=== PATIENT | female | born 1935 | race Caucasian/White ===

== ENCOUNTER → 2016-10-08 | Outpatient (CLI) | payer MEDICARE, MEDICAID ==
[2016-10-08] VITALS (8 sets, daily range): BP systolic 132–156; BP diastolic 53–77
[~2016-10-08] MED LIST: ALL100T PO; ASPI-231; BUME2TAB3 PO; CHOLESTYRAMINE 4 GM POWDER GT ONE; CHOLESTYRAMINE 4 GM POWDER ONE; CYANOCOBALAMIN (B-12) 1000 MCG/1 ML VIAL IM ONE; CYANOCOBALAMIN (B-12) 1000 MCG/1 ML VIAL ONE; FER325T PO; FUROSEMIDE 100 MG/10ML VIAL IV ONE; FUROSEMIDE INJECTION 10 ML ONE; INSLANTI; INSUINJ47 SC; LOS50T PO; MEC25T PO; PAR20T PO; POTA8TAB2; SIMV-13 PO; SODIUM CHLORIDE 0.9% 100 ML IV ONE; SULF500T8 PO; TADA20TA33 PO; TRAM50TA2 PO
[2016-10-08 16:35] LABS: Hematocrit 36.6 % (36.0-46.0); Hemoglobin 11.6 g/dL (12.2-16.2); Mean Corpuscular Hemoglobin 28.2 pg (28.0-32.0); Mean Corpuscular Hgb Conc. 31.9 g/dL (32.0-36.0); Mean Corpuscular Volume 88.7 fL (80.0-100.0); Mean Platelet Volume 10.2 fL (7.4-10.4); Platelet Count (auto) 215 10^3/uL (140-450); Red Cell Distribution Width 16.4 % (11.6-16.0); SUSPECT VIEW TRANSMISSION; White Blood Cell 5.3 10^3/uL (4.4-10.8)
[2016-10-08 16:51] LABS: BUN/Creatinine Ratio 21.3; Calcium 8.9 mg/dL (8.5-10.1); Potassium 4.3 mmol/L (3.5-5.1)
[2016-10-08 16:54] LABS: Metamyelocytes % 0; Myelocytes % 0; Promyelocytes % 0; Reactive Lymphocytes 0
[2016-10-08 17:11] LABS: Large Platelets FEW; Platelet Estimate Adequa
== END | disposition home or self-care (01) ==
LOC: CHF HDHVI 12:31
PROVIDERS: ATTEND Internal Medicine Cardiovascular Disease
DX: I10 Essential (primary) hypertension (principal); D64.9 Anemia, unspecified; E83.40 Disorders of magnesium metabolism, unspecified
CPT/HCPCS: 36415; 80048; 83735; 85007; 85027; 96365; 96366; 96372; G0463; J1642

== ENCOUNTER → 2016-10-10 | Outpatient (CLI) | payer MEDICARE, MEDICAID ==
[2016-10-10] VITALS (7 sets, daily range): BP systolic 111–146; BP diastolic 56–75
[~2016-10-10] VITALS: Ht 30.5 cm; Wt 130.6 kg
[~2016-10-10] MED LIST changes: -CHOLESTYRAMINE 4 GM POWDER GT ONE; -CHOLESTYRAMINE 4 GM POWDER ONE; -CYANOCOBALAMIN (B-12) 1000 MCG/1 ML VIAL IM ONE; -CYANOCOBALAMIN (B-12) 1000 MCG/1 ML VIAL ONE; -FUROSEMIDE 100 MG/10ML VIAL IV ONE; +FUROSEMIDE INJECTION 100 MG in SODIUM CHL 0.9% 100 ML IV SCH; -SODIUM CHLORIDE 0.9% 100 ML IV ONE
== END ==
LOC: CHF HDHVI 10:43
PROVIDERS: ATTEND Internal Medicine Cardiovascular Disease
DX: I10 Essential (primary) hypertension (principal); I73.9 Peripheral vascular disease, unspecified; E78.00 Pure hypercholesterolemia, unspecified; I50.9 Heart failure, unspecified; D64.9 Anemia, unspecified
CPT/HCPCS: 96365; 96366; G0463; J1642; J1940

== ENCOUNTER → 2016-10-15 | Outpatient (CLI) | payer MEDICARE, MEDICAID ==
[~2016-10-15] MED LIST changes: +CHOLESTYRAMINE 4 GM POWDER GT ONE; +CHOLESTYRAMINE 4 GM POWDER ONE; +FUROSEMIDE 100 MG/10ML VIAL IV ONE; -FUROSEMIDE INJECTION 100 MG in SODIUM CHL 0.9% 100 ML IV SCH; +SODIUM CHLORIDE 0.9% 1,000 ML IV SCH
[2016-10-15 13:30] VITALS: BP 142/58
[2016-10-15 14:00] VITALS: BP 121/61
[2016-10-15 14:30] VITALS: BP 114/70
[2016-10-15 15:00] VITALS: BP 143/70
[2016-10-15 15:30] VITALS: BP 145/59
[2016-10-15 16:40] VITALS: BP 140/60
[2016-10-15 16:50] LABS: Basophils # (auto) 0 uL; Basophils % (auto) 0.7 % (0.0-2.0); Eosinophils # (auto) 0.2 uL; Eosinophils % (auto) 3.8 % (0.0-7.0); Hematocrit 37.1 % (36.0-46.0); Hemoglobin 11.6 g/dL (12.2-16.2); Lymphocytes # (auto) 2.1 uL; Mean Corpuscular Hemoglobin 27.7 pg (28.0-32.0); Mean Corpuscular Hgb Conc. 31.3 g/dL (32.0-36.0); Mean Corpuscular Volume 88.4 fL (80.0-100.0); Mean Platelet Volume 10.8 fL (7.4-10.4); Monocytes # (auto) 0.5 uL; Monocytes % (auto) 8.7 % (0.0-12.0); Neutrophils # (auto) 2.4 uL; Neutrophils % (auto) 45.8 % (37.0-80.0); Platelet Count (auto) 233 10^3/uL (140-450); Red Cell Distribution Width 16.7 % (11.6-16.0); SUSPECT VIEW TRANSMISSION; White Blood Cell 5.2 10^3/uL (4.4-10.8)
[2016-10-15 16:56] LABS: BUN/Creatinine Ratio 25.7; Calcium 9.6 mg/dL (8.5-10.1); Magnesium 2.2 mg/dL (1.6-2.6); Potassium 4.3 mmol/L (3.5-5.1)
[2016-10-15 18:21] LABS: Anisocytosis Slight; Platelet Estimate Adequate
== END | disposition home or self-care (01) ==
LOC: CHF HDHVI 12:23
PROVIDERS: ATTEND Internal Medicine Cardiovascular Disease
DX: I10 Essential (primary) hypertension (principal); E83.40 Disorders of magnesium metabolism, unspecified; D64.9 Anemia, unspecified
CPT/HCPCS: 36415; 80048; 83735; 85025; 96365; 96366; 96372; G0463; J1642

== ENCOUNTER → 2016-10-21 | Outpatient (CLI) | payer MEDICARE, MEDICAID ==
[2016-10-21] VITALS (9 sets, daily range): BP systolic 120–163; BP diastolic 52–73
[~2016-10-21] MED LIST changes: +CYANOCOBALAMIN (B-12) 1000 MCG/1 ML VIAL IM ONE; +CYANOCOBALAMIN (B-12) 1000 MCG/1 ML VIAL ONE; -FUROSEMIDE 100 MG/10ML VIAL IV ONE; +FUROSEMIDE INJECTION 100 MG in SODIUM CHL 0.9% 100 ML IV SCH; -SODIUM CHLORIDE 0.9% 1,000 ML IV SCH
[2016-10-21 16:47] LABS: Basophils # (auto) 0 uL; Basophils % (auto) 0.5 % (0.0-2.0); Eosinophils # (auto) 0.2 uL; Eosinophils % (auto) 3.3 % (0.0-7.0); Hematocrit 39.6 % (36.0-46.0); Hemoglobin 12.4 g/dL (12.2-16.2); Lymphocytes # (auto) 3.1 uL; Lymphocytes % (auto) 43.1 % (10.0-50.0); Mean Corpuscular Hgb Conc. 31.4 g/dL (32.0-36.0); Mean Corpuscular Volume 89.1 fL (80.0-100.0); Mean Platelet Volume 10.4 fL (7.4-10.4); Monocytes # (auto) 0.7 uL; Monocytes % (auto) 9.3 % (0.0-12.0); Neutrophils # (auto) 3.1 uL; Neutrophils % (auto) 43.8 % (37.0-80.0); Platelet Count (auto) 254 10^3/uL (140-450); Red Cell Distribution Width 15.9 % (11.6-16.0); White Blood Cell 7.1 10^3/uL (4.4-10.8)
[2016-10-21 17:10] LABS: BUN/Creatinine Ratio 22.1; Calcium 9.1 mg/dL (8.5-10.1); Magnesium 2.3 mg/dL (1.6-2.6); Potassium 4.4 mmol/L (3.5-5.1)
== END | disposition home or self-care (01) ==
LOC: CHF HDHVI 12:12
PROVIDERS: ATTEND Internal Medicine Cardiovascular Disease
DX: I10 Essential (primary) hypertension (principal); D64.9 Anemia, unspecified; E83.40 Disorders of magnesium metabolism, unspecified
CPT/HCPCS: 36415; 80048; 83735; 85025; 85049; 96365; 96366; 96372; G0463; J1642

== ENCOUNTER → 2016-10-24 | Outpatient (CLI) | payer MEDICARE, MEDICAID ==
[2016-10-24] VITALS (8 sets, daily range): BP systolic 126–166; BP diastolic 61–78
[~2016-10-24] MED LIST changes: -CYANOCOBALAMIN (B-12) 1000 MCG/1 ML VIAL IM ONE; -CYANOCOBALAMIN (B-12) 1000 MCG/1 ML VIAL ONE; +FUROSEMIDE 100 MG/10ML VIAL IV ONE; -FUROSEMIDE INJECTION 100 MG in SODIUM CHL 0.9% 100 ML IV SCH; +SODIUM CHLORIDE 0.9% 100 ML IV SCH
== END | disposition home or self-care (01) ==
LOC: CHF HDHVI 10:29
PROVIDERS: ATTEND Internal Medicine Cardiovascular Disease
DX: I10 Essential (primary) hypertension (principal); I73.9 Peripheral vascular disease, unspecified; I50.9 Heart failure, unspecified
CPT/HCPCS: 96365; 96366; G0463; J1642; J1940

== ENCOUNTER → 2016-10-28 | Outpatient (CLI) | payer MEDICARE, MEDICAID ==
[2016-10-28] VITALS (7 sets, daily range): BP systolic 112–142; BP diastolic 52–60
[~2016-10-28] MED LIST changes: -CHOLESTYRAMINE 4 GM POWDER GT ONE; -CHOLESTYRAMINE 4 GM POWDER ONE; +CYANOCOBALAMIN (B-12) 1000 MCG/1 ML VIAL IM ONE; +CYANOCOBALAMIN (B-12) 1000 MCG/1 ML VIAL ONE; +SODIUM CHLORIDE 0.9% 1,000 ML IV SCH; -SODIUM CHLORIDE 0.9% 100 ML IV SCH
[2016-10-28 17:14] LABS: Basophils # (auto) 0 uL; Basophils % (auto) 0.5 % (0.0-2.0); Eosinophils # (auto) 0.3 uL; Eosinophils % (auto) 4.1 % (0.0-7.0); Hematocrit 36.1 % (36.0-46.0); Hemoglobin 11.4 g/dL (12.2-16.2); Lymphocytes # (auto) 2.1 uL; Mean Corpuscular Hemoglobin 28.2 pg (28.0-32.0); Mean Corpuscular Hgb Conc. 31.6 g/dL (32.0-36.0); Mean Corpuscular Volume 89.2 fL (80.0-100.0); Monocytes # (auto) 0.6 uL; Monocytes % (auto) 9.1 % (0.0-12.0); Neutrophils # (auto) 3.3 uL; Neutrophils % (auto) 52.3 % (37.0-80.0); Platelet Count (auto) 215 10^3/uL (140-450); White Blood Cell 6.2 10^3/uL (4.4-10.8)
[2016-10-28 17:23] LABS: BUN/Creatinine Ratio 17.5; Calcium 8.1 mg/dL (8.5-10.1); Magnesium 2.1 mg/dL (1.6-2.6); Potassium 4.2 mmol/L (3.5-5.1)
== END | disposition home or self-care (01) ==
LOC: CHF HDHVI 12:40
PROVIDERS: ATTEND Internal Medicine Cardiovascular Disease
DX: I10 Essential (primary) hypertension (principal); E83.40 Disorders of magnesium metabolism, unspecified; D64.9 Anemia, unspecified
CPT/HCPCS: 36415; 80048; 83735; 85025; 85049; 96365; 96366; 96372; G0463; J1642

== ENCOUNTER → 2016-10-31 | Outpatient (CLI) | payer MEDICARE, MEDICAID ==
[~2016-10-31] VITALS: Ht 30.5 cm; Wt 0.5 kg
[~2016-10-31] MED LIST changes: -CYANOCOBALAMIN (B-12) 1000 MCG/1 ML VIAL IM ONE; -CYANOCOBALAMIN (B-12) 1000 MCG/1 ML VIAL ONE; -FUROSEMIDE 100 MG/10ML VIAL IV ONE; +FUROSEMIDE INJECTION 100 MG in SODIUM CHL 0.9% 100 ML IV SCH; -SODIUM CHLORIDE 0.9% 1,000 ML IV SCH
[2016-10-31 11:00] VITALS: BP 121/61
[2016-10-31 11:30] VITALS: BP 124/55
[2016-10-31 12:00] VITALS: BP 121/50
[2016-10-31 12:30] VITALS: BP 131/62
[2016-10-31 12:59] LABS: Potassium 4.2 mmol/L (3.5-5.1)
[2016-10-31 13:00] VITALS: BP 118/51
== END | disposition home or self-care (01) ==
LOC: CHF HDHVI 10:15
PROVIDERS: ATTEND Internal Medicine Cardiovascular Disease
DX: I50.9 Heart failure, unspecified (principal); Z79.899 Other long term (current) drug therapy
CPT/HCPCS: 36415; 82565; 84132; 84520; 96365; 96366; 96367; G0463; J1642

== ENCOUNTER → 2016-11-05 | Outpatient (CLI) | payer MEDICARE, MEDICAID ==
[~2016-11-05] MED LIST changes: +FUROSEMIDE 100 MG/10ML VIAL IV ONE; -FUROSEMIDE INJECTION 10 ML ONE; -FUROSEMIDE INJECTION 100 MG in SODIUM CHL 0.9% 100 ML IV SCH; +POTASSIUM CHL 20 Meq TABLET PO ONE
[2016-11-05 13:00] VITALS: BP 152/66
[2016-11-05 13:30] VITALS: BP 138/72
[2016-11-05 14:00] VITALS: BP 128/61
[2016-11-05 14:30] VITALS: BP 129/55
[2016-11-05 15:00] VITALS: BP 134/54
[2016-11-05 15:30] VITALS: BP 101/60
[2016-11-05 16:47] LABS: BUN/Creatinine Ratio 14.2; Magnesium 2.2 mg/dL (1.6-2.6); Potassium 4.4 mmol/L (3.5-5.1)
[2016-11-05 17:14] LABS: Basophils # (auto) 0 uL; Basophils % (auto) 0.8 % (0.0-2.0); Eosinophils # (auto) 0.2 uL; Hematocrit 38.3 % (36.0-46.0); Hemoglobin 11.9 g/dL (12.2-16.2); Lymphocytes # (auto) 2.5 uL; Lymphocytes % (auto) 45.6 % (10.0-50.0); Mean Corpuscular Hemoglobin 27.6 pg (28.0-32.0); Mean Platelet Volume 10.6 fL (7.4-10.4); Monocytes # (auto) 0.5 uL; Monocytes % (auto) 8.6 % (0.0-12.0); Neutrophils # (auto) 2.3 uL; Platelet Count (auto) 281 10^3/uL (140-450); White Blood Cell 5.6 10^3/uL (4.4-10.8)
== END | disposition home or self-care (01) ==
LOC: CHF HDHVI 12:31
PROVIDERS: ATTEND Internal Medicine Cardiovascular Disease
DX: I10 Essential (primary) hypertension (principal); D64.9 Anemia, unspecified; E83.40 Disorders of magnesium metabolism, unspecified
CPT/HCPCS: 36415; 80048; 83735; 85025; 96365; 96366; 96372; G0463

== ENCOUNTER → 2016-11-07 | Outpatient (CLI) | payer MEDICARE, MEDICAID ==
[2016-11-07] VITALS (8 sets, daily range): BP systolic 111–132; BP diastolic 55–87
[~2016-11-07] MED LIST changes: +CHOLESTYRAMINE 4 GM POWDER GT ONE; +CHOLESTYRAMINE 4 GM POWDER ONE; -FUROSEMIDE 100 MG/10ML VIAL IV ONE; +FUROSEMIDE INJECTION 10 ML ONE; +FUROSEMIDE INJECTION 100 MG in SODIUM CHL 0.9% 100 ML IV SCH; -POTASSIUM CHL 20 Meq TABLET PO ONE
== END | disposition home or self-care (01) ==
LOC: CHF HDHVI 10:12
PROVIDERS: ATTEND Internal Medicine Cardiovascular Disease
DX: I11.0 Hypertensive heart disease with heart failure (principal); I50.9 Heart failure, unspecified; I73.9 Peripheral vascular disease, unspecified; D64.9 Anemia, unspecified; E78.00 Pure hypercholesterolemia, unspecified
CPT/HCPCS: 96365; 96366; G0463; J1642; J1940

== ENCOUNTER → 2016-11-11 | Outpatient (CLI) | payer MEDICARE, MEDICAID ==
[2016-11-11] VITALS (9 sets, daily range): BP systolic 106–149; BP diastolic 56–71
[~2016-11-11] MED LIST changes: -CHOLESTYRAMINE 4 GM POWDER GT ONE; +CYANOCOBALAMIN (B-12) 1000 MCG/1 ML VIAL IM ONE; +CYANOCOBALAMIN (B-12) 1000 MCG/1 ML VIAL ONE; -FUROSEMIDE INJECTION 100 MG in SODIUM CHL 0.9% 100 ML IV SCH
[2016-11-11 17:07] LABS: Hematocrit 35.3 % (36.0-46.0); Mean Corpuscular Hemoglobin 27.9 pg (28.0-32.0); Mean Corpuscular Hgb Conc. 31.3 g/dL (32.0-36.0); Mean Corpuscular Volume 89.1 fL (80.0-100.0); Mean Platelet Volume 10.4 fL (7.4-10.4); Platelet Count (auto) 236 10^3/uL (140-450); Red Cell Distribution Width 16.2 % (11.6-16.0); SUSPECT VIEW TRANSMISSION; White Blood Cell 5.4 10^3/uL (4.4-10.8)
[2016-11-11 17:31] LABS: BUN/Creatinine Ratio 20.9; Calcium 8.4 mg/dL (8.5-10.1); Magnesium 2.2 mg/dL (1.6-2.6); Potassium 4.2 mmol/L (3.5-5.1)
[2016-11-11 17:39] LABS: Metamyelocytes % 0; Myelocytes % 0; Promyelocytes % 0; Reactive Lymphocytes 0
[2016-11-11 18:18] LABS: Giant Platelets Few; Platelet Clumps FEW; Platelet Estimate Adequa
== END | disposition home or self-care (01) ==
LOC: CHF HDHVI 12:21
PROVIDERS: ATTEND Internal Medicine Cardiovascular Disease
DX: I10 Essential (primary) hypertension (principal); E11.9 Type 2 diabetes mellitus without complications; E83.40 Disorders of magnesium metabolism, unspecified; D64.9 Anemia, unspecified
CPT/HCPCS: 36415; 80048; 83036; 83735; 85007; 85027; 93701; 96365; 96366; 96372; G0463; J1642

== ENCOUNTER → 2016-11-18 | Outpatient (CLI) | payer MEDICARE, MEDICAID ==
[2016-11-18] VITALS (9 sets, daily range): BP systolic 117–147; BP diastolic 59–77
[~2016-11-18] VITALS: Ht 165.1 cm; Wt 129.4 kg
[~2016-11-18] MED LIST changes: -CHOLESTYRAMINE 4 GM POWDER ONE; +FUROSEMIDE 100 MG/10ML VIAL IV ONE; +SODIUM CHLORIDE 0.9% 1,000 ML IV SCH
[2016-11-18 17:41] LABS: Basophils # (auto) 0 uL; Eosinophils # (auto) 0.2 uL; Mean Corpuscular Hemoglobin 27.5 pg (28.0-32.0); Monocytes # (auto) 0.5 uL; Neutrophils # (auto) 3.2 uL; Red Cell Distribution Width 15.8 % (11.6-16.0); SUSPECT VIEW TRANSMISSION
[2016-11-18 17:49] LABS: Basophils % (auto) 0.6 % (0.0-2.0); Eosinophils % (auto) 2.9 % (0.0-7.0); Hematocrit 36.6 % (36.0-46.0); Hemoglobin 11.3 g/dL (12.2-16.2); Lymphocytes # (auto) 2.1 uL; Lymphocytes % (auto) 34.5 % (10.0-50.0); Mean Corpuscular Hgb Conc. 30.9 g/dL (32.0-36.0); Mean Corpuscular Volume 89.1 fL (80.0-100.0); Mean Platelet Volume 10.7 fL (7.4-10.4); Monocytes % (auto) 8.6 % (0.0-12.0); Neutrophils % (auto) 53.4 % (37.0-80.0); Platelet Count (auto) 219 10^3/uL (140-450); White Blood Cell 5.9 10^3/uL (4.4-10.8)
[2016-11-18 18:58] LABS: BUN/Creatinine Ratio 20.3; Calcium 8.6 mg/dL (8.5-10.1); Magnesium 2.1 mg/dL (1.6-2.6); Potassium 4.1 mmol/L (3.5-5.1)
== END | disposition home or self-care (01) ==
LOC: CHF HDHVI 12:32
PROVIDERS: ATTEND Internal Medicine Cardiovascular Disease
DX: I50.9 Heart failure, unspecified (principal); I25.10 Atherosclerotic heart disease of native coronary artery without angina pectoris; I73.9 Peripheral vascular disease, unspecified; I27.2 Other secondary pulmonary hypertension; D64.9 Anemia, unspecified
CPT/HCPCS: 36415; 80048; 83036; 83735; 85025; 96365; 96366; 96372; G0463; J1642; J1940; J3420

== ENCOUNTER → 2016-11-21 | Outpatient (CLI) | payer MEDICARE, MEDICAID ==
[2016-11-21] VITALS (9 sets, daily range): BP systolic 112–148; BP diastolic 58–67
[~2016-11-21] MED LIST changes: -CYANOCOBALAMIN (B-12) 1000 MCG/1 ML VIAL IM ONE; -FUROSEMIDE 100 MG/10ML VIAL IV ONE; +FUROSEMIDE INJECTION 100 MG in SODIUM CHL 0.9% 100 ML IV SCH; -SODIUM CHLORIDE 0.9% 1,000 ML IV SCH
== END | disposition home or self-care (01) ==
LOC: CHF HDHVI 10:12
PROVIDERS: ATTEND Internal Medicine Cardiovascular Disease
DX: I11.0 Hypertensive heart disease with heart failure (principal); I50.9 Heart failure, unspecified; I27.0 Primary pulmonary hypertension; E78.00 Pure hypercholesterolemia, unspecified; I73.9 Peripheral vascular disease, unspecified
CPT/HCPCS: 96365; 96366; G0463; J1642; J1940

== ENCOUNTER → 2016-11-28 | Outpatient (CLI) | payer MEDICARE, MEDICAID ==
[2016-11-28] VITALS (9 sets, daily range): BP systolic 112–142; BP diastolic 50–83
[~2016-11-28] MED LIST changes: +CHOLESTYRAMINE 4 GM POWDER ONE; +CHOLESTYRAMINE 4 GM POWDER PO ONE; +CYANOCOBALAMIN (B-12) 1000 MCG/1 ML VIAL IM ONE; +FUROSEMIDE INJECTION 100 MG in SODIUM CHL 0.9% 100 ML IV ONE; -FUROSEMIDE INJECTION 100 MG in SODIUM CHL 0.9% 100 ML IV SCH
[2016-11-28 16:21] LABS: Basophils # (auto) 0 uL; Basophils % (auto) 0.8 % (0.0-2.0); Eosinophils # (auto) 0.2 uL; Hematocrit 36.7 % (36.0-46.0); Hemoglobin 11.8 g/dL (12.2-16.2); Lymphocytes # (auto) 1.8 uL; Lymphocytes % (auto) 38.1 % (10.0-50.0); Mean Corpuscular Hemoglobin 28.5 pg (28.0-32.0); Mean Corpuscular Hgb Conc. 32.3 g/dL (32.0-36.0); Mean Corpuscular Volume 88.2 fL (80.0-100.0); Mean Platelet Volume 10.7 fL (7.4-10.4); Monocytes # (auto) 0.4 uL; Monocytes % (auto) 8.7 % (0.0-12.0); Neutrophils # (auto) 2.3 uL; Neutrophils % (auto) 48.4 % (37.0-80.0); Platelet Count (auto) 236 10^3/uL (140-450); Red Cell Distribution Width 15.8 % (11.6-16.0); SUSPECT VIEW TRANSMISSION; White Blood Cell 4.9 10^3/uL (4.4-10.8)
[2016-11-28 16:34] LABS: Calcium 8.5 mg/dL (8.5-10.1); Magnesium 2.1 mg/dL (1.6-2.6); Potassium 4.2 mmol/L (3.5-5.1)
[2016-11-28 16:36] LABS: BUN/Creatinine Ratio 18.3
== END | disposition home or self-care (01) ==
LOC: CHF HDHVI 10:40
PROVIDERS: ATTEND Internal Medicine Cardiovascular Disease
DX: I10 Essential (primary) hypertension (principal); E83.40 Disorders of magnesium metabolism, unspecified; D64.9 Anemia, unspecified
CPT/HCPCS: 36415; 80048; 83735; 85025; 96365; 96366; 96372; G0463; J1642

== ENCOUNTER → 2016-12-02 | Outpatient (CLI) | payer MEDICARE, MEDICAID ==
[~2016-12-02] VITALS: Ht 33 cm; Wt 130.4 kg
[2016-12-02] VITALS (9 sets, daily range): BP systolic 100–125; BP diastolic 59–85
[~2016-12-02] MED LIST changes: +CHOLESTYRAMINE 4 GM POWDER GT ONE; -CHOLESTYRAMINE 4 GM POWDER PO ONE; +FUROSEMIDE 100 MG/10ML VIAL IV ONE; -FUROSEMIDE INJECTION 100 MG in SODIUM CHL 0.9% 100 ML IV ONE; +KETOROLAC TROMETH 60MG/2ML VIAL IM ONE
[2016-12-02] MEDS: SODIUM CHLORIDE 0.9% 100 ML IV SCH ×2 (12:55→14:14)
[2016-12-02 16:24] LABS: Basophils # (auto) 0 uL; Basophils % (auto) 0.7 % (0.0-2.0); Eosinophils # (auto) 0.2 uL; Hematocrit 36.5 % (36.0-46.0); Lymphocytes # (auto) 2.6 uL; Lymphocytes % (auto) 41.5 % (10.0-50.0); Mean Corpuscular Hemoglobin 28.6 pg (28.0-32.0); Mean Corpuscular Hgb Conc. 32.9 g/dL (32.0-36.0); Mean Corpuscular Volume 86.8 fL (80.0-100.0); Mean Platelet Volume 10.6 fL (7.4-10.4); Monocytes # (auto) 0.4 uL; Monocytes % (auto) 7.2 % (0.0-12.0); Neutrophils # (auto) 2.9 uL; Neutrophils % (auto) 47.6 % (37.0-80.0); Platelet Count (auto) 256 10^3/uL (140-450); Red Cell Distribution Width 15.7 % (11.6-16.0); White Blood Cell 6.1 10^3/uL (4.4-10.8)
[2016-12-02 16:48] LABS: Potassium 4.5 mmol/L (3.5-5.1)
== END | disposition home or self-care (01) ==
LOC: CHF HDHVI 12:33
PROVIDERS: ATTEND Internal Medicine Cardiovascular Disease
DX: I50.9 Heart failure, unspecified (principal); Z79.899 Other long term (current) drug therapy; D64.9 Anemia, unspecified
CPT/HCPCS: 36415; 82565; 84132; 84520; 85025; 96365; 96366; 96372; G0463; J1642; J1885

== ENCOUNTER → 2016-12-05 | Outpatient (CLI) | payer MEDICARE, MEDICAID ==
[~2016-12-05] VITALS: Ht 165.1 cm; Wt 131.1 kg
[2016-12-05] VITALS (7 sets, daily range): BP systolic 127–149; BP diastolic 55–75
[~2016-12-05] MED LIST changes: -CHOLESTYRAMINE 4 GM POWDER GT ONE; +CHOLESTYRAMINE 4 GM POWDER PO ONE; -CYANOCOBALAMIN (B-12) 1000 MCG/1 ML VIAL IM ONE; -CYANOCOBALAMIN (B-12) 1000 MCG/1 ML VIAL ONE; -FUROSEMIDE 100 MG/10ML VIAL IV ONE; +FUROSEMIDE INJECTION 100 MG in SODIUM CHL 0.9% 100 ML IV SCH; -KETOROLAC TROMETH 60MG/2ML VIAL IM ONE
== END | disposition home or self-care (01) ==
LOC: CHF HDHVI 09:57
PROVIDERS: ATTEND Internal Medicine Cardiovascular Disease
DX: I11.0 Hypertensive heart disease with heart failure (principal); I50.9 Heart failure, unspecified; I25.10 Atherosclerotic heart disease of native coronary artery without angina pectoris; E78.00 Pure hypercholesterolemia, unspecified
CPT/HCPCS: 96365; 96366; G0463; J1642; J1940

== ENCOUNTER → 2016-12-09 | Outpatient (CLI) | payer MEDICARE, MEDICAID ==
[~2016-12-09] MED LIST changes: +CHOLESTYRAMINE 4 GM POWDER GT ONE; -CHOLESTYRAMINE 4 GM POWDER PO ONE; +CYANOCOBALAMIN (B-12) 1000 MCG/1 ML VIAL IM ONE; +CYANOCOBALAMIN (B-12) 1000 MCG/1 ML VIAL ONE; +FUROSEMIDE 100 MG/10ML VIAL IV ONE; -FUROSEMIDE INJECTION 100 MG in SODIUM CHL 0.9% 100 ML IV SCH; +KETOROLAC TROMETH 60MG/2ML VIAL IM ONE
[2016-12-09 13:30] VITALS: BP 118/80
[2016-12-09 14:00] VITALS: BP 120/56
[2016-12-09 14:30] VITALS: BP 122/71
[2016-12-09 15:00] VITALS: BP 126/63
[2016-12-09 15:30] VITALS: BP 129/71
[2016-12-09 16:00] VITALS: BP 119/62
[2016-12-09 16:17] LABS: Basophils # (auto) 0 uL; Basophils % (auto) 0.7 % (0.0-2.0); Eosinophils # (auto) 0.2 uL; Hematocrit 34.8 % (36.0-46.0); Hemoglobin 11.6 g/dL (12.2-16.2); Lymphocytes # (auto) 2.1 uL; Lymphocytes % (auto) 41.5 % (10.0-50.0); Mean Corpuscular Hemoglobin 29.2 pg (28.0-32.0); Mean Corpuscular Hgb Conc. 33.3 g/dL (32.0-36.0); Mean Corpuscular Volume 87.7 fL (80.0-100.0); Mean Platelet Volume 9.8 fL (7.4-10.4); Monocytes # (auto) 0.5 uL; Monocytes % (auto) 9.3 % (0.0-12.0); Neutrophils # (auto) 2.3 uL; Neutrophils % (auto) 45.5 % (37.0-80.0); Platelet Count (auto) 223 10^3/uL (140-450); Red Cell Distribution Width 15.6 % (11.6-16.0); SUSPECT VIEW TRANSMISSION
[2016-12-09 16:30] LABS: BUN/Creatinine Ratio 24.3; Calcium 8.8 mg/dL (8.5-10.1); Magnesium 2.1 mg/dL (1.6-2.6); Potassium 3.9 mmol/L (3.5-5.1)
== END | disposition home or self-care (01) ==
LOC: CHF HDHVI 12:32
PROVIDERS: ATTEND Internal Medicine Cardiovascular Disease
DX: I10 Essential (primary) hypertension (principal); E83.40 Disorders of magnesium metabolism, unspecified; D64.9 Anemia, unspecified; E55.9 Vitamin D deficiency, unspecified
CPT/HCPCS: 36415; 80048; 82306; 83735; 85025; 96365; 96366; 96372; G0463; J1642; J1885

== ENCOUNTER → 2016-12-12 | Outpatient (CLI) | payer MEDICARE, MEDICAID ==
[~2016-12-12] MED LIST changes: -CHOLESTYRAMINE 4 GM POWDER GT ONE; +CHOLESTYRAMINE 4 GM POWDER PO ONE; -CYANOCOBALAMIN (B-12) 1000 MCG/1 ML VIAL IM ONE; -CYANOCOBALAMIN (B-12) 1000 MCG/1 ML VIAL ONE; -KETOROLAC TROMETH 60MG/2ML VIAL IM ONE
[2016-12-12 11:30] VITALS: BP 111/70
[2016-12-12 12:00] VITALS: BP 103/58
[2016-12-12 12:30] VITALS: BP 95/54
[2016-12-12 13:00] VITALS: BP 111/65
[2016-12-12 13:59] VITALS: BP 109/62
== END | disposition home or self-care (01) ==
LOC: CHF HDHVI 10:39
PROVIDERS: ATTEND Internal Medicine Cardiovascular Disease
DX: I11.0 Hypertensive heart disease with heart failure (principal); I50.9 Heart failure, unspecified; I25.10 Atherosclerotic heart disease of native coronary artery without angina pectoris; D64.9 Anemia, unspecified; E78.00 Pure hypercholesterolemia, unspecified
CPT/HCPCS: 82962; 96365; 96366; G0463; J1642; J1940

== ENCOUNTER → 2016-12-16 | Outpatient (CLI) | payer MEDICARE, MEDICAID ==
[~2016-12-16] VITALS: Ht 1 cm; Wt 0.8 kg
[~2016-12-16] MED LIST changes: +CHOLESTYRAMINE 4 GM POWDER GT ONE; -CHOLESTYRAMINE 4 GM POWDER PO ONE; +CYANOCOBALAMIN (B-12) 1000 MCG/1 ML VIAL IM ONE; +CYANOCOBALAMIN (B-12) 1000 MCG/1 ML VIAL ONE; +DOBUTamine 1000MCG/ML 0 ML IV ONE; +SODIUM CHLORIDE 0.9% 100 ML IV SCH
[2016-12-16 13:30] VITALS: BP 113/64
[2016-12-16 14:00] VITALS: BP 115/70
[2016-12-16 15:00] VITALS: BP 101/55
[2016-12-16 15:30] VITALS: BP 120/63
[2016-12-16 16:53] LABS: Hemoglobin 11.2 g/dL (12.2-16.2); Mean Corpuscular Hemoglobin 28.1 pg (28.0-32.0); Mean Corpuscular Hgb Conc. 32.1 g/dL (32.0-36.0); Mean Corpuscular Volume 87.4 fL (80.0-100.0); Mean Platelet Volume 10.6 fL (7.4-10.4); Platelet Count (auto) 228 10^3/uL (140-450); Red Cell Distribution Width 16.1 % (11.6-16.0); SUSPECT VIEW TRANSMISSION; White Blood Cell 5.5 10^3/uL (4.4-10.8)
[2016-12-16 17:04] LABS: BUN/Creatinine Ratio 25.6; Calcium 8.5 mg/dL (8.5-10.1); Potassium 4.3 mmol/L (3.5-5.1)
[2016-12-16 17:20] LABS: Metamyelocytes % 0; Myelocytes % 0; Promyelocytes % 0; Reactive Lymphocytes 0
[2016-12-16 19:19] LABS: Platelet Estimate Adequate
== END | disposition home or self-care (01) ==
LOC: CHF HDHVI 12:30
PROVIDERS: ATTEND Internal Medicine Cardiovascular Disease
DX: I10 Essential (primary) hypertension (principal); D64.9 Anemia, unspecified
CPT/HCPCS: 36415; 80048; 85007; 85027; 96365; 96366; 96372; G0463; J1642

== ENCOUNTER → 2016-12-19 | Outpatient (CLI) | payer MEDICARE, MEDICAID ==
[2016-12-19] VITALS (7 sets, daily range): BP systolic 109–134; BP diastolic 62–77
[~2016-12-19] MED LIST changes: -CHOLESTYRAMINE 4 GM POWDER GT ONE; +CHOLESTYRAMINE 4 GM POWDER PO ONE; -CYANOCOBALAMIN (B-12) 1000 MCG/1 ML VIAL IM ONE; -CYANOCOBALAMIN (B-12) 1000 MCG/1 ML VIAL ONE; -DOBUTamine 1000MCG/ML 0 ML IV ONE; -FUROSEMIDE 100 MG/10ML VIAL IV ONE; +FUROSEMIDE INJECTION 100 MG in SODIUM CHL 0.9% 100 ML IV SCH; -SODIUM CHLORIDE 0.9% 100 ML IV SCH
== END | disposition home or self-care (01) ==
LOC: CHF HDHVI 10:08
PROVIDERS: ATTEND Internal Medicine Cardiovascular Disease
DX: I50.9 Heart failure, unspecified (principal); I11.0 Hypertensive heart disease with heart failure; D64.9 Anemia, unspecified; E78.00 Pure hypercholesterolemia, unspecified
CPT/HCPCS: 82962; 96365; 96366; G0463; J1642; J1940

== ENCOUNTER → 2016-12-26 | Outpatient (CLI) | payer MEDICARE, MEDICAID ==
[2016-12-26] VITALS (9 sets, daily range): BP systolic 100–135; BP diastolic 53–74
[~2016-12-26] MED LIST changes: +CYANOCOBALAMIN (B-12) 1000 MCG/1 ML VIAL IM ONE; +CYANOCOBALAMIN (B-12) 1000 MCG/1 ML VIAL ONE
[2016-12-26 12:25] LABS: Basophils # (auto) 0 uL; Basophils % (auto) 0.6 % (0.0-2.0); Eosinophils # (auto) 0.2 uL; Eosinophils % (auto) 3.6 % (0.0-7.0); Hematocrit 36.6 % (36.0-46.0); Hemoglobin 11.8 g/dL (12.2-16.2); Lymphocytes # (auto) 2.2 uL; Lymphocytes % (auto) 39.8 % (10.0-50.0); Mean Corpuscular Hemoglobin 28.3 pg (28.0-32.0); Mean Corpuscular Hgb Conc. 32.3 g/dL (32.0-36.0); Mean Corpuscular Volume 87.6 fL (80.0-100.0); Mean Platelet Volume 10.2 fL (7.4-10.4); Monocytes # (auto) 0.5 uL; Monocytes % (auto) 8.6 % (0.0-12.0); Neutrophils # (auto) 2.7 uL; Neutrophils % (auto) 47.4 % (37.0-80.0); Platelet Count (auto) 245 10^3/uL (140-450); Red Cell Distribution Width 15.7 % (11.6-16.0); White Blood Cell 5.6 10^3/uL (4.4-10.8)
[2016-12-26 12:38] LABS: BUN/Creatinine Ratio 22.2; Calcium 8.8 mg/dL (8.5-10.1); Magnesium 2.3 mg/dL (1.6-2.6); Potassium 4.4 mmol/L (3.5-5.1)
== END | disposition home or self-care (01) ==
LOC: CHF HDHVI 10:36
PROVIDERS: ATTEND Internal Medicine Cardiovascular Disease
DX: I11.0 Hypertensive heart disease with heart failure (principal); I50.9 Heart failure, unspecified; I25.10 Atherosclerotic heart disease of native coronary artery without angina pectoris; D64.9 Anemia, unspecified; E55.9 Vitamin D deficiency, unspecified; E78.00 Pure hypercholesterolemia, unspecified
CPT/HCPCS: 36415; 80048; 83735; 85025; 96365; 96366; 96372; G0463; J1642; J1940; J3420

== ENCOUNTER → 2017-01-02 | Outpatient (CLI) | payer MEDICARE, MEDICAID ==
[2017-01-02] VITALS (8 sets, daily range): BP systolic 107–136; BP diastolic 59–76
[~2017-01-02] VITALS: Ht 30.5 cm; Wt 0.0 kg
[~2017-01-02] MED LIST changes: +POTASSIUM CHL 10 Meq TABLET PO ONE
[2017-01-02 12:12] LABS: Basophils # (auto) 0 uL; Basophils % (auto) 0.5 % (0.0-2.0); Eosinophils # (auto) 0.2 uL; Eosinophils % (auto) 3.9 % (0.0-7.0); Hematocrit 36.3 % (36.0-46.0); Hemoglobin 11.7 g/dL (12.2-16.2); Lymphocytes # (auto) 2.3 uL; Lymphocytes % (auto) 38.2 % (10.0-50.0); Mean Corpuscular Hemoglobin 28.1 pg (28.0-32.0); Mean Corpuscular Hgb Conc. 32.2 g/dL (32.0-36.0); Mean Corpuscular Volume 87.1 fL (80.0-100.0); Mean Platelet Volume 10.2 fL (7.4-10.4); Monocytes # (auto) 0.5 uL; Monocytes % (auto) 9.1 % (0.0-12.0); Neutrophils # (auto) 2.9 uL; Neutrophils % (auto) 48.3 % (37.0-80.0); Platelet Count (auto) 240 10^3/uL (140-450); Red Cell Distribution Width 15.8 % (11.6-16.0); SUSPECT VIEW TRANSMISSION
== END | disposition home or self-care (01) ==
LOC: CHF HDHVI 10:15
PROVIDERS: ATTEND Internal Medicine Cardiovascular Disease
DX: I10 Essential (primary) hypertension (principal); R94.4 Abnormal results of kidney function studies; D64.9 Anemia, unspecified; E55.9 Vitamin D deficiency, unspecified
CPT/HCPCS: 36415; 82306; 82565; 84132; 84520; 85025; 96365; 96366; 96372; G0463; J1642

== ENCOUNTER → 2017-01-06 | Outpatient (CLI) | payer MEDICARE, MEDICAID ==
[~2017-01-06] MED LIST changes: +CHOLESTYRAMINE 4 GM POWDER GT ONE; -CHOLESTYRAMINE 4 GM POWDER PO ONE; +FUROSEMIDE 100 MG/10ML VIAL IV ONE; -FUROSEMIDE INJECTION 100 MG in SODIUM CHL 0.9% 100 ML IV SCH; -POTASSIUM CHL 10 Meq TABLET PO ONE; +POTASSIUM CHL 20 Meq TABLET PO ONE; +SODIUM CHLORIDE 0.9% 1,000 ML IV ONE
[2017-01-06 13:00] VITALS: BP 106/61
[2017-01-06 13:30] VITALS: BP 119/72
[2017-01-06 14:00] VITALS: BP 146/69
[2017-01-06 14:30] VITALS: BP 121/56
[2017-01-06 15:00] VITALS: BP 147/69
[2017-01-06 16:00] VITALS: BP 122/68
[2017-01-06 16:35] LABS: Basophils # (auto) 0 uL; Basophils % (auto) 0.5 % (0.0-2.0); Eosinophils # (auto) 0.2 uL; Eosinophils % (auto) 2.9 % (0.0-7.0); Hematocrit 36.9 % (36.0-46.0); Hemoglobin 11.9 g/dL (12.2-16.2); Mean Corpuscular Hemoglobin 28.2 pg (28.0-32.0); Mean Corpuscular Hgb Conc. 32.3 g/dL (32.0-36.0); Mean Corpuscular Volume 87.3 fL (80.0-100.0); Mean Platelet Volume 10.7 fL (7.4-10.4); Monocytes # (auto) 0.5 uL; Monocytes % (auto) 8.7 % (0.0-12.0); Neutrophils # (auto) 3.5 uL; Neutrophils % (auto) 55.9 % (37.0-80.0); Platelet Count (auto) 239 10^3/uL (140-450); Red Cell Distribution Width 15.7 % (11.6-16.0); SUSPECT VIEW TRANSMISSION; White Blood Cell 6.3 10^3/uL (4.4-10.8)
[2017-01-06 16:53] LABS: BUN/Creatinine Ratio 14.4; Calcium 8.6 mg/dL (8.5-10.1); Magnesium 2.2 mg/dL (1.6-2.6); Potassium 4.2 mmol/L (3.5-5.1)
== END | disposition home or self-care (01) ==
LOC: CHF HDHVI 12:23
PROVIDERS: ATTEND Internal Medicine Cardiovascular Disease
DX: I10 Essential (primary) hypertension (principal); E83.42 Hypomagnesemia; D64.9 Anemia, unspecified
CPT/HCPCS: 36415; 80048; 83735; 85025; 96365; 96366; 96372; G0463; J1642

== ENCOUNTER → 2017-01-09 | Outpatient (CLI) | payer MEDICARE, MEDICAID ==
[~2017-01-09] MED LIST changes: -CHOLESTYRAMINE 4 GM POWDER GT ONE; -CYANOCOBALAMIN (B-12) 1000 MCG/1 ML VIAL IM ONE; -CYANOCOBALAMIN (B-12) 1000 MCG/1 ML VIAL ONE; -FUROSEMIDE 100 MG/10ML VIAL IV ONE; +FUROSEMIDE INJECTION 100 MG in SODIUM CHL 0.9% 100 ML IV SCH; +KETOROLAC TROMETH 60MG/2ML VIAL IM ONE; -POTASSIUM CHL 20 Meq TABLET PO ONE; -SODIUM CHLORIDE 0.9% 1,000 ML IV ONE
[2017-01-09 14:10] VITALS: BP 97/52
== END ==
LOC: CHF HDHVI 10:02
PROVIDERS: ATTEND Internal Medicine Cardiovascular Disease
DX: I11.0 Hypertensive heart disease with heart failure (principal); I50.9 Heart failure, unspecified; I25.10 Atherosclerotic heart disease of native coronary artery without angina pectoris; D64.9 Anemia, unspecified; E78.00 Pure hypercholesterolemia, unspecified
CPT/HCPCS: 96365; 96366; 96372; G0463; J1642; J1885; J1940

== ENCOUNTER → 2017-01-13 | Outpatient (CLI) | payer MEDICARE, MEDICAID ==
[2017-01-13] VITALS (7 sets, daily range): BP systolic 104–152; BP diastolic 58–81
[~2017-01-13] MED LIST changes: -CHOLESTYRAMINE 4 GM POWDER ONE; +CYANOCOBALAMIN (B-12) 1000 MCG/1 ML VIAL IM ONE; +CYANOCOBALAMIN (B-12) 1000 MCG/1 ML VIAL ONE; -KETOROLAC TROMETH 60MG/2ML VIAL IM ONE; +POTASSIUM CHL 20 Meq TABLET PO ONE
[2017-01-13 16:35] LABS: Basophils # (auto) 0 uL; Basophils % (auto) 0.6 % (0.0-2.0); Eosinophils # (auto) 0.3 uL; Eosinophils % (auto) 4.3 % (0.0-7.0); Hematocrit 36.9 % (36.0-46.0); Hemoglobin 11.8 g/dL (12.2-16.2); Lymphocytes # (auto) 2.5 uL; Mean Corpuscular Hemoglobin 27.7 pg (28.0-32.0); Mean Corpuscular Volume 86.7 fL (80.0-100.0); Mean Platelet Volume 10.8 fL (7.4-10.4); Monocytes # (auto) 0.6 uL; Neutrophils # (auto) 2.8 uL; Neutrophils % (auto) 45.1 % (37.0-80.0); Platelet Count (auto) 279 10^3/uL (140-450); Red Cell Distribution Width 15.9 % (11.6-16.0); White Blood Cell 6.2 10^3/uL (4.4-10.8)
[2017-01-13 16:43] LABS: Potassium 4.4 mmol/L (3.5-5.1)
== END | disposition home or self-care (01) ==
LOC: CHF HDHVI 12:56
PROVIDERS: ATTEND Internal Medicine Cardiovascular Disease
DX: I10 Essential (primary) hypertension (principal); D64.9 Anemia, unspecified; R94.4 Abnormal results of kidney function studies
CPT/HCPCS: 36415; 82565; 84132; 84520; 85025; J1642

== ENCOUNTER → 2017-01-20 | Outpatient (CLI) | payer MEDICARE, MEDICAID ==
[~2017-01-20] VITALS: Ht 1 cm; Wt 0.5 kg
[~2017-01-20] MED LIST changes: +FUROSEMIDE 100 MG/10ML VIAL IV ONE; -FUROSEMIDE INJECTION 100 MG in SODIUM CHL 0.9% 100 ML IV SCH; +KETOROLAC TROMETH 60MG/2ML VIAL IM ONE; -POTASSIUM CHL 20 Meq TABLET PO ONE; +SODIUM CHLORIDE 0.9% 100 ML IV SCH
[2017-01-20 13:15] VITALS: BP 102/60
[2017-01-20 13:30] VITALS: BP 104/54
[2017-01-20 13:45] VITALS: BP 102/57
[2017-01-20 14:00] VITALS: BP 114/59
[2017-01-20 14:30] VITALS: BP 111/61
[2017-01-20 16:52] LABS: Basophils # (auto) 0.1 uL; Basophils % (auto) 0.8 % (0.0-2.0); Eosinophils # (auto) 0.2 uL; Eosinophils % (auto) 3.5 % (0.0-7.0); Hematocrit 35.8 % (36.0-46.0); Hemoglobin 11.6 g/dL (12.2-16.2); Lymphocytes # (auto) 2.6 uL; Lymphocytes % (auto) 39.1 % (10.0-50.0); Mean Corpuscular Hemoglobin 27.8 pg (28.0-32.0); Mean Corpuscular Hgb Conc. 32.3 g/dL (32.0-36.0); Mean Platelet Volume 10.2 fL (7.4-10.4); Monocytes # (auto) 0.5 uL; Monocytes % (auto) 7.7 % (0.0-12.0); Neutrophils # (auto) 3.3 uL; Neutrophils % (auto) 48.9 % (37.0-80.0); Platelet Count (auto) 279 10^3/uL (140-450); Red Cell Distribution Width 15.8 % (11.6-16.0); White Blood Cell 6.7 10^3/uL (4.4-10.8)
[2017-01-20 17:18] LABS: Albumin 3.5 g/dL (3.4-5.0); BUN/Creatinine Ratio 18.8; Calcium 8.6 mg/dL (8.5-10.1); Magnesium 2.4 mg/dL (1.6-2.6); Potassium 4.5 mmol/L (3.5-5.1); Uric Acid 8.9 mg/dL (2.6-6.0)
== END | disposition home or self-care (01) ==
LOC: CHF HDHVI 12:37
PROVIDERS: ATTEND Internal Medicine Cardiovascular Disease
DX: N18.3 Chronic kidney disease, stage 3 (moderate) (principal); E55.9 Vitamin D deficiency, unspecified; R80.9 Proteinuria, unspecified; M10.9 Gout, unspecified
CPT/HCPCS: 36415; 80048; 80069; 82306; 82570; 83735; 83970; 84156; 84166; 84550; 85025; 96365; 96366; 96372; G0463; J1642; J1885

== ENCOUNTER → 2017-01-27 | Outpatient (CLI) | payer MEDICARE, MEDICAID ==
[~2017-01-27] MED LIST changes: -KETOROLAC TROMETH 60MG/2ML VIAL IM ONE; +POTASSIUM CHL 20 Meq TABLET PO ONE; +SODIUM CHLORIDE 0.9% 1,000 ML IV SCH; -SODIUM CHLORIDE 0.9% 100 ML IV SCH
[2017-01-27 16:06] LABS: Basophils # (auto) 0 uL; Basophils % (auto) 0.5 % (0.0-2.0); Eosinophils # (auto) 0.2 uL; Eosinophils % (auto) 3.5 % (0.0-7.0); Hematocrit 35.8 % (36.0-46.0); Hemoglobin 11.8 g/dL (12.2-16.2); Lymphocytes # (auto) 2.2 uL; Lymphocytes % (auto) 36.9 % (10.0-50.0); Mean Corpuscular Hemoglobin 28.3 pg (28.0-32.0); Mean Corpuscular Hgb Conc. 32.9 g/dL (32.0-36.0); Mean Corpuscular Volume 86.1 fL (80.0-100.0); Mean Platelet Volume 10.1 fL (7.4-10.4); Monocytes # (auto) 0.5 uL; Monocytes % (auto) 8.6 % (0.0-12.0); Neutrophils % (auto) 50.5 % (37.0-80.0); Platelet Count (auto) 234 10^3/uL (140-450); Red Cell Distribution Width 16.5 % (11.6-16.0); White Blood Cell 5.9 10^3/uL (4.4-10.8)
[2017-01-27 16:55] VITALS: BP 121/72
== END | disposition home or self-care (01) ==
LOC: CHF HDHVI 13:13
PROVIDERS: ATTEND Internal Medicine Cardiovascular Disease
DX: I10 Essential (primary) hypertension (principal); R94.4 Abnormal results of kidney function studies; D64.9 Anemia, unspecified
CPT/HCPCS: 36415; 82565; 84132; 84520; 85025; 96365; 96366; 96372; G0463; J1642

== ENCOUNTER → 2017-01-30 | Outpatient (CLI) | payer MEDICARE, MEDICAID ==
[2017-01-30] VITALS (8 sets, daily range): BP systolic 125–141; BP diastolic 53–73
[~2017-01-30] MED LIST changes: -CYANOCOBALAMIN (B-12) 1000 MCG/1 ML VIAL IM ONE; -CYANOCOBALAMIN (B-12) 1000 MCG/1 ML VIAL ONE; -FUROSEMIDE 100 MG/10ML VIAL IV ONE; +FUROSEMIDE INJECTION 100 MG in SODIUM CHL 0.9% 100 ML IV SCH; -SODIUM CHLORIDE 0.9% 1,000 ML IV SCH
== END | disposition home or self-care (01) ==
LOC: CHF HDHVI 10:02
PROVIDERS: ATTEND Internal Medicine Cardiovascular Disease
DX: I11.0 Hypertensive heart disease with heart failure (principal); I50.9 Heart failure, unspecified; I25.10 Atherosclerotic heart disease of native coronary artery without angina pectoris; R80.9 Proteinuria, unspecified; D64.9 Anemia, unspecified; E78.00 Pure hypercholesterolemia, unspecified
CPT/HCPCS: 96365; 96366; G0463; J1642; J1940

== ENCOUNTER → 2017-02-03 | Outpatient (CLI) | payer MEDICARE, MEDICAID ==
[2017-02-03] VITALS (7 sets, daily range): BP systolic 106–133; BP diastolic 53–68
[~2017-02-03] MED LIST changes: +CYANOCOBALAMIN (B-12) 1000 MCG/1 ML VIAL IM ONE; +CYANOCOBALAMIN (B-12) 1000 MCG/1 ML VIAL ONE; +POTASSIUM CHL 10 Meq TABLET PO ONE
[2017-02-03 16:09] LABS: Basophils # (auto) 0 uL; Basophils % (auto) 0.6 % (0.0-2.0); Eosinophils # (auto) 0.2 uL; Eosinophils % (auto) 3.9 % (0.0-7.0); Hematocrit 34.6 % (36.0-46.0); Hemoglobin 11.4 g/dL (12.2-16.2); Lymphocytes # (auto) 2.6 uL; Lymphocytes % (auto) 42.5 % (10.0-50.0); Mean Corpuscular Hemoglobin 27.9 pg (28.0-32.0); Mean Corpuscular Volume 84.5 fL (80.0-100.0); Mean Platelet Volume 10.8 fL (7.4-10.4); Monocytes # (auto) 0.6 uL; Monocytes % (auto) 10.3 % (0.0-12.0); Neutrophils # (auto) 2.7 uL; Neutrophils % (auto) 42.7 % (37.0-80.0); Platelet Count (auto) 256 10^3/uL (140-450); Red Cell Distribution Width 17.4 % (11.6-16.0); SUSPECT VIEW TRANSMISSION; White Blood Cell 6.2 10^3/uL (4.4-10.8)
[2017-02-03 16:35] LABS: BUN/Creatinine Ratio 21.2; Calcium 8.6 mg/dL (8.5-10.1); Magnesium 2.1 mg/dL (1.6-2.6); Potassium 4.1 mmol/L (3.5-5.1)
== END | disposition home or self-care (01) ==
LOC: CHF HDHVI 12:33
PROVIDERS: ATTEND Internal Medicine Cardiovascular Disease
DX: E83.40 Disorders of magnesium metabolism, unspecified (principal); D64.9 Anemia, unspecified; I10 Essential (primary) hypertension
CPT/HCPCS: 36415; 80048; 83735; 85025; 96365; 96366; 96372; G0463; J1642

== ENCOUNTER 2017-02-08 16:34 | Emergency (ER) | payer MEDICARE, MEDICAID ==
[~2017-02-08] VITALS: Ht 162.6 cm; Wt 129.3 kg
[~2017-02-08 16:34] MED LIST changes: -CYANOCOBALAMIN (B-12) 1000 MCG/1 ML VIAL IM ONE; -CYANOCOBALAMIN (B-12) 1000 MCG/1 ML VIAL ONE; -FUROSEMIDE INJECTION 10 ML ONE; -FUROSEMIDE INJECTION 100 MG in SODIUM CHL 0.9% 100 ML IV SCH; -POTASSIUM CHL 10 Meq TABLET PO ONE; -POTASSIUM CHL 20 Meq TABLET PO ONE
[2017-02-08 16:56] VITALS: BP 161/62
[2017-02-08 17:32] LABS: Basophils # (auto) 0 uL; Basophils % (auto) 0.7 % (0.0-2.0); Eosinophils # (auto) 0.2 uL; Eosinophils % (auto) 4.7 % (0.0-7.0); Hematocrit 36.9 % (36.0-46.0); Hemoglobin 11.9 g/dL (12.2-16.2); Lymphocytes # (auto) 1.7 uL; Lymphocytes % (auto) 32.8 % (10.0-50.0); Mean Corpuscular Hemoglobin 27.9 pg (28.0-32.0); Mean Corpuscular Hgb Conc. 32.4 g/dL (32.0-36.0); Mean Corpuscular Volume 86.3 fL (80.0-100.0); Mean Platelet Volume 9.8 fL (7.4-10.4); Monocytes # (auto) 0.5 uL; Neutrophils # (auto) 2.7 uL; Neutrophils % (auto) 51.8 % (37.0-80.0); Platelet Count (auto) 252 10^3/uL (140-450); Red Cell Distribution Width 16.7 % (11.6-16.0); White Blood Cell 5.2 10^3/uL (4.4-10.8)
[2017-02-08 17:52] LABS: Albumin 3.5 g/dL (3.4-5.0); Anion Gap 8 (5-15); Aspartate Aminotransferase 16 U/L (15-37); BUN/Creatinine Ratio 21.3; Blood Urea Nitrogen 32 mg/dL (7-18); Calcium 8.6 mg/dL (8.5-10.1); Carbon Dioxide 26 mmol/L (21-32); Chloride 109 mmol/L (98-107); GFR African American 43 mL/min; GFR Non-African American 36 mL/min; Glucose 213 mg/dL (74-106); Magnesium 2.2 mg/dL (1.6-2.6); Potassium 4.2 mmol/L (3.5-5.1); Sodium 143 mmol/L (136-145)
[2017-02-08 17:57] LABS: Alkaline Phosphatase 66 U/L (45-117); Bilirubin, Total 0.4 mg/dL (0.2-1.0); Total Protein 6.8 g/dL (6.4-8.2)
== END 2017-02-09 05:23 | disposition left against medical advice (07) ==
LOC: ER 16:49
DX: K59.00 Constipation, unspecified (principal); Z53.21 Procedure and treatment not carried out due to patient leaving prior to being seen by health care provider
CPT/HCPCS: 36415; 80053; 83735; 84484; 85025

== ENCOUNTER → 2017-02-13 | Outpatient (CLI) | payer MEDICARE, MEDICAID ==
[~2017-02-13] VITALS: Ht 30.5 cm; Wt 0.5 kg
[~2017-02-13] MED LIST changes: +CHOLESTYRAMINE 4 GM POWDER GT ONE; +CHOLESTYRAMINE 4 GM POWDER ONE; +CYANOCOBALAMIN (B-12) 1000 MCG/1 ML VIAL IM ONE; +CYANOCOBALAMIN (B-12) 1000 MCG/1 ML VIAL ONE; +FUROSEMIDE 100 MG/10ML VIAL IV ONE; +FUROSEMIDE INJECTION 10 ML ONE; +FUROSEMIDE IV SCH; +KETOROLAC TROMETH 60MG/2ML VIAL IM ONE; +POTASSIUM CHL 10 Meq TABLET PO ONE; +POTASSIUM CHL 20 Meq TABLET PO ONE; +SODIUM CHL 0.9% IV SCH
[2017-02-13 11:00] VITALS: BP 106/71
[2017-02-13 11:30] VITALS: BP 122/64
[2017-02-13 12:00] VITALS: BP 123/67
[2017-02-13 12:30] VITALS: BP 124/69
[2017-02-13 13:30] VITALS: BP 125/55
[2017-02-13 14:00] VITALS: BP 96/55
[2017-02-13 16:42] LABS: Potassium 4.2 mmol/L (3.5-5.1)
[2017-02-13 16:56] LABS: Basophils # (auto) 0 uL; Basophils % (auto) 0.4 % (0.0-2.0); Eosinophils # (auto) 0.2 uL; Eosinophils % (auto) 3.7 % (0.0-7.0); Hematocrit 34.8 % (36.0-46.0); Hemoglobin 11.2 g/dL (12.2-16.2); Lymphocytes # (auto) 1.9 uL; Lymphocytes % (auto) 33.4 % (10.0-50.0); Mean Corpuscular Hemoglobin 27.6 pg (28.0-32.0); Mean Corpuscular Hgb Conc. 32.1 g/dL (32.0-36.0); Mean Corpuscular Volume 85.8 fL (80.0-100.0); Monocytes # (auto) 0.5 uL; Monocytes % (auto) 9.2 % (0.0-12.0); Neutrophils % (auto) 53.3 % (37.0-80.0); Platelet Count (auto) 278 10^3/uL (140-450); White Blood Cell 5.6 10^3/uL (4.4-10.8)
== END | disposition home or self-care (01) ==
LOC: CHF HDHVI 10:20
PROVIDERS: ATTEND Internal Medicine Cardiovascular Disease
DX: R94.4 Abnormal results of kidney function studies (principal); D64.9 Anemia, unspecified
CPT/HCPCS: 36415; 82565; 84132; 84520; 85025; 96365; 96366; 96372; G0463; J1642; J1885

== ENCOUNTER → 2017-02-20 | Outpatient (CLI) | payer MEDICARE, MEDICAID ==
[~2017-02-20] VITALS: Ht 30.5 cm; Wt 128.8 kg
[~2017-02-20] MED LIST changes: -CHOLESTYRAMINE 4 GM POWDER GT ONE; -CHOLESTYRAMINE 4 GM POWDER ONE; -FUROSEMIDE 100 MG/10ML VIAL IV ONE; +FUROSEMIDE INJECTION 100 MG in SODIUM CHL 0.9% 100 ML IV SCH; -FUROSEMIDE IV SCH; -KETOROLAC TROMETH 60MG/2ML VIAL IM ONE; -POTASSIUM CHL 20 Meq TABLET PO ONE; -SODIUM CHL 0.9% IV SCH
[2017-02-20 10:35] VITALS: BP 139/69
[2017-02-20 11:00] VITALS: BP 110/72
[2017-02-20] MEDS: POTASSIUM CHL 20 Meq TABLET PO SCH ×3 (11:00→14:24)
[2017-02-20 11:30] VITALS: BP 137/81
[2017-02-20 12:00] VITALS: BP 151/76
[2017-02-20 12:30] VITALS: BP 120/69
[2017-02-20 14:15] VITALS: BP 128/61
[2017-02-20 16:28] LABS: Calcium 8.8 mg/dL (8.5-10.1); Potassium 4.3 mmol/L (3.5-5.1)
[2017-02-20 16:30] LABS: BUN/Creatinine Ratio 23.3
[2017-02-20 16:56] LABS: Basophils # (auto) 0 uL; Basophils % (auto) 0.5 % (0.0-2.0); Eosinophils # (auto) 0.2 uL; Eosinophils % (auto) 3.1 % (0.0-7.0); Hematocrit 36.1 % (36.0-46.0); Hemoglobin 11.9 g/dL (12.2-16.2); Lymphocytes # (auto) 2.3 uL; Lymphocytes % (auto) 33.5 % (10.0-50.0); Mean Corpuscular Hemoglobin 28.3 pg (28.0-32.0); Mean Corpuscular Hgb Conc. 32.9 g/dL (32.0-36.0); Mean Corpuscular Volume 86.1 fL (80.0-100.0); Mean Platelet Volume 10.4 fL (7.4-10.4); Monocytes # (auto) 0.6 uL; Monocytes % (auto) 9.3 % (0.0-12.0); Neutrophils # (auto) 3.6 uL; Neutrophils % (auto) 53.6 % (37.0-80.0); Platelet Count (auto) 264 10^3/uL (140-450); Red Cell Distribution Width 16.7 % (11.6-16.0); White Blood Cell 6.7 10^3/uL (4.4-10.8)
== END | disposition home or self-care (01) ==
LOC: CHF HDHVI 10:36
PROVIDERS: ATTEND Internal Medicine Cardiovascular Disease
DX: I10 Essential (primary) hypertension (principal); E83.42 Hypomagnesemia; D64.9 Anemia, unspecified
CPT/HCPCS: 36415; 80048; 83735; 85025; 96365; 96366; 96372; G0463; J1642

== ENCOUNTER → 2017-02-24 | Outpatient (CLI) | payer MEDICARE, MEDICAID ==
[~2017-02-24] MED LIST changes: +CHOLESTYRAMINE 4 GM POWDER GT ONE; +CHOLESTYRAMINE 4 GM POWDER ONE; +FUROSEMIDE 100 MG/10ML VIAL IV ONE; -FUROSEMIDE INJECTION 100 MG in SODIUM CHL 0.9% 100 ML IV SCH; +POTASSIUM CHL 20 Meq TABLET PO ONE
[2017-02-24 13:30] VITALS: BP 127/55
[2017-02-24 14:00] VITALS: BP 117/61
[2017-02-24 15:30] VITALS: BP 142/65
[2017-02-24 16:00] VITALS: BP 142/61
[2017-02-24 16:30] VITALS: BP 142/61
[2017-02-24 16:30] LABS: Basophils # (auto) 0 uL; Basophils % (auto) 0.7 % (0.0-2.0); Eosinophils # (auto) 0.2 uL; Eosinophils % (auto) 3.7 % (0.0-7.0); Hematocrit 34.7 % (36.0-46.0); Hemoglobin 11.3 g/dL (12.2-16.2); Lymphocytes # (auto) 2.2 uL; Lymphocytes % (auto) 37.1 % (10.0-50.0); Mean Corpuscular Hgb Conc. 32.5 g/dL (32.0-36.0); Mean Corpuscular Volume 86.1 fL (80.0-100.0); Mean Platelet Volume 10.6 fL (7.4-10.4); Monocytes # (auto) 0.6 uL; Monocytes % (auto) 9.1 % (0.0-12.0); Neutrophils % (auto) 49.4 % (37.0-80.0); Platelet Count (auto) 238 10^3/uL (140-450); Red Cell Distribution Width 16.9 % (11.6-16.0); White Blood Cell 6.1 10^3/uL (4.4-10.8)
[2017-02-24 17:03] LABS: BUN/Creatinine Ratio 22.8; Calcium 8.8 mg/dL (8.5-10.1); Potassium 4.2 mmol/L (3.5-5.1)
== END | disposition home or self-care (01) ==
LOC: CHF HDHVI 12:31
PROVIDERS: ATTEND Internal Medicine Cardiovascular Disease
DX: I10 Essential (primary) hypertension (principal); D64.9 Anemia, unspecified
CPT/HCPCS: 36415; 80048; 85025; 96365; 96366; 96372; G0463; J1642

== ENCOUNTER → 2017-02-27 | Outpatient (CLI) | payer MEDICARE, MEDICAID ==
[~2017-02-27] MED LIST changes: -CYANOCOBALAMIN (B-12) 1000 MCG/1 ML VIAL IM ONE; -CYANOCOBALAMIN (B-12) 1000 MCG/1 ML VIAL ONE; -POTASSIUM CHL 10 Meq TABLET PO ONE; +SODIUM CHLORIDE 0.9% 1,000 ML IV SCH
[2017-02-27 15:15] VITALS: BP 117/51
== END | disposition home or self-care (01) ==
LOC: CHF HDHVI 10:16
PROVIDERS: ATTEND Internal Medicine Cardiovascular Disease
DX: I50.9 Heart failure, unspecified (principal); D64.9 Anemia, unspecified; K59.00 Constipation, unspecified; R19.7 Diarrhea, unspecified
CPT/HCPCS: 96365; 96366; G0463; J1642; J1940

== ENCOUNTER → 2017-03-04 | Outpatient (CLI) | payer MEDICARE, MEDICAID ==
[~2017-03-04] MED LIST changes: +CYANOCOBALAMIN (B-12) 1000 MCG/1 ML VIAL IM ONE; +CYANOCOBALAMIN (B-12) 1000 MCG/1 ML VIAL ONE; +DOBUTamine 1000MCG/ML 0 ML IV ONE; +SODIUM CHLORIDE 0.9% 1,000 ML IV ONE; -SODIUM CHLORIDE 0.9% 1,000 ML IV SCH
[2017-03-04 16:10] VITALS: BP 117/62
[2017-03-04 16:33] LABS: Basophils # (auto) 0 uL; Basophils % (auto) 0.5 % (0.0-2.0); Eosinophils # (auto) 0.3 uL; Eosinophils % (auto) 4.1 % (0.0-7.0); Hematocrit 34.9 % (36.0-46.0); Hemoglobin 11.5 g/dL (12.2-16.2); Lymphocytes # (auto) 2.7 uL; Lymphocytes % (auto) 40.9 % (10.0-50.0); Mean Corpuscular Hemoglobin 28.5 pg (28.0-32.0); Mean Corpuscular Volume 86.2 fL (80.0-100.0); Mean Platelet Volume 10.6 fL (7.4-10.4); Monocytes # (auto) 0.6 uL; Monocytes % (auto) 8.9 % (0.0-12.0); Neutrophils % (auto) 45.6 % (37.0-80.0); Platelet Count (auto) 259 10^3/uL (140-450); Red Cell Distribution Width 16.8 % (11.6-16.0); SUSPECT VIEW TRANSMISSION; White Blood Cell 6.6 10^3/uL (4.4-10.8)
[2017-03-04 17:28] LABS: BUN/Creatinine Ratio 23.1; Calcium 8.7 mg/dL (8.5-10.1); Potassium 4.2 mmol/L (3.5-5.1)
== END | disposition home or self-care (01) ==
LOC: CHF HDHVI 12:13
PROVIDERS: ATTEND Internal Medicine Cardiovascular Disease
DX: I10 Essential (primary) hypertension (principal); D64.9 Anemia, unspecified
CPT/HCPCS: 36415; 80048; 85025; 96365; 96366; 96372; G0463; J1642

== ENCOUNTER → 2017-03-06 | Outpatient (CLI) | payer MEDICARE, MEDICAID ==
[2017-03-06] VITALS (7 sets, daily range): BP systolic 103–139; BP diastolic 52–72
[~2017-03-06] MED LIST changes: -CYANOCOBALAMIN (B-12) 1000 MCG/1 ML VIAL IM ONE; -CYANOCOBALAMIN (B-12) 1000 MCG/1 ML VIAL ONE; -DOBUTamine 1000MCG/ML 0 ML IV ONE; -SODIUM CHLORIDE 0.9% 1,000 ML IV ONE
[2017-03-06] MEDS: SODIUM CHLORIDE 0.9% 100 ML IV SCH ×2 (11:00→14:28)
== END | disposition home or self-care (01) ==
LOC: CHF HDHVI 10:34
PROVIDERS: ATTEND Internal Medicine Cardiovascular Disease
DX: I50.9 Heart failure, unspecified (principal); E87.70 Fluid overload, unspecified; E78.5 Hyperlipidemia, unspecified; E87.6 Hypokalemia
CPT/HCPCS: 96365; 96366; G0463; J1642; J1940

== ENCOUNTER → 2017-03-13 | Outpatient (CLI) | payer MEDICARE, MEDICAID ==
[2017-03-13] VITALS (7 sets, daily range): BP systolic 97–156; BP diastolic 52–85
[~2017-03-13] MED LIST changes: +CYANOCOBALAMIN (B-12) 1000 MCG/1 ML VIAL IM ONE; +CYANOCOBALAMIN (B-12) 1000 MCG/1 ML VIAL ONE; -FUROSEMIDE 100 MG/10ML VIAL IV ONE; +FUROSEMIDE INJECTION 100 MG in SODIUM CHL 0.9% 100 ML IV SCH; +KETOROLAC TROMETH 60MG/2ML VIAL IM ONE; +SODIUM CHLORIDE 0.9% 1,000 ML IV SCH
[2017-03-13 16:23] LABS: Basophils # (auto) 0 uL; Basophils % (auto) 0.5 % (0.0-2.0); Eosinophils # (auto) 0.3 uL; Eosinophils % (auto) 4.6 % (0.0-7.0); Hemoglobin 11.4 g/dL (12.2-16.2); Lymphocytes # (auto) 2.2 uL; Lymphocytes % (auto) 39.7 % (10.0-50.0); Mean Corpuscular Hemoglobin 28.1 pg (28.0-32.0); Mean Corpuscular Hgb Conc. 32.5 g/dL (32.0-36.0); Mean Corpuscular Volume 86.6 fL (80.0-100.0); Mean Platelet Volume 10.2 fL (7.4-10.4); Monocytes # (auto) 0.5 uL; Monocytes % (auto) 9.2 % (0.0-12.0); Neutrophils # (auto) 2.5 uL; Platelet Count (auto) 276 10^3/uL (140-450); Red Cell Distribution Width 16.8 % (11.6-16.0); White Blood Cell 5.5 10^3/uL (4.4-10.8)
[2017-03-13 16:32] LABS: Potassium 4.1 mmol/L (3.5-5.1)
== END | disposition home or self-care (01) ==
LOC: CHF HDHVI 10:35
PROVIDERS: ATTEND Internal Medicine Cardiovascular Disease
DX: R94.4 Abnormal results of kidney function studies (principal); E87.6 Hypokalemia; D64.9 Anemia, unspecified
CPT/HCPCS: 36415; 82565; 84132; 84520; 85025; 93306; 96365; 96366; 96372; G0463; J1642; J1885

== ENCOUNTER → 2017-03-19 | Outpatient (CLI) | payer MEDICARE, MEDICAID ==
[~2017-03-19] VITALS: Ht 30.5 cm; Wt 130.2 kg
[~2017-03-19] MED LIST changes: -CHOLESTYRAMINE 4 GM POWDER GT ONE; +CHOLESTYRAMINE 4 GM POWDER PO ONE; +FUROSEMIDE 100 MG/10ML VIAL IV ONE; -FUROSEMIDE INJECTION 100 MG in SODIUM CHL 0.9% 100 ML IV SCH; -SODIUM CHLORIDE 0.9% 1,000 ML IV SCH; +SODIUM CHLORIDE 0.9% 100 ML IV SCH
[2017-03-19 13:30] VITALS: BP 141/57
[2017-03-19 14:00] VITALS: BP 124/56
[2017-03-19 14:30] VITALS: BP 128/68
[2017-03-19 16:28] LABS: Basophils # (auto) 0 uL; Basophils % (auto) 0.5 % (0.0-2.0); Eosinophils # (auto) 0.2 uL; Eosinophils % (auto) 3.2 % (0.0-7.0); Hematocrit 33.2 % (36.0-46.0); Hemoglobin 10.8 g/dL (12.2-16.2); Lymphocytes % (auto) 34.3 % (10.0-50.0); Mean Corpuscular Hgb Conc. 32.7 g/dL (32.0-36.0); Mean Corpuscular Volume 85.7 fL (80.0-100.0); Mean Platelet Volume 10.4 fL (7.4-10.4); Monocytes # (auto) 0.5 uL; Monocytes % (auto) 9.1 % (0.0-12.0); Neutrophils # (auto) 3.1 uL; Neutrophils % (auto) 52.9 % (37.0-80.0); Platelet Count (auto) 241 10^3/uL (140-450); Red Cell Distribution Width 17.1 % (11.6-16.0); White Blood Cell 5.9 10^3/uL (4.4-10.8)
[2017-03-19 16:30] VITALS: BP 132/64
[2017-03-19 16:47] LABS: BUN/Creatinine Ratio 24.4; Calcium 8.4 mg/dL (8.5-10.1); Potassium 4.2 mmol/L (3.5-5.1)
== END | disposition home or self-care (01) ==
LOC: CHF HDHVI 12:28
PROVIDERS: ATTEND Internal Medicine Cardiovascular Disease
DX: I10 Essential (primary) hypertension (principal); E83.42 Hypomagnesemia; D64.9 Anemia, unspecified
CPT/HCPCS: 36415; 80048; 83735; 85025; 96365; 96366; 96372; G0463; J1642; J1885

== ENCOUNTER → 2017-03-24 | Outpatient (CLI) | payer MEDICARE, MEDICAID ==
[~2017-03-24] MED LIST changes: +CHOLESTYRAMINE 4 GM POWDER GT ONE; -CHOLESTYRAMINE 4 GM POWDER PO ONE; -CYANOCOBALAMIN (B-12) 1000 MCG/1 ML VIAL IM ONE; -CYANOCOBALAMIN (B-12) 1000 MCG/1 ML VIAL ONE; -KETOROLAC TROMETH 60MG/2ML VIAL IM ONE; +SODIUM CHLORIDE 0.9% 1,000 ML IV ONE; -SODIUM CHLORIDE 0.9% 100 ML IV SCH
[2017-03-24 16:00] VITALS: BP 117/72
[2017-03-24 16:18] LABS: Basophils # (auto) 0 uL; Basophils % (auto) 0.6 % (0.0-2.0); CONDITION Y; Eosinophils # (auto) 0.2 uL; Eosinophils % (auto) 3.7 % (0.0-7.0); Hematocrit 32.8 % (36.0-46.0); Hemoglobin 10.9 g/dL (12.2-16.2); Lymphocytes # (auto) 2.2 uL; Lymphocytes % (auto) 40.2 % (10.0-50.0); Mean Corpuscular Hemoglobin 28.2 pg (28.0-32.0); Mean Corpuscular Hgb Conc. 33.2 g/dL (32.0-36.0); Mean Platelet Volume 10.1 fL (7.4-10.4); Monocytes # (auto) 0.5 uL; Monocytes % (auto) 9.3 % (0.0-12.0); Neutrophils # (auto) 2.6 uL; Neutrophils % (auto) 46.2 % (37.0-80.0); Platelet Count (auto) 261 10^3/uL (140-450); Red Cell Distribution Width 17.1 % (11.6-16.0); White Blood Cell 5.5 10^3/uL (4.4-10.8)
[2017-03-24 16:42] LABS: Potassium 3.9 mmol/L (3.5-5.1)
== END | disposition home or self-care (01) ==
LOC: CHF HDHVI 12:34
PROVIDERS: ATTEND Internal Medicine Cardiovascular Disease
DX: R94.4 Abnormal results of kidney function studies (principal); E87.5 Hyperkalemia; E11.9 Type 2 diabetes mellitus without complications; D64.9 Anemia, unspecified
CPT/HCPCS: 36415; 82565; 83036; 84132; 84520; 85025; 93701; 96365; 96366; G0463; J1642

== ENCOUNTER → 2017-03-27 | Outpatient (CLI) | payer MEDICARE, MEDICAID ==
[2017-03-27] VITALS (7 sets, daily range): BP systolic 112–146; BP diastolic 50–65
[~2017-03-27] MED LIST changes: -CHOLESTYRAMINE 4 GM POWDER GT ONE; +CHOLESTYRAMINE 4 GM POWDER PO ONE; +CYANOCOBALAMIN (B-12) 1000 MCG/1 ML VIAL IM ONE; +CYANOCOBALAMIN (B-12) 1000 MCG/1 ML VIAL ONE; -SODIUM CHLORIDE 0.9% 1,000 ML IV ONE; +SODIUM CHLORIDE 0.9% 100 ML IV SCH
== END | disposition home or self-care (01) ==
LOC: CHF HDHVI 10:29
PROVIDERS: ATTEND Internal Medicine Cardiovascular Disease
DX: I50.9 Heart failure, unspecified (principal); D64.9 Anemia, unspecified; E87.6 Hypokalemia; M25.519 Pain in unspecified shoulder; R19.7 Diarrhea, unspecified
CPT/HCPCS: 96365; 96366; 96372; G0463; J1642; J1940; J3420

== ENCOUNTER → 2017-03-31 | Outpatient (CLI) | payer MEDICARE, MEDICAID ==
[~2017-03-31] MED LIST changes: +DIPYRIDAMOLE (5MG/ML) 10 ML VIAL IV ONE; +DIPYRIDAMOLE 60 MG in D5W 5% 50 ML IV SCH; -FUROSEMIDE 100 MG/10ML VIAL IV ONE; +FUROSEMIDE INJECTION 100 MG in SODIUM CHL 0.9% 100 ML IV SCH; -SODIUM CHLORIDE 0.9% 100 ML IV SCH
[2017-03-31 15:15] VITALS: BP 140/56
[2017-03-31 15:50] VITALS: BP 133/61
[2017-03-31 16:00] VITALS: BP 129/56
[2017-03-31 16:24] LABS: Basophils # (auto) 0 uL; Basophils % (auto) 0.7 % (0.0-2.0); CONDITION Y; Eosinophils # (auto) 0.2 uL; Eosinophils % (auto) 3.7 % (0.0-7.0); Hematocrit 34.4 % (36.0-46.0); Hemoglobin 11.2 g/dL (12.2-16.2); Lymphocytes # (auto) 2.3 uL; Lymphocytes % (auto) 38.4 % (10.0-50.0); Mean Corpuscular Hemoglobin 28.3 pg (28.0-32.0); Mean Corpuscular Hgb Conc. 32.5 g/dL (32.0-36.0); Mean Corpuscular Volume 87.1 fL (80.0-100.0); Mean Platelet Volume 10.6 fL (7.4-10.4); Monocytes # (auto) 0.7 uL; Monocytes % (auto) 10.9 % (0.0-12.0); Neutrophils # (auto) 2.8 uL; Neutrophils % (auto) 46.3 % (37.0-80.0); Platelet Count (auto) 244 10^3/uL (140-450); Red Cell Distribution Width 17.5 % (11.6-16.0); SUSPECT SEE PRINTOUT
[2017-03-31 16:37] LABS: Potassium 3.9 mmol/L (3.5-5.1)
[2017-03-31 17:37] VITALS: BP 130/51
== END | disposition home or self-care (01) ==
LOC: CHF HDHVI 12:40
PROVIDERS: ATTEND Internal Medicine Cardiovascular Disease
DX: R94.4 Abnormal results of kidney function studies (principal); E87.6 Hypokalemia; E11.9 Type 2 diabetes mellitus without complications; D64.9 Anemia, unspecified; E55.9 Vitamin D deficiency, unspecified
CPT/HCPCS: 36415; 78452; 82306; 82565; 83036; 84132; 84520; 85025; 93005; 96365; 96366; 96372; 96375; A9500; G0463; J1245; J1642; J1940; J3420; 96374

== ENCOUNTER → 2017-04-07 | Outpatient (CLI) | payer MEDICARE, MEDICAID ==
[~2017-04-07] VITALS: Ht 165.1 cm; Wt 129.8 kg
[~2017-04-07] MED LIST changes: +CHOLESTYRAMINE 4 GM POWDER GT ONE; -CHOLESTYRAMINE 4 GM POWDER PO ONE; -DIPYRIDAMOLE (5MG/ML) 10 ML VIAL IV ONE; -DIPYRIDAMOLE 60 MG in D5W 5% 50 ML IV SCH; +SODIUM CHLORIDE 0.9% 100 ML IV SCH
[2017-04-07 13:00] VITALS: BP 141/60
[2017-04-07 13:30] VITALS: BP 142/76
[2017-04-07 14:00] VITALS: BP 154/55
[2017-04-07 16:00] VITALS: BP 154/65
[2017-04-07 17:10] VITALS: BP 150/63
[2017-04-07 17:13] LABS: BUN/Creatinine Ratio 27.2; Calcium 8.7 mg/dL (8.5-10.1); Potassium 4.2 mmol/L (3.5-5.1)
[2017-04-07 17:22] LABS: Basophils # (auto) 0 uL; Basophils % (auto) 0.6 % (0.0-2.0); CONDITION Y; Eosinophils # (auto) 0.3 uL; Eosinophils % (auto) 4.5 % (0.0-7.0); Hematocrit 33.7 % (36.0-46.0); Hemoglobin 11.1 g/dL (12.2-16.2); Lymphocytes # (auto) 2.2 uL; Lymphocytes % (auto) 39.1 % (10.0-50.0); Mean Corpuscular Hemoglobin 28.4 pg (28.0-32.0); Mean Corpuscular Hgb Conc. 32.9 g/dL (32.0-36.0); Mean Corpuscular Volume 86.4 fL (80.0-100.0); Mean Platelet Volume 10.6 fL (7.4-10.4); Monocytes # (auto) 0.5 uL; Monocytes % (auto) 9.2 % (0.0-12.0); Neutrophils # (auto) 2.7 uL; Neutrophils % (auto) 46.6 % (37.0-80.0); Platelet Count (auto) 226 10^3/uL (140-450); Red Cell Distribution Width 17.3 % (11.6-16.0); White Blood Cell 5.7 10^3/uL (4.4-10.8)
== END | disposition home or self-care (01) ==
LOC: CHF HDHVI 12:27
PROVIDERS: ATTEND Internal Medicine Cardiovascular Disease
DX: I10 Essential (primary) hypertension (principal); E83.42 Hypomagnesemia; D64.9 Anemia, unspecified
CPT/HCPCS: 36415; 80048; 83735; 85025; 96365; 96366; 96372; G0463; J1642; J1940; J3420

== ENCOUNTER → 2017-04-14 | Outpatient (CLI) | payer MEDICARE, MEDICAID ==
[~2017-04-14] MED LIST changes: +FUROSEMIDE 100 MG/10ML VIAL IV ONE; -FUROSEMIDE INJECTION 100 MG in SODIUM CHL 0.9% 100 ML IV SCH; -POTASSIUM CHL 20 Meq TABLET PO ONE; +SODIUM CHLORIDE 0.9% 100 ML IV ONE; -SODIUM CHLORIDE 0.9% 100 ML IV SCH
[2017-04-14 13:45] VITALS: BP 117/52
[2017-04-14 14:15] VITALS: BP 123/57
[2017-04-14 14:45] VITALS: BP 116/74
[2017-04-14 15:15] VITALS: BP 129/58
[2017-04-14 16:15] VITALS: BP 140/62
[2017-04-14 16:15] LABS: Basophils # (auto) 0 uL; Basophils % (auto) 0.8 % (0.0-2.0); CONDITION Y; Eosinophils # (auto) 0.2 uL; Eosinophils % (auto) 3.2 % (0.0-7.0); Hemoglobin 11.6 g/dL (12.2-16.2); Lymphocytes # (auto) 2.3 uL; Mean Corpuscular Hemoglobin 28.5 pg (28.0-32.0); Mean Corpuscular Volume 86.3 fL (80.0-100.0); Mean Platelet Volume 10.4 fL (7.4-10.4); Monocytes # (auto) 0.6 uL; Monocytes % (auto) 10.1 % (0.0-12.0); Neutrophils % (auto) 48.9 % (37.0-80.0); Platelet Count (auto) 231 10^3/uL (140-450); Red Cell Distribution Width 17.5 % (11.6-16.0); SUSPECT SEE PRINTOUT; White Blood Cell 6.2 10^3/uL (4.4-10.8)
[2017-04-14 16:29] LABS: BUN/Creatinine Ratio 24.2; Calcium 8.7 mg/dL (8.5-10.1); Magnesium 2.1 mg/dL (1.6-2.6); Potassium 3.9 mmol/L (3.5-5.1)
== END | disposition home or self-care (01) ==
LOC: CHF HDHVI 12:47
PROVIDERS: ATTEND Internal Medicine Cardiovascular Disease
DX: I11.0 Hypertensive heart disease with heart failure (principal); I50.9 Heart failure, unspecified; I27.2 Other secondary pulmonary hypertension; D64.9 Anemia, unspecified; E11.9 Type 2 diabetes mellitus without complications
CPT/HCPCS: 36415; 80048; 83735; 85025; 93701; 94620; 96365; 96366; 96372; G0463; J1642; J1940; J3420

== ENCOUNTER → 2017-04-17 | Outpatient (CLI) | payer MEDICARE, MEDICAID ==
[~2017-04-17] MED LIST changes: -CYANOCOBALAMIN (B-12) 1000 MCG/1 ML VIAL IM ONE; -CYANOCOBALAMIN (B-12) 1000 MCG/1 ML VIAL ONE; -FUROSEMIDE 100 MG/10ML VIAL IV ONE; +FUROSEMIDE INJECTION 100 MG in SODIUM CHL 0.9% 100 ML IV SCH; -SODIUM CHLORIDE 0.9% 100 ML IV ONE
[2017-04-17 10:30] VITALS: BP 120/51
[2017-04-17 11:00] VITALS: BP 121/52
[2017-04-17 11:30] VITALS: BP 122/83
[2017-04-17 13:50] VITALS: BP 115/55
== END | disposition home or self-care (01) ==
LOC: CHF HDHVI 09:59
PROVIDERS: ATTEND Internal Medicine Cardiovascular Disease
DX: I50.9 Heart failure, unspecified (principal); E66.01 Morbid (severe) obesity due to excess calories; G89.29 Other chronic pain; I11.0 Hypertensive heart disease with heart failure; I25.10 Atherosclerotic heart disease of native coronary artery without angina pectoris
CPT/HCPCS: 96365; 96366; G0463; J1642; J1940

== ENCOUNTER → 2017-04-21 | Outpatient (CLI) | payer MEDICARE, MEDICAID ==
[~2017-04-21] MED LIST changes: -CHOLESTYRAMINE 4 GM POWDER GT ONE; +CYANOCOBALAMIN (B-12) 1000 MCG/1 ML VIAL ONE; -FUROSEMIDE INJECTION 100 MG in SODIUM CHL 0.9% 100 ML IV SCH; +POTASSIUM CHL 20 Meq TABLET PO ONE
[2017-04-21 13:30] VITALS: BP 101/60
[2017-04-21 14:00] VITALS: BP 108/64
[2017-04-21 14:30] VITALS: BP 97/58
[2017-04-21 15:00] VITALS: BP 117/63
[2017-04-21 16:20] LABS: Basophils # (auto) 0 uL; Basophils % (auto) 0.7 % (0.0-2.0); CONDITION Y; Eosinophils # (auto) 0.2 uL; Eosinophils % (auto) 3.8 % (0.0-7.0); Hematocrit 33.7 % (36.0-46.0); Hemoglobin 11.1 g/dL (12.2-16.2); Lymphocytes % (auto) 34.2 % (10.0-50.0); Mean Corpuscular Hemoglobin 28.2 pg (28.0-32.0); Mean Corpuscular Hgb Conc. 33.1 g/dL (32.0-36.0); Mean Corpuscular Volume 85.3 fL (80.0-100.0); Mean Platelet Volume 10.3 fL (7.4-10.4); Monocytes # (auto) 0.6 uL; Monocytes % (auto) 10.3 % (0.0-12.0); Platelet Count (auto) 228 10^3/uL (140-450); Red Cell Distribution Width 16.9 % (11.6-16.0)
[2017-04-21 16:51] LABS: BUN/Creatinine Ratio 18.7; Calcium 8.7 mg/dL (8.5-10.1); Magnesium 2.2 mg/dL (1.6-2.6); Potassium 4.1 mmol/L (3.5-5.1)
== END | disposition home or self-care (01) ==
LOC: CHF HDHVI 12:53
PROVIDERS: ATTEND Internal Medicine Cardiovascular Disease
DX: I10 Essential (primary) hypertension (principal); E83.42 Hypomagnesemia; D64.9 Anemia, unspecified
CPT/HCPCS: 36415; 80048; 83735; 85025; J1642; J1940; J3420

== ENCOUNTER → 2017-04-28 | Outpatient (CLI) | payer MEDICARE, MEDICAID ==
[~2017-04-28] MED LIST changes: +CHOLESTYRAMINE 4 GM POWDER GT ONE; +CYANOCOBALAMIN (B-12) 1000 MCG/1 ML VIAL IM ONE; +FUROSEMIDE 40 MG/4 ML VIAL IV ONE; -POTASSIUM CHL 20 Meq TABLET PO ONE
[2017-04-28 13:00] VITALS: BP 133/54
[2017-04-28 13:30] VITALS: BP 138/54
[2017-04-28 14:00] VITALS: BP 140/65
[2017-04-28 16:39] LABS: Basophils # (auto) 0 uL; Basophils % (auto) 0.6 % (0.0-2.0); CONDITION Y; Eosinophils # (auto) 0.3 uL; Eosinophils % (auto) 4.5 % (0.0-7.0); Hematocrit 34.6 % (36.0-46.0); Hemoglobin 11.4 g/dL (12.2-16.2); Lymphocytes # (auto) 2.2 uL; Lymphocytes % (auto) 38.2 % (10.0-50.0); Mean Corpuscular Hemoglobin 28.1 pg (28.0-32.0); Mean Corpuscular Hgb Conc. 32.8 g/dL (32.0-36.0); Mean Corpuscular Volume 85.6 fL (80.0-100.0); Mean Platelet Volume 10.2 fL (7.4-10.4); Monocytes # (auto) 0.6 uL; Monocytes % (auto) 10.6 % (0.0-12.0); Neutrophils # (auto) 2.7 uL; Neutrophils % (auto) 46.1 % (37.0-80.0); Platelet Count (auto) 233 10^3/uL (140-450); Red Cell Distribution Width 17.3 % (11.6-16.0); SUSPECT SEE PRINTOUT; White Blood Cell 5.8 10^3/uL (4.4-10.8)
[2017-04-28 16:50] VITALS: BP 123/53
[2017-04-28 16:57] LABS: Potassium 4.1 mmol/L (3.5-5.1)
[2017-04-28 17:03] LABS: BUN/Creatinine Ratio 24.7; Calcium 8.5 mg/dL (8.5-10.1)
== END | disposition home or self-care (01) ==
LOC: CHF HDHVI 12:32
PROVIDERS: ATTEND Internal Medicine Cardiovascular Disease
DX: I10 Essential (primary) hypertension (principal); D64.9 Anemia, unspecified
CPT/HCPCS: 36415; 80048; 85025; 96365; 96366; 96372; G0463; J1642; J1940; J3420

== ENCOUNTER → 2017-05-01 | Outpatient (CLI) | payer MEDICARE, MEDICAID ==
[~2017-05-01] MED LIST changes: +BACITRACIN TOP OINT 1 UD PKG TOP ONE; -CYANOCOBALAMIN (B-12) 1000 MCG/1 ML VIAL IM ONE; -CYANOCOBALAMIN (B-12) 1000 MCG/1 ML VIAL ONE; +FUROSEMIDE 100 MG/10ML VIAL IV ONE; -FUROSEMIDE 40 MG/4 ML VIAL IV ONE; +POTASSIUM CHL 20 Meq TABLET PO ONE; +SODIUM CHLORIDE 0.9% 100 ML IV ONE
[2017-05-01 10:45] VITALS: BP 134/58
[2017-05-01 11:15] VITALS: BP 110/56
[2017-05-01 11:45] VITALS: BP 124/58
[2017-05-01 13:45] VITALS: BP 148/59
== END | disposition home or self-care (01) ==
LOC: CHF HDHVI 10:15
PROVIDERS: ATTEND Internal Medicine Cardiovascular Disease
DX: E87.6 Hypokalemia (principal); R94.4 Abnormal results of kidney function studies; I50.9 Heart failure, unspecified
CPT/HCPCS: 96365; 96366; G0463; J1642; J1940

== ENCOUNTER → 2017-05-05 | Outpatient (CLI) | payer MEDICARE, MEDICAID ==
[~2017-05-05] MED LIST changes: -BACITRACIN TOP OINT 1 UD PKG TOP ONE; +CYANOCOBALAMIN (B-12) 1000 MCG/1 ML VIAL ONE; +CYANOCOBALAMIN (B-12) 1000 MCG/1 ML VIAL SUBCUT ONE; -FUROSEMIDE 100 MG/10ML VIAL IV ONE; +FUROSEMIDE INJECTION 100 MG in SODIUM CHL 0.9% 100 ML IV SCH; -POTASSIUM CHL 20 Meq TABLET PO ONE; -SODIUM CHLORIDE 0.9% 100 ML IV ONE; +SODIUM CHLORIDE 0.9% 100 ML IV SCH
[2017-05-05 13:30] VITALS: BP 136/69
[2017-05-05 14:00] VITALS: BP 147/70
[2017-05-05 15:02] LABS: Basophils # (auto) 0 uL; Basophils % (auto) 0.5 % (0.0-2.0); CONDITION Y; Eosinophils # (auto) 0.2 uL; Eosinophils % (auto) 3.1 % (0.0-7.0); Hematocrit 35.3 % (36.0-46.0); Hemoglobin 11.5 g/dL (12.2-16.2); Lymphocytes # (auto) 2.5 uL; Lymphocytes % (auto) 36.4 % (10.0-50.0); Mean Corpuscular Hemoglobin 28.4 pg (28.0-32.0); Mean Corpuscular Hgb Conc. 32.7 g/dL (32.0-36.0); Mean Corpuscular Volume 86.9 fL (80.0-100.0); Mean Platelet Volume 10.4 fL (7.4-10.4); Monocytes # (auto) 0.7 uL; Monocytes % (auto) 9.6 % (0.0-12.0); Neutrophils # (auto) 3.4 uL; Neutrophils % (auto) 50.4 % (37.0-80.0); Platelet Count (auto) 221 10^3/uL (140-450); Red Cell Distribution Width 17.3 % (11.6-16.0); White Blood Cell 6.8 10^3/uL (4.4-10.8)
[2017-05-05 15:20] LABS: BUN/Creatinine Ratio 33.8; Calcium 8.1 mg/dL (8.5-10.1); Magnesium 2.1 mg/dL (1.6-2.6); Potassium 4.4 mmol/L (3.5-5.1)
== END | disposition home or self-care (01) ==
LOC: CHF HDHVI 12:28
PROVIDERS: ATTEND Internal Medicine Cardiovascular Disease
DX: I27.0 Primary pulmonary hypertension (principal); D64.9 Anemia, unspecified; E83.42 Hypomagnesemia; K58.9 Irritable bowel syndrome, unspecified; R53.83 Other fatigue; G89.29 Other chronic pain; R19.7 Diarrhea, unspecified; E87.70 Fluid overload, unspecified
CPT/HCPCS: 36415; 80048; 83735; 85025; J1940; J3420

== ENCOUNTER → 2017-05-12 | Outpatient (CLI) | payer MEDICARE, MEDICAID ==
[2017-05-12] VITALS (7 sets, daily range): BP systolic 125–155; BP diastolic 59–74
[~2017-05-12] MED LIST changes: -CHOLESTYRAMINE 4 GM POWDER GT ONE; -CHOLESTYRAMINE 4 GM POWDER ONE; +CYANOCOBALAMIN (B-12) 1000 MCG/1 ML VIAL IM ONE; -CYANOCOBALAMIN (B-12) 1000 MCG/1 ML VIAL SUBCUT ONE; -SODIUM CHLORIDE 0.9% 100 ML IV SCH
[2017-05-12 16:56] LABS: Basophils # (auto) 0 uL; Basophils % (auto) 0.6 % (0.0-2.0); CONDITION Y; Eosinophils # (auto) 0.2 uL; Hematocrit 35.1 % (36.0-46.0); Hemoglobin 11.3 g/dL (12.2-16.2); Lymphocytes # (auto) 2.4 uL; Lymphocytes % (auto) 39.8 % (10.0-50.0); Mean Corpuscular Hemoglobin 28.1 pg (28.0-32.0); Mean Corpuscular Hgb Conc. 32.3 g/dL (32.0-36.0); Mean Corpuscular Volume 87.2 fL (80.0-100.0); Mean Platelet Volume 10.5 fL (7.4-10.4); Monocytes # (auto) 0.6 uL; Monocytes % (auto) 9.3 % (0.0-12.0); Neutrophils # (auto) 2.8 uL; Neutrophils % (auto) 46.3 % (37.0-80.0); Platelet Count (auto) 224 10^3/uL (140-450); Red Cell Distribution Width 17.2 % (11.6-16.0); SUSPECT SEE PRINTOUT; White Blood Cell 6.1 10^3/uL (4.4-10.8)
[2017-05-12 17:17] LABS: Potassium 3.9 mmol/L (3.5-5.1)
== END | disposition home or self-care (01) ==
LOC: CHF HDHVI 13:10
PROVIDERS: ATTEND Internal Medicine Cardiovascular Disease
DX: R94.4 Abnormal results of kidney function studies (principal); E87.6 Hypokalemia; D64.9 Anemia, unspecified
CPT/HCPCS: 36415; 82565; 84132; 84520; 85025; 96365; 96366; 96372; G0463; J1642; J1940; J3420

== ENCOUNTER → 2017-05-15 | Outpatient (CLI) | payer MEDICARE, MEDICAID ==
[2017-05-15] VITALS (7 sets, daily range): BP systolic 116–154; BP diastolic 51–69
[~2017-05-15] VITALS: Ht 152.4 cm; Wt 127.9 kg
[~2017-05-15] MED LIST changes: -CYANOCOBALAMIN (B-12) 1000 MCG/1 ML VIAL IM ONE; -CYANOCOBALAMIN (B-12) 1000 MCG/1 ML VIAL ONE; +POTASSIUM CHL 20 Meq TABLET PO ONE
[2017-05-15] MEDS: CHOLESTYRAMINE 4 GM POWDER ONE (10:33)
[2017-05-15] MEDS: CHOLESTYRAMINE 4 GM POWDER GT PRN ×2 (14:24→14:35)
== END | disposition home or self-care (01) ==
LOC: CHF HDHVI 10:14
PROVIDERS: ATTEND Internal Medicine Cardiovascular Disease
DX: I27.0 Primary pulmonary hypertension (principal); I10 Essential (primary) hypertension; E66.01 Morbid (severe) obesity due to excess calories; E87.70 Fluid overload, unspecified
CPT/HCPCS: 96365; 96366; G0463; J1642; J1940

== ENCOUNTER → 2017-05-19 | Outpatient (CLI) | payer MEDICARE, MEDICAID ==
[~2017-05-19] MED LIST changes: +CHOLESTYRAMINE 4 GM POWDER GT ONE; +CHOLESTYRAMINE 4 GM POWDER ONE; +CYANOCOBALAMIN (B-12) 1000 MCG/1 ML VIAL IM ONE; +CYANOCOBALAMIN (B-12) 1000 MCG/1 ML VIAL ONE; +FUROSEMIDE 100 MG/10ML VIAL IV ONE; -FUROSEMIDE INJECTION 100 MG in SODIUM CHL 0.9% 100 ML IV SCH; +ONDANSETRON HCL 4 MG/2 ML VIAL IV ONE; +ONDANSETRON HCL 4 MG/2 ML VIAL ONE; -POTASSIUM CHL 20 Meq TABLET PO ONE; +SODIUM CHLORIDE 0.9% 100 ML IV ONE
[2017-05-19 13:30] VITALS: BP 151/65
[2017-05-19 14:00] VITALS: BP 123/55
[2017-05-19 14:30] VITALS: BP 153/64
[2017-05-19 15:00] VITALS: BP 128/65
[2017-05-19 15:30] VITALS: BP 160/63
[2017-05-19 16:36] VITALS: BP 153/60
[2017-05-19 16:45] LABS: Basophils # (auto) 0 uL; Basophils % (auto) 0.6 % (0.0-2.0); CONDITION Y; Eosinophils # (auto) 0.3 uL; Eosinophils % (auto) 4.4 % (0.0-7.0); Hematocrit 36.2 % (36.0-46.0); Hemoglobin 11.8 g/dL (12.2-16.2); Lymphocytes # (auto) 2.4 uL; Lymphocytes % (auto) 38.2 % (10.0-50.0); Mean Corpuscular Hemoglobin 28.2 pg (28.0-32.0); Mean Corpuscular Hgb Conc. 32.6 g/dL (32.0-36.0); Mean Corpuscular Volume 86.5 fL (80.0-100.0); Mean Platelet Volume 10.8 fL (7.4-10.4); Monocytes # (auto) 0.6 uL; Monocytes % (auto) 9.5 % (0.0-12.0); Neutrophils % (auto) 47.3 % (37.0-80.0); Platelet Count (auto) 225 10^3/uL (140-450); Red Cell Distribution Width 16.9 % (11.6-16.0); White Blood Cell 6.4 10^3/uL (4.4-10.8)
[2017-05-19 17:32] LABS: Albumin 3.7 g/dL (3.4-5.0); BUN/Creatinine Ratio 25.5; Calcium 8.5 mg/dL (8.5-10.1); Magnesium 2.4 mg/dL (1.6-2.6); Potassium 4.2 mmol/L (3.5-5.1)
[2017-05-19 17:35] LABS: Bilirubin, Total 0.3 mg/dL (0.2-1.0); Total Protein 6.9 g/dL (6.4-8.2)
== END | disposition home or self-care (01) ==
LOC: CHF HDHVI 12:47
PROVIDERS: ATTEND Internal Medicine Cardiovascular Disease
DX: I10 Essential (primary) hypertension (principal); E83.42 Hypomagnesemia; D64.9 Anemia, unspecified; E55.9 Vitamin D deficiency, unspecified
CPT/HCPCS: 36415; 80053; 82306; 83735; 85025; 96365; 96366; 96372; 96375; G0463; J1642; J1940; J2405; J3420

== ENCOUNTER → 2017-05-22 | Outpatient (CLI) | payer MEDICARE, MEDICAID ==
[2017-05-22] VITALS (7 sets, daily range): BP systolic 113–166; BP diastolic 60–92
[~2017-05-22] MED LIST changes: -CYANOCOBALAMIN (B-12) 1000 MCG/1 ML VIAL IM ONE; -CYANOCOBALAMIN (B-12) 1000 MCG/1 ML VIAL ONE; -ONDANSETRON HCL 4 MG/2 ML VIAL IV ONE; -ONDANSETRON HCL 4 MG/2 ML VIAL ONE; +POTASSIUM CHL 10 Meq TABLET PO ONE; +POTASSIUM CHL 20 Meq TABLET PO ONE
== END | disposition home or self-care (01) ==
LOC: CHF HDHVI 10:16
PROVIDERS: ATTEND Internal Medicine Cardiovascular Disease
DX: I10 Essential (primary) hypertension (principal); E78.5 Hyperlipidemia, unspecified; E11.9 Type 2 diabetes mellitus without complications; R60.9 Edema, unspecified
CPT/HCPCS: 93701; 96365; 96366; G0463; J1642; J1940

== ENCOUNTER → 2017-05-29 | Outpatient (CLI) | payer MEDICARE, MEDICAID ==
[~2017-05-29] MED LIST changes: -CHOLESTYRAMINE 4 GM POWDER GT ONE; -FUROSEMIDE 100 MG/10ML VIAL IV ONE; +FUROSEMIDE INJECTION 100 MG in SODIUM CHL 0.9% 100 ML IV SCH; -POTASSIUM CHL 10 Meq TABLET PO ONE; -SODIUM CHLORIDE 0.9% 100 ML IV ONE
[2017-05-29 11:30] VITALS: BP 127/56
[2017-05-29 12:00] VITALS: BP 132/52
[2017-05-29 12:30] VITALS: BP 146/51
[2017-05-29 13:00] VITALS: BP 121/52
[2017-05-29 13:30] VITALS: BP 118/61
[2017-05-29 14:45] VITALS: BP 135/53
== END | disposition home or self-care (01) ==
LOC: CHF HDHVI 10:20
PROVIDERS: ATTEND Internal Medicine Cardiovascular Disease
DX: I27.2 Other secondary pulmonary hypertension (principal); E87.70 Fluid overload, unspecified
CPT/HCPCS: 96365; 96366; G0463; J1642; J1940

== ENCOUNTER → 2017-06-05 | Outpatient (CLI) | payer MEDICARE, MEDICAID ==
[~2017-06-05] VITALS: Ht 30.5 cm; Wt 130.6 kg
[~2017-06-05] MED LIST changes: +CHOLESTYRAMINE 4 GM POWDER GT ONE
[2017-06-05 11:00] VITALS: BP 124/49
[2017-06-05 11:30] VITALS: BP 150/65
[2017-06-05 12:00] VITALS: BP 127/56
[2017-06-05 12:30] VITALS: BP 156/51
[2017-06-05 13:30] VITALS: BP 138/66
[2017-06-05 14:00] VITALS: BP 138/66
== END | disposition home or self-care (01) ==
LOC: CHF HDHVI 10:12
PROVIDERS: ATTEND Internal Medicine Cardiovascular Disease
DX: I10 Essential (primary) hypertension (principal); E11.9 Type 2 diabetes mellitus without complications; F32.9 Major depressive disorder, single episode, unspecified; E87.70 Fluid overload, unspecified; D64.9 Anemia, unspecified
CPT/HCPCS: 96365; 96366; G0463; J1642; J1940; J7040

== ENCOUNTER → 2017-06-10 | Outpatient (CLI) | payer MEDICARE, MEDICAID ==
[~2017-06-10] MED LIST changes: +CYANOCOBALAMIN (B-12) 1000 MCG/1 ML VIAL IM ONE; +CYANOCOBALAMIN (B-12) 1000 MCG/1 ML VIAL ONE; -POTASSIUM CHL 20 Meq TABLET PO ONE
[2017-06-10 13:00] VITALS: BP 155/62
[2017-06-10 13:30] VITALS: BP 136/55
[2017-06-10 14:00] VITALS: BP 119/52
[2017-06-10 14:30] VITALS: BP 118/50
[2017-06-10 15:00] VITALS: BP 126/51
[2017-06-10 16:26] VITALS: BP 129/58
[2017-06-10 16:43] LABS: Urine Bilirubin Negative (Negative); Urine Blood Negative /uL (Negative); Urine Color Yellow (Yellow); Urine Glucose Normal (Normal); Urine Ketone Negative (Negative); Urine Nitrite Negative (Negative); Urine Urobilinogen Normal (Negative)
[2017-06-10 16:55] LABS: Basophils # (auto) 0 uL; Basophils % (auto) 0.5 % (0.0-2.0); CONDITION Y; Eosinophils # (auto) 0.2 uL; Hematocrit 35.4 % (36.0-46.0); Hemoglobin 11.4 g/dL (12.2-16.2); Lymphocytes # (auto) 2.5 uL; Lymphocytes % (auto) 41.3 % (10.0-50.0); Mean Corpuscular Hgb Conc. 32.1 g/dL (32.0-36.0); Mean Corpuscular Volume 87.3 fL (80.0-100.0); Mean Platelet Volume 9.8 fL (7.4-10.4); Monocytes # (auto) 0.5 uL; Monocytes % (auto) 8.6 % (0.0-12.0); Neutrophils # (auto) 2.8 uL; Neutrophils % (auto) 45.6 % (37.0-80.0); Platelet Count (auto) 223 10^3/uL (140-450); Red Cell Distribution Width 16.6 % (11.6-16.0); White Blood Cell 6.1 10^3/uL (4.4-10.8)
[2017-06-10 17:10] LABS: Albumin 3.4 g/dL (3.4-5.0); BUN/Creatinine Ratio 20.1; Calcium 8.3 mg/dL (8.5-10.1); Potassium 3.5 mmol/L (3.5-5.1); Uric Acid 8.4 mg/dL (2.6-6.0)
== END | disposition home or self-care (01) ==
LOC: CHF HDHVI 12:19
PROVIDERS: ATTEND Internal Medicine Cardiovascular Disease
DX: I11.0 Hypertensive heart disease with heart failure (principal); I50.9 Heart failure, unspecified; E78.00 Pure hypercholesterolemia, unspecified; R94.4 Abnormal results of kidney function studies; M10.9 Gout, unspecified; D64.9 Anemia, unspecified; N39.0 Urinary tract infection, site not specified; E55.9 Vitamin D deficiency, unspecified
CPT/HCPCS: 36415; 80048; 80061; 80069; 81003; 82306; 82570; 83970; 84156; 84550; 85025; 96365; 96366; 96372; G0463; J1642; J1940; J3420

== ENCOUNTER → 2017-06-16 | Outpatient (CLI) | payer MEDICARE, MEDICAID ==
[~2017-06-16] VITALS: Ht 30.5 cm; Wt 130.6 kg
[~2017-06-16] MED LIST changes: -CHOLESTYRAMINE 4 GM POWDER GT ONE; +CHOLESTYRAMINE 4 GM POWDER PO ONE; +POTASSIUM CHL 20 Meq TABLET PO ONE
[2017-06-16 13:00] VITALS: BP 91/64
[2017-06-16 13:15] VITALS: BP 135/56
[2017-06-16 13:45] VITALS: BP 147/59
[2017-06-16 16:00] VITALS: BP 131/62
[2017-06-16 16:26] LABS: Basophils # (auto) 0 uL; Basophils % (auto) 0.6 % (0.0-2.0); CONDITION Y; Eosinophils # (auto) 0.3 uL; Eosinophils % (auto) 4.6 % (0.0-7.0); Hematocrit 36.2 % (36.0-46.0); Hemoglobin 11.8 g/dL (12.2-16.2); Lymphocytes # (auto) 2.3 uL; Lymphocytes % (auto) 37.6 % (10.0-50.0); Mean Corpuscular Hemoglobin 28.2 pg (28.0-32.0); Mean Corpuscular Hgb Conc. 32.7 g/dL (32.0-36.0); Mean Corpuscular Volume 86.4 fL (80.0-100.0); Mean Platelet Volume 10.1 fL (7.4-10.4); Monocytes # (auto) 0.6 uL; Monocytes % (auto) 9.1 % (0.0-12.0); Neutrophils % (auto) 48.1 % (37.0-80.0); Platelet Count (auto) 232 10^3/uL (140-450); Red Cell Distribution Width 16.7 % (11.6-16.0); SUSPECT SEE PRINTOUT; White Blood Cell 6.1 10^3/uL (4.4-10.8)
[2017-06-16 16:42] LABS: BUN/Creatinine Ratio 22.1; Calcium 8.9 mg/dL (8.5-10.1); Magnesium 2.4 mg/dL (1.6-2.6); Potassium 4.2 mmol/L (3.5-5.1)
[2017-06-16 16:43] VITALS: BP 125/56
== END | disposition home or self-care (01) ==
LOC: CHF HDHVI 12:13
PROVIDERS: ATTEND Internal Medicine Cardiovascular Disease
DX: D64.9 Anemia, unspecified (principal); I11.0 Hypertensive heart disease with heart failure; I50.9 Heart failure, unspecified; E83.42 Hypomagnesemia; E66.9 Obesity, unspecified; R79.89 Other specified abnormal findings of blood chemistry
CPT/HCPCS: 36415; 80048; 82962; 83735; 85025; J1642; J1940; J3420

== ENCOUNTER → 2017-06-19 | Outpatient (CLI) | payer MEDICARE, MEDICAID ==
[2017-06-19] VITALS (7 sets, daily range): BP systolic 105–148; BP diastolic 47–67
[~2017-06-19] VITALS: Ht 30.5 cm; Wt 128.8 kg
[~2017-06-19] MED LIST changes: +CHOLESTYRAMINE 4 GM POWDER GT ONE; -CHOLESTYRAMINE 4 GM POWDER PO ONE; -CYANOCOBALAMIN (B-12) 1000 MCG/1 ML VIAL IM ONE; -CYANOCOBALAMIN (B-12) 1000 MCG/1 ML VIAL ONE; +DEXTROSE (50%) 50ML SYRG IV ONE; +DEXTROSE 50% SYRINGE 50 ML IV ONE
== END ==
LOC: CHF HDHVI 10:10
PROVIDERS: ATTEND Internal Medicine Cardiovascular Disease
DX: I27.2 Other secondary pulmonary hypertension (principal); E11.649 Type 2 diabetes mellitus with hypoglycemia without coma; E87.70 Fluid overload, unspecified
CPT/HCPCS: 82962; 96365; 96366; 96375; G0463; J1642; J1940; J7040; J7042

== ENCOUNTER → 2017-06-23 | Outpatient (CLI) | payer MEDICARE, MEDICAID ==
[~2017-06-23] MED LIST changes: +CYANOCOBALAMIN (B-12) 1000 MCG/1 ML VIAL IM ONE; +CYANOCOBALAMIN (B-12) 1000 MCG/1 ML VIAL ONE; -DEXTROSE (50%) 50ML SYRG IV ONE; -DEXTROSE 50% SYRINGE 50 ML IV ONE; +FUROSEMIDE 100 MG/10ML VIAL IV ONE; -FUROSEMIDE INJECTION 100 MG in SODIUM CHL 0.9% 100 ML IV SCH; +SODIUM CHLORIDE 0.9% 100 ML IV SCH
[2017-06-23 13:00] VITALS: BP 131/53
[2017-06-23 13:30] VITALS: BP 123/53
[2017-06-23 14:00] VITALS: BP 129/57
[2017-06-23 16:38] LABS: Basophils # (auto) 0.1 uL; Basophils % (auto) 1.3 % (0.0-2.0); Eosinophils # (auto) 0.2 uL; Eosinophils % (auto) 4.3 % (0.0-7.0); Hematocrit 36.4 % (36.0-46.0); Hemoglobin 11.9 g/dL (12.2-16.2); Lymphocytes # (auto) 1.9 uL; Lymphocytes % (auto) 35.6 % (10.0-50.0); Mean Corpuscular Hemoglobin 28.7 pg (28.0-32.0); Mean Corpuscular Hgb Conc. 32.7 g/dL (32.0-36.0); Mean Corpuscular Volume 87.8 fL (80.0-100.0); Mean Platelet Volume 9.3 fL (6.9-10.8); Monocytes # (auto) 0.5 uL; Monocytes % (auto) 9.4 % (0.0-12.0); Neutrophils # (auto) 2.6 uL; Neutrophils % (auto) 49.4 % (37.0-80.0); Nucleated Red Blood Cells % 0.3 %; Platelet Count (auto) 181 10^3/uL (140-450); Red Cell Distribution Width 16.5 % (11.8-14.3); White Blood Cell 5.3 10^3/uL (4.4-10.8)
[2017-06-23 16:42] LABS: Potassium 3.9 mmol/L (3.5-5.1)
[2017-06-23 17:04] VITALS: BP 153/76
== END | disposition home or self-care (01) ==
LOC: CHF HDHVI 12:12
PROVIDERS: ATTEND Internal Medicine Cardiovascular Disease
DX: E87.6 Hypokalemia (principal); R94.4 Abnormal results of kidney function studies; E11.9 Type 2 diabetes mellitus without complications; D51.9 Vitamin B12 deficiency anemia, unspecified; D64.9 Anemia, unspecified
CPT/HCPCS: 36415; 82565; 82607; 83036; 84132; 84520; 85025; 96365; 96366; 96372; G0463; J1642; J1940; J3420

== ENCOUNTER → 2017-06-30 | Outpatient (CLI) | payer MEDICARE, MEDICAID ==
[~2017-06-30] MED LIST changes: -FUROSEMIDE 100 MG/10ML VIAL IV ONE; +FUROSEMIDE INJECTION 100 MG in SODIUM CHL 0.9% 100 ML IV SCH; +KETOROLAC TROMETH 60MG/2ML VIAL IM ONE; -SODIUM CHLORIDE 0.9% 100 ML IV SCH
[2017-06-30 13:30] VITALS: BP 124/64
[2017-06-30 14:00] VITALS: BP 124/63
[2017-06-30 14:30] VITALS: BP 138/60
[2017-06-30 15:00] VITALS: BP 150/68
[2017-06-30 16:00] VITALS: BP 119/43
[2017-06-30 16:45] VITALS: BP 123/48
[2017-06-30 16:52] LABS: Basophils # (auto) 0 uL; Basophils % (auto) 0.4 % (0.0-2.0); Eosinophils # (auto) 0.2 uL; Eosinophils % (auto) 3.4 % (0.0-7.0); Hematocrit 37.1 % (36.0-46.0); Lymphocytes # (auto) 2.5 uL; Lymphocytes % (auto) 38.4 % (10.0-50.0); Mean Corpuscular Hemoglobin 28.6 pg (28.0-32.0); Mean Corpuscular Hgb Conc. 32.5 g/dL (32.0-36.0); Mean Corpuscular Volume 87.9 fL (80.0-100.0); Mean Platelet Volume 9.2 fL (6.9-10.8); Monocytes # (auto) 0.6 uL; Monocytes % (auto) 9.9 % (0.0-12.0); Neutrophils # (auto) 3.1 uL; Neutrophils % (auto) 47.9 % (37.0-80.0); Nucleated Red Blood Cells % 0.8 %; Platelet Count (auto) 193 10^3/uL (140-450); Red Cell Distribution Width 16.7 % (11.8-14.3); White Blood Cell 6.5 10^3/uL (4.4-10.8)
[2017-06-30 17:05] LABS: BUN/Creatinine Ratio 24.6; Calcium 8.4 mg/dL (8.5-10.1); Potassium 4.4 mmol/L (3.5-5.1)
== END | disposition home or self-care (01) ==
LOC: CHF HDHVI 12:43
PROVIDERS: ATTEND Internal Medicine Cardiovascular Disease
DX: I10 Essential (primary) hypertension (principal); D64.9 Anemia, unspecified
CPT/HCPCS: 36415; 80048; 85025; 96365; 96366; 96372; G0463; J1642; J1885; J1940

== ENCOUNTER → 2017-07-03 | Outpatient (CLI) | payer MEDICARE, MEDICAID ==
[~2017-07-03] MED LIST changes: -CHOLESTYRAMINE 4 GM POWDER GT ONE; +CHOLESTYRAMINE 4 GM POWDER PO ONE; -CYANOCOBALAMIN (B-12) 1000 MCG/1 ML VIAL IM ONE; -CYANOCOBALAMIN (B-12) 1000 MCG/1 ML VIAL ONE
[2017-07-03 11:30] VITALS: BP 136/51
[2017-07-03 12:00] VITALS: BP 118/52
[2017-07-03 12:30] VITALS: BP 129/61
[2017-07-03 13:00] VITALS: BP 122/59
[2017-07-03 13:30] VITALS: BP 123/59
[2017-07-03 14:35] VITALS: BP 123/51
== END | disposition home or self-care (01) ==
LOC: CHF HDHVI 10:28
PROVIDERS: ATTEND Internal Medicine Cardiovascular Disease
DX: I50.9 Heart failure, unspecified (principal); I25.10 Atherosclerotic heart disease of native coronary artery without angina pectoris; E11.9 Type 2 diabetes mellitus without complications
CPT/HCPCS: 93701; 96365; 96366; 96372; G0463; J1642; J1885; J1940

== ENCOUNTER → 2017-07-07 | Outpatient (CLI) | payer MEDICARE, MEDICAID ==
[2017-07-07] VITALS (8 sets, daily range): BP systolic 126–157; BP diastolic 54–62
[~2017-07-07] MED LIST changes: +CHOLESTYRAMINE 4 GM POWDER GT ONE; -CHOLESTYRAMINE 4 GM POWDER PO ONE; +FUROSEMIDE 100 MG/10ML VIAL IV ONE; -FUROSEMIDE INJECTION 100 MG in SODIUM CHL 0.9% 100 ML IV SCH; -KETOROLAC TROMETH 60MG/2ML VIAL IM ONE
[2017-07-07 16:21] LABS: Potassium 4.3 mmol/L (3.5-5.1)
== END | disposition home or self-care (01) ==
LOC: CHF HDHVI 12:38
PROVIDERS: ATTEND Internal Medicine Cardiovascular Disease
DX: E87.6 Hypokalemia (principal); R94.4 Abnormal results of kidney function studies; I25.10 Atherosclerotic heart disease of native coronary artery without angina pectoris; I50.9 Heart failure, unspecified; E11.9 Type 2 diabetes mellitus without complications
CPT/HCPCS: 36415; 82565; 84132; 84520; 96365; 96366; G0463; J1642; J1940

== ENCOUNTER → 2017-07-10 | Outpatient (CLI) | payer MEDICARE, MEDICAID ==
[~2017-07-10] VITALS: Ht 165.1 cm; Wt 107.5 kg
[~2017-07-10] MED LIST changes: +DEXTROSE (50%) 50ML SYRG IV ONE; +DEXTROSE 50% SYRINGE 50 ML IV ONE; -FUROSEMIDE 100 MG/10ML VIAL IV ONE; +FUROSEMIDE INJECTION 100 MG in SODIUM CHL 0.9% 100 ML IV SCH
[2017-07-10 11:00] VITALS: BP 137/53
[2017-07-10 11:30] VITALS: BP 139/53
[2017-07-10 12:00] VITALS: BP 147/54
[2017-07-10 12:30] VITALS: BP 126/55
[2017-07-10 14:30] VITALS: BP 157/58
== END | disposition home or self-care (01) ==
LOC: CHF HDHVI 10:11
PROVIDERS: ATTEND Internal Medicine Cardiovascular Disease
DX: I27.0 Primary pulmonary hypertension (principal); K58.9 Irritable bowel syndrome, unspecified; E87.6 Hypokalemia
CPT/HCPCS: 82962; 96365; 96366; G0463; J1642; J1940; J7042

== ENCOUNTER → 2017-07-17 | Outpatient (CLI) | payer MEDICARE, MEDICAID ==
[~2017-07-17] VITALS: Ht 30.5 cm; Wt 128.4 kg
[~2017-07-17] MED LIST changes: +CYANOCOBALAMIN (B-12) 1000 MCG/1 ML VIAL ONE; -DEXTROSE (50%) 50ML SYRG IV ONE; -DEXTROSE 50% SYRINGE 50 ML IV ONE
[2017-07-17 15:45] VITALS: BP 125/51
[2017-07-17 16:02] LABS: Uric Acid 8.3 mg/dL (2.6-6.0)
== END | disposition home or self-care (01) ==
LOC: CHF HDHVI 11:44
PROVIDERS: ATTEND Internal Medicine Cardiovascular Disease
DX: E87.6 Hypokalemia (principal); R94.4 Abnormal results of kidney function studies; M10.9 Gout, unspecified
CPT/HCPCS: 36415; 82565; 84132; 84520; 84550; 96365; 96366; G0463; J1642; J1940; J7040

== ENCOUNTER → 2017-07-21 | Outpatient (CLI) | payer MEDICARE, MEDICAID ==
[~2017-07-21] MED LIST changes: +CYANOCOBALAMIN (B-12) 1000 MCG/1 ML VIAL SUBCUT ONE; +FUROSEMIDE 100 MG/10ML VIAL IV ONE; -FUROSEMIDE INJECTION 100 MG in SODIUM CHL 0.9% 100 ML IV SCH; -POTASSIUM CHL 20 Meq TABLET PO ONE
[2017-07-21 16:55] VITALS: BP 127/66
[2017-07-21 17:09] LABS: Basophils # (auto) 0 uL; Basophils % (auto) 0.5 % (0.0-2.0); Eosinophils # (auto) 0.2 uL; Eosinophils % (auto) 3.5 % (0.0-7.0); Hematocrit 35.4 % (36.0-46.0); Hemoglobin 11.6 g/dL (12.2-16.2); Lymphocytes # (auto) 2.1 uL; Lymphocytes % (auto) 30.8 % (10.0-50.0); Mean Corpuscular Hemoglobin 28.5 pg (28.0-32.0); Mean Corpuscular Hgb Conc. 32.7 g/dL (32.0-36.0); Mean Corpuscular Volume 87.2 fL (80.0-100.0); Mean Platelet Volume 9.8 fL (6.9-10.8); Monocytes # (auto) 0.6 uL; Monocytes % (auto) 9.1 % (0.0-12.0); Neutrophils # (auto) 3.8 uL; Neutrophils % (auto) 56.1 % (37.0-80.0); Nucleated Red Blood Cells % 0.2 %; Platelet Count (auto) 170 10^3/uL (140-450); Red Cell Distribution Width 16.2 % (11.8-14.3); White Blood Cell 6.8 10^3/uL (4.4-10.8)
[2017-07-21 17:12] LABS: Potassium 4.1 mmol/L (3.5-5.1)
== END | disposition home or self-care (01) ==
LOC: CHF HDHVI 12:32
PROVIDERS: ATTEND Internal Medicine Cardiovascular Disease
DX: E87.6 Hypokalemia (principal); R94.4 Abnormal results of kidney function studies; D64.9 Anemia, unspecified
CPT/HCPCS: 36415; 82565; 84132; 84520; 85025; 96365; 96366; 96372; G0463; J1642; J1940; J3420

== ENCOUNTER → 2017-07-28 | Outpatient (CLI) | payer MEDICARE, MEDICAID ==
[~2017-07-28] MED LIST changes: -CYANOCOBALAMIN (B-12) 1000 MCG/1 ML VIAL ONE; -CYANOCOBALAMIN (B-12) 1000 MCG/1 ML VIAL SUBCUT ONE; +POTASSIUM CHL 20 Meq TABLET PO ONE; +SODIUM CHLORIDE 0.9% 1,000 ML IV SCH
[2017-07-28 16:45] VITALS: BP 128/51
[2017-07-28 16:48] LABS: Basophils # (auto) 0 uL; Basophils % (auto) 0.4 % (0.0-2.0); Eosinophils # (auto) 0.1 uL; Eosinophils % (auto) 1.4 % (0.0-7.0); Hematocrit 37.3 % (36.0-46.0); Hemoglobin 12.3 g/dL (12.2-16.2); Lymphocytes # (auto) 1.8 uL; Lymphocytes % (auto) 23.8 % (10.0-50.0); Mean Corpuscular Hemoglobin 28.6 pg (28.0-32.0); Mean Corpuscular Volume 86.8 fL (80.0-100.0); Mean Platelet Volume 10.1 fL (6.9-10.8); Monocytes # (auto) 0.6 uL; Monocytes % (auto) 7.8 % (0.0-12.0); Neutrophils # (auto) 5.1 uL; Neutrophils % (auto) 66.6 % (37.0-80.0); Nucleated Red Blood Cells % 0.1 %; Platelet Count (auto) 217 10^3/uL (140-450); Red Cell Distribution Width 16.2 % (11.8-14.3); White Blood Cell 7.6 10^3/uL (4.4-10.8)
[2017-07-28 17:14] LABS: B-Type Natriuretic Peptide 245.06 pg/mL (0-100)
== END | disposition home or self-care (01) ==
LOC: CHF HDHVI 12:41
PROVIDERS: ATTEND Internal Medicine Cardiovascular Disease
DX: I50.9 Heart failure, unspecified (principal); E83.42 Hypomagnesemia; D64.9 Anemia, unspecified
CPT/HCPCS: 36415; 83735; 83880; 85025; 96365; 96366; G0463; J1642; J1940

== ENCOUNTER → 2017-07-31 | Outpatient (CLI) | payer MEDICARE, MEDICAID ==
[2017-07-31 11:00] VITALS: BP 140/51
[2017-07-31 11:30] VITALS: BP 147/60
[2017-07-31 12:00] VITALS: BP 123/68
[2017-07-31 14:40] VITALS: BP 139/60
== END | disposition home or self-care (01) ==
LOC: CHF HDHVI 10:14
PROVIDERS: ATTEND Internal Medicine Cardiovascular Disease
DX: I50.9 Heart failure, unspecified (principal); E11.9 Type 2 diabetes mellitus without complications; R19.7 Diarrhea, unspecified; E66.9 Obesity, unspecified
CPT/HCPCS: 96365; 96366; G0463; J1642; J1940

== ENCOUNTER → 2017-08-05 | Outpatient (CLI) | payer MEDICARE, MEDICAID ==
[~2017-08-05] MED LIST changes: +MAGNESIUM OXIDE 400 MG TAB ONE; +MAGNESIUM OXIDE 400 MG TAB PO ONE
[2017-08-05 13:00] VITALS: BP 115/60
[2017-08-05 13:30] VITALS: BP 124/73
[2017-08-05 14:30] VITALS: BP 159/57
[2017-08-05 15:00] VITALS: BP 150/60
[2017-08-05 16:21] LABS: Basophils # (auto) 0 uL; Basophils % (auto) 0.7 % (0.0-2.0); Eosinophils # (auto) 0.2 uL; Eosinophils % (auto) 4.6 % (0.0-7.0); Hematocrit 36.1 % (36.0-46.0); Hemoglobin 11.9 g/dL (12.2-16.2); Lymphocytes # (auto) 1.9 uL; Lymphocytes % (auto) 35.5 % (10.0-50.0); Mean Corpuscular Hemoglobin 28.8 pg (28.0-32.0); Mean Corpuscular Volume 87.1 fL (80.0-100.0); Mean Platelet Volume 9.6 fL (6.9-10.8); Monocytes # (auto) 0.5 uL; Monocytes % (auto) 10.3 % (0.0-12.0); Neutrophils # (auto) 2.6 uL; Neutrophils % (auto) 48.9 % (37.0-80.0); Nucleated Red Blood Cells % 1.4 %; Platelet Count (auto) 189 10^3/uL (140-450); Red Cell Distribution Width 16.2 % (11.8-14.3); White Blood Cell 5.3 10^3/uL (4.4-10.8)
[2017-08-05 16:25] LABS: Potassium 4.2 mmol/L (3.5-5.1)
== END | disposition home or self-care (01) ==
LOC: CHF HDHVI 12:29
PROVIDERS: ATTEND Internal Medicine Cardiovascular Disease
DX: E87.6 Hypokalemia (principal); R94.4 Abnormal results of kidney function studies; D64.9 Anemia, unspecified
CPT/HCPCS: 36415; 84132; 84520; 85025; 96365; 96366; G0463; J1642; J1940

== ENCOUNTER → 2017-08-11 | Outpatient (CLI) | payer MEDICARE, MEDICAID ==
[~2017-08-11] MED LIST changes: -CHOLESTYRAMINE 4 GM POWDER GT ONE; +CHOLESTYRAMINE 4 GM POWDER PO ONE; -FUROSEMIDE 100 MG/10ML VIAL IV ONE; +FUROSEMIDE INJECTION 100 MG in SODIUM CHL 0.9% 100 ML IV SCH; -MAGNESIUM OXIDE 400 MG TAB ONE; -MAGNESIUM OXIDE 400 MG TAB PO ONE; -SODIUM CHLORIDE 0.9% 1,000 ML IV SCH
[2017-08-11 13:30] VITALS: BP 131/56
[2017-08-11 14:00] VITALS: BP 139/60
[2017-08-11 14:30] VITALS: BP 119/44
[2017-08-11 15:00] VITALS: BP 133/54
[2017-08-11 15:30] VITALS: BP 118/55
[2017-08-11 16:00] VITALS: BP 136/53
[2017-08-11 16:29] LABS: Basophils # (auto) 0 uL; Basophils % (auto) 0.8 % (0.0-2.0); Eosinophils # (auto) 0.2 uL; Eosinophils % (auto) 3.8 % (0.0-7.0); Hemoglobin 11.8 g/dL (12.2-16.2); Lymphocytes % (auto) 36.3 % (10.0-50.0); Mean Corpuscular Hemoglobin 28.6 pg (28.0-32.0); Mean Corpuscular Hgb Conc. 32.8 g/dL (32.0-36.0); Mean Corpuscular Volume 87.3 fL (80.0-100.0); Mean Platelet Volume 9.8 fL (6.9-10.8); Monocytes # (auto) 0.5 uL; Monocytes % (auto) 9.7 % (0.0-12.0); Neutrophils # (auto) 2.7 uL; Neutrophils % (auto) 49.4 % (37.0-80.0); Nucleated Red Blood Cells % 0.3 %; Platelet Count (auto) 172 10^3/uL (140-450); Red Cell Distribution Width 16.3 % (11.8-14.3); White Blood Cell 5.4 10^3/uL (4.4-10.8)
[2017-08-11 16:38] LABS: BUN/Creatinine Ratio 23.5; Calcium 8.8 mg/dL (8.5-10.1); Magnesium 2.4 mg/dL (1.6-2.6); Potassium 4.1 mmol/L (3.5-5.1)
== END | disposition home or self-care (01) ==
LOC: CHF HDHVI 13:00
PROVIDERS: ATTEND Internal Medicine Cardiovascular Disease
DX: I10 Essential (primary) hypertension (principal); D64.9 Anemia, unspecified; E83.42 Hypomagnesemia; E87.6 Hypokalemia; E11.9 Type 2 diabetes mellitus without complications; K58.9 Irritable bowel syndrome, unspecified
CPT/HCPCS: 36415; 80048; 83735; 85025; 96365; 96366; G0463; J1642; J1940

== ENCOUNTER → 2017-08-14 | Outpatient (CLI) | payer MEDICARE, MEDICAID ==
[~2017-08-14] VITALS: Ht 30.5 cm; Wt 130.0 kg
[~2017-08-14] MED LIST changes: +CHOLESTYRAMINE 4 GM POWDER GT ONE; -CHOLESTYRAMINE 4 GM POWDER PO ONE; +FUROSEMIDE 100 MG/10ML VIAL IV ONE; -FUROSEMIDE INJECTION 100 MG in SODIUM CHL 0.9% 100 ML IV SCH; +FUROSEMIDE IV SCH; +MUPIROCIN 2% OINT 22GM ONE; +MUPIROCIN 2% OINT 22GM TOP ONE; +SODIUM CHL 0.9% IV SCH; +SODIUM CHLORIDE 0.9% 1,000 ML IV SCH
[2017-08-14 14:10] VITALS: BP 141/63
== END | disposition home or self-care (01) ==
LOC: CHF HDHVI 10:04
PROVIDERS: ATTEND Internal Medicine Cardiovascular Disease
DX: I50.9 Heart failure, unspecified (principal); E11.9 Type 2 diabetes mellitus without complications; R19.7 Diarrhea, unspecified; R60.0 Localized edema
CPT/HCPCS: 82962; 96365; 96366; G0463; J1642; J1940

== ENCOUNTER → 2017-08-18 | Outpatient (CLI) | payer MEDICARE, MEDICAID ==
[~2017-08-18] MED LIST changes: -FUROSEMIDE IV SCH; -MUPIROCIN 2% OINT 22GM ONE; -MUPIROCIN 2% OINT 22GM TOP ONE; -SODIUM CHL 0.9% IV SCH; -SODIUM CHLORIDE 0.9% 1,000 ML IV SCH; +SODIUM CHLORIDE 0.9% 100 ML IV SCH
[2017-08-18 13:30] VITALS: BP 126/47
[2017-08-18 14:00] VITALS: BP 138/65
[2017-08-18 14:30] VITALS: BP 141/63
[2017-08-18 15:00] VITALS: BP 142/57
[2017-08-18 15:30] VITALS: BP 118/54
[2017-08-18 16:23] LABS: Basophils # (auto) 0 uL; Basophils % (auto) 0.7 % (0.0-2.0); Eosinophils # (auto) 0.3 uL; Eosinophils % (auto) 4.2 % (0.0-7.0); Hematocrit 35.8 % (36.0-46.0); Hemoglobin 11.7 g/dL (12.2-16.2); Lymphocytes # (auto) 2.1 uL; Mean Corpuscular Hemoglobin 28.8 pg (28.0-32.0); Mean Corpuscular Hgb Conc. 32.7 g/dL (32.0-36.0); Mean Corpuscular Volume 88.1 fL (80.0-100.0); Mean Platelet Volume 9.5 fL (6.9-10.8); Monocytes # (auto) 0.6 uL; Monocytes % (auto) 10.3 % (0.0-12.0); Neutrophils # (auto) 2.9 uL; Neutrophils % (auto) 48.8 % (37.0-80.0); Nucleated Red Blood Cells % 0.9 %; Platelet Count (auto) 187 10^3/uL (140-450); Red Cell Distribution Width 16.2 % (11.8-14.3)
[2017-08-18 16:30] VITALS: BP 129/57
[2017-08-18 16:30] LABS: Urine Bilirubin Negative (Negative); Urine Blood Negative /uL (Negative); Urine Glucose Normal (Normal); Urine Ketone Negative (Negative); Urine Nitrite Negative (Negative); Urine RBC 1 /hpf (0 - 4); Urine Squamous Epithelial Cell FEW /hpf (<5); Urine Urobilinogen Normal (Negative)
[2017-08-18 16:38] LABS: Calcium 8.4 mg/dL (8.5-10.1); Magnesium 2.3 mg/dL (1.6-2.6)
[2017-08-18 16:46] LABS: BUN/Creatinine Ratio 21.4
[2017-08-18 16:58] LABS: Urine Color Straw (Yellow)
== END | disposition home or self-care (01) ==
LOC: CHF HDHVI 12:39
PROVIDERS: ATTEND Internal Medicine Cardiovascular Disease
DX: I10 Essential (primary) hypertension (principal); E83.42 Hypomagnesemia; D64.9 Anemia, unspecified; N39.0 Urinary tract infection, site not specified
CPT/HCPCS: 36415; 80048; 81001; 82962; 83735; 85025; 87086; 96365; 96366; G0463; J1642; J1940

== ENCOUNTER → 2017-08-25 | Outpatient (CLI) | payer MEDICARE, MEDICAID ==
[~2017-08-25] MED LIST changes: +CYANOCOBALAMIN (B-12) 1000 MCG/1 ML VIAL ONE; +SODIUM CHLORIDE 0.9% 1,000 ML IV SCH; -SODIUM CHLORIDE 0.9% 100 ML IV SCH
[2017-08-25 13:00] VITALS: BP 119/51
[2017-08-25 13:30] VITALS: BP 131/61
[2017-08-25 14:00] VITALS: BP 121/47
[2017-08-25 14:30] VITALS: BP 124/49
[2017-08-25 16:10] VITALS: BP 130/58
[2017-08-25 16:18] LABS: Urine Bilirubin Negative (Negative); Urine Blood Negative /uL (Negative); Urine Color Straw (Yellow); Urine Glucose Normal (Normal); Urine Ketone Negative (Negative); Urine Nitrite Negative (Negative); Urine Urobilinogen Normal (Negative)
== END | disposition home or self-care (01) ==
LOC: CHF HDHVI 12:23
PROVIDERS: ATTEND Internal Medicine Cardiovascular Disease
DX: I50.9 Heart failure, unspecified (principal); E11.9 Type 2 diabetes mellitus without complications; I25.10 Atherosclerotic heart disease of native coronary artery without angina pectoris; K52.9 Noninfective gastroenteritis and colitis, unspecified; I27.21 Secondary pulmonary arterial hypertension; N39.0 Urinary tract infection, site not specified; J44.9 Chronic obstructive pulmonary disease, unspecified
CPT/HCPCS: 81003; 82962; 87086; 96365; 96366; G0463; J1642; J1940; J7030

== ENCOUNTER → 2017-08-27 | Outpatient (CLI) | payer MEDICARE, MEDICAID ==
[~2017-08-27] MED LIST changes: -CYANOCOBALAMIN (B-12) 1000 MCG/1 ML VIAL ONE; -FUROSEMIDE 100 MG/10ML VIAL IV ONE; +FUROSEMIDE INJECTION 100 MG in SODIUM CHL 0.9% 100 ML IV SCH; -SODIUM CHLORIDE 0.9% 1,000 ML IV SCH
[2017-08-27 12:00] VITALS: BP 128/62
[2017-08-27 12:30] VITALS: BP 134/69
[2017-08-27 13:00] VITALS: BP 164/68
[2017-08-27 13:30] VITALS: BP 139/63
[2017-08-27 14:10] VITALS: BP 139/60
== END | disposition home or self-care (01) ==
LOC: CHF HDHVI 10:03
PROVIDERS: ATTEND Internal Medicine Cardiovascular Disease
DX: I27.21 Secondary pulmonary arterial hypertension (principal); E11.9 Type 2 diabetes mellitus without complications; G89.29 Other chronic pain; F32.9 Major depressive disorder, single episode, unspecified
CPT/HCPCS: 96365; 96366; G0463; J1642; J1940; J7040

== ENCOUNTER → 2017-09-01 | Outpatient (CLI) | payer MEDICARE, MEDICAID ==
[~2017-09-01] MED LIST changes: +CYANOCOBALAMIN (B-12) 1000 MCG/1 ML VIAL IM ONE; +CYANOCOBALAMIN (B-12) 1000 MCG/1 ML VIAL ONE; +KETOROLAC TROMETH 60MG/2ML VIAL IM ONE
[2017-09-01 13:40] VITALS: BP 141/59
[2017-09-01 14:00] VITALS: BP 149/63
[2017-09-01 14:30] VITALS: BP 158/68
[2017-09-01 15:00] VITALS: BP 149/63
[2017-09-01 15:30] VITALS: BP 149/60
[2017-09-01 16:15] VITALS: BP 138/57
[2017-09-01 16:25] LABS: Basophils # (auto) 0 uL; Basophils % (auto) 0.7 % (0.0-2.0); Eosinophils # (auto) 0.2 uL; Eosinophils % (auto) 3.4 % (0.0-7.0); Hematocrit 35.7 % (36.0-46.0); Hemoglobin 11.7 g/dL (12.2-16.2); Lymphocytes # (auto) 2.2 uL; Mean Corpuscular Hemoglobin 28.8 pg (28.0-32.0); Mean Corpuscular Hgb Conc. 32.6 g/dL (32.0-36.0); Mean Corpuscular Volume 88.2 fL (80.0-100.0); Mean Platelet Volume 9.2 fL (6.9-10.8); Monocytes # (auto) 0.6 uL; Neutrophils # (auto) 3.4 uL; Neutrophils % (auto) 52.9 % (37.0-80.0); Nucleated Red Blood Cells % 0.2 %; Platelet Count (auto) 180 10^3/uL (140-450); Red Cell Distribution Width 15.9 % (11.8-14.3); White Blood Cell 6.5 10^3/uL (4.4-10.8)
[2017-09-01 16:36] LABS: Potassium 4.2 mmol/L (3.5-5.1)
[2017-09-01 16:48] LABS: B-Type Natriuretic Peptide 193.85 pg/mL (0-100)
[2017-09-01 16:55] LABS: Temperature: 22.8 C (20.0-25.0)
== END | disposition home or self-care (01) ==
LOC: CHF HDHVI 12:33
PROVIDERS: ATTEND Internal Medicine Cardiovascular Disease
DX: I50.9 Heart failure, unspecified (principal); E11.9 Type 2 diabetes mellitus without complications; R94.4 Abnormal results of kidney function studies; E87.6 Hypokalemia; D64.9 Anemia, unspecified; R53.83 Other fatigue; G89.29 Other chronic pain; N28.9 Disorder of kidney and ureter, unspecified; I27.21 Secondary pulmonary arterial hypertension; K58.9 Irritable bowel syndrome, unspecified
CPT/HCPCS: 36415; 82565; 83880; 84132; 84520; 85025; 96365; 96366; 96372; G0463; J1642; J1885; J1940; J3420

== ENCOUNTER → 2017-09-04 | Outpatient (CLI) | payer MEDICARE, MEDICAID ==
[~2017-09-04] VITALS: Ht 30.5 cm; Wt 129.7 kg
[~2017-09-04] MED LIST changes: -CYANOCOBALAMIN (B-12) 1000 MCG/1 ML VIAL IM ONE; -CYANOCOBALAMIN (B-12) 1000 MCG/1 ML VIAL ONE; -KETOROLAC TROMETH 60MG/2ML VIAL IM ONE
[2017-09-04 14:00] VITALS: BP 111/53
== END | disposition home or self-care (01) ==
LOC: CHF HDHVI 10:08
PROVIDERS: ATTEND Internal Medicine Cardiovascular Disease
DX: E78.5 Hyperlipidemia, unspecified (principal); I27.21 Secondary pulmonary arterial hypertension; R06.00 Dyspnea, unspecified; E11.9 Type 2 diabetes mellitus without complications
CPT/HCPCS: 82962; 96365; 96366; G0463; J1642; J1940; J7040

== ENCOUNTER → 2017-09-08 | Outpatient (CLI) | payer MEDICARE, MEDICAID ==
[~2017-09-08] VITALS: Ht 1 cm; Wt 0.5 kg
[~2017-09-08] MED LIST changes: -CHOLESTYRAMINE 4 GM POWDER GT ONE
[2017-09-08 16:20] LABS: Eosinophils # (auto) 0.1 uL; Monocytes # (auto) 0.7 uL; Neutrophils # (auto) 4.2 uL; White Blood Cell 6.9 10^3/uL (4.4-10.8)
[2017-09-08 16:25] VITALS: BP 139/59
[2017-09-08 16:25] LABS: Magnesium 2.3 mg/dL (1.6-2.6)
[2017-09-08 17:58] LABS: Basophils # (auto) 0 uL; Basophils % (auto) 0.5 % (0.0-2.0); Eosinophils % (auto) 1.6 % (0.0-7.0); Hematocrit 36.8 % (36.0-46.0); Hemoglobin 12.3 g/dL (12.2-16.2); Lymphocytes # (auto) 1.9 uL; Lymphocytes % (auto) 27.1 % (10.0-50.0); Mean Corpuscular Hemoglobin 29.3 pg (28.0-32.0); Mean Corpuscular Hgb Conc. 33.4 g/dL (32.0-36.0); Mean Corpuscular Volume 87.6 fL (80.0-100.0); Mean Platelet Volume 9.7 fL (6.9-10.8); Monocytes % (auto) 9.5 % (0.0-12.0); Neutrophils % (auto) 61.3 % (37.0-80.0); Platelet Count (auto) 199 10^3/uL (140-450); Red Cell Distribution Width 15.9 % (11.8-14.3)
== END | disposition home or self-care (01) ==
LOC: CHF HDHVI 12:38
PROVIDERS: ATTEND Internal Medicine Cardiovascular Disease
DX: E83.42 Hypomagnesemia (principal); E87.5 Hyperkalemia; R94.4 Abnormal results of kidney function studies; D64.9 Anemia, unspecified; R53.83 Other fatigue; K58.9 Irritable bowel syndrome, unspecified; E87.70 Fluid overload, unspecified; I27.20 Pulmonary hypertension, unspecified
CPT/HCPCS: 36415; 82565; 83735; 84132; 84520; 85025; 93701; 96365; 96366; G0463; J1642; J1940

== ENCOUNTER → 2017-09-11 | Outpatient (CLI) | payer MEDICARE, MEDICAID ==
[~2017-09-11] MED LIST changes: +CHOLESTYRAMINE 4 GM POWDER GT ONE; -FUROSEMIDE INJECTION 100 MG in SODIUM CHL 0.9% 100 ML IV SCH; +KETOROLAC TROMETH 60MG/2ML VIAL IM ONE
[2017-09-11 11:00] VITALS: BP 121/52
[2017-09-11 11:30] VITALS: BP 131/50
[2017-09-11 12:00] VITALS: BP 139/54
[2017-09-11 12:30] VITALS: BP 155/56
[2017-09-11 14:00] VITALS: BP 110/47
== END ==
LOC: CHF HDHVI 10:08
PROVIDERS: ATTEND Internal Medicine Cardiovascular Disease
DX: E87.70 Fluid overload, unspecified (principal); E11.9 Type 2 diabetes mellitus without complications; G89.29 Other chronic pain
CPT/HCPCS: 82962; 96365; 96366; 96372; G0463; J1642; J1885; J1940

== ENCOUNTER → 2017-09-15 | Outpatient (CLI) | payer MEDICARE, MEDICAID ==
[~2017-09-15] VITALS: Ht 165.1 cm; Wt 129.9 kg
[~2017-09-15] MED LIST changes: +FUROSEMIDE INJECTION 100 MG in SODIUM CHL 0.9% 90 ML IV SCH; -KETOROLAC TROMETH 60MG/2ML VIAL IM ONE
[2017-09-15 16:34] LABS: Basophils # (auto) 0.1 uL; Basophils % (auto) 0.9 % (0.0-2.0); Eosinophils # (auto) 0.3 uL; Hematocrit 37.5 % (36.0-46.0); Hemoglobin 12.4 g/dL (12.2-16.2); Lymphocytes # (auto) 2.2 uL; Lymphocytes % (auto) 30.8 % (10.0-50.0); Mean Corpuscular Hemoglobin 28.9 pg (28.0-32.0); Mean Corpuscular Volume 87.8 fL (80.0-100.0); Mean Platelet Volume 9.6 fL (6.9-10.8); Monocytes # (auto) 0.7 uL; Monocytes % (auto) 9.8 % (0.0-12.0); Neutrophils # (auto) 3.9 uL; Neutrophils % (auto) 54.5 % (37.0-80.0); Nucleated Red Blood Cells % 0.3 %; Platelet Count (auto) 205 10^3/uL (140-450); Red Cell Distribution Width 16.4 % (11.8-14.3); White Blood Cell 7.2 10^3/uL (4.4-10.8)
[2017-09-15 16:40] VITALS: BP 137/66
[2017-09-15 16:55] LABS: BUN/Creatinine Ratio 22.8
== END | disposition home or self-care (01) ==
LOC: CHF HDHVI 13:28
PROVIDERS: ATTEND Internal Medicine Cardiovascular Disease
DX: D64.9 Anemia, unspecified (principal); I10 Essential (primary) hypertension
CPT/HCPCS: 36415; 80048; 85025; 96365; 96366; G0463; J1642; J1940

== ENCOUNTER → 2017-09-18 | Outpatient (CLI) | payer MEDICARE, MEDICAID ==
[~2017-09-18] MED LIST changes: +DEXL60CA3 PO; +FUROSEMIDE 100 MG/10ML VIAL IV ONE; -FUROSEMIDE INJECTION 100 MG in SODIUM CHL 0.9% 90 ML IV SCH; +KETOROLAC TROMETH 60MG/2ML VIAL IM ONE; +METO25TA62 PO; +RIOC1TAB9 PO
[2017-09-18 14:15] VITALS: BP 130/52
== END | disposition home or self-care (01) ==
LOC: CHF HDHVI 10:11
PROVIDERS: ATTEND Internal Medicine Cardiovascular Disease
DX: I50.9 Heart failure, unspecified (principal); I25.10 Atherosclerotic heart disease of native coronary artery without angina pectoris; E11.9 Type 2 diabetes mellitus without complications; M25.511 Pain in right shoulder
CPT/HCPCS: 96365; 96366; 96372; G0463; J1642; J1885; J1940

== ENCOUNTER → 2017-09-22 | Outpatient (CLI) | payer MEDICARE, MEDICAID ==
[~2017-09-22] VITALS: Ht 165.1 cm; Wt 126.1 kg
[2017-09-22] VITALS (8 sets, daily range): BP systolic 124–164; BP diastolic 53–73
[~2017-09-22] MED LIST changes: -KETOROLAC TROMETH 60MG/2ML VIAL IM ONE
[2017-09-22] MEDS: SODIUM CHLORIDE 0.9% 90 ML IV SCH (13:20)
[2017-09-22 16:19] LABS: Basophils # (auto) 0.1 uL; Basophils % (auto) 0.9 % (0.0-2.0); Eosinophils # (auto) 0.2 uL; Eosinophils % (auto) 2.9 % (0.0-7.0); Hematocrit 37.3 % (36.0-46.0); Hemoglobin 12.3 g/dL (12.2-16.2); Lymphocytes # (auto) 2.2 uL; Lymphocytes % (auto) 31.3 % (10.0-50.0); Monocytes # (auto) 0.6 uL; Monocytes % (auto) 9.1 % (0.0-12.0); Neutrophils % (auto) 55.8 % (37.0-80.0); Nucleated Red Blood Cells % 0.4 %; Platelet Count (auto) 176 10^3/uL (140-450); Red Blood Cells 4.23 10^6/uL (4.0-5.20); Red Cell Distribution Width 16.1 % (11.8-14.3); White Blood Cell 7.1 10^3/uL (4.4-10.8)
[2017-09-22 16:20] LABS: Potassium 4.1 mmol/L (3.5-5.1)
== END | disposition home or self-care (01) ==
LOC: CHF HDHVI 13:01
PROVIDERS: ATTEND Internal Medicine Cardiovascular Disease
DX: E87.5 Hyperkalemia (principal); R94.4 Abnormal results of kidney function studies; E03.9 Hypothyroidism, unspecified; D64.9 Anemia, unspecified
CPT/HCPCS: 36415; 82565; 82962; 84132; 84443; 84520; 85025; 96365; 96366; G0463; J1642; J1940

== ENCOUNTER → 2017-09-25 | Outpatient (CLI) | payer MEDICARE, MEDICAID ==
[~2017-09-25] VITALS: Ht 30.5 cm; Wt 124.7 kg
[~2017-09-25] MED LIST changes: +CYANOCOBALAMIN (B-12) 1000 MCG/1 ML VIAL IM ONE; +CYANOCOBALAMIN (B-12) 1000 MCG/1 ML VIAL ONE; -DEXL60CA3 PO; -METO25TA62 PO; -RIOC1TAB9 PO
[2017-09-25 11:30] VITALS: BP 131/56
[2017-09-25 12:00] VITALS: BP 123/51
[2017-09-25 12:30] VITALS: BP 127/53
[2017-09-25 14:00] VITALS: BP 130/59
== END | disposition home or self-care (01) ==
LOC: CHF HDHVI 10:26
PROVIDERS: ATTEND Internal Medicine Cardiovascular Disease
DX: I50.9 Heart failure, unspecified (principal); D64.9 Anemia, unspecified; I25.10 Atherosclerotic heart disease of native coronary artery without angina pectoris; R19.7 Diarrhea, unspecified; J44.9 Chronic obstructive pulmonary disease, unspecified; Z95.1 Presence of aortocoronary bypass graft
CPT/HCPCS: 96365; 96366; 96372; G0463; J1642; J1940; J3420

== ENCOUNTER → 2017-09-30 | Outpatient (CLI) | payer MEDICARE, MEDICAID ==
[~2017-09-30] MED LIST changes: -CYANOCOBALAMIN (B-12) 1000 MCG/1 ML VIAL IM ONE; -CYANOCOBALAMIN (B-12) 1000 MCG/1 ML VIAL ONE; +DEXL60CA3 PO; +METO25TA62 PO; +RIOC1TAB9 PO; +SODIUM CHLORIDE 0.9% 1,000 ML IV SCH
[2017-09-30 13:30] VITALS: BP 147/63
[2017-09-30 14:00] VITALS: BP 150/65
[2017-09-30 14:30] VITALS: BP 179/71
[2017-09-30 16:03] LABS: BUN/Creatinine Ratio 23.2; Calcium 8.3 mg/dL (8.5-10.1); Potassium 4.1 mmol/L (3.5-5.1)
[2017-09-30 16:10] LABS: Basophils # (auto) 0 uL; Basophils % (auto) 0.7 % (0.0-2.0); Eosinophils # (auto) 0.2 uL; Hematocrit 36.1 % (36.0-46.0); Hemoglobin 11.6 g/dL (12.2-16.2); Lymphocytes % (auto) 37.6 % (10.0-50.0); Mean Corpuscular Hemoglobin 28.2 pg (28.0-32.0); Mean Corpuscular Hgb Conc. 32.3 g/dL (32.0-36.0); Mean Corpuscular Volume 87.4 fL (80.0-100.0); Monocytes # (auto) 0.5 uL; Monocytes % (auto) 9.8 % (0.0-12.0); Neutrophils # (auto) 2.7 uL; Neutrophils % (auto) 48.9 % (37.0-80.0); Nucleated Red Blood Cells % 0.3 %; Platelet Count (auto) 199 10^3/uL (140-450); Red Blood Cells 4.13 10^6/uL (4.0-5.20); White Blood Cell 5.4 10^3/uL (4.4-10.8)
[2017-09-30 16:35] VITALS: BP 142/66
== END | disposition home or self-care (01) ==
LOC: CHF HDHVI 12:32
PROVIDERS: ATTEND Internal Medicine Cardiovascular Disease
DX: I11.0 Hypertensive heart disease with heart failure (principal); D64.9 Anemia, unspecified; I50.9 Heart failure, unspecified; E11.9 Type 2 diabetes mellitus without complications; E66.9 Obesity, unspecified; R19.7 Diarrhea, unspecified
CPT/HCPCS: 36415; 80048; 85025; 96365; 96366; G0463; J1642; J1940

== ENCOUNTER → 2017-10-07 | Outpatient (CLI) | payer MEDICARE, MEDICAID ==
[~2017-10-07] MED LIST changes: -SODIUM CHLORIDE 0.9% 1,000 ML IV SCH
[2017-10-07 16:34] LABS: Calcium 8.7 mg/dL (8.5-10.1); Potassium 4.3 mmol/L (3.5-5.1)
[2017-10-07 16:35] LABS: BUN/Creatinine Ratio 19.1
[2017-10-07 16:38] LABS: Basophils # (auto) 0.1 uL; Eosinophils # (auto) 0.2 uL; Eosinophils % (auto) 3.2 % (0.0-7.0); Hematocrit 36.1 % (36.0-46.0); Hemoglobin 11.8 g/dL (12.2-16.2); Lymphocytes % (auto) 35.5 % (10.0-50.0); Mean Corpuscular Hemoglobin 28.6 pg (28.0-32.0); Mean Corpuscular Hgb Conc. 32.5 g/dL (32.0-36.0); Mean Corpuscular Volume 87.9 fL (80.0-100.0); Monocytes # (auto) 0.5 uL; Monocytes % (auto) 9.7 % (0.0-12.0); Neutrophils # (auto) 2.9 uL; Neutrophils % (auto) 50.6 % (37.0-80.0); Nucleated Red Blood Cells % 0.8 %; Platelet Count (auto) 221 10^3/uL (140-450); Red Blood Cells 4.11 10^6/uL (4.0-5.20); Red Cell Distribution Width 16.4 % (11.8-14.3); White Blood Cell 5.6 10^3/uL (4.4-10.8)
[2017-10-07 17:04] VITALS: BP 122/50
== END | disposition home or self-care (01) ==
LOC: CHF HDHVI 12:57
PROVIDERS: ATTEND Internal Medicine Cardiovascular Disease
DX: E83.42 Hypomagnesemia (principal); D64.9 Anemia, unspecified; D51.9 Vitamin B12 deficiency anemia, unspecified; E11.9 Type 2 diabetes mellitus without complications; I11.0 Hypertensive heart disease with heart failure; I50.9 Heart failure, unspecified; K52.9 Noninfective gastroenteritis and colitis, unspecified; I25.10 Atherosclerotic heart disease of native coronary artery without angina pectoris
CPT/HCPCS: 36415; 80048; 82607; 83036; 83735; 85025; 96365; 96366; G0463; J1642; J1940

== ENCOUNTER → 2017-10-09 | Outpatient (CLI) | payer MEDICARE, MEDICAID ==
[~2017-10-09] MED LIST changes: -FUROSEMIDE 100 MG/10ML VIAL IV ONE; +FUROSEMIDE INJECTION 100 MG in SODIUM CHL 0.9% 100 ML IV SCH
[2017-10-09 11:30] VITALS: BP 131/66
[2017-10-09 12:18] VITALS: BP 135/85
[2017-10-09 12:45] VITALS: BP 144/66
[2017-10-09 13:35] VITALS: BP 149/83
[2017-10-09 14:10] VITALS: BP 114/56
[2017-10-09 15:00] VITALS: BP 116/52
== END | disposition home or self-care (01) ==
LOC: CHF HDHVI 10:13
PROVIDERS: ATTEND Internal Medicine Cardiovascular Disease
DX: I27.21 Secondary pulmonary arterial hypertension (principal)
CPT/HCPCS: 96365; 96366; G0463; J1642; J1940

== ENCOUNTER → 2017-10-13 | Outpatient (CLI) | payer MEDICARE, MEDICAID ==
[~2017-10-13] VITALS: Ht 165.1 cm; Wt 128.9 kg
[2017-10-13 13:30] VITALS: BP 122/57
[2017-10-13 14:00] VITALS: BP 147/66
[2017-10-13 17:10] VITALS: BP 150/78
== END | disposition home or self-care (01) ==
LOC: CHF HDHVI 12:33
PROVIDERS: ATTEND Internal Medicine Cardiovascular Disease
DX: I50.9 Heart failure, unspecified (principal); I25.10 Atherosclerotic heart disease of native coronary artery without angina pectoris; E11.9 Type 2 diabetes mellitus without complications
CPT/HCPCS: 96365; 96366; G0463; J1642; J1940; 96374

== ENCOUNTER → 2017-10-16 | Outpatient (CLI) | payer MEDICARE, MEDICAID ==
[~2017-10-16] MED LIST changes: -FUROSEMIDE INJECTION 100 MG in SODIUM CHL 0.9% 100 ML IV SCH; +FUROSEMIDE IV SCH; +SODIUM CHL 0.9% IV SCH
[2017-10-16 11:00] VITALS: BP 108/51
[2017-10-16 13:51] VITALS: BP 112/53
== END | disposition home or self-care (01) ==
LOC: CHF HDHVI 10:22
PROVIDERS: ATTEND Internal Medicine Cardiovascular Disease
DX: I27.21 Secondary pulmonary arterial hypertension (principal); E11.9 Type 2 diabetes mellitus without complications; E66.01 Morbid (severe) obesity due to excess calories; K58.9 Irritable bowel syndrome, unspecified
CPT/HCPCS: 82962; 96365; 96366; G0463; J1642; J1940; J7040

== ENCOUNTER 2017-10-23 11:36 | Emergency (ER) | payer MEDICARE, MEDICAID ==
[~2017-10-23] VITALS: Ht 162.6 cm; Wt 130.2 kg
[~2017-10-23 11:36] MED LIST changes: -CHOLESTYRAMINE 4 GM POWDER ONE; -CYANOCOBALAMIN (B-12) 1000 MCG/1 ML VIAL IM ONE; -CYANOCOBALAMIN (B-12) 1000 MCG/1 ML VIAL ONE; -DEXL60CA3 PO; -FUROSEMIDE 100 MG/10ML VIAL IV ONE; -FUROSEMIDE INJECTION 10 ML ONE; -KETOROLAC TROMETH 60MG/2ML VIAL IM ONE; -METO25TA62 PO; -POTASSIUM CHL 10 Meq TABLET PO ONE; -POTASSIUM CHL 20 Meq TABLET PO ONE; -RIOC1TAB9 PO; -SODIUM CHLORIDE 0.9% 1,000 ML IV SCH
[2017-10-23 14:21] LABS: Basophils # (auto) 0 uL; Basophils % (auto) 0.7 % (0.0-2.0); Eosinophils # (auto) 0.2 uL; Eosinophils % (auto) 3.4 % (0.0-7.0); Hemoglobin 12.5 g/dL (12.2-16.2); Lymphocytes # (auto) 1.8 uL; Lymphocytes % (auto) 27.4 % (10.0-50.0); Mean Corpuscular Hemoglobin 28.8 pg (28.0-32.0); Mean Corpuscular Hgb Conc. 31.2 g/dL (32.0-36.0); Mean Corpuscular Volume 92.4 fL (80.0-100.0); Monocytes # (auto) 0.5 uL; Monocytes % (auto) 7.5 % (0.0-12.0); Nucleated Red Blood Cells % 0.3 %; Platelet Count (auto) 182 10^3/uL (140-450); Red Blood Cells 4.33 10^6/uL (4.0-5.20); Red Cell Distribution Width 16.4 % (11.8-14.3); White Blood Cell 6.5 10^3/uL (4.4-10.8)
[2017-10-23 14:25] LABS: INR 0.94 (0.9-1.15); Partial Thromboplastin Time 25.6 sec (22.64-33.71); Prothrombin Time 10.2 sec (9.37-12.3)
[2017-10-23 14:52] LABS: Alanine Aminotransferase 14 U/L (13-56); Albumin 3.1 g/dL (3.4-5.0); Alkaline Phosphatase 69 U/L (45-117); Anion Gap 5 (5-15); Aspartate Aminotransferase 14 U/L (15-37); Bilirubin, Total 0.4 mg/dL (0.2-1.0); Blood Urea Nitrogen 31 mg/dL (7-18); Calcium 8.2 mg/dL (8.5-10.1); Carbon Dioxide 23 mmol/L (21-32); Chloride 109 mmol/L (98-107); GFR African American 41 mL/min; GFR Non-African American 34 mL/min; Glucose 120 mg/dL (74-106); Potassium 4.6 mmol/L (3.5-5.1); Sodium 137 mmol/L (136-145); Total Protein 6.7 g/dL (6.4-8.2)
[2017-10-23 15:20] VITALS: BP 127/77
[2017-10-24] MEDS ORDERED: DEXL60CA3 PO (18:46)
[2017-10-24] MEDS ORDERED: RIOC1TAB9 PO (18:46)
[2017-10-24] MEDS ORDERED: METO25TA62 PO (18:47)
== END 2017-10-23 17:17 | disposition home or self-care (01) ==
LOC: EDBD 11:36 → EDUNIT# 11:36 → ER 11:36
DX: S82.831A Other fracture of upper and lower end of right fibula, initial encounter for closed fracture (principal); I50.43 Acute on chronic combined systolic (congestive) and diastolic (congestive) heart failure; I11.0 Hypertensive heart disease with heart failure; I25.10 Atherosclerotic heart disease of native coronary artery without angina pectoris; J44.9 Chronic obstructive pulmonary disease, unspecified; E11.9 Type 2 diabetes mellitus without complications; K21.9 Gastro-esophageal reflux disease without esophagitis; E78.5 Hyperlipidemia, unspecified; Z79.899 Other long term (current) drug therapy; W18.39XA Other fall on same level, initial encounter; Y93.89 Activity, other specified; Y92.89 Other specified places as the place of occurrence of the external cause; Y99.8 Other external cause status
CPT/HCPCS: 29515; 36415; 71045; 73590; 80053; 83880; 84484; 85025; 85610; 85730; 93005

== ENCOUNTER → 2017-10-23 | Outpatient (CLI) | payer MEDICARE, MEDICAID ==
[~2017-10-23] MED LIST changes: -CHOLESTYRAMINE 4 GM POWDER GT ONE; +CYANOCOBALAMIN (B-12) 1000 MCG/1 ML VIAL IM ONE; +CYANOCOBALAMIN (B-12) 1000 MCG/1 ML VIAL ONE; +FUROSEMIDE 100 MG/10ML VIAL IV ONE; -FUROSEMIDE IV SCH; +KETOROLAC TROMETH 60MG/2ML VIAL IM ONE; +POTASSIUM CHL 10 Meq TABLET PO ONE; -SODIUM CHL 0.9% IV SCH; +SODIUM CHLORIDE 0.9% 1,000 ML IV SCH
[2017-10-23 11:10] VITALS: BP 126/78
[2017-10-23 12:00] LABS: Basophils # (auto) 0.1 uL; Basophils % (auto) 1.3 % (0.0-2.0); Eosinophils # (auto) 0.3 uL; Eosinophils % (auto) 5.3 % (0.0-7.0); Hematocrit 37.8 % (36.0-46.0); Hemoglobin 12.2 g/dL (12.2-16.2); Lymphocytes # (auto) 1.9 uL; Mean Corpuscular Hemoglobin 28.8 pg (28.0-32.0); Mean Corpuscular Hgb Conc. 32.2 g/dL (32.0-36.0); Mean Corpuscular Volume 89.6 fL (80.0-100.0); Monocytes # (auto) 0.5 uL; Monocytes % (auto) 8.3 % (0.0-12.0); Neutrophils # (auto) 3.4 uL; Neutrophils % (auto) 55.1 % (37.0-80.0); Nucleated Red Blood Cells % 0.2 %; Platelet Count (auto) 178 10^3/uL (140-450); Red Blood Cells 4.22 10^6/uL (4.0-5.20); Red Cell Distribution Width 16.1 % (11.8-14.3); White Blood Cell 6.2 10^3/uL (4.4-10.8)
[2017-10-23 12:15] LABS: Albumin 3.5 g/dL (3.4-5.0); BUN/Creatinine Ratio 20.4; Calcium 8.3 mg/dL (8.5-10.1); Phosphorus 3.6 mg/dL (2.5-4.90); Potassium 4.3 mmol/L (3.5-5.1); Uric Acid 8.6 mg/dL (2.6-6.0)
== END | disposition home or self-care (01) ==
LOC: CHF HDHVI 10:11
PROVIDERS: ATTEND Internal Medicine Cardiovascular Disease
DX: R80.9 Proteinuria, unspecified (principal); E55.9 Vitamin D deficiency, unspecified; E78.5 Hyperlipidemia, unspecified; N18.3 Chronic kidney disease, stage 3 (moderate); D63.1 Anemia in chronic kidney disease; E21.3 Hyperparathyroidism, unspecified; M10.9 Gout, unspecified
CPT/HCPCS: 36415; 73610; 80061; 80069; 82306; 83970; 84550; 85025; 96365; 96372; 96375; G0463; J1642; J1885

== ENCOUNTER 2017-10-24 17:55 | Inpatient (IN) | payer MEDICARE, MEDICAID ==
[~2017-10-24] VITALS: Ht 162.6 cm; Wt 130.4 kg
[2017-10-24] MEDS ORDERED: DEXL60CA3 PO (18:46)
[2017-10-24] MEDS ORDERED: RIOC1TAB9 PO (18:46)
[2017-10-24] MEDS ORDERED: METO25TA62 PO (18:47)
[2017-10-24 19:00] VITALS: BP 141/60
[2017-10-24] MEDS ORDERED: DEXTROSE (50%) 50ML SYRG IV PRN (20:00)
[2017-10-24] MEDS ORDERED: PNEUMOCOCCAL VACC POLYS 25 MCG/0.5 ML VIAL IM ONE (20:15)
[2017-10-24] MEDS: RIOCIGUAT BASE 2.5 MG PO SCH (21:14)
[2017-10-24] MEDS: ATORVASTATIN 20 MG TAB PO SCH (21:15)
[2017-10-24] MEDS: traMADol HCL 50 MG TAB PO PRN (21:48)
[2017-10-24] MEDS: POTASSIUM CHLORIDE 8 MEQ TAB PO SCH (22:00)
[2017-10-24] MEDS: ACCU-CHEK COMFORT CURVE STRIP VI SCH (22:40)
[2017-10-24] MEDS: InsuLIN REG 1unit/0.01ml Soln (100units/ml) SC SCH (22:40)
[2017-10-24 22:44] VITALS: BP 141/60
[2017-10-25 05:00] VITALS: BP 132/63
[2017-10-25] MEDS: traMADol HCL 50 MG TAB PO PRN ×2 (06:44→14:49)
[2017-10-25] MEDS: MECLIZINE HCL 25 MG TAB PO SCH (06:44)
[2017-10-25] MEDS: InsuLIN REG 1unit/0.01ml Soln (100units/ml) SC SCH ×4 (06:45→21:47)
[2017-10-25] MEDS: RIOCIGUAT BASE 2.5 MG PO SCH ×3 (06:45→21:33)
[2017-10-25] MEDS: INSULIN DETEMIR(LEVEMIR) 1unit/0.01ml Soln (100units/ml) SC SCH (06:46)
[2017-10-25] MEDS: ACCU-CHEK COMFORT CURVE STRIP VI SCH ×4 (07:00→21:32)
[2017-10-25] MEDS ORDERED: InsuLIN REG 1unit/0.01ml Soln (100units/ml) SC SCH (07:00)
[2017-10-25 09:00] VITALS: BP 142/66
[2017-10-25] MEDS: ASPirin 81 mg TAB PO SCH (10:18)
[2017-10-25] MEDS: FERROUS SULFATE 325 MG TAB PO SCH (10:18)
[2017-10-25] MEDS: ALLOPURINOL 100 MG TAB PO SCH (10:18)
[2017-10-25] MEDS: PARoxetine 20 MG TAB PO SCH (10:18)
[2017-10-25] MEDS: LOSARTAN POTASSIUM 25 MG TAB PO SCH (10:19)
[2017-10-25] MEDS: BUMETANIDE 1 MG TAB PO SCH (10:19)
[2017-10-25] MEDS: POTASSIUM CHLORIDE 8 MEQ TAB PO SCH ×2 (10:22→21:32)
[2017-10-25] MEDS: SULFASALAZINE 500 MG TAB PO SCH (10:27)
[2017-10-25] MEDS: PANTOPRAZOLE 40 MG TAB PO SCH (10:27)
[2017-10-25 13:00] VITALS: BP 129/67
[2017-10-25] MEDS: ONDANSETRON HCL 4 MG/2 ML VIAL IV PRN (14:49)
[2017-10-25 17:49] VITALS: BP 121/57
[2017-10-25] MEDS: ATORVASTATIN 20 MG TAB PO SCH (21:32)
[2017-10-25 22:00] VITALS: BP 117/53
[2017-10-26] MEDS: traMADol HCL 50 MG TAB PO PRN ×2 (02:07→09:46)
[2017-10-26 05:00] VITALS: BP 150/72
[2017-10-26] MEDS: MECLIZINE HCL 25 MG TAB PO SCH (06:24)
[2017-10-26] MEDS: RIOCIGUAT BASE 2.5 MG PO SCH ×3 (06:24→22:00)
[2017-10-26] MEDS: ACCU-CHEK COMFORT CURVE STRIP VI SCH ×4 (06:25→22:11)
[2017-10-26] MEDS: InsuLIN REG 1unit/0.01ml Soln (100units/ml) SC SCH ×4 (06:30→22:11)
[2017-10-26] MEDS: INSULIN DETEMIR(LEVEMIR) 1unit/0.01ml Soln (100units/ml) SC SCH (06:31)
[2017-10-26 09:00] VITALS: BP 122/66
[2017-10-26 09:25] LABS: Basophils # (auto) 0.1 uL; Basophils % (auto) 0.8 % (0.0-2.0); Eosinophils # (auto) 0.3 uL; Eosinophils % (auto) 3.7 % (0.0-7.0); Hematocrit 32.8 % (36.0-46.0); Hemoglobin 10.7 g/dL (12.2-16.2); Lymphocytes # (auto) 1.9 uL; Lymphocytes % (auto) 27.6 % (10.0-50.0); Mean Corpuscular Hemoglobin 28.6 pg (28.0-32.0); Mean Corpuscular Hgb Conc. 32.6 g/dL (32.0-36.0); Mean Corpuscular Volume 87.6 fL (80.0-100.0); Monocytes # (auto) 0.8 uL; Monocytes % (auto) 11.1 % (0.0-12.0); Neutrophils # (auto) 3.9 uL; Neutrophils % (auto) 56.8 % (37.0-80.0); Nucleated Red Blood Cells % 0.1 %; Platelet Count (auto) 163 10^3/uL (140-450); Red Blood Cells 3.74 10^6/uL (4.0-5.20); White Blood Cell 6.9 10^3/uL (4.4-10.8)
[2017-10-26] MEDS: SULFASALAZINE 500 MG TAB PO SCH (09:40)
[2017-10-26] MEDS: BUMETANIDE 1 MG TAB PO SCH (09:45)
[2017-10-26] MEDS: PANTOPRAZOLE 40 MG TAB PO SCH (09:45)
[2017-10-26] MEDS: ASPirin 81 mg TAB PO SCH (09:45)
[2017-10-26] MEDS: ENOXAPARIN SOD 40 MG/0.4 ML SYRINGE SC SCH (09:45)
[2017-10-26] MEDS: PARoxetine 20 MG TAB PO SCH (09:46)
[2017-10-26] MEDS: ALLOPURINOL 100 MG TAB PO SCH (09:46)
[2017-10-26] MEDS: POTASSIUM CHLORIDE 8 MEQ TAB PO SCH ×2 (09:46→22:03)
[2017-10-26] MEDS: LOSARTAN POTASSIUM 25 MG TAB PO SCH (09:47)
[2017-10-26] MEDS: FERROUS SULFATE 325 MG TAB PO SCH (09:48)
[2017-10-26 10:00] LABS: BUN/Creatinine Ratio 23.8; Calcium 8.7 mg/dL (8.5-10.1); Potassium 4.5 mmol/L (3.5-5.1)
[2017-10-26 13:00] VITALS: BP 127/65
[2017-10-26] MEDS ORDERED: MAGNESIUM CITRATE SOLUTION 300 ML BTL PO ONE (14:30)
[2017-10-26 17:00] VITALS: BP_SYST 115; BP_SYST 134; BP_DIAS 71; BP_DIAS 74
[2017-10-26] MEDS: ONDANSETRON HCL 4 MG/2 ML VIAL IV PRN (20:38)
[2017-10-26 22:00] VITALS: BP 106/46
[2017-10-26] MEDS: ATORVASTATIN 20 MG TAB PO SCH (22:03)
[2017-10-26 23:15] VITALS: BP 104/46
[2017-10-27] MEDS: traMADol HCL 50 MG TAB PO PRN ×3 (01:41→19:59)
[2017-10-27 05:00] VITALS: BP 101/47
[2017-10-27] MEDS: INSULIN DETEMIR(LEVEMIR) 1unit/0.01ml Soln (100units/ml) SC SCH (06:18)
[2017-10-27] MEDS: ACCU-CHEK COMFORT CURVE STRIP VI SCH ×4 (06:18→22:31)
[2017-10-27] MEDS: InsuLIN REG 1unit/0.01ml Soln (100units/ml) SC SCH ×4 (06:19→22:31)
[2017-10-27] MEDS: RIOCIGUAT BASE 2.5 MG PO SCH ×3 (06:43→22:30)
[2017-10-27] MEDS: MECLIZINE HCL 25 MG TAB PO SCH (06:43)
[2017-10-27] MEDS: PANTOPRAZOLE 40 MG TAB PO SCH (08:49)
[2017-10-27] MEDS: ENOXAPARIN SOD 40 MG/0.4 ML SYRINGE SC SCH (08:49)
[2017-10-27] MEDS: POTASSIUM CHLORIDE 8 MEQ TAB PO SCH ×2 (08:49→22:30)
[2017-10-27] MEDS: ASPirin 81 mg TAB PO SCH (08:49)
[2017-10-27] MEDS: FERROUS SULFATE 325 MG TAB PO SCH (08:49)
[2017-10-27] MEDS: ALLOPURINOL 100 MG TAB PO SCH (08:49)
[2017-10-27] MEDS: SULFASALAZINE 500 MG TAB PO SCH (08:49)
[2017-10-27] MEDS: PARoxetine 20 MG TAB PO SCH (08:50)
[2017-10-27 09:00] VITALS: BP 143/58
[2017-10-27] MEDS: BUMETANIDE 1 MG TAB PO SCH (09:44)
[2017-10-27] MEDS: LOSARTAN POTASSIUM 25 MG TAB PO SCH (09:45)
[2017-10-27] MEDS: ONDANSETRON HCL 4 MG/2 ML VIAL IV PRN (10:19)
[2017-10-27 13:00] VITALS: BP 127/47
[2017-10-27] MEDS ORDERED: MAGNESIUM CITRATE SOLUTION 300 ML BTL PO ONE (15:15)
[2017-10-27 17:00] VITALS: BP 129/57
[2017-10-27 22:00] VITALS: BP 124/69
[2017-10-27] MEDS: ATORVASTATIN 20 MG TAB PO SCH (22:31)
[2017-10-28 05:00] VITALS: BP 118/69
[2017-10-28] MEDS: RIOCIGUAT BASE 2.5 MG PO SCH ×3 (06:05→21:47)
[2017-10-28] MEDS: ACCU-CHEK COMFORT CURVE STRIP VI SCH ×4 (06:06→21:47)
[2017-10-28] MEDS: MECLIZINE HCL 25 MG TAB PO SCH (06:06)
[2017-10-28] MEDS: InsuLIN REG 1unit/0.01ml Soln (100units/ml) SC SCH ×4 (06:07→21:47)
[2017-10-28] MEDS: INSULIN DETEMIR(LEVEMIR) 1unit/0.01ml Soln (100units/ml) SC SCH (06:48)
[2017-10-28 09:00] VITALS: BP 92/48
[2017-10-28] MEDS: ENOXAPARIN SOD 40 MG/0.4 ML SYRINGE SC SCH (09:56)
[2017-10-28] MEDS: BUMETANIDE 1 MG TAB PO SCH (09:57)
[2017-10-28] MEDS: POTASSIUM CHLORIDE 8 MEQ TAB PO SCH ×2 (09:58→21:46)
[2017-10-28] MEDS: SULFASALAZINE 500 MG TAB PO SCH (09:58)
[2017-10-28] MEDS: PARoxetine 20 MG TAB PO SCH (09:58)
[2017-10-28] MEDS: FERROUS SULFATE 325 MG TAB PO SCH (09:59)
[2017-10-28] MEDS: ASPirin 81 mg TAB PO SCH (09:59)
[2017-10-28] MEDS: ALLOPURINOL 100 MG TAB PO SCH (09:59)
[2017-10-28] MEDS: PANTOPRAZOLE 40 MG TAB PO SCH (09:59)
[2017-10-28] MEDS: LOSARTAN POTASSIUM 25 MG TAB PO SCH (10:00)
[2017-10-28 13:00] VITALS: BP 103/51
[2017-10-28] MEDS: traMADol HCL 50 MG TAB PO PRN (13:59)
[2017-10-28 17:00] VITALS: BP 127/60
[2017-10-28 20:00] VITALS: BP 106/55
[2017-10-28 21:30] VITALS: BP 106/55
[2017-10-28] MEDS: ATORVASTATIN 20 MG TAB PO SCH (21:46)
[2017-10-29 05:00] VITALS: BP 143/63
[2017-10-29] MEDS: RIOCIGUAT BASE 2.5 MG PO SCH ×3 (06:24→21:56)
[2017-10-29] MEDS: ACCU-CHEK COMFORT CURVE STRIP VI SCH ×4 (06:25→21:57)
[2017-10-29] MEDS: InsuLIN REG 1unit/0.01ml Soln (100units/ml) SC SCH ×4 (06:25→21:58)
[2017-10-29] MEDS: MECLIZINE HCL 25 MG TAB PO SCH (06:25)
[2017-10-29] MEDS: INSULIN DETEMIR(LEVEMIR) 1unit/0.01ml Soln (100units/ml) SC SCH (06:26)
[2017-10-29 09:00] VITALS: BP 131/62
[2017-10-29] MEDS: PARoxetine 20 MG TAB PO SCH (09:59)
[2017-10-29] MEDS: SULFASALAZINE 500 MG TAB PO SCH (09:59)
[2017-10-29] MEDS: POTASSIUM CHLORIDE 8 MEQ TAB PO SCH ×2 (09:59→21:57)
[2017-10-29] MEDS: PANTOPRAZOLE 40 MG TAB PO SCH (09:59)
[2017-10-29] MEDS: ALLOPURINOL 100 MG TAB PO SCH (09:59)
[2017-10-29] MEDS: BUMETANIDE 1 MG TAB PO SCH (10:00)
[2017-10-29] MEDS: LOSARTAN POTASSIUM 25 MG TAB PO SCH (10:01)
[2017-10-29] MEDS: FERROUS SULFATE 325 MG TAB PO SCH (10:01)
[2017-10-29] MEDS: ENOXAPARIN SOD 40 MG/0.4 ML SYRINGE SC SCH (10:02)
[2017-10-29] MEDS: ASPirin 81 mg TAB PO SCH (10:02)
[2017-10-29 13:00] VITALS: BP 102/41
[2017-10-29 17:00] VITALS: BP 98/48
[2017-10-29] MEDS: traMADol HCL 50 MG TAB PO PRN (19:39)
[2017-10-29] MEDS: ATORVASTATIN 20 MG TAB PO SCH (21:57)
[2017-10-29] MEDS: CHOLECALCIFEROL (VITD3) 1,000 UNIT TAB PO SCH (21:57)
[2017-10-29 22:00] VITALS: BP 106/55
[2017-10-30] VITALS (8 sets, daily range): BP systolic 93–144; BP diastolic 34–94
[2017-10-30] MEDS: RIOCIGUAT BASE 2.5 MG PO SCH ×3 (06:28→22:08)
[2017-10-30] MEDS: MECLIZINE HCL 25 MG TAB PO SCH (06:28)
[2017-10-30] MEDS: CHOLECALCIFEROL (VITD3) 1,000 UNIT TAB PO SCH ×3 (06:28→22:09)
[2017-10-30] MEDS: INSULIN DETEMIR(LEVEMIR) 1unit/0.01ml Soln (100units/ml) SC SCH (06:37)
[2017-10-30] MEDS: InsuLIN REG 1unit/0.01ml Soln (100units/ml) SC SCH ×4 (06:37→22:00)
[2017-10-30] MEDS: ACCU-CHEK COMFORT CURVE STRIP VI SCH ×4 (06:37→22:09)
[2017-10-30] MEDS: FLORASTOR (S. BOULARDII) 250 MG CAP PO SCH (10:04)
[2017-10-30] MEDS: BUMETANIDE 1 MG TAB PO SCH (10:04)
[2017-10-30] MEDS: LOSARTAN POTASSIUM 25 MG TAB PO SCH (10:05)
[2017-10-30] MEDS: PANTOPRAZOLE 40 MG TAB PO SCH (10:06)
[2017-10-30] MEDS: FERROUS SULFATE 325 MG TAB PO SCH (10:06)
[2017-10-30] MEDS: PARoxetine 20 MG TAB PO SCH (10:06)
[2017-10-30] MEDS: ALLOPURINOL 100 MG TAB PO SCH (10:06)
[2017-10-30] MEDS: POTASSIUM CHLORIDE 8 MEQ TAB PO SCH ×2 (10:06→22:08)
[2017-10-30] MEDS: SULFASALAZINE 500 MG TAB PO SCH (10:07)
[2017-10-30] MEDS: traMADol HCL 50 MG TAB PO PRN ×2 (10:08→22:09)
[2017-10-30] MEDS: ENOXAPARIN SOD 40 MG/0.4 ML SYRINGE SC SCH (10:10)
[2017-10-30] MEDS: ASPirin 81 mg TAB PO SCH (10:14)
[2017-10-30] MEDS: ATORVASTATIN 20 MG TAB PO SCH (22:09)
[2017-10-31 05:29] VITALS: BP 102/40
[2017-10-31] MEDS: CHOLECALCIFEROL (VITD3) 1,000 UNIT TAB PO SCH ×3 (06:25→21:22)
[2017-10-31] MEDS: RIOCIGUAT BASE 2.5 MG PO SCH ×3 (06:25→21:23)
[2017-10-31] MEDS: InsuLIN REG 1unit/0.01ml Soln (100units/ml) SC SCH ×4 (06:26→21:56)
[2017-10-31] MEDS: ACCU-CHEK COMFORT CURVE STRIP VI SCH ×4 (06:26→21:20)
[2017-10-31] MEDS: MECLIZINE HCL 25 MG TAB PO SCH (06:26)
[2017-10-31] MEDS: INSULIN DETEMIR(LEVEMIR) 1unit/0.01ml Soln (100units/ml) SC SCH (06:27)
[2017-10-31 08:00] VITALS: BP 121/46
[2017-10-31 08:01] VITALS: BP 109/51
[2017-10-31] MEDS: PANTOPRAZOLE 40 MG TAB PO SCH (09:46)
[2017-10-31] MEDS: FLORASTOR (S. BOULARDII) 250 MG CAP PO SCH (09:47)
[2017-10-31] MEDS: BUMETANIDE 1 MG TAB PO SCH (09:48)
[2017-10-31] MEDS: FERROUS SULFATE 325 MG TAB PO SCH (09:49)
[2017-10-31] MEDS: ALLOPURINOL 100 MG TAB PO SCH (09:49)
[2017-10-31] MEDS: traMADol HCL 50 MG TAB PO PRN (09:49)
[2017-10-31] MEDS: ENOXAPARIN SOD 40 MG/0.4 ML SYRINGE SC SCH (09:49)
[2017-10-31] MEDS: PARoxetine 20 MG TAB PO SCH (09:49)
[2017-10-31] MEDS: LOSARTAN POTASSIUM 25 MG TAB PO SCH (09:50)
[2017-10-31] MEDS: SULFASALAZINE 500 MG TAB PO SCH (09:51)
[2017-10-31] MEDS: ASPirin 81 mg TAB PO SCH (09:51)
[2017-10-31] MEDS: POTASSIUM CHLORIDE 8 MEQ TAB PO SCH ×2 (10:01→21:21)
[2017-10-31 13:00] VITALS: BP 118/54
[2017-10-31 17:15] VITALS: BP 129/56
[2017-10-31] MEDS: ATORVASTATIN 20 MG TAB PO SCH (21:24)
[2017-10-31 22:30] VITALS: BP 114/45
[2017-11-01 05:22] VITALS: BP 119/69
[2017-11-01] MEDS: InsuLIN REG 1unit/0.01ml Soln (100units/ml) SC SCH ×4 (06:20→21:48)
[2017-11-01] MEDS: RIOCIGUAT BASE 2.5 MG PO SCH ×3 (06:20→21:47)
[2017-11-01] MEDS: MECLIZINE HCL 25 MG TAB PO SCH (06:21)
[2017-11-01] MEDS: CHOLECALCIFEROL (VITD3) 1,000 UNIT TAB PO SCH ×3 (06:21→21:48)
[2017-11-01] MEDS: ACCU-CHEK COMFORT CURVE STRIP VI SCH ×4 (06:21→21:49)
[2017-11-01] MEDS: INSULIN LANTUS (GLARGINE) 1 /0.01ml (100units/ml) SC SCH (06:39)
[2017-11-01 09:00] VITALS: BP 115/48
[2017-11-01] MEDS: LOSARTAN POTASSIUM 25 MG TAB PO SCH (10:00)
[2017-11-01] MEDS: FERROUS SULFATE 325 MG TAB PO SCH (10:28)
[2017-11-01] MEDS: SULFASALAZINE 500 MG TAB PO SCH (10:28)
[2017-11-01] MEDS: FLORASTOR (S. BOULARDII) 250 MG CAP PO SCH (10:29)
[2017-11-01] MEDS: ALLOPURINOL 100 MG TAB PO SCH (10:29)
[2017-11-01] MEDS: PARoxetine 20 MG TAB PO SCH (10:29)
[2017-11-01] MEDS: BUMETANIDE 1 MG TAB PO SCH (10:29)
[2017-11-01] MEDS: POTASSIUM CHLORIDE 8 MEQ TAB PO SCH ×2 (10:29→21:47)
[2017-11-01] MEDS: PANTOPRAZOLE 40 MG TAB PO SCH (10:29)
[2017-11-01] MEDS: ASPirin 81 mg TAB PO SCH (10:29)
[2017-11-01] MEDS: ENOXAPARIN SOD 40 MG/0.4 ML SYRINGE SC SCH (10:30)
[2017-11-01 13:00] VITALS: BP 110/59
[2017-11-01 17:00] VITALS: BP 112/54
[2017-11-01] MEDS: ATORVASTATIN 20 MG TAB PO SCH (21:47)
[2017-11-01 21:58] VITALS: BP_SYST 114; BP_SYST 118; BP_DIAS 54; BP_DIAS 65
[2017-11-01] MEDS: traMADol HCL 50 MG TAB PO PRN (21:58)
[2017-11-02] MEDS ORDERED: HYDROcodone-ACET 5/325MG TAB PO PRN (01:00)
[2017-11-02 05:00] VITALS: BP 114/58
[2017-11-02] MEDS: RIOCIGUAT BASE 2.5 MG PO SCH (05:35)
[2017-11-02] MEDS: CHOLECALCIFEROL (VITD3) 1,000 UNIT TAB PO SCH (05:35)
[2017-11-02] MEDS: MECLIZINE HCL 25 MG TAB PO SCH (06:04)
[2017-11-02] MEDS: InsuLIN REG 1unit/0.01ml Soln (100units/ml) SC SCH (06:09)
[2017-11-02] MEDS: ACCU-CHEK COMFORT CURVE STRIP VI SCH (06:09)
[2017-11-02] MEDS: INSULIN LANTUS (GLARGINE) 1 /0.01ml (100units/ml) SC SCH (06:11)
[2017-11-02 09:00] VITALS: BP 111/46
[2017-11-02] MEDS: LOSARTAN POTASSIUM 25 MG TAB PO SCH (10:00)
[2017-11-02] MEDS ORDERED: DOCUSATE SOD 100 MG CAP PO SCH (10:00)
[2017-11-02] MEDS: ASPirin 81 mg TAB PO SCH (10:14)
[2017-11-02] MEDS: FERROUS SULFATE 325 MG TAB PO SCH (10:14)
[2017-11-02] MEDS: PANTOPRAZOLE 40 MG TAB PO SCH (10:15)
[2017-11-02] MEDS: PARoxetine 20 MG TAB PO SCH (10:15)
[2017-11-02] MEDS: BUMETANIDE 1 MG TAB PO SCH (10:15)
[2017-11-02] MEDS: SULFASALAZINE 500 MG TAB PO SCH (10:15)
[2017-11-02] MEDS: ALLOPURINOL 100 MG TAB PO SCH (10:15)
[2017-11-02] MEDS: POTASSIUM CHLORIDE 8 MEQ TAB PO SCH (10:16)
[2017-11-02] MEDS: FLORASTOR (S. BOULARDII) 250 MG CAP PO SCH (10:16)
[2017-11-02] MEDS: ENOXAPARIN SOD 40 MG/0.4 ML SYRINGE SC SCH (10:16)
== END 2017-11-02 12:15 | DRG 562 ==
LOC: WEST WING 17:55
PROVIDERS: ADMIT Internal Medicine Cardiovascular Disease; ATTEND Internal Medicine Cardiovascular Disease
PROC: 5A09357 Assistance with Respiratory Ventilation, Less than 24 Consecutive Hours, Continuous Positive Airway Pressure (ICD-10-PCS; principal; 2017-10-27)
PROC: 5A09357 Assistance with Respiratory Ventilation, Less than 24 Consecutive Hours, Continuous Positive Airway Pressure (ICD-10-PCS; 2017-10-28)
DX: S82.301A Unspecified fracture of lower end of right tibia, initial encounter for closed fracture (principal); I50.43 Acute on chronic combined systolic (congestive) and diastolic (congestive) heart failure; E11.21 Type 2 diabetes mellitus with diabetic nephropathy; E11.40 Type 2 diabetes mellitus with diabetic neuropathy, unspecified; I27.20 Pulmonary hypertension, unspecified; E66.01 Morbid (severe) obesity due to excess calories; E11.319 Type 2 diabetes mellitus with unspecified diabetic retinopathy without macular edema; Z68.42 Body mass index [BMI] 45.0-49.9, adult; W01.0XXA Fall on same level from slipping, tripping and stumbling without subsequent striking against object, initial encounter; S96.911A Strain of unspecified muscle and tendon at ankle and foot level, right foot, initial encounter; S82.61XA Displaced fracture of lateral malleolus of right fibula, initial encounter for closed fracture; I11.0 Hypertensive heart disease with heart failure; K58.9 Irritable bowel syndrome, unspecified; Z79.4 Long term (current) use of insulin; Z23 Encounter for immunization; Y93.89 Activity, other specified; Y92.89 Other specified places as the place of occurrence of the external cause; Y99.8 Other external cause status
CPT/HCPCS: 29515; 36415; 71045; 73590; 73600; 73610; 80048; 80053; 80061; 80069; 82306; 82962; 83880; 83970; 84484; 84550; 85025; 85610; 85730; 87081; 93005; 94660; 96365; 96372; 96375; 97116; 97163; 97530; G0463; J1642; J1815; J1885; J2405

== ENCOUNTER 2018-03-08 19:33 | Inpatient (IN) | payer MEDICARE, MEDICAID ==
[~2018-03-08] VITALS: Ht 162.6 cm; Wt 122.6 kg
[~2018-03-08 19:33] MED LIST changes: +DEXL60CA3 PO; +METO25TA62 PO; +RIOC1TAB9 PO
[2018-03-08 20:53] LABS: Basophils # (auto) 0.1 uL; Basophils % (auto) 1.3 % (0.0-2.0); Eosinophils # (auto) 0.3 uL; Eosinophils % (auto) 5.1 % (0.0-7.0); Hematocrit 36.2 % (36.0-46.0); Hemoglobin 11.8 g/dL (12.2-16.2); Lymphocytes % (auto) 32.1 % (10.0-50.0); Mean Corpuscular Hemoglobin 28.8 pg (28.0-32.0); Mean Corpuscular Hgb Conc. 32.6 g/dL (32.0-36.0); Mean Corpuscular Volume 88.2 fL (80.0-100.0); Monocytes # (auto) 0.7 uL; Monocytes % (auto) 12.2 % (0.0-12.0); Neutrophils % (auto) 49.3 % (37.0-80.0); Nucleated Red Blood Cells % 0.2 %; Platelet Count (auto) 258 10^3/uL (140-450); Red Blood Cells 4.11 10^6/uL (4.0-5.20); Red Cell Distribution Width 16.5 % (11.8-14.3); White Blood Cell 6.1 10^3/uL (4.4-10.8)
[2018-03-08 21:19] LABS: Alanine Aminotransferase 16 U/L (13-56); Albumin 3.4 g/dL (3.4-5.0); Anion Gap 12 (5-15); Aspartate Aminotransferase 16 U/L (15-37); BUN/Creatinine Ratio 17.9; Blood Urea Nitrogen 29 mg/dL (7-18); Calcium 8.4 mg/dL (8.5-10.1); Carbon Dioxide 18 mmol/L (21-32); Chloride 113 mmol/L (98-107); GFR African American 39 mL/min; GFR Non-African American 32 mL/min; Glucose 198 mg/dL (74-106); Potassium 4.1 mmol/L (3.5-5.1); Sodium 143 mmol/L (136-145)
[2018-03-08 21:23] LABS: Alkaline Phosphatase 58 U/L (45-117); Bilirubin, Total 0.3 mg/dL (0.2-1.0); Prothrombin Time 10.7 sec (9.27-12.13); Total Protein 7.2 g/dL (6.4-8.2)
[2018-03-08] MEDS ORDERED: ENOXAPARIN SOD 150 MG/1 ML SYRINGE SC ONE (23:15)
[2018-03-09 01:30] LABS: Urine Bacteria FEW /hpf (None Seen); Urine Blood Negative /uL (Negative); Urine Hyaline Cast MOD /lpf (0 - 2); Urine Mucus FEW (None Seen); Urine WBC 4 /hpf (0 - 5)
[2018-03-09] MEDS ORDERED: ONDANSETRON HCL 4 MG/2 ML VIAL IV PRN (06:15)
[2018-03-09] MEDS ORDERED: ACETAMINOPHEN 325 MG TAB PO PRN (06:15)
[2018-03-09] MEDS ORDERED: NITROGLYCERIN 0.4 MG SL TAB SL PRN (06:15)
[2018-03-09] MEDS ORDERED: MORPHINE SULFATE 8mg/ml INJ SDV IV PRN (06:15)
[2018-03-09] MEDS ORDERED: TEMAZEPAM 15 MG CAP PO PRN (06:15)
[2018-03-09] MEDS ORDERED: DEXTROSE (50%) 50ML SYRG IV PRN (06:15)
[2018-03-09] MEDS: ENOXAPARIN SOD 150 MG/1 ML SYRINGE SC SCH (09:08)
[2018-03-09] MEDS: ALLOPURINOL 100 MG TAB PO SCH (09:09)
[2018-03-09] MEDS: METOPROLOL SUCCINATE XL 50 MG TAB PO SCH (09:09)
[2018-03-09] MEDS: PARoxetine 20 MG TAB PO SCH (09:10)
[2018-03-09] MEDS: LOSARTAN POTASSIUM 25 MG TAB PO SCH (09:11)
[2018-03-09] MEDS: FAMOTIDINE 20 MG TAB PO SCH ×2 (09:11→21:58)
[2018-03-09] MEDS ORDERED: ENOXAPARIN SOD 100 MG/1 ML SYRINGE SC SCH (10:00)
[2018-03-09] MEDS ORDERED: PNEUMOCOCCAL VACC POLYS 25 MCG/0.5 ML VIAL IM ONE (10:00)
[2018-03-09] MEDS ORDERED: BUMETANIDE 1 MG TAB PO SCH (10:00)
[2018-03-09] MEDS: ACCU-CHEK COMFORT CURVE STRIP VI SCH ×3 (11:18→23:53)
[2018-03-09] MEDS: InsuLIN REG 1unit/0.01ml Soln (100units/ml) SC SCH ×2 (11:32→18:37)
[2018-03-09 11:55] VITALS: BP 123/64
[2018-03-09 16:06] VITALS: BP 128/58
[2018-03-09] MEDS: FUROSEMIDE INJECTION 500 MG in SODIUM CHL 0.9% 450 ML IV SCH (16:24)
[2018-03-09] MEDS: POTASSIUM CHL 20 Meq TABLET PO SCH (21:58)
[2018-03-09] MEDS: PRAVASTATIN SODIUM 20 MG TAB PO SCH (21:59)
[2018-03-09] MEDS ORDERED: PATIENTS OWN MEDICATION (simvastatin 20 MG) PO SCH (22:00)
[2018-03-09 22:09] VITALS: BP 123/59
[2018-03-10 05:27] VITALS: BP 125/57
[2018-03-10] MEDS: POTASSIUM CHL 20 Meq TABLET PO SCH ×3 (05:40→21:20)
[2018-03-10] MEDS: ACCU-CHEK COMFORT CURVE STRIP VI SCH ×3 (05:40→18:06)
[2018-03-10] MEDS: InsuLIN REG 1unit/0.01ml Soln (100units/ml) SC SCH ×4 (05:49→18:13)
[2018-03-10 06:36] LABS: Basophils # (auto) 0 uL; Basophils % (auto) 0.9 % (0.0-2.0); Eosinophils # (auto) 0.3 uL; Eosinophils % (auto) 5.5 % (0.0-7.0); Hematocrit 36.3 % (36.0-46.0); Lymphocytes % (auto) 37.2 % (10.0-50.0); Mean Corpuscular Hemoglobin 29.1 pg (28.0-32.0); Mean Corpuscular Hgb Conc. 33.2 g/dL (32.0-36.0); Mean Corpuscular Volume 87.8 fL (80.0-100.0); Monocytes # (auto) 0.6 uL; Monocytes % (auto) 11.1 % (0.0-12.0); Neutrophils # (auto) 2.4 uL; Neutrophils % (auto) 45.3 % (37.0-80.0); Nucleated Red Blood Cells % 0.1 %; Platelet Count (auto) 235 10^3/uL (140-450); Red Blood Cells 4.13 10^6/uL (4.0-5.20); Red Cell Distribution Width 16.8 % (11.8-14.3); White Blood Cell 5.4 10^3/uL (4.4-10.8)
[2018-03-10 07:05] LABS: Albumin 3.4 g/dL (3.4-5.0); BUN/Creatinine Ratio 23.5; Bilirubin, Total 0.4 mg/dL (0.2-1.0); Calcium 8.9 mg/dL (8.5-10.1); Potassium 4.1 mmol/L (3.5-5.1)
[2018-03-10 09:00] VITALS: BP 103/76
[2018-03-10] MEDS: METOPROLOL SUCCINATE XL 50 MG TAB PO SCH (10:00)
[2018-03-10] MEDS: LOSARTAN POTASSIUM 25 MG TAB PO SCH (10:00)
[2018-03-10] MEDS: PARoxetine 20 MG TAB PO SCH (10:46)
[2018-03-10] MEDS: ALLOPURINOL 100 MG TAB PO SCH (10:46)
[2018-03-10] MEDS: FAMOTIDINE 20 MG TAB PO SCH ×2 (10:46→21:21)
[2018-03-10] MEDS: ENOXAPARIN SOD 150 MG/1 ML SYRINGE SC SCH (10:47)
[2018-03-10 13:00] VITALS: BP 112/60
[2018-03-10] MEDS: FUROSEMIDE INJECTION 500 MG in SODIUM CHL 0.9% 450 ML IV SCH (16:31)
[2018-03-10 17:07] VITALS: BP 128/58
[2018-03-10] MEDS: PRAVASTATIN SODIUM 20 MG TAB PO SCH (21:21)
[2018-03-10] MEDS: HYDROcodone-ACET 5/325MG TAB PO PRN (21:21)
[2018-03-10 22:00] VITALS: BP 106/51
[2018-03-11] MEDS: ACCU-CHEK COMFORT CURVE STRIP VI SCH ×4 (00:20→18:03)
[2018-03-11] MEDS: InsuLIN REG 1unit/0.01ml Soln (100units/ml) SC SCH ×4 (00:21→18:04)
[2018-03-11 04:49] VITALS: BP 122/65
[2018-03-11] MEDS: POTASSIUM CHL 20 Meq TABLET PO SCH ×3 (05:51→21:36)
[2018-03-11 09:00] VITALS: BP 125/53
[2018-03-11] MEDS: LOSARTAN POTASSIUM 25 MG TAB PO SCH (09:39)
[2018-03-11] MEDS: PARoxetine 20 MG TAB PO SCH (09:40)
[2018-03-11] MEDS: FAMOTIDINE 20 MG TAB PO SCH ×2 (09:40→21:36)
[2018-03-11] MEDS: METOPROLOL SUCCINATE XL 50 MG TAB PO SCH (09:40)
[2018-03-11] MEDS: ALLOPURINOL 100 MG TAB PO SCH (09:40)
[2018-03-11] MEDS: ENOXAPARIN SOD 120 MG/0.8 ML SYRINGE SC SCH ×2 (09:41→21:36)
[2018-03-11 13:00] VITALS: BP 118/50
[2018-03-11] MEDS ORDERED: BISACODYL 10 MG RECT SUPP PR PRN (16:00)
[2018-03-11] MEDS ORDERED: MILK OF MAGNESIA 30ML SUSP PO PRN (16:00)
[2018-03-11 17:00] VITALS: BP 102/43
[2018-03-11] MEDS: FUROSEMIDE INJECTION 500 MG in SODIUM CHL 0.9% 450 ML IV SCH ×2 (17:46→23:59)
[2018-03-11] MEDS: diphenhdrAMINE HCL 12.5 MG/5 ML UD PO PRN (21:36)
[2018-03-11] MEDS: PRAVASTATIN SODIUM 20 MG TAB PO SCH (21:36)
[2018-03-11 22:21] VITALS: BP 110/50
[2018-03-12] MEDS: InsuLIN REG 1unit/0.01ml Soln (100units/ml) SC SCH ×5 (00:14→23:48)
[2018-03-12] MEDS: ACCU-CHEK COMFORT CURVE STRIP VI SCH ×5 (00:14→23:48)
[2018-03-12 05:07] VITALS: BP 89/55
[2018-03-12] MEDS: POTASSIUM CHL 20 Meq TABLET PO SCH ×3 (05:45→20:58)
[2018-03-12] MEDS: FUROSEMIDE INJECTION 250 MG in SODIUM CHL 0.9% 225 ML IV SCH (07:30)
[2018-03-12 08:52] VITALS: BP 103/53
[2018-03-12] MEDS: LOSARTAN POTASSIUM 25 MG TAB PO SCH (10:00)
[2018-03-12] MEDS: ALLOPURINOL 100 MG TAB PO SCH (11:01)
[2018-03-12] MEDS: PARoxetine 20 MG TAB PO SCH (11:01)
[2018-03-12] MEDS: FAMOTIDINE 20 MG TAB PO SCH ×2 (11:02→20:57)
[2018-03-12] MEDS: METOPROLOL SUCCINATE XL 50 MG TAB PO SCH (11:03)
[2018-03-12] MEDS: ENOXAPARIN SOD 120 MG/0.8 ML SYRINGE SC SCH ×2 (11:06→20:57)
[2018-03-12 12:00] VITALS: BP 118/51
[2018-03-12 16:44] VITALS: BP 104/46
[2018-03-12 17:32] LABS: Basophils # (auto) 0.1 uL; Basophils % (auto) 0.9 % (0.0-2.0); Eosinophils # (auto) 0.2 uL; Hematocrit 37.4 % (36.0-46.0); Hemoglobin 12.3 g/dL (12.2-16.2); Lymphocytes # (auto) 2.1 uL; Lymphocytes % (auto) 36.2 % (10.0-50.0); Mean Corpuscular Hgb Conc. 32.8 g/dL (32.0-36.0); Mean Corpuscular Volume 88.2 fL (80.0-100.0); Monocytes # (auto) 0.6 uL; Monocytes % (auto) 11.1 % (0.0-12.0); Neutrophils # (auto) 2.8 uL; Neutrophils % (auto) 47.8 % (37.0-80.0); Nucleated Red Blood Cells % 0.1 %; Platelet Count (auto) 270 10^3/uL (140-450); Red Blood Cells 4.23 10^6/uL (4.0-5.20); Red Cell Distribution Width 16.3 % (11.8-14.3); White Blood Cell 5.9 10^3/uL (4.4-10.8)
[2018-03-12 17:35] LABS: BUN/Creatinine Ratio 32.1; Potassium 4.2 mmol/L (3.5-5.1)
[2018-03-12] MEDS: diphenhdrAMINE HCL 12.5 MG/5 ML UD PO PRN (20:39)
[2018-03-12] MEDS: PRAVASTATIN SODIUM 20 MG TAB PO SCH (20:57)
[2018-03-12 22:00] VITALS: BP 129/48
[2018-03-13 05:00] VITALS: BP 111/54
[2018-03-13] MEDS: POTASSIUM CHL 20 Meq TABLET PO SCH ×3 (06:01→21:57)
[2018-03-13] MEDS: ACCU-CHEK COMFORT CURVE STRIP VI SCH ×4 (06:19→23:43)
[2018-03-13] MEDS: InsuLIN REG 1unit/0.01ml Soln (100units/ml) SC SCH ×4 (06:20→23:43)
[2018-03-13 09:00] VITALS: BP 136/67
[2018-03-13] MEDS: PARoxetine 20 MG TAB PO SCH (10:05)
[2018-03-13] MEDS: METOPROLOL SUCCINATE XL 50 MG TAB PO SCH (10:06)
[2018-03-13] MEDS: ALLOPURINOL 100 MG TAB PO SCH (10:06)
[2018-03-13] MEDS: FAMOTIDINE 20 MG TAB PO SCH ×2 (10:06→21:57)
[2018-03-13] MEDS: LOSARTAN POTASSIUM 25 MG TAB PO SCH (10:07)
[2018-03-13] MEDS: ENOXAPARIN SOD 120 MG/0.8 ML SYRINGE SC SCH ×2 (10:07→21:57)
[2018-03-13] MEDS: FUROSEMIDE INJECTION 250 MG in SODIUM CHL 0.9% 225 ML IV SCH ×2 (10:12→10:13)
[2018-03-13 13:00] VITALS: BP 127/61
[2018-03-13] MEDS: predniSONE 20 MG TAB PO SCH (16:29)
[2018-03-13] MEDS: LORATADINE 10 MG TAB PO SCH (16:29)
[2018-03-13 16:35] VITALS: BP 92/46
[2018-03-13] MEDS: PRAVASTATIN SODIUM 20 MG TAB PO SCH (21:57)
[2018-03-13 22:19] VITALS: BP 139/59
[2018-03-14] MEDS: diphenhdrAMINE HCL 12.5 MG/5 ML UD PO PRN (04:18)
[2018-03-14 05:24] VITALS: BP 121/43
[2018-03-14] MEDS: POTASSIUM CHL 20 Meq TABLET PO SCH ×3 (06:03→21:20)
[2018-03-14] MEDS: ACCU-CHEK COMFORT CURVE STRIP VI SCH ×3 (06:04→19:15)
[2018-03-14] MEDS: InsuLIN REG 1unit/0.01ml Soln (100units/ml) SC SCH ×3 (06:07→19:15)
[2018-03-14 09:25] VITALS: BP 112/49
[2018-03-14] MEDS: METOPROLOL SUCCINATE XL 50 MG TAB PO SCH (10:00)
[2018-03-14] MEDS: LOSARTAN POTASSIUM 25 MG TAB PO SCH (10:00)
[2018-03-14] MEDS: FAMOTIDINE 20 MG TAB PO SCH ×2 (10:38→21:20)
[2018-03-14] MEDS: FUROSEMIDE INJECTION 250 MG in SODIUM CHL 0.9% 225 ML IV SCH (10:38)
[2018-03-14] MEDS: ALLOPURINOL 100 MG TAB PO SCH (10:39)
[2018-03-14] MEDS: LORATADINE 10 MG TAB PO SCH (10:39)
[2018-03-14] MEDS: PARoxetine 20 MG TAB PO SCH (10:40)
[2018-03-14] MEDS: ENOXAPARIN SOD 120 MG/0.8 ML SYRINGE SC SCH ×2 (10:40→21:21)
[2018-03-14] MEDS: predniSONE 20 MG TAB PO SCH (10:42)
[2018-03-14 12:31] VITALS: BP 113/52
[2018-03-14 16:53] VITALS: BP 109/26
[2018-03-14 17:36] VITALS: BP 116/57
[2018-03-14] MEDS: PRAVASTATIN SODIUM 20 MG TAB PO SCH (21:20)
[2018-03-14] MEDS: HYDROcodone-ACET 5/325MG TAB PO PRN (21:27)
[2018-03-14 22:00] VITALS: BP 111/53
[2018-03-15] MEDS: ACCU-CHEK COMFORT CURVE STRIP VI SCH ×5 (00:06→23:49)
[2018-03-15] MEDS: InsuLIN REG 1unit/0.01ml Soln (100units/ml) SC SCH ×5 (00:07→23:50)
[2018-03-15 05:00] VITALS: BP 134/54
[2018-03-15] MEDS: diphenhdrAMINE HCL 12.5 MG/5 ML UD PO PRN (05:02)
[2018-03-15] MEDS: POTASSIUM CHL 20 Meq TABLET PO SCH ×3 (06:01→22:14)
[2018-03-15 08:18] VITALS: BP 124/57
[2018-03-15] MEDS: FAMOTIDINE 20 MG TAB PO SCH ×2 (09:48→22:14)
[2018-03-15] MEDS: ALLOPURINOL 100 MG TAB PO SCH (09:48)
[2018-03-15] MEDS: PARoxetine 20 MG TAB PO SCH (09:48)
[2018-03-15] MEDS: predniSONE 20 MG TAB PO SCH (09:48)
[2018-03-15] MEDS: LORATADINE 10 MG TAB PO SCH (09:48)
[2018-03-15] MEDS: FUROSEMIDE INJECTION 250 MG in SODIUM CHL 0.9% 225 ML IV SCH (09:48)
[2018-03-15] MEDS: ENOXAPARIN SOD 120 MG/0.8 ML SYRINGE SC SCH ×2 (09:50→22:15)
[2018-03-15] MEDS: LOSARTAN POTASSIUM 25 MG TAB PO SCH (09:53)
[2018-03-15] MEDS: METOPROLOL SUCCINATE XL 50 MG TAB PO SCH (09:53)
[2018-03-15 12:40] VITALS: BP 122/53
[2018-03-15 17:01] VITALS: BP 133/64
[2018-03-15] MEDS: HYDROcodone-ACET 5/325MG TAB PO PRN (20:04)
[2018-03-15 22:00] VITALS: BP 98/48
[2018-03-15] MEDS: PRAVASTATIN SODIUM 20 MG TAB PO SCH (22:14)
[2018-03-16] MEDS: HYDROcodone-ACET 5/325MG TAB PO PRN ×4 (01:01→21:24)
[2018-03-16] MEDS: diphenhdrAMINE HCL 12.5 MG/5 ML UD PO PRN (01:54)
[2018-03-16 05:00] VITALS: BP 102/46
[2018-03-16] MEDS: POTASSIUM CHL 20 Meq TABLET PO SCH ×3 (06:17→21:15)
[2018-03-16] MEDS: ACCU-CHEK COMFORT CURVE STRIP VI SCH ×3 (06:19→18:07)
[2018-03-16] MEDS: InsuLIN REG 1unit/0.01ml Soln (100units/ml) SC SCH ×4 (06:21→21:16)
[2018-03-16 09:00] VITALS: BP 106/51
[2018-03-16] MEDS: METOPROLOL SUCCINATE XL 50 MG TAB PO SCH (09:46)
[2018-03-16] MEDS: predniSONE 20 MG TAB PO SCH (09:47)
[2018-03-16] MEDS: FAMOTIDINE 20 MG TAB PO SCH ×2 (09:47→21:14)
[2018-03-16] MEDS: LORATADINE 10 MG TAB PO SCH (09:47)
[2018-03-16] MEDS: LOSARTAN POTASSIUM 25 MG TAB PO SCH (09:47)
[2018-03-16] MEDS: ALLOPURINOL 100 MG TAB PO SCH (09:48)
[2018-03-16] MEDS: PARoxetine 20 MG TAB PO SCH (09:49)
[2018-03-16] MEDS: ENOXAPARIN SOD 120 MG/0.8 ML SYRINGE SC SCH ×2 (09:50→21:15)
[2018-03-16 13:49] VITALS: BP 141/66
[2018-03-16 17:00] VITALS: BP 127/56
[2018-03-16] MEDS: PRAVASTATIN SODIUM 20 MG TAB PO SCH (21:14)
[2018-03-16] MEDS: NITROFURANTOIN (MONO) 100 mg CAP PO SCH (21:17)
[2018-03-16 22:00] VITALS: BP 116/55
[2018-03-17] MEDS: diphenhdrAMINE HCL 12.5 MG/5 ML UD PO PRN (01:52)
[2018-03-17 05:00] VITALS: BP 95/50
[2018-03-17] MEDS: POTASSIUM CHL 20 Meq TABLET PO SCH (06:16)
[2018-03-17] MEDS: InsuLIN REG 1unit/0.01ml Soln (100units/ml) SC SCH ×2 (06:17→12:00)
[2018-03-17] MEDS: ACCU-CHEK COMFORT CURVE STRIP VI SCH ×3 (06:18→12:00)
[2018-03-17 08:00] VITALS: BP 128/54
[2018-03-17] MEDS: PARoxetine 20 MG TAB PO SCH (09:21)
[2018-03-17] MEDS: ALLOPURINOL 100 MG TAB PO SCH (09:22)
[2018-03-17] MEDS: FAMOTIDINE 20 MG TAB PO SCH (09:22)
[2018-03-17] MEDS: NITROFURANTOIN (MONO) 100 mg CAP PO SCH (09:22)
[2018-03-17] MEDS: LORATADINE 10 MG TAB PO SCH (09:23)
[2018-03-17] MEDS: predniSONE 20 MG TAB PO SCH (09:23)
[2018-03-17] MEDS: METOPROLOL SUCCINATE XL 50 MG TAB PO SCH (09:23)
[2018-03-17] MEDS: LOSARTAN POTASSIUM 25 MG TAB PO SCH (09:23)
[2018-03-17] MEDS: ENOXAPARIN SOD 120 MG/0.8 ML SYRINGE SC SCH (09:25)
[2018-03-17] MEDS: HYDROcodone-ACET 5/325MG TAB PO PRN (09:30)
[2018-03-17 11:14] VITALS: BP 128/54
== END 2018-03-17 13:00 | disposition home health service (06) | DRG 300 ==
LOC: ER 19:33 → OVERFLOW 19:34 → WEST WING 03-09 08:18
PROVIDERS: ADMIT Nurse Practitioner; ATTEND Internal Medicine Cardiovascular Disease
DX: I82.412 Acute embolism and thrombosis of left femoral vein (principal); I13.0 Hypertensive heart and chronic kidney disease with heart failure and stage 1 through stage 4 chronic kidney disease, or unspecified chronic kidney disease; Z68.42 Body mass index [BMI] 45.0-49.9, adult; E11.65 Type 2 diabetes mellitus with hyperglycemia; E11.22 Type 2 diabetes mellitus with diabetic chronic kidney disease; N18.3 Chronic kidney disease, stage 3 (moderate); I50.811 Acute right heart failure; E66.01 Morbid (severe) obesity due to excess calories; I27.21 Secondary pulmonary arterial hypertension; E78.5 Hyperlipidemia, unspecified; G47.00 Insomnia, unspecified; I25.10 Atherosclerotic heart disease of native coronary artery without angina pectoris; J44.9 Chronic obstructive pulmonary disease, unspecified; K21.9 Gastro-esophageal reflux disease without esophagitis; Z82.49 Family history of ischemic heart disease and other diseases of the circulatory system; Z83.3 Family history of diabetes mellitus; Z88.1 Allergy status to other antibiotic agents; Z88.8 Allergy status to other drugs, medicaments and biological substances; Z79.899 Other long term (current) drug therapy; Z90.49 Acquired absence of other specified parts of digestive tract
CPT/HCPCS: 36415; 71045; 80048; 80053; 81001; 82962; 83880; 84484; 85025; 85379; 85610; 85730; 87081; 93005; 93970; 96365; 96372; J1642; J1815

== ENCOUNTER 2018-03-23 12:59 | Inpatient (IN) | payer MEDICARE, MEDICAID ==
[~2018-03-23] VITALS: Ht 162.6 cm; Wt 125.7 kg
[2018-03-23 15:05] LABS: Basophils # (auto) 0 uL; Basophils % (auto) 0.5 % (0.0-2.0); Eosinophils # (auto) 0.3 uL; Eosinophils % (auto) 3.8 % (0.0-7.0); Hematocrit 37.2 % (36.0-46.0); Hemoglobin 12.3 g/dL (12.2-16.2); Lymphocytes # (auto) 3.2 uL; Lymphocytes % (auto) 38.6 % (10.0-50.0); Mean Corpuscular Hemoglobin 29.5 pg (28.0-32.0); Mean Corpuscular Hgb Conc. 33.1 g/dL (32.0-36.0); Monocytes # (auto) 0.9 uL; Monocytes % (auto) 10.4 % (0.0-12.0); Neutrophils # (auto) 3.9 uL; Neutrophils % (auto) 46.7 % (37.0-80.0); Nucleated Red Blood Cells % 0.1 %; Platelet Count (auto) 254 10^3/uL (140-450); Red Blood Cells 4.18 10^6/uL (4.0-5.20); Red Cell Distribution Width 16.9 % (11.8-14.3); White Blood Cell 8.3 10^3/uL (4.4-10.8)
[2018-03-23 15:20] LABS: Alanine Aminotransferase 30 U/L (13-56); Albumin 3.8 g/dL (3.4-5.0); Anion Gap 11 (5-15); Aspartate Aminotransferase 15 U/L (15-37); BUN/Creatinine Ratio 26.5; Blood Urea Nitrogen 41 mg/dL (7-18); Calcium 8.2 mg/dL (8.5-10.1); Carbon Dioxide 19 mmol/L (21-32); Chloride 111 mmol/L (98-107); GFR African American 41 mL/min; GFR Non-African American 34 mL/min; Glucose 98 mg/dL (74-106); Sodium 141 mmol/L (136-145)
[2018-03-23 15:25] LABS: Alkaline Phosphatase 61 U/L (45-117); Bilirubin, Total 0.5 mg/dL (0.2-1.0); Total Protein 7.4 g/dL (6.4-8.2)
[2018-03-23 16:08] LABS: INR 0.93 (0.9-1.15); Partial Thromboplastin Time 27.1 sec (23.78-33.04)
[2018-03-23] MEDS ORDERED: ENOXAPARIN SOD 120 MG/0.8 ML SYRINGE SC ONE (17:30)
[2018-03-23] MEDS ORDERED: DEXTROSE (50%) 50ML SYRG IV PRN (19:00)
[2018-03-23] MEDS ORDERED: MECLIZINE HCL 25 MG TAB PO PRN (19:00)
[2018-03-23] MEDS ORDERED: traMADol HCL 50 MG TAB PO PRN (19:00)
[2018-03-23] MEDS ORDERED: MORPHINE SULF(PF) 0.5MG/ML 10ML VIAL IV PRN (19:15)
[2018-03-23] MEDS ORDERED: NITROGLYCERIN 0.4 MG SL TAB SL PRN (19:15)
[2018-03-23] MEDS ORDERED: ACETAMINOPHEN 325 MG TAB PO PRN (19:15)
[2018-03-23] MEDS ORDERED: HYDROcodone-ACET 5/325MG TAB PO PRN (19:15)
[2018-03-23] MEDS ORDERED: DOCUSATE SOD 100 MG CAP PO PRN (19:15)
[2018-03-23] MEDS ORDERED: ONDANSETRON HCL 4 MG/2 ML VIAL IV PRN (19:15)
[2018-03-23] MEDS: RIOCIGUAT PO SCH (22:00)
[2018-03-23] MEDS: SODIUM CHLOR 0.9% PF (SALINE LOCK) 10ML VIAL/SYR IV SCH (22:13)
[2018-03-23] MEDS: ENOXAPARIN SOD 120 MG/0.8 ML SYRINGE SC SCH (22:14)
[2018-03-23] MEDS: ATORVASTATIN 20 MG TAB PO SCH (22:14)
[2018-03-23] MEDS: POTASSIUM CHLORIDE 8 MEQ TAB PO SCH (22:14)
[2018-03-23] MEDS: FAMOTIDINE 20 MG TAB PO SCH (22:14)
[2018-03-23] MEDS: SULFAMETHOX W/TRIMETH(800/160MG) DS TAB PO SCH (22:14)
[2018-03-23] MEDS: ACCU-CHEK COMFORT CURVE STRIP VI SCH (22:15)
[2018-03-23] MEDS: InsuLIN REG 1unit/0.01ml Soln (100units/ml) SC SCH (22:15)
[2018-03-23 22:25] VITALS: BP 112/44
[2018-03-23 22:49] VITALS: BP 112/44
[2018-03-24] MEDS: TEMAZEPAM 15 MG CAP PO PRN ×2 (00:31→21:23)
[2018-03-24 05:20] VITALS: BP 112/44
[2018-03-24] MEDS: SODIUM CHLOR 0.9% PF (SALINE LOCK) 10ML VIAL/SYR IV SCH ×3 (05:39→21:15)
[2018-03-24] MEDS: RIOCIGUAT PO SCH ×3 (05:39→21:15)
[2018-03-24] MEDS: ACCU-CHEK COMFORT CURVE STRIP VI SCH ×4 (05:50→21:16)
[2018-03-24] MEDS: POTASSIUM CHLORIDE 8 MEQ TAB PO SCH ×3 (05:50→21:15)
[2018-03-24] MEDS: INSULIN LANTUS (GLARGINE) 1 /0.01ml (100units/ml) SC SCH (05:58)
[2018-03-24] MEDS: InsuLIN REG 1unit/0.01ml Soln (100units/ml) SC SCH ×4 (05:58→21:16)
[2018-03-24 06:19] LABS: Basophils # (auto) 0 uL; Basophils % (auto) 0.7 % (0.0-2.0); Eosinophils # (auto) 0.3 uL; Eosinophils % (auto) 5.6 % (0.0-7.0); Hematocrit 33.6 % (36.0-46.0); Hemoglobin 11.2 g/dL (12.2-16.2); Lymphocytes # (auto) 2.1 uL; Lymphocytes % (auto) 37.5 % (10.0-50.0); Mean Corpuscular Hemoglobin 29.4 pg (28.0-32.0); Mean Corpuscular Hgb Conc. 33.3 g/dL (32.0-36.0); Mean Corpuscular Volume 88.3 fL (80.0-100.0); Monocytes # (auto) 0.7 uL; Monocytes % (auto) 12.4 % (0.0-12.0); Neutrophils # (auto) 2.5 uL; Neutrophils % (auto) 43.8 % (37.0-80.0); Nucleated Red Blood Cells % 0.1 %; Platelet Count (auto) 186 10^3/uL (140-450); Red Cell Distribution Width 16.8 % (11.8-14.3); White Blood Cell 5.6 10^3/uL (4.4-10.8)
[2018-03-24 06:45] LABS: Albumin 3.1 g/dL (3.4-5.0); BUN/Creatinine Ratio 25.6; Calcium 8.2 mg/dL (8.5-10.1); Total Protein 6.3 g/dL (6.4-8.2)
[2018-03-24 06:49] LABS: Bilirubin, Total 0.5 mg/dL (0.2-1.0)
[2018-03-24 09:11] VITALS: BP 134/66
[2018-03-24] MEDS: BUMETANIDE 1 MG TAB PO SCH (10:04)
[2018-03-24] MEDS: MULTIPLE VITAMIN TAB PO SCH (10:04)
[2018-03-24] MEDS: PANTOPRAZOLE 40 MG TAB PO SCH (10:04)
[2018-03-24] MEDS: SULFAMETHOX W/TRIMETH(800/160MG) DS TAB PO SCH ×2 (10:04→21:15)
[2018-03-24] MEDS: FERROUS SULFATE 325 MG TAB PO SCH (10:04)
[2018-03-24] MEDS: PARoxetine 20 MG TAB PO SCH (10:05)
[2018-03-24] MEDS: ALLOPURINOL 100 MG TAB PO SCH (10:06)
[2018-03-24] MEDS: METOPROLOL SUCCINATE XL 50 MG TAB PO SCH (10:06)
[2018-03-24] MEDS: LOSARTAN POTASSIUM 25 MG TAB PO SCH (10:07)
[2018-03-24] MEDS: ENOXAPARIN SOD 120 MG/0.8 ML SYRINGE SC SCH (10:07)
[2018-03-24] MEDS: FAMOTIDINE 20 MG TAB PO SCH (10:07)
[2018-03-24] MEDS: ASPirin-EC 81 mg tab PO SCH (10:13)
[2018-03-24 12:25] VITALS: BP 122/53
[2018-03-24 17:17] VITALS: BP 121/59
[2018-03-24 18:40] LABS: Urine Bacteria FEW /hpf (None Seen); Urine Blood Negative /uL (Negative); Urine Hyaline Cast FEW /lpf (0 - 2); Urine Mucus FEW (None Seen); Urine Specific Gravity 1.009 (1.001-1.035); Urine WBC 2 /hpf (0 - 5)
[2018-03-24] MEDS: RIVAROXABAN 15 MG TAB PO SCH (21:15)
[2018-03-24] MEDS: ATORVASTATIN 20 MG TAB PO SCH (21:15)
[2018-03-24 22:00] VITALS: BP 89/45
[2018-03-24 22:39] VITALS: BP 103/50
[2018-03-25 05:00] VITALS: BP 111/52
[2018-03-25] MEDS: SODIUM CHLOR 0.9% PF (SALINE LOCK) 10ML VIAL/SYR IV SCH ×3 (05:54→22:09)
[2018-03-25] MEDS: POTASSIUM CHLORIDE 8 MEQ TAB PO SCH ×3 (05:54→22:10)
[2018-03-25] MEDS: ACCU-CHEK COMFORT CURVE STRIP VI SCH ×4 (05:54→22:11)
[2018-03-25] MEDS: RIOCIGUAT PO SCH (05:54)
[2018-03-25] MEDS: InsuLIN REG 1unit/0.01ml Soln (100units/ml) SC SCH ×4 (06:09→22:00)
[2018-03-25] MEDS: INSULIN LANTUS (GLARGINE) 1 /0.01ml (100units/ml) SC SCH (06:09)
[2018-03-25 08:00] VITALS: BP 120/46
[2018-03-25] MEDS: ALLOPURINOL 100 MG TAB PO SCH (09:40)
[2018-03-25] MEDS: BUMETANIDE 1 MG TAB PO SCH (09:41)
[2018-03-25] MEDS: LOSARTAN POTASSIUM 25 MG TAB PO SCH (09:41)
[2018-03-25] MEDS: PARoxetine 20 MG TAB PO SCH (09:41)
[2018-03-25] MEDS: ASPirin-EC 81 mg tab PO SCH (09:41)
[2018-03-25] MEDS: PANTOPRAZOLE 40 MG TAB PO SCH (09:42)
[2018-03-25] MEDS: MULTIPLE VITAMIN TAB PO SCH (09:42)
[2018-03-25] MEDS: SULFAMETHOX W/TRIMETH(800/160MG) DS TAB PO SCH ×2 (09:42→22:10)
[2018-03-25] MEDS: FERROUS SULFATE 325 MG TAB PO SCH (09:42)
[2018-03-25] MEDS: RIVAROXABAN 15 MG TAB PO SCH ×2 (09:55→22:10)
[2018-03-25] MEDS: METOPROLOL SUCCINATE XL 50 MG TAB PO SCH (10:00)
[2018-03-25 11:35] VITALS: BP 104/74
[2018-03-25 15:00] VITALS: BP 111/45
[2018-03-25 21:54] VITALS: BP 113/57
[2018-03-25] MEDS: TEMAZEPAM 15 MG CAP PO PRN (22:10)
[2018-03-25] MEDS: RIOCIGUAT 2.5 MG PO SCH (22:10)
[2018-03-25] MEDS: ATORVASTATIN 20 MG TAB PO SCH (22:10)
[2018-03-26 04:21] VITALS: BP 124/58
[2018-03-26] MEDS: POTASSIUM CHLORIDE 8 MEQ TAB PO SCH ×2 (06:11→14:00)
[2018-03-26] MEDS: SODIUM CHLOR 0.9% PF (SALINE LOCK) 10ML VIAL/SYR IV SCH ×2 (06:11→14:00)
[2018-03-26] MEDS: RIOCIGUAT 2.5 MG PO SCH ×2 (06:11→14:00)
[2018-03-26] MEDS: ACCU-CHEK COMFORT CURVE STRIP VI SCH ×3 (06:12→17:00)
[2018-03-26] MEDS: InsuLIN REG 1unit/0.01ml Soln (100units/ml) SC SCH ×3 (06:12→17:00)
[2018-03-26] MEDS: INSULIN LANTUS (GLARGINE) 1 /0.01ml (100units/ml) SC SCH (06:13)
[2018-03-26 09:00] VITALS: BP 105/22
[2018-03-26] MEDS: LOSARTAN POTASSIUM 25 MG TAB PO SCH (10:00)
[2018-03-26] MEDS: METOPROLOL SUCCINATE XL 50 MG TAB PO SCH (10:00)
[2018-03-26] MEDS: BUMETANIDE 1 MG TAB PO SCH (10:00)
[2018-03-26] MEDS: FERROUS SULFATE 325 MG TAB PO SCH (10:47)
[2018-03-26] MEDS: RIVAROXABAN 15 MG TAB PO SCH (10:47)
[2018-03-26] MEDS: MULTIPLE VITAMIN TAB PO SCH (10:48)
[2018-03-26] MEDS: PANTOPRAZOLE 40 MG TAB PO SCH (10:48)
[2018-03-26] MEDS: ALLOPURINOL 100 MG TAB PO SCH (10:48)
[2018-03-26] MEDS: ASPirin-EC 81 mg tab PO SCH (10:49)
[2018-03-26] MEDS: SULFAMETHOX W/TRIMETH(800/160MG) DS TAB PO SCH (10:51)
[2018-03-26] MEDS: PARoxetine 20 MG TAB PO SCH (10:59)
[2018-03-26 13:00] VITALS: BP 98/47
[2018-03-26 16:48] VITALS: BP 134/68
[2018-03-26 18:02] VITALS: BP 95/43
== END 2018-03-26 19:31 | disposition home health service (06) | DRG 299 ==
LOC: ER 12:59 → TELE 13:00 → TELE-EAST 21:43
PROVIDERS: ADMIT Internal Medicine; ATTEND Internal Medicine Cardiovascular Disease
DX: I82.442 Acute embolism and thrombosis of left tibial vein (principal); I50.43 Acute on chronic combined systolic (congestive) and diastolic (congestive) heart failure; Z68.42 Body mass index [BMI] 45.0-49.9, adult; I13.0 Hypertensive heart and chronic kidney disease with heart failure and stage 1 through stage 4 chronic kidney disease, or unspecified chronic kidney disease; E10.21 Type 1 diabetes mellitus with diabetic nephropathy; I27.21 Secondary pulmonary arterial hypertension; E83.51 Hypocalcemia; I82.412 Acute embolism and thrombosis of left femoral vein; N18.3 Chronic kidney disease, stage 3 (moderate); E10.22 Type 1 diabetes mellitus with diabetic chronic kidney disease; E10.51 Type 1 diabetes mellitus with diabetic peripheral angiopathy without gangrene; E66.01 Morbid (severe) obesity due to excess calories; E78.5 Hyperlipidemia, unspecified; G47.30 Sleep apnea, unspecified; I25.10 Atherosclerotic heart disease of native coronary artery without angina pectoris; J44.9 Chronic obstructive pulmonary disease, unspecified; I50.810 Right heart failure, unspecified; K21.9 Gastro-esophageal reflux disease without esophagitis; Z79.4 Long term (current) use of insulin; Z90.49 Acquired absence of other specified parts of digestive tract; Z95.5 Presence of coronary angioplasty implant and graft; Z82.49 Family history of ischemic heart disease and other diseases of the circulatory system; Z83.3 Family history of diabetes mellitus; Z88.1 Allergy status to other antibiotic agents; Z88.8 Allergy status to other drugs, medicaments and biological substances; Z79.899 Other long term (current) drug therapy; Z79.82 Long term (current) use of aspirin
CPT/HCPCS: 36415; 71045; 80053; 81001; 82962; 83036; 83880; 84443; 84484; 85025; 85610; 85730; 87081; 87086; 93306; 93925; 93970; 94761; 96372; J1642; J1815

== ENCOUNTER → 2018-04-01 | Outpatient (CLI) | payer MEDICARE, MEDICAID ==
[~2018-04-01] VITALS: Ht 1 cm; Wt 0.5 kg
[~2018-04-01] MED LIST changes: +CYANOCOBALAMIN (B-12) 1000 MCG/1 ML VIAL IM ONE; +CYANOCOBALAMIN (B-12) 1000 MCG/1 ML VIAL ONE
[2018-04-01 12:30] VITALS: BP 114/59
[2018-04-01 13:30] VITALS: BP 128/50
[2018-04-01 16:03] LABS: Urine Blood 1+ /uL (Negative)
[2018-04-01 16:06] LABS: Basophils # (auto) 0 uL; Basophils % (auto) 0.7 % (0.0-2.0); Eosinophils # (auto) 0.2 uL; Eosinophils % (auto) 3.2 % (0.0-7.0); Hematocrit 32.5 % (36.0-46.0); Hemoglobin 10.7 g/dL (12.2-16.2); Lymphocytes # (auto) 2.1 uL; Lymphocytes % (auto) 34.7 % (10.0-50.0); Mean Corpuscular Hemoglobin 29.6 pg (28.0-32.0); Mean Corpuscular Volume 89.6 fL (80.0-100.0); Monocytes # (auto) 0.5 uL; Monocytes % (auto) 8.6 % (0.0-12.0); Neutrophils # (auto) 3.2 uL; Neutrophils % (auto) 52.8 % (37.0-80.0); Nucleated Red Blood Cells % 0.4 %; Platelet Count (auto) 233 10^3/uL (140-450); Red Blood Cells 3.63 10^6/uL (4.0-5.20); Red Cell Distribution Width 16.6 % (11.8-14.3); White Blood Cell 6.1 10^3/uL (4.4-10.8)
[2018-04-01 16:27] LABS: Albumin 3.4 g/dL (3.4-5.0); Bilirubin, Total 0.3 mg/dL (0.2-1.0); Calcium 8.6 mg/dL (8.5-10.1); Magnesium 2.1 mg/dL (1.6-2.6); Phosphorus 3.1 mg/dL (2.5-4.90); Potassium 4.2 mmol/L (3.5-5.1); Total Protein 6.8 g/dL (6.4-8.2); Uric Acid 7.4 mg/dL (2.6-6.0)
[2018-04-01 16:33] LABS: Creatinine, Urine 144 mg/dL (30.0-125.0); Protein, Urine 28.1 mg/dL (0.0-11.9)
== END | disposition home or self-care (01) ==
LOC: CHF HDHVI 11:04
PROVIDERS: ATTEND Internal Medicine Cardiovascular Disease
DX: E78.5 Hyperlipidemia, unspecified (principal); I89.0 Lymphedema, not elsewhere classified; I27.21 Secondary pulmonary arterial hypertension; I13.0 Hypertensive heart and chronic kidney disease with heart failure and stage 1 through stage 4 chronic kidney disease, or unspecified chronic kidney disease; I50.43 Acute on chronic combined systolic (congestive) and diastolic (congestive) heart failure; E11.22 Type 2 diabetes mellitus with diabetic chronic kidney disease; N18.3 Chronic kidney disease, stage 3 (moderate); I25.10 Atherosclerotic heart disease of native coronary artery without angina pectoris; M10.9 Gout, unspecified; E83.40 Disorders of magnesium metabolism, unspecified; N39.0 Urinary tract infection, site not specified; K21.9 Gastro-esophageal reflux disease without esophagitis; E66.01 Morbid (severe) obesity due to excess calories; Z68.42 Body mass index [BMI] 45.0-49.9, adult; Z79.82 Long term (current) use of aspirin; Z79.4 Long term (current) use of insulin; Z95.5 Presence of coronary angioplasty implant and graft
CPT/HCPCS: 36415; 80053; 80061; 80069; 81003; 82306; 82570; 83036; 83735; 83970; 84156; 84550; 85025; 96372; G0463; J1642; J3420

== ENCOUNTER → 2018-05-06 | Outpatient (CLI) | payer MEDICARE, MEDICAID ==
[2018-05-06] VITALS (8 sets, daily range): BP systolic 117–159; BP diastolic 43–76
[~2018-05-06] MED LIST changes: +FUROSEMIDE 100 MG/10ML VIAL IV ONE; +FUROSEMIDE INJECTION 10 ML ONE; +POTASSIUM CHL 10 Meq TABLET PO ONE; +POTASSIUM CHL 20 Meq TABLET PO ONE; +SODIUM CHLORIDE 0.9% 100 ML IV SCH
[2018-05-06 16:13] LABS: Basophils # (auto) 0 uL; Basophils % (auto) 0.4 % (0.0-2.0); Eosinophils # (auto) 0.2 uL; Eosinophils % (auto) 4.4 % (0.0-7.0); Hematocrit 34.9 % (36.0-46.0); Hemoglobin 11.2 g/dL (12.2-16.2); Lymphocytes # (auto) 1.7 uL; Lymphocytes % (auto) 30.3 % (10.0-50.0); Mean Corpuscular Hemoglobin 28.8 pg (28.0-32.0); Mean Corpuscular Hgb Conc. 32.2 g/dL (32.0-36.0); Mean Corpuscular Volume 89.6 fL (80.0-100.0); Monocytes # (auto) 0.6 uL; Neutrophils # (auto) 3.1 uL; Neutrophils % (auto) 54.9 % (37.0-80.0); Nucleated Red Blood Cells % 1.1 %; Platelet Count (auto) 220 10^3/uL (140-450); Red Blood Cells 3.89 10^6/uL (4.0-5.20); Red Cell Distribution Width 16.5 % (11.8-14.3); White Blood Cell 5.6 10^3/uL (4.4-10.8)
[2018-05-06 16:20] LABS: BUN/Creatinine Ratio 21.4; Magnesium 1.9 mg/dL (1.6-2.6)
== END | disposition home or self-care (01) ==
LOC: CHF HDHVI 10:29
PROVIDERS: ATTEND Internal Medicine Cardiovascular Disease
DX: E83.40 Disorders of magnesium metabolism, unspecified (principal); R60.0 Localized edema; I25.10 Atherosclerotic heart disease of native coronary artery without angina pectoris; D64.9 Anemia, unspecified; I13.0 Hypertensive heart and chronic kidney disease with heart failure and stage 1 through stage 4 chronic kidney disease, or unspecified chronic kidney disease; E11.22 Type 2 diabetes mellitus with diabetic chronic kidney disease; N18.3 Chronic kidney disease, stage 3 (moderate); I50.43 Acute on chronic combined systolic (congestive) and diastolic (congestive) heart failure; J44.9 Chronic obstructive pulmonary disease, unspecified; K21.9 Gastro-esophageal reflux disease without esophagitis; E78.5 Hyperlipidemia, unspecified; E66.01 Morbid (severe) obesity due to excess calories; Z98.61 Coronary angioplasty status; Z79.4 Long term (current) use of insulin; Z79.82 Long term (current) use of aspirin; Z68.42 Body mass index [BMI] 45.0-49.9, adult
CPT/HCPCS: 36415; 80048; 82962; 83735; 85025; 93701; 96365; 96366; 96372; G0463; J1642; J1940; J3420

== ENCOUNTER → 2018-05-14 | Outpatient (CLI) | payer MEDICARE, MEDICAID ==
[~2018-05-14] MED LIST changes: -CYANOCOBALAMIN (B-12) 1000 MCG/1 ML VIAL IM ONE; -CYANOCOBALAMIN (B-12) 1000 MCG/1 ML VIAL ONE; -FUROSEMIDE 100 MG/10ML VIAL IV ONE; +FUROSEMIDE INJECTION 100 MG in SODIUM CHL 0.9% 100 ML IV SCH; -SODIUM CHLORIDE 0.9% 100 ML IV SCH
[2018-05-14 11:00] VITALS: BP 102/43
[2018-05-14 11:30] VITALS: BP 114/57
[2018-05-14 12:00] VITALS: BP 126/54
[2018-05-14 12:30] VITALS: BP 108/42
[2018-05-14 14:00] VITALS: BP 108/43
[2018-05-14 16:04] LABS: BUN/Creatinine Ratio 22.4; Calcium 8.1 mg/dL (8.5-10.1)
[2018-05-14 16:09] LABS: Basophils # (auto) 0 uL; Basophils % (auto) 0.7 % (0.0-2.0); Eosinophils # (auto) 0.3 uL; Eosinophils % (auto) 4.4 % (0.0-7.0); Hematocrit 34.4 % (36.0-46.0); Hemoglobin 11.1 g/dL (12.2-16.2); Lymphocytes # (auto) 2.1 uL; Lymphocytes % (auto) 36.4 % (10.0-50.0); Mean Corpuscular Hemoglobin 28.5 pg (28.0-32.0); Mean Corpuscular Hgb Conc. 32.4 g/dL (32.0-36.0); Mean Corpuscular Volume 88.1 fL (80.0-100.0); Monocytes # (auto) 0.6 uL; Monocytes % (auto) 9.8 % (0.0-12.0); Neutrophils # (auto) 2.8 uL; Neutrophils % (auto) 48.7 % (37.0-80.0); Nucleated Red Blood Cells % 0.3 %; Platelet Count (auto) 228 10^3/uL (140-450); Red Blood Cells 3.91 10^6/uL (4.0-5.20); Red Cell Distribution Width 16.3 % (11.8-14.3); White Blood Cell 5.7 10^3/uL (4.4-10.8)
== END | disposition home or self-care (01) ==
LOC: CHF HDHVI 10:27
PROVIDERS: ATTEND Internal Medicine Cardiovascular Disease
DX: I13.0 Hypertensive heart and chronic kidney disease with heart failure and stage 1 through stage 4 chronic kidney disease, or unspecified chronic kidney disease (principal); R60.0 Localized edema; E11.22 Type 2 diabetes mellitus with diabetic chronic kidney disease; I50.43 Acute on chronic combined systolic (congestive) and diastolic (congestive) heart failure; N18.3 Chronic kidney disease, stage 3 (moderate); D64.9 Anemia, unspecified; I25.10 Atherosclerotic heart disease of native coronary artery without angina pectoris; E66.9 Obesity, unspecified; K21.9 Gastro-esophageal reflux disease without esophagitis; J44.9 Chronic obstructive pulmonary disease, unspecified; E78.5 Hyperlipidemia, unspecified; Z79.4 Long term (current) use of insulin; Z68.42 Body mass index [BMI] 45.0-49.9, adult; Z98.61 Coronary angioplasty status
CPT/HCPCS: 36415; 80048; 83036; 85025; 96365; 96366; G0463; J1642; J1940

== ENCOUNTER → 2018-05-18 | Outpatient (CLI) | payer MEDICARE, MEDICAID ==
[2018-05-18] VITALS (8 sets, daily range): BP systolic 96–147; BP diastolic 24–68
[~2018-05-18] VITALS: Ht 165.1 cm; Wt 128.0 kg
[~2018-05-18] MED LIST changes: +FUROSEMIDE 100 MG/10ML VIAL IV ONE; -FUROSEMIDE INJECTION 100 MG in SODIUM CHL 0.9% 100 ML IV SCH; -POTASSIUM CHL 10 Meq TABLET PO ONE
== END | disposition home or self-care (01) ==
LOC: CHF HDHVI 12:14
PROVIDERS: ATTEND Internal Medicine Cardiovascular Disease
DX: I13.0 Hypertensive heart and chronic kidney disease with heart failure and stage 1 through stage 4 chronic kidney disease, or unspecified chronic kidney disease (principal); E11.22 Type 2 diabetes mellitus with diabetic chronic kidney disease; N18.3 Chronic kidney disease, stage 3 (moderate); I50.43 Acute on chronic combined systolic (congestive) and diastolic (congestive) heart failure; I25.810 Atherosclerosis of coronary artery bypass graft(s) without angina pectoris; J44.9 Chronic obstructive pulmonary disease, unspecified; K21.9 Gastro-esophageal reflux disease without esophagitis; E78.5 Hyperlipidemia, unspecified; E66.01 Morbid (severe) obesity due to excess calories; Z79.4 Long term (current) use of insulin; Z68.42 Body mass index [BMI] 45.0-49.9, adult; Z98.61 Coronary angioplasty status; Z79.82 Long term (current) use of aspirin
CPT/HCPCS: 96365; 96366; G0463; J1642; J1940

== ENCOUNTER → 2018-05-21 | Outpatient (CLI) | payer MEDICARE, MEDICAID ==
[~2018-05-21] MED LIST changes: +FUROSEMIDE 20 MG/2 ML VIAL IV SCH; +FUROSEMIDE 40 MG/4 ML VIAL ONE; +POTASSIUM CHL 10 Meq TABLET PO ONE; +SODIUM CHLORIDE 0.9% 250 ML IV SCH
[2018-05-21 11:30] VITALS: BP 119/51
[2018-05-21 12:00] VITALS: BP 109/64
[2018-05-21 12:30] VITALS: BP 122/47
[2018-05-21 14:49] VITALS: BP 132/53
== END | disposition home or self-care (01) ==
LOC: CHF HDHVI 10:49
PROVIDERS: ATTEND Internal Medicine Cardiovascular Disease
DX: I13.0 Hypertensive heart and chronic kidney disease with heart failure and stage 1 through stage 4 chronic kidney disease, or unspecified chronic kidney disease (principal); E11.22 Type 2 diabetes mellitus with diabetic chronic kidney disease; N18.3 Chronic kidney disease, stage 3 (moderate); I50.43 Acute on chronic combined systolic (congestive) and diastolic (congestive) heart failure; I25.10 Atherosclerotic heart disease of native coronary artery without angina pectoris; I27.21 Secondary pulmonary arterial hypertension; R60.0 Localized edema; E66.9 Obesity, unspecified; J44.9 Chronic obstructive pulmonary disease, unspecified; E78.5 Hyperlipidemia, unspecified; E66.01 Morbid (severe) obesity due to excess calories; Z98.61 Coronary angioplasty status; Z68.42 Body mass index [BMI] 45.0-49.9, adult; Z79.4 Long term (current) use of insulin; Z79.82 Long term (current) use of aspirin
CPT/HCPCS: 96365; 96366; G0463; J1642; J1940; J7050

== ENCOUNTER → 2018-05-25 | Outpatient (CLI) | payer MEDICARE, MEDICAID ==
[~2018-05-25] MED LIST changes: -FUROSEMIDE 100 MG/10ML VIAL IV ONE; -FUROSEMIDE 20 MG/2 ML VIAL IV SCH; +FUROSEMIDE IV SCH; +SODIUM CHL 0.9% IV SCH; -SODIUM CHLORIDE 0.9% 250 ML IV SCH
[2018-05-25 13:30] VITALS: BP 127/51
[2018-05-25 14:00] VITALS: BP 131/51
[2018-05-25 14:30] VITALS: BP 155/59
[2018-05-25 15:00] VITALS: BP 135/60
[2018-05-25 16:04] LABS: Basophils # (auto) 0 uL; Basophils % (auto) 0.8 % (0.0-2.0); Eosinophils # (auto) 0.2 uL; Eosinophils % (auto) 4.1 % (0.0-7.0); Hematocrit 35.4 % (36.0-46.0); Hemoglobin 11.4 g/dL (12.2-16.2); Lymphocytes # (auto) 2.1 uL; Lymphocytes % (auto) 37.2 % (10.0-50.0); Mean Corpuscular Hemoglobin 28.4 pg (28.0-32.0); Mean Corpuscular Hgb Conc. 32.3 g/dL (32.0-36.0); Mean Corpuscular Volume 87.9 fL (80.0-100.0); Monocytes # (auto) 0.6 uL; Monocytes % (auto) 10.5 % (0.0-12.0); Neutrophils # (auto) 2.7 uL; Neutrophils % (auto) 47.4 % (37.0-80.0); Platelet Count (auto) 228 10^3/uL (140-450); Red Blood Cells 4.03 10^6/uL (4.0-5.20); Red Cell Distribution Width 16.4 % (11.8-14.3); White Blood Cell 5.7 10^3/uL (4.4-10.8)
[2018-05-25 16:12] LABS: BUN/Creatinine Ratio 23.4; Calcium 8.7 mg/dL (8.5-10.1); Magnesium 2.5 mg/dL (1.6-2.6); Potassium 4.1 mmol/L (3.5-5.1)
[2018-05-25 16:40] VITALS: BP 137/58
== END | disposition home or self-care (01) ==
LOC: CHF HDHVI 12:27
PROVIDERS: ATTEND Internal Medicine Cardiovascular Disease
DX: E83.40 Disorders of magnesium metabolism, unspecified (principal); I10 Essential (primary) hypertension; D64.9 Anemia, unspecified; D51.9 Vitamin B12 deficiency anemia, unspecified
CPT/HCPCS: 36415; 80048; 82607; 83735; 85025; 96365; 96366; G0463; J1642; J1940; J7050

== ENCOUNTER → 2018-06-01 | Outpatient (CLI) | payer MEDICARE, MEDICAID ==
[2018-06-01] VITALS (7 sets, daily range): BP systolic 112–135; BP diastolic 41–76
[~2018-06-01] MED LIST changes: +FUROSEMIDE 100 MG/10ML VIAL IV ONE; -FUROSEMIDE 40 MG/4 ML VIAL ONE; -FUROSEMIDE IV SCH; -POTASSIUM CHL 20 Meq TABLET PO ONE; -SODIUM CHL 0.9% IV SCH; +SODIUM CHLORIDE 0.9% 1,000 ML IV SCH
[2018-06-01 16:21] LABS: Basophils # (auto) 0 uL; Basophils % (auto) 0.6 % (0.0-2.0); Eosinophils # (auto) 0.3 uL; Eosinophils % (auto) 4.1 % (0.0-7.0); Hematocrit 33.4 % (36.0-46.0); Hemoglobin 10.9 g/dL (12.2-16.2); Lymphocytes # (auto) 2.5 uL; Lymphocytes % (auto) 37.1 % (10.0-50.0); Mean Corpuscular Hemoglobin 28.7 pg (28.0-32.0); Mean Corpuscular Hgb Conc. 32.7 g/dL (32.0-36.0); Mean Corpuscular Volume 87.9 fL (80.0-100.0); Monocytes # (auto) 0.7 uL; Monocytes % (auto) 9.8 % (0.0-12.0); Neutrophils # (auto) 3.3 uL; Neutrophils % (auto) 48.4 % (37.0-80.0); Nucleated Red Blood Cells % 0.7 %; Platelet Count (auto) 181 10^3/uL (140-450); Red Cell Distribution Width 16.3 % (11.8-14.3); White Blood Cell 6.8 10^3/uL (4.4-10.8)
[2018-06-01 16:25] LABS: Potassium 4.2 mmol/L (3.5-5.1)
== END | disposition home or self-care (01) ==
LOC: CHF HDHVI 12:26
PROVIDERS: ATTEND Internal Medicine Cardiovascular Disease
DX: R60.0 Localized edema (principal); I25.10 Atherosclerotic heart disease of native coronary artery without angina pectoris; I13.0 Hypertensive heart and chronic kidney disease with heart failure and stage 1 through stage 4 chronic kidney disease, or unspecified chronic kidney disease; E11.22 Type 2 diabetes mellitus with diabetic chronic kidney disease; N18.3 Chronic kidney disease, stage 3 (moderate); I50.43 Acute on chronic combined systolic (congestive) and diastolic (congestive) heart failure; D64.9 Anemia, unspecified; J44.9 Chronic obstructive pulmonary disease, unspecified; K21.9 Gastro-esophageal reflux disease without esophagitis; E78.5 Hyperlipidemia, unspecified; E66.01 Morbid (severe) obesity due to excess calories; Z68.42 Body mass index [BMI] 45.0-49.9, adult; Z79.4 Long term (current) use of insulin; Z79.82 Long term (current) use of aspirin; Z98.61 Coronary angioplasty status
CPT/HCPCS: 36415; 80048; 85025; 96365; 96366; G0463; J1642; J1940

== ENCOUNTER → 2018-06-04 | Outpatient (CLI) | payer MEDICARE, MEDICAID ==
[~2018-06-04] MED LIST changes: -FUROSEMIDE 100 MG/10ML VIAL IV ONE; +FUROSEMIDE INJECTION 100 MG in SODIUM CHL 0.9% 100 ML IV SCH; +POTASSIUM CHL 20 Meq TABLET PO ONE; -SODIUM CHLORIDE 0.9% 1,000 ML IV SCH
[2018-06-04 12:00] VITALS: BP 116/41
[2018-06-04 12:30] VITALS: BP 104/42
[2018-06-04 13:00] VITALS: BP 124/48
[2018-06-04 13:30] VITALS: BP 124/48
[2018-06-04 14:00] VITALS: BP 124/56
[2018-06-04 14:35] VITALS: BP 115/45
== END | disposition home or self-care (01) ==
LOC: CHF HDHVI 10:48
PROVIDERS: ATTEND Internal Medicine Cardiovascular Disease
DX: E87.70 Fluid overload, unspecified (principal); I27.21 Secondary pulmonary arterial hypertension; I13.0 Hypertensive heart and chronic kidney disease with heart failure and stage 1 through stage 4 chronic kidney disease, or unspecified chronic kidney disease; E11.22 Type 2 diabetes mellitus with diabetic chronic kidney disease; N18.3 Chronic kidney disease, stage 3 (moderate); D63.1 Anemia in chronic kidney disease; I50.43 Acute on chronic combined systolic (congestive) and diastolic (congestive) heart failure; K21.9 Gastro-esophageal reflux disease without esophagitis; E78.5 Hyperlipidemia, unspecified; E66.01 Morbid (severe) obesity due to excess calories; Z68.42 Body mass index [BMI] 45.0-49.9, adult; Z79.4 Long term (current) use of insulin
CPT/HCPCS: 96365; 96366; G0463; J1642; J1940; 96367

== ENCOUNTER → 2018-06-11 | Outpatient (CLI) | payer MEDICARE, MEDICAID ==
[~2018-06-11] MED LIST changes: +CYANOCOBALAMIN (B-12) 1000 MCG/1 ML VIAL IM ONE; +CYANOCOBALAMIN (B-12) 1000 MCG/1 ML VIAL ONE; +FUROSEMIDE 100 MG/10ML VIAL IV ONE; -FUROSEMIDE INJECTION 100 MG in SODIUM CHL 0.9% 100 ML IV SCH; +KETOROLAC TROMETH 60MG/2ML VIAL IM ONE
[2018-06-11 11:30] VITALS: BP 112/52
[2018-06-11 12:00] VITALS: BP 138/55
[2018-06-11 12:30] VITALS: BP 131/61
[2018-06-11 13:00] VITALS: BP 130/58
[2018-06-11 14:35] VITALS: BP 139/58
[2018-06-11 16:02] LABS: Basophils # (auto) 0 uL; Basophils % (auto) 0.6 % (0.0-2.0); Eosinophils # (auto) 0.3 uL; Eosinophils % (auto) 4.7 % (0.0-7.0); Hematocrit 36.1 % (36.0-46.0); Hemoglobin 11.7 g/dL (12.2-16.2); Lymphocytes # (auto) 2.1 uL; Lymphocytes % (auto) 36.1 % (10.0-50.0); Mean Corpuscular Hemoglobin 28.7 pg (28.0-32.0); Mean Corpuscular Hgb Conc. 32.4 g/dL (32.0-36.0); Mean Corpuscular Volume 88.6 fL (80.0-100.0); Monocytes # (auto) 0.6 uL; Monocytes % (auto) 10.2 % (0.0-12.0); Neutrophils # (auto) 2.8 uL; Neutrophils % (auto) 48.4 % (37.0-80.0); Nucleated Red Blood Cells % 0.3 %; Platelet Count (auto) 233 10^3/uL (140-450); Red Blood Cells 4.07 10^6/uL (4.0-5.20); Red Cell Distribution Width 16.7 % (11.8-14.3); White Blood Cell 5.7 10^3/uL (4.4-10.8)
[2018-06-11 16:35] LABS: BUN/Creatinine Ratio 19.3; Calcium 8.5 mg/dL (8.5-10.1); Potassium 4.2 mmol/L (3.5-5.1)
== END | disposition home or self-care (01) ==
LOC: CHF HDHVI 10:42
PROVIDERS: ATTEND Internal Medicine Cardiovascular Disease
DX: D51.9 Vitamin B12 deficiency anemia, unspecified (principal); E11.22 Type 2 diabetes mellitus with diabetic chronic kidney disease; I13.0 Hypertensive heart and chronic kidney disease with heart failure and stage 1 through stage 4 chronic kidney disease, or unspecified chronic kidney disease; N18.3 Chronic kidney disease, stage 3 (moderate); I50.43 Acute on chronic combined systolic (congestive) and diastolic (congestive) heart failure; K21.9 Gastro-esophageal reflux disease without esophagitis; E78.5 Hyperlipidemia, unspecified; I25.10 Atherosclerotic heart disease of native coronary artery without angina pectoris; J44.9 Chronic obstructive pulmonary disease, unspecified; E66.01 Morbid (severe) obesity due to excess calories; Z68.42 Body mass index [BMI] 45.0-49.9, adult; Z79.4 Long term (current) use of insulin
CPT/HCPCS: 36415; 80048; 85025; 96365; 96366; 96372; G0463; J1642; J1885; J1940; J3420

== ENCOUNTER → 2018-06-15 | Outpatient (CLI) | payer MEDICARE, MEDICAID ==
[~2018-06-15] MED LIST changes: -CYANOCOBALAMIN (B-12) 1000 MCG/1 ML VIAL IM ONE; -CYANOCOBALAMIN (B-12) 1000 MCG/1 ML VIAL ONE; -FUROSEMIDE 100 MG/10ML VIAL IV ONE; +FUROSEMIDE INJECTION 100 MG in SODIUM CHL 0.9% 100 ML IV SCH; -KETOROLAC TROMETH 60MG/2ML VIAL IM ONE; -POTASSIUM CHL 10 Meq TABLET PO ONE; -POTASSIUM CHL 20 Meq TABLET PO ONE
[2018-06-15 13:20] VITALS: BP 130/64
[2018-06-15 14:30] VITALS: BP 147/71
[2018-06-15 15:00] VITALS: BP 161/69
[2018-06-15 16:45] VITALS: BP 130/54
== END | disposition home or self-care (01) ==
LOC: CHF HDHVI 13:04
PROVIDERS: ATTEND Internal Medicine Cardiovascular Disease
DX: E87.70 Fluid overload, unspecified (principal); R53.83 Other fatigue; I13.0 Hypertensive heart and chronic kidney disease with heart failure and stage 1 through stage 4 chronic kidney disease, or unspecified chronic kidney disease; E11.22 Type 2 diabetes mellitus with diabetic chronic kidney disease; N18.3 Chronic kidney disease, stage 3 (moderate); I50.43 Acute on chronic combined systolic (congestive) and diastolic (congestive) heart failure; D51.9 Vitamin B12 deficiency anemia, unspecified; E78.5 Hyperlipidemia, unspecified; E66.01 Morbid (severe) obesity due to excess calories; I25.10 Atherosclerotic heart disease of native coronary artery without angina pectoris; J44.9 Chronic obstructive pulmonary disease, unspecified; K21.9 Gastro-esophageal reflux disease without esophagitis; Z68.42 Body mass index [BMI] 45.0-49.9, adult; Z79.4 Long term (current) use of insulin; Z98.61 Coronary angioplasty status
CPT/HCPCS: 93005; 96365; 96366; G0463; J1642; J1940

== ENCOUNTER → 2018-06-22 | Outpatient (CLI) | payer MEDICARE, MEDICAID ==
[~2018-06-22] VITALS: Ht 30.5 cm; Wt 0.5 kg
[~2018-06-22] MED LIST changes: +CYANOCOBALAMIN (B-12) 1000 MCG/1 ML VIAL ONE; +FUROSEMIDE 100 MG/10ML VIAL IV ONE; -FUROSEMIDE INJECTION 100 MG in SODIUM CHL 0.9% 100 ML IV SCH; +KETOROLAC TROMETH 60MG/2ML VIAL IM ONE; +POTASSIUM CHL 10 Meq TABLET PO ONE; +POTASSIUM CHL 20 Meq TABLET PO ONE; +SODIUM CHLORIDE 0.9% 100 ML IV SCH
[2018-06-22 16:30] VITALS: BP 153/55
[2018-06-22 16:55] LABS: Basophils # (auto) 0 uL; Basophils % (auto) 0.6 % (0.0-2.0); Eosinophils # (auto) 0.2 uL; Eosinophils % (auto) 4.1 % (0.0-7.0); Hematocrit 35.9 % (36.0-46.0); Hemoglobin 11.7 g/dL (12.2-16.2); Lymphocytes # (auto) 2.3 uL; Lymphocytes % (auto) 42.1 % (10.0-50.0); Mean Corpuscular Hemoglobin 28.4 pg (28.0-32.0); Mean Corpuscular Hgb Conc. 32.5 g/dL (32.0-36.0); Mean Corpuscular Volume 87.5 fL (80.0-100.0); Monocytes # (auto) 0.5 uL; Monocytes % (auto) 9.3 % (0.0-12.0); Neutrophils # (auto) 2.4 uL; Neutrophils % (auto) 43.9 % (37.0-80.0); Nucleated Red Blood Cells % 0.4 %; Platelet Count (auto) 215 10^3/uL (140-450); Red Cell Distribution Width 16.9 % (11.8-14.3); White Blood Cell 5.5 10^3/uL (4.4-10.8)
[2018-06-22 17:05] LABS: Calcium 8.1 mg/dL (8.5-10.1); Potassium 4.2 mmol/L (3.5-5.1)
== END | disposition home or self-care (01) ==
LOC: CHF HDHVI 12:26
PROVIDERS: ATTEND Internal Medicine Cardiovascular Disease
DX: D51.9 Vitamin B12 deficiency anemia, unspecified (principal); E83.40 Disorders of magnesium metabolism, unspecified; E11.22 Type 2 diabetes mellitus with diabetic chronic kidney disease; I13.0 Hypertensive heart and chronic kidney disease with heart failure and stage 1 through stage 4 chronic kidney disease, or unspecified chronic kidney disease; N18.3 Chronic kidney disease, stage 3 (moderate); I50.43 Acute on chronic combined systolic (congestive) and diastolic (congestive) heart failure; I25.10 Atherosclerotic heart disease of native coronary artery without angina pectoris; J44.9 Chronic obstructive pulmonary disease, unspecified; E87.70 Fluid overload, unspecified; K21.9 Gastro-esophageal reflux disease without esophagitis; E78.5 Hyperlipidemia, unspecified; E66.01 Morbid (severe) obesity due to excess calories; Z68.42 Body mass index [BMI] 45.0-49.9, adult; Z79.4 Long term (current) use of insulin
CPT/HCPCS: 36415; 80048; 82607; 83735; 85025; 96365; 96366; 96372; G0463; J1642; J1885; J1940; J3420

== ENCOUNTER → 2018-06-25 | Outpatient (CLI) | payer MEDICARE, MEDICAID ==
[~2018-06-25] VITALS: Ht 165.1 cm; Wt 128.5 kg
[~2018-06-25] MED LIST changes: -CYANOCOBALAMIN (B-12) 1000 MCG/1 ML VIAL ONE; -FUROSEMIDE 100 MG/10ML VIAL IV ONE; +FUROSEMIDE INJECTION 100 MG in SODIUM CHL 0.9% 100 ML IV SCH; -KETOROLAC TROMETH 60MG/2ML VIAL IM ONE
[2018-06-25 15:05] VITALS: BP 122/53
== END | disposition home or self-care (01) ==
LOC: CHF HDHVI 11:12
PROVIDERS: ATTEND Internal Medicine Cardiovascular Disease
DX: E87.70 Fluid overload, unspecified (principal); R06.00 Dyspnea, unspecified; E11.22 Type 2 diabetes mellitus with diabetic chronic kidney disease; I13.0 Hypertensive heart and chronic kidney disease with heart failure and stage 1 through stage 4 chronic kidney disease, or unspecified chronic kidney disease; N18.3 Chronic kidney disease, stage 3 (moderate); I50.43 Acute on chronic combined systolic (congestive) and diastolic (congestive) heart failure; I25.10 Atherosclerotic heart disease of native coronary artery without angina pectoris; J44.9 Chronic obstructive pulmonary disease, unspecified; K21.9 Gastro-esophageal reflux disease without esophagitis; E78.5 Hyperlipidemia, unspecified; D51.9 Vitamin B12 deficiency anemia, unspecified; E66.01 Morbid (severe) obesity due to excess calories; Z68.42 Body mass index [BMI] 45.0-49.9, adult; Z79.4 Long term (current) use of insulin
CPT/HCPCS: 96365; 96366; G0463; J1642; J1940

== ENCOUNTER → 2018-06-29 | Outpatient (CLI) | payer MEDICARE, MEDICAID ==
[~2018-06-29] VITALS: Ht 1 cm; Wt 0.5 kg
[~2018-06-29] MED LIST changes: +FUROSEMIDE 100 MG/10ML VIAL IV ONE; -FUROSEMIDE INJECTION 100 MG in SODIUM CHL 0.9% 100 ML IV SCH
[2018-06-29 16:07] LABS: Urine WBC None Seen /hpf (0 - 5)
[2018-06-29 16:10] VITALS: BP 141/49
[2018-06-29 16:20] LABS: Basophils # (auto) 0 uL; Basophils % (auto) 0.4 % (0.0-2.0); Eosinophils # (auto) 0.3 uL; Eosinophils % (auto) 4.6 % (0.0-7.0); Hematocrit 35.3 % (36.0-46.0); Hemoglobin 11.3 g/dL (12.2-16.2); Lymphocytes # (auto) 2.4 uL; Lymphocytes % (auto) 38.2 % (10.0-50.0); Mean Corpuscular Hemoglobin 28.2 pg (28.0-32.0); Mean Corpuscular Hgb Conc. 32.1 g/dL (32.0-36.0); Monocytes # (auto) 0.7 uL; Monocytes % (auto) 11.4 % (0.0-12.0); Neutrophils # (auto) 2.8 uL; Neutrophils % (auto) 45.4 % (37.0-80.0); Nucleated Red Blood Cells % 0.8 %; Platelet Count (auto) 225 10^3/uL (140-450); Red Blood Cells 4.02 10^6/uL (4.0-5.20); Red Cell Distribution Width 16.7 % (11.8-14.3); White Blood Cell 6.2 10^3/uL (4.4-10.8)
[2018-06-29 16:31] LABS: Albumin 3.1 g/dL (3.4-5.0); BUN/Creatinine Ratio 17.4; Bilirubin, Total 0.4 mg/dL (0.2-1.0); Calcium 8.4 mg/dL (8.5-10.1); Potassium 4.1 mmol/L (3.5-5.1); Total Protein 6.8 g/dL (6.4-8.2)
[2018-06-29 16:48] LABS: Urine Bacteria NONE SEEN /hpf (None Seen); Urine Blood Negative /uL (Negative); Urine Specific Gravity 1.007 (1.001-1.035)
== END | disposition home or self-care (01) ==
LOC: CHF HDHVI 13:04
PROVIDERS: ATTEND Internal Medicine Cardiovascular Disease
DX: I13.0 Hypertensive heart and chronic kidney disease with heart failure and stage 1 through stage 4 chronic kidney disease, or unspecified chronic kidney disease (principal); E11.22 Type 2 diabetes mellitus with diabetic chronic kidney disease; N18.3 Chronic kidney disease, stage 3 (moderate); I50.43 Acute on chronic combined systolic (congestive) and diastolic (congestive) heart failure; K21.9 Gastro-esophageal reflux disease without esophagitis; J44.9 Chronic obstructive pulmonary disease, unspecified; N39.0 Urinary tract infection, site not specified; D64.9 Anemia, unspecified; Z79.01 Long term (current) use of anticoagulants; Z79.82 Long term (current) use of aspirin
CPT/HCPCS: 36415; 80053; 81001; 83036; 85025; 87086; 96365; 96366; G0463; J1642; J1940

== ENCOUNTER → 2018-07-02 | Outpatient (CLI) | payer MEDICARE, MEDICAID ==
[~2018-07-02] MED LIST changes: -POTASSIUM CHL 10 Meq TABLET PO ONE
[2018-07-02 10:45] VITALS: BP 111/42
[2018-07-02 11:15] VITALS: BP 111/60
[2018-07-02 11:45] VITALS: BP 127/52
[2018-07-02 13:15] VITALS: BP 118/52
[2018-07-02 13:45] VITALS: BP 128/57
[2018-07-02 14:15] VITALS: BP 118/53
== END | disposition home or self-care (01) ==
LOC: CHF HDHVI 10:28
PROVIDERS: ATTEND Internal Medicine Cardiovascular Disease
DX: R60.0 Localized edema (principal); I25.10 Atherosclerotic heart disease of native coronary artery without angina pectoris; I13.0 Hypertensive heart and chronic kidney disease with heart failure and stage 1 through stage 4 chronic kidney disease, or unspecified chronic kidney disease; E11.22 Type 2 diabetes mellitus with diabetic chronic kidney disease; N18.3 Chronic kidney disease, stage 3 (moderate); I50.43 Acute on chronic combined systolic (congestive) and diastolic (congestive) heart failure; J44.9 Chronic obstructive pulmonary disease, unspecified; K21.9 Gastro-esophageal reflux disease without esophagitis; E78.5 Hyperlipidemia, unspecified; E66.01 Morbid (severe) obesity due to excess calories; Z68.42 Body mass index [BMI] 45.0-49.9, adult; Z79.01 Long term (current) use of anticoagulants; Z79.82 Long term (current) use of aspirin; Z79.4 Long term (current) use of insulin; Z98.61 Coronary angioplasty status
CPT/HCPCS: 96365; 96366; G0463; J1642; J1940

== ENCOUNTER → 2018-07-06 | Outpatient (CLI) | payer MEDICARE, MEDICAID ==
[~2018-07-06] MED LIST changes: -FUROSEMIDE 100 MG/10ML VIAL IV ONE; +FUROSEMIDE INJECTION 100 MG in SODIUM CHL 0.9% 100 ML IV SCH; +POTASSIUM CHL 10 Meq TABLET PO ONE
[2018-07-06 14:00] VITALS: BP 116/48
[2018-07-06 15:00] VITALS: BP 123/54
[2018-07-06 15:30] VITALS: BP 130/60
[2018-07-06 16:00] VITALS: BP 133/73
[2018-07-06 16:25] VITALS: BP 141/65
== END | disposition home or self-care (01) ==
LOC: CHF HDHVI 13:25
PROVIDERS: ATTEND Internal Medicine Cardiovascular Disease
DX: E87.70 Fluid overload, unspecified (principal); I27.21 Secondary pulmonary arterial hypertension; I13.0 Hypertensive heart and chronic kidney disease with heart failure and stage 1 through stage 4 chronic kidney disease, or unspecified chronic kidney disease; E11.22 Type 2 diabetes mellitus with diabetic chronic kidney disease; N18.3 Chronic kidney disease, stage 3 (moderate); I50.43 Acute on chronic combined systolic (congestive) and diastolic (congestive) heart failure; I25.10 Atherosclerotic heart disease of native coronary artery without angina pectoris; E66.01 Morbid (severe) obesity due to excess calories; Z68.42 Body mass index [BMI] 45.0-49.9, adult; Z79.01 Long term (current) use of anticoagulants; Z79.4 Long term (current) use of insulin; Z79.82 Long term (current) use of aspirin; J44.9 Chronic obstructive pulmonary disease, unspecified
CPT/HCPCS: 96365; 96366; G0463; J1642; J1940

== ENCOUNTER 2018-07-23 16:03 | Emergency (ER) | payer MEDICARE, MEDICAID ==
[~2018-07-23] VITALS: Ht 165.1 cm; Wt 127.0 kg
[~2018-07-23 16:03] MED LIST changes: -FUROSEMIDE INJECTION 10 ML ONE; -FUROSEMIDE INJECTION 100 MG in SODIUM CHL 0.9% 100 ML IV SCH; -POTASSIUM CHL 10 Meq TABLET PO ONE; -POTASSIUM CHL 20 Meq TABLET PO ONE; -SODIUM CHLORIDE 0.9% 100 ML IV SCH
[2018-07-23 16:59] LABS: Basophils # (auto) 0 uL; Basophils % (auto) 0.4 % (0.0-2.0); Eosinophils # (auto) 0.1 uL; Eosinophils % (auto) 1.3 % (0.0-7.0); Hematocrit 34.1 % (36.0-46.0); Hemoglobin 11.5 g/dL (12.2-16.2); Lymphocytes # (auto) 2.2 uL; Lymphocytes % (auto) 23.3 % (10.0-50.0); Mean Corpuscular Hemoglobin 28.6 pg (28.0-32.0); Mean Corpuscular Hgb Conc. 33.7 g/dL (32.0-36.0); Mean Corpuscular Volume 84.8 fL (80.0-100.0); Monocytes # (auto) 1.1 uL; Monocytes % (auto) 11.8 % (0.0-12.0); Neutrophils % (auto) 63.2 % (37.0-80.0); Nucleated Red Blood Cells % 0.1 %; Platelet Count (auto) 178 10^3/uL (140-450); Red Blood Cells 4.02 10^6/uL (4.0-5.20); Red Cell Distribution Width 15.9 % (11.8-14.3); White Blood Cell 9.4 10^3/uL (4.4-10.8)
[2018-07-23 17:16] LABS: Chloride 104 mmol/L (98-107); Potassium 3.9 mmol/L (3.5-5.1); Sodium 138 mmol/L (136-145)
[2018-07-23 17:34] LABS: Alanine Aminotransferase 12 U/L (13-56); Alkaline Phosphatase 57 U/L (45-117); Anion Gap 7 (5-15); Aspartate Aminotransferase 11 U/L (15-37); BUN/Creatinine Ratio 18.2; Bilirubin, Total 0.7 mg/dL (0.2-1.0); Blood Urea Nitrogen 22 mg/dL (7-18); Calcium 8.6 mg/dL (8.5-10.1); Carbon Dioxide 27 mmol/L (21-32); GFR African American 55 mL/min; GFR Non-African American 46 mL/min; Glucose 138 mg/dL (74-106); Magnesium 1.7 mg/dL (1.6-2.6); Total Protein 6.7 g/dL (6.4-8.2)
[2018-07-23 18:30] VITALS: BP 128/68
== END 2018-07-23 21:08 | disposition home or self-care (01) ==
LOC: EDBD 16:03 → ER 16:03
DX: J20.9 Acute bronchitis, unspecified (principal); I13.0 Hypertensive heart and chronic kidney disease with heart failure and stage 1 through stage 4 chronic kidney disease, or unspecified chronic kidney disease; E11.22 Type 2 diabetes mellitus with diabetic chronic kidney disease; N18.3 Chronic kidney disease, stage 3 (moderate); I50.9 Heart failure, unspecified; M10.9 Gout, unspecified; J44.9 Chronic obstructive pulmonary disease, unspecified; Z90.49 Acquired absence of other specified parts of digestive tract; Z90.89 Acquired absence of other organs; Z98.61 Coronary angioplasty status; Z79.4 Long term (current) use of insulin; Z79.899 Other long term (current) drug therapy; Z88.1 Allergy status to other antibiotic agents
CPT/HCPCS: 36415; 71045; 80053; 83735; 83880; 84443; 84484; 85025; 94761

== ENCOUNTER → 2018-07-30 | Outpatient (CLI) | payer MEDICARE, MEDICAID ==
[~2018-07-30] MED LIST changes: +CYANOCOBALAMIN (B-12) 1000 MCG/1 ML VIAL IM ONE; +CYANOCOBALAMIN (B-12) 1000 MCG/1 ML VIAL ONE; +FUROSEMIDE 100 MG/10ML VIAL IV ONE; +FUROSEMIDE INJECTION 10 ML ONE; +POTASSIUM CHL 10 Meq TABLET PO ONE
[2018-07-30] MEDS: SODIUM CHLORIDE 0.9% 100 ML IV SCH ×2 (11:12→11:15)
[2018-07-30 11:45] VITALS: BP 132/57
[2018-07-30 11:59] LABS: Basophils # (auto) 0 uL; Basophils % (auto) 0.8 % (0.0-2.0); Eosinophils # (auto) 0.3 uL; Eosinophils % (auto) 4.8 % (0.0-7.0); Hematocrit 36.4 % (36.0-46.0); Hemoglobin 11.5 g/dL (12.2-16.2); Lymphocytes # (auto) 2.3 uL; Lymphocytes % (auto) 41.7 % (10.0-50.0); Mean Corpuscular Hemoglobin 27.2 pg (28.0-32.0); Mean Corpuscular Hgb Conc. 31.5 g/dL (32.0-36.0); Mean Corpuscular Volume 86.3 fL (80.0-100.0); Monocytes # (auto) 0.5 uL; Monocytes % (auto) 9.3 % (0.0-12.0); Neutrophils # (auto) 2.4 uL; Neutrophils % (auto) 43.4 % (37.0-80.0); Nucleated Red Blood Cells % 0.4 %; Platelet Count (auto) 262 10^3/uL (140-450); Red Blood Cells 4.22 10^6/uL (4.0-5.20); Red Cell Distribution Width 16.1 % (11.8-14.3); White Blood Cell 5.6 10^3/uL (4.4-10.8)
[2018-07-30 12:10] LABS: Albumin 3.4 g/dL (3.4-5.0); Potassium 4.2 mmol/L (3.5-5.1)
[2018-07-30 12:13] LABS: BUN/Creatinine Ratio 21.2; Bilirubin, Total 0.3 mg/dL (0.2-1.0); Calcium 8.5 mg/dL (8.5-10.1); Phosphorus 3.6 mg/dL (2.5-4.90); Uric Acid 7.8 mg/dL (2.6-6.0)
[2018-07-30 12:15] VITALS: BP 138/59
[2018-07-30 12:45] VITALS: BP 168/64
[2018-07-30 14:57] VITALS: BP 168/64
[2018-07-30 16:44] LABS: Urine Blood Negative /uL (Negative)
[2018-07-30 16:56] LABS: Creatinine, Urine 6.8 mg/dL (30.0-125.0); Protein, Urine 33.6 mg/dL (0.0-11.9)
== END | disposition home or self-care (01) ==
LOC: CHF HDHVI 10:45
PROVIDERS: ATTEND Internal Medicine Cardiovascular Disease
DX: I13.0 Hypertensive heart and chronic kidney disease with heart failure and stage 1 through stage 4 chronic kidney disease, or unspecified chronic kidney disease (principal); I50.43 Acute on chronic combined systolic (congestive) and diastolic (congestive) heart failure; N18.3 Chronic kidney disease, stage 3 (moderate); E11.22 Type 2 diabetes mellitus with diabetic chronic kidney disease; D63.8 Anemia in other chronic diseases classified elsewhere; M10.9 Gout, unspecified; R94.4 Abnormal results of kidney function studies; E21.4 Other specified disorders of parathyroid gland; E55.9 Vitamin D deficiency, unspecified; R80.9 Proteinuria, unspecified; N39.0 Urinary tract infection, site not specified; I25.10 Atherosclerotic heart disease of native coronary artery without angina pectoris; J20.9 Acute bronchitis, unspecified; K21.9 Gastro-esophageal reflux disease without esophagitis; E66.01 Morbid (severe) obesity due to excess calories; E78.5 Hyperlipidemia, unspecified; R60.9 Edema, unspecified; D51.9 Vitamin B12 deficiency anemia, unspecified; E83.40 Disorders of magnesium metabolism, unspecified; Z79.4 Long term (current) use of insulin; Z98.61 Coronary angioplasty status; Z79.899 Other long term (current) drug therapy; Z79.82 Long term (current) use of aspirin; Z90.89 Acquired absence of other organs; Z90.49 Acquired absence of other specified parts of digestive tract; Z68.42 Body mass index [BMI] 45.0-49.9, adult
CPT/HCPCS: 36415; 80053; 80069; 81003; 82306; 82570; 83036; 83970; 84156; 84550; 85025; 93701; 96365; 96366; 96372; G0463; J1642; J1940; J3420

== ENCOUNTER → 2018-08-06 | Outpatient (CLI) | payer MEDICARE, MEDICAID ==
[~2018-08-06] VITALS: Ht 33 cm; Wt 124.7 kg
[~2018-08-06] MED LIST changes: -CYANOCOBALAMIN (B-12) 1000 MCG/1 ML VIAL IM ONE; -CYANOCOBALAMIN (B-12) 1000 MCG/1 ML VIAL ONE; -FUROSEMIDE 100 MG/10ML VIAL IV ONE; +FUROSEMIDE INJECTION 100 MG in SODIUM CHL 0.9% 100 ML IV SCH; +POTASSIUM CHL 20 Meq TABLET PO ONE
[2018-08-06 11:10] VITALS: BP 120/42
[2018-08-06 11:30] VITALS: BP 113/42
[2018-08-06 12:00] VITALS: BP 130/58
[2018-08-06 14:15] VITALS: BP 134/69
[2018-08-06 16:00] LABS: Basophils # (auto) 0 uL; Basophils % (auto) 0.7 % (0.0-2.0); Eosinophils # (auto) 0.2 uL; Eosinophils % (auto) 5.1 % (0.0-7.0); Hematocrit 36.4 % (36.0-46.0); Hemoglobin 11.6 g/dL (12.2-16.2); Lymphocytes # (auto) 1.7 uL; Mean Corpuscular Hemoglobin 27.5 pg (28.0-32.0); Mean Corpuscular Hgb Conc. 31.9 g/dL (32.0-36.0); Mean Corpuscular Volume 86.4 fL (80.0-100.0); Monocytes # (auto) 0.5 uL; Neutrophils # (auto) 2.3 uL; Neutrophils % (auto) 48.2 % (37.0-80.0); Nucleated Red Blood Cells % 0.9 %; Platelet Count (auto) 227 10^3/uL (140-450); Red Blood Cells 4.21 10^6/uL (4.0-5.20); Red Cell Distribution Width 16.5 % (11.8-14.3); White Blood Cell 4.7 10^3/uL (4.4-10.8)
[2018-08-06 16:02] LABS: BUN/Creatinine Ratio 19.2; Calcium 8.7 mg/dL (8.5-10.1); Potassium 3.8 mmol/L (3.5-5.1)
== END | disposition home or self-care (01) ==
LOC: CHF HDHVI 10:41
PROVIDERS: ATTEND Internal Medicine Cardiovascular Disease
DX: I13.0 Hypertensive heart and chronic kidney disease with heart failure and stage 1 through stage 4 chronic kidney disease, or unspecified chronic kidney disease (principal); E11.22 Type 2 diabetes mellitus with diabetic chronic kidney disease; I50.43 Acute on chronic combined systolic (congestive) and diastolic (congestive) heart failure; N18.3 Chronic kidney disease, stage 3 (moderate); I27.21 Secondary pulmonary arterial hypertension; J44.9 Chronic obstructive pulmonary disease, unspecified; I25.10 Atherosclerotic heart disease of native coronary artery without angina pectoris; D51.9 Vitamin B12 deficiency anemia, unspecified; E78.5 Hyperlipidemia, unspecified; M10.9 Gout, unspecified; E66.01 Morbid (severe) obesity due to excess calories; K21.9 Gastro-esophageal reflux disease without esophagitis; Z90.49 Acquired absence of other specified parts of digestive tract; Z98.61 Coronary angioplasty status; Z79.4 Long term (current) use of insulin; Z79.82 Long term (current) use of aspirin; Z79.01 Long term (current) use of anticoagulants; Z68.42 Body mass index [BMI] 45.0-49.9, adult
CPT/HCPCS: 36415; 80048; 85025; 96365; 96366; G0463; J1642; J1940

== ENCOUNTER → 2018-08-10 | Outpatient (CLI) | payer MEDICARE, MEDICAID ==
[~2018-08-10] MED LIST changes: +FUROSEMIDE 100 MG/10ML VIAL IV ONE; -FUROSEMIDE INJECTION 100 MG in SODIUM CHL 0.9% 100 ML IV SCH; -POTASSIUM CHL 10 Meq TABLET PO ONE; -POTASSIUM CHL 20 Meq TABLET PO ONE; +SODIUM CHLORIDE 0.9% 90 ML IV ONE
[2018-08-10 12:45] VITALS: BP 141/56
[2018-08-10 13:45] VITALS: BP 133/51
[2018-08-10 14:15] VITALS: BP 131/81
[2018-08-10 15:15] VITALS: BP 144/61
[2018-08-10 16:00] LABS: Basophils # (auto) 0 uL; Basophils % (auto) 0.7 % (0.0-2.0); Eosinophils # (auto) 0.3 uL; Eosinophils % (auto) 4.7 % (0.0-7.0); Hematocrit 35.2 % (36.0-46.0); Hemoglobin 11.2 g/dL (12.2-16.2); Lymphocytes # (auto) 1.9 uL; Lymphocytes % (auto) 32.1 % (10.0-50.0); Mean Corpuscular Hemoglobin 27.4 pg (28.0-32.0); Mean Corpuscular Hgb Conc. 31.8 g/dL (32.0-36.0); Monocytes # (auto) 0.5 uL; Monocytes % (auto) 8.9 % (0.0-12.0); Neutrophils # (auto) 3.2 uL; Neutrophils % (auto) 53.6 % (37.0-80.0); Platelet Count (auto) 200 10^3/uL (140-450); Red Cell Distribution Width 16.8 % (11.8-14.3); White Blood Cell 5.9 10^3/uL (4.4-10.8)
[2018-08-10 16:14] LABS: BUN/Creatinine Ratio 20.1; Calcium 8.7 mg/dL (8.5-10.1); Magnesium 2.2 mg/dL (1.6-2.6)
[2018-08-10 16:20] VITALS: BP 144/61
== END | disposition home or self-care (01) ==
LOC: CHF HDHVI 12:06
PROVIDERS: ATTEND Internal Medicine Cardiovascular Disease
DX: I13.0 Hypertensive heart and chronic kidney disease with heart failure and stage 1 through stage 4 chronic kidney disease, or unspecified chronic kidney disease (principal); I50.43 Acute on chronic combined systolic (congestive) and diastolic (congestive) heart failure; N18.3 Chronic kidney disease, stage 3 (moderate); D63.8 Anemia in other chronic diseases classified elsewhere; E11.22 Type 2 diabetes mellitus with diabetic chronic kidney disease; E83.40 Disorders of magnesium metabolism, unspecified; J44.9 Chronic obstructive pulmonary disease, unspecified; K21.9 Gastro-esophageal reflux disease without esophagitis; M10.9 Gout, unspecified; E78.5 Hyperlipidemia, unspecified; E66.01 Morbid (severe) obesity due to excess calories; R60.9 Edema, unspecified; E55.9 Vitamin D deficiency, unspecified; D51.9 Vitamin B12 deficiency anemia, unspecified; Z68.42 Body mass index [BMI] 45.0-49.9, adult; Z79.899 Other long term (current) drug therapy; Z90.49 Acquired absence of other specified parts of digestive tract; Z79.01 Long term (current) use of anticoagulants; Z79.4 Long term (current) use of insulin; Z98.61 Coronary angioplasty status
CPT/HCPCS: 36415; 80048; 83735; 83880; 85025; 96365; 96366; G0463; J1642; J1940

== ENCOUNTER → 2018-08-17 | Outpatient (CLI) | payer MEDICARE, MEDICAID ==
[~2018-08-17] MED LIST changes: -FUROSEMIDE 100 MG/10ML VIAL IV ONE; -FUROSEMIDE INJECTION 10 ML ONE; -SODIUM CHLORIDE 0.9% 90 ML IV ONE
== END | disposition home or self-care (01) ==
LOC: CHF HDHVI 13:02
PROVIDERS: ATTEND Internal Medicine Cardiovascular Disease
DX: I26.99 Other pulmonary embolism without acute cor pulmonale (principal); E70.0 Classical phenylketonuria; R06.00 Dyspnea, unspecified
CPT/HCPCS: 93306

== ENCOUNTER → 2018-08-20 | Outpatient (CLI) | payer MEDICARE, MEDICAID ==
[2018-08-20] VITALS (7 sets, daily range): BP systolic 109–137; BP diastolic 45–66
[~2018-08-20] MED LIST changes: +FUROSEMIDE INJECTION 10 ML ONE; +FUROSEMIDE INJECTION 100 MG in SODIUM CHL 0.9% 100 ML IV SCH; +POTASSIUM CHL 10 Meq TABLET PO ONE; +POTASSIUM CHL 20 Meq TABLET PO ONE
[2018-08-20 17:07] LABS: Basophils # (auto) 0 uL; Basophils % (auto) 0.8 % (0.0-2.0); Eosinophils # (auto) 0.2 uL; Eosinophils % (auto) 3.9 % (0.0-7.0); Hematocrit 36.2 % (36.0-46.0); Hemoglobin 11.8 g/dL (12.2-16.2); Lymphocytes # (auto) 1.8 uL; Mean Corpuscular Hemoglobin 27.9 pg (28.0-32.0); Mean Corpuscular Hgb Conc. 32.6 g/dL (32.0-36.0); Mean Corpuscular Volume 85.6 fL (80.0-100.0); Monocytes # (auto) 0.5 uL; Monocytes % (auto) 9.2 % (0.0-12.0); Neutrophils # (auto) 3.3 uL; Neutrophils % (auto) 56.1 % (37.0-80.0); Nucleated Red Blood Cells % 1.3 %; Platelet Count (auto) 187 10^3/uL (140-450); Red Blood Cells 4.23 10^6/uL (4.0-5.20); Red Cell Distribution Width 16.7 % (11.8-14.3)
[2018-08-20 17:08] LABS: Calcium 8.7 mg/dL (8.5-10.1); Potassium 4.3 mmol/L (3.5-5.1)
[2018-08-20 17:11] LABS: BUN/Creatinine Ratio 23.9
== END | disposition home or self-care (01) ==
LOC: CHF HDHVI 11:03
PROVIDERS: ATTEND Internal Medicine Cardiovascular Disease
DX: E87.70 Fluid overload, unspecified (principal); I27.21 Secondary pulmonary arterial hypertension; D64.9 Anemia, unspecified; I13.0 Hypertensive heart and chronic kidney disease with heart failure and stage 1 through stage 4 chronic kidney disease, or unspecified chronic kidney disease; E11.22 Type 2 diabetes mellitus with diabetic chronic kidney disease; N18.3 Chronic kidney disease, stage 3 (moderate); I50.43 Acute on chronic combined systolic (congestive) and diastolic (congestive) heart failure; I25.10 Atherosclerotic heart disease of native coronary artery without angina pectoris; J44.9 Chronic obstructive pulmonary disease, unspecified; K21.9 Gastro-esophageal reflux disease without esophagitis; E78.5 Hyperlipidemia, unspecified; G89.29 Other chronic pain; G47.30 Sleep apnea, unspecified; E11.21 Type 2 diabetes mellitus with diabetic nephropathy; E11.40 Type 2 diabetes mellitus with diabetic neuropathy, unspecified; E11.319 Type 2 diabetes mellitus with unspecified diabetic retinopathy without macular edema; E11.51 Type 2 diabetes mellitus with diabetic peripheral angiopathy without gangrene; M10.9 Gout, unspecified; E66.01 Morbid (severe) obesity due to excess calories; Z68.42 Body mass index [BMI] 45.0-49.9, adult; Z79.899 Other long term (current) drug therapy; Z86.718 Personal history of other venous thrombosis and embolism; Z98.61 Coronary angioplasty status; Z79.01 Long term (current) use of anticoagulants; Z79.4 Long term (current) use of insulin; Z79.82 Long term (current) use of aspirin
CPT/HCPCS: 36415; 80048; 85025; 96365; 96366; G0463; J1642; J1940

== ENCOUNTER → 2018-08-24 | Outpatient (CLI) | payer MEDICARE, MEDICAID ==
[2018-08-24 16:11] LABS: BUN/Creatinine Ratio 33.1; Calcium 8.4 mg/dL (8.5-10.1); Magnesium 2.2 mg/dL (1.6-2.6); Potassium 4.1 mmol/L (3.5-5.1); Uric Acid 7.9 mg/dL (2.6-6.0)
[2018-08-24 16:15] VITALS: BP 140/60
[2018-08-24 16:28] LABS: Basophils # (auto) 0 uL; Basophils % (auto) 0.9 % (0.0-2.0); Eosinophils # (auto) 0.2 uL; Eosinophils % (auto) 3.2 % (0.0-7.0); Hematocrit 34.6 % (36.0-46.0); Hemoglobin 11.3 g/dL (12.2-16.2); Lymphocytes # (auto) 2.1 uL; Lymphocytes % (auto) 43.2 % (10.0-50.0); Mean Corpuscular Hemoglobin 27.8 pg (28.0-32.0); Mean Corpuscular Hgb Conc. 32.7 g/dL (32.0-36.0); Monocytes # (auto) 0.4 uL; Monocytes % (auto) 9.1 % (0.0-12.0); Neutrophils # (auto) 2.1 uL; Neutrophils % (auto) 43.6 % (37.0-80.0); Nucleated Red Blood Cells % 0.9 %; Platelet Count (auto) 174 10^3/uL (140-450); Red Blood Cells 4.08 10^6/uL (4.0-5.20); Red Cell Distribution Width 16.6 % (11.8-14.3); White Blood Cell 4.9 10^3/uL (4.4-10.8)
== END | disposition home or self-care (01) ==
LOC: CHF HDHVI 12:43
PROVIDERS: ATTEND Internal Medicine Cardiovascular Disease
DX: M10.9 Gout, unspecified (principal); D64.9 Anemia, unspecified; E83.40 Disorders of magnesium metabolism, unspecified; I12.9 Hypertensive chronic kidney disease with stage 1 through stage 4 chronic kidney disease, or unspecified chronic kidney disease; E11.22 Type 2 diabetes mellitus with diabetic chronic kidney disease; N18.3 Chronic kidney disease, stage 3 (moderate); I50.42 Chronic combined systolic (congestive) and diastolic (congestive) heart failure; I70.0 Atherosclerosis of aorta; I25.810 Atherosclerosis of coronary artery bypass graft(s) without angina pectoris; E11.21 Type 2 diabetes mellitus with diabetic nephropathy; E11.40 Type 2 diabetes mellitus with diabetic neuropathy, unspecified; E11.51 Type 2 diabetes mellitus with diabetic peripheral angiopathy without gangrene; E78.5 Hyperlipidemia, unspecified; E03.9 Hypothyroidism, unspecified; J44.9 Chronic obstructive pulmonary disease, unspecified; K21.9 Gastro-esophageal reflux disease without esophagitis; G89.29 Other chronic pain; G47.30 Sleep apnea, unspecified; I27.21 Secondary pulmonary arterial hypertension; K58.9 Irritable bowel syndrome, unspecified; E66.01 Morbid (severe) obesity due to excess calories; Z68.42 Body mass index [BMI] 45.0-49.9, adult; Z79.01 Long term (current) use of anticoagulants; Z79.82 Long term (current) use of aspirin; Z79.899 Other long term (current) drug therapy; Z95.1 Presence of aortocoronary bypass graft; Z86.718 Personal history of other venous thrombosis and embolism; Z79.4 Long term (current) use of insulin
CPT/HCPCS: 36415; 80048; 83735; 84550; 85025; 96365; 96366; G0463; J1642; J1940

== ENCOUNTER → 2018-08-31 | Outpatient (CLI) | payer MEDICARE, MEDICAID ==
[~2018-08-31] MED LIST changes: -FUROSEMIDE INJECTION 100 MG in SODIUM CHL 0.9% 100 ML IV SCH; +FUROSEMIDE IV SCH; +SODIUM CHL 0.9% IV SCH
[2018-08-31 13:30] VITALS: BP 134/55
[2018-08-31 14:00] VITALS: BP 126/55
[2018-08-31 14:30] VITALS: BP 117/55
[2018-08-31 16:00] VITALS: BP 148/62
[2018-08-31 16:07] LABS: Basophils # (auto) 0 uL; Basophils % (auto) 0.7 % (0.0-2.0); Eosinophils # (auto) 0.2 uL; Eosinophils % (auto) 3.8 % (0.0-7.0); Hematocrit 36.1 % (36.0-46.0); Hemoglobin 11.5 g/dL (12.2-16.2); Lymphocytes # (auto) 2.3 uL; Lymphocytes % (auto) 38.5 % (10.0-50.0); Mean Corpuscular Hemoglobin 27.4 pg (28.0-32.0); Mean Corpuscular Hgb Conc. 31.9 g/dL (32.0-36.0); Mean Corpuscular Volume 85.9 fL (80.0-100.0); Monocytes # (auto) 0.5 uL; Monocytes % (auto) 7.8 % (0.0-12.0); Neutrophils # (auto) 2.9 uL; Neutrophils % (auto) 49.2 % (37.0-80.0); Nucleated Red Blood Cells % 0.2 %; Platelet Count (auto) 190 10^3/uL (140-450); White Blood Cell 5.9 10^3/uL (4.4-10.8)
[2018-08-31 16:08] LABS: BUN/Creatinine Ratio 27.2; Calcium 8.7 mg/dL (8.5-10.1)
[2018-08-31 16:30] VITALS: BP 137/59
[2018-08-31 17:05] VITALS: BP 147/64
== END | disposition home or self-care (01) ==
LOC: CHF HDHVI 12:32
PROVIDERS: ATTEND Internal Medicine Cardiovascular Disease
DX: D51.9 Vitamin B12 deficiency anemia, unspecified (principal); I13.0 Hypertensive heart and chronic kidney disease with heart failure and stage 1 through stage 4 chronic kidney disease, or unspecified chronic kidney disease; E11.22 Type 2 diabetes mellitus with diabetic chronic kidney disease; I50.42 Chronic combined systolic (congestive) and diastolic (congestive) heart failure; N18.3 Chronic kidney disease, stage 3 (moderate); J44.9 Chronic obstructive pulmonary disease, unspecified; J06.9 Acute upper respiratory infection, unspecified; E83.40 Disorders of magnesium metabolism, unspecified; K21.9 Gastro-esophageal reflux disease without esophagitis; E78.5 Hyperlipidemia, unspecified; E66.01 Morbid (severe) obesity due to excess calories; I25.10 Atherosclerotic heart disease of native coronary artery without angina pectoris; G47.30 Sleep apnea, unspecified; E11.40 Type 2 diabetes mellitus with diabetic neuropathy, unspecified; E11.21 Type 2 diabetes mellitus with diabetic nephropathy; E11.319 Type 2 diabetes mellitus with unspecified diabetic retinopathy without macular edema; E03.9 Hypothyroidism, unspecified; G89.29 Other chronic pain; K58.9 Irritable bowel syndrome, unspecified; F32.9 Major depressive disorder, single episode, unspecified; I27.21 Secondary pulmonary arterial hypertension; I73.9 Peripheral vascular disease, unspecified; I70.0 Atherosclerosis of aorta; Z79.01 Long term (current) use of anticoagulants; Z79.82 Long term (current) use of aspirin; Z79.4 Long term (current) use of insulin; Z68.42 Body mass index [BMI] 45.0-49.9, adult; Z98.61 Coronary angioplasty status; Z79.899 Other long term (current) drug therapy; Z87.440 Personal history of urinary (tract) infections; Z95.1 Presence of aortocoronary bypass graft; Z90.49 Acquired absence of other specified parts of digestive tract; Z88.1 Allergy status to other antibiotic agents; Z86.718 Personal history of other venous thrombosis and embolism; Z86.711 Personal history of pulmonary embolism; Z88.8 Allergy status to other drugs, medicaments and biological substances
CPT/HCPCS: 36415; 71046; 80048; 82607; 83735; 85025; 96365; 96366; G0463; J1642; J1940; J7040

== ENCOUNTER → 2018-09-03 | Outpatient (CLI) | payer MEDICARE, MEDICAID ==
[~2018-09-03] VITALS: Ht 30.5 cm; Wt 125.6 kg
[~2018-09-03] MED LIST changes: +CYANOCOBALAMIN (B-12) 1000 MCG/1 ML VIAL IM ONE; +CYANOCOBALAMIN (B-12) 1000 MCG/1 ML VIAL ONE; +FUROSEMIDE 100 MG/10ML VIAL IV ONE; -FUROSEMIDE IV SCH; -SODIUM CHL 0.9% IV SCH
[2018-09-03] MEDS: SODIUM CHLORIDE 0.9% 100 ML IV SCH (11:00)
[2018-09-03 11:30] VITALS: BP 131/45
[2018-09-03 12:00] VITALS: BP 129/53
[2018-09-03 12:30] VITALS: BP 115/50
[2018-09-03 14:50] VITALS: BP 129/52
== END | disposition home or self-care (01) ==
LOC: CHF HDHVI 10:55
PROVIDERS: ATTEND Internal Medicine Cardiovascular Disease
DX: I13.0 Hypertensive heart and chronic kidney disease with heart failure and stage 1 through stage 4 chronic kidney disease, or unspecified chronic kidney disease (principal); I50.42 Chronic combined systolic (congestive) and diastolic (congestive) heart failure; D51.9 Vitamin B12 deficiency anemia, unspecified; E11.22 Type 2 diabetes mellitus with diabetic chronic kidney disease; E11.40 Type 2 diabetes mellitus with diabetic neuropathy, unspecified; E11.21 Type 2 diabetes mellitus with diabetic nephropathy; E11.51 Type 2 diabetes mellitus with diabetic peripheral angiopathy without gangrene; E11.319 Type 2 diabetes mellitus with unspecified diabetic retinopathy without macular edema; N18.3 Chronic kidney disease, stage 3 (moderate); I25.10 Atherosclerotic heart disease of native coronary artery without angina pectoris; I70.0 Atherosclerosis of aorta; J44.9 Chronic obstructive pulmonary disease, unspecified; I27.21 Secondary pulmonary arterial hypertension; E03.9 Hypothyroidism, unspecified; E78.5 Hyperlipidemia, unspecified; G47.30 Sleep apnea, unspecified; E66.01 Morbid (severe) obesity due to excess calories; K21.9 Gastro-esophageal reflux disease without esophagitis; G89.29 Other chronic pain; F32.9 Major depressive disorder, single episode, unspecified; Z90.49 Acquired absence of other specified parts of digestive tract; Z86.718 Personal history of other venous thrombosis and embolism; Z95.1 Presence of aortocoronary bypass graft; Z79.4 Long term (current) use of insulin; Z79.01 Long term (current) use of anticoagulants; Z98.61 Coronary angioplasty status
CPT/HCPCS: 96365; 96366; 96372; G0463; J1642; J1940; J3420

== ENCOUNTER → 2018-09-07 | Outpatient (CLI) | payer MEDICARE, MEDICAID ==
[2018-09-07] VITALS (8 sets, daily range): BP systolic 113–141; BP diastolic 46–88
[~2018-09-07] MED LIST changes: -CYANOCOBALAMIN (B-12) 1000 MCG/1 ML VIAL IM ONE; -CYANOCOBALAMIN (B-12) 1000 MCG/1 ML VIAL ONE; -POTASSIUM CHL 10 Meq TABLET PO ONE; -POTASSIUM CHL 20 Meq TABLET PO ONE; +SODIUM CHLORIDE 0.9% 90 ML IV SCH
== END | disposition home or self-care (01) ==
LOC: CHF HDHVI 12:38
PROVIDERS: ATTEND Internal Medicine Cardiovascular Disease
DX: I13.0 Hypertensive heart and chronic kidney disease with heart failure and stage 1 through stage 4 chronic kidney disease, or unspecified chronic kidney disease (principal); I50.42 Chronic combined systolic (congestive) and diastolic (congestive) heart failure; E11.22 Type 2 diabetes mellitus with diabetic chronic kidney disease; E11.21 Type 2 diabetes mellitus with diabetic nephropathy; E11.40 Type 2 diabetes mellitus with diabetic neuropathy, unspecified; E11.51 Type 2 diabetes mellitus with diabetic peripheral angiopathy without gangrene; E11.319 Type 2 diabetes mellitus with unspecified diabetic retinopathy without macular edema; N18.3 Chronic kidney disease, stage 3 (moderate); D63.1 Anemia in chronic kidney disease; I70.0 Atherosclerosis of aorta; I25.10 Atherosclerotic heart disease of native coronary artery without angina pectoris; I27.21 Secondary pulmonary arterial hypertension; G47.30 Sleep apnea, unspecified; J44.9 Chronic obstructive pulmonary disease, unspecified; E03.9 Hypothyroidism, unspecified; E78.5 Hyperlipidemia, unspecified; R60.9 Edema, unspecified; G89.29 Other chronic pain; K21.9 Gastro-esophageal reflux disease without esophagitis; F32.9 Major depressive disorder, single episode, unspecified; E78.00 Pure hypercholesterolemia, unspecified; I48.91 Unspecified atrial fibrillation; F41.9 Anxiety disorder, unspecified; M19.90 Unspecified osteoarthritis, unspecified site; E87.70 Fluid overload, unspecified; E66.01 Morbid (severe) obesity due to excess calories; Z68.42 Body mass index [BMI] 45.0-49.9, adult; Z90.49 Acquired absence of other specified parts of digestive tract; Z86.718 Personal history of other venous thrombosis and embolism; Z95.1 Presence of aortocoronary bypass graft; Z86.711 Personal history of pulmonary embolism; Z79.01 Long term (current) use of anticoagulants; Z79.82 Long term (current) use of aspirin; Z79.4 Long term (current) use of insulin; Z79.899 Other long term (current) drug therapy
CPT/HCPCS: 96365; 96366; G0463; J1642; J1940

== ENCOUNTER → 2018-09-10 | Outpatient (CLI) | payer MEDICARE, MEDICAID ==
[~2018-09-10] VITALS: Ht 30.5 cm; Wt 125.2 kg
[~2018-09-10] MED LIST changes: +CYANOCOBALAMIN (B-12) 1000 MCG/1 ML VIAL IM ONE; +CYANOCOBALAMIN (B-12) 1000 MCG/1 ML VIAL ONE; -FUROSEMIDE 100 MG/10ML VIAL IV ONE; +FUROSEMIDE INJECTION 100 MG in SODIUM CHL 0.9% 100 ML IV SCH; +POTASSIUM CHL 10 Meq TABLET PO ONE; +POTASSIUM CHL 20 Meq TABLET PO ONE; -SODIUM CHLORIDE 0.9% 90 ML IV SCH
[2018-09-10 11:30] VITALS: BP 122/52
[2018-09-10 12:00] VITALS: BP 126/53
[2018-09-10 12:30] VITALS: BP 103/55
[2018-09-10 13:00] VITALS: BP 123/43
[2018-09-10 14:00] VITALS: BP 126/52
[2018-09-10 14:40] VITALS: BP 126/52
[2018-09-10 15:58] LABS: Basophils # (auto) 0 uL; Basophils % (auto) 0.4 % (0.0-2.0); Eosinophils # (auto) 0.2 uL; Eosinophils % (auto) 3.4 % (0.0-7.0); Hematocrit 35.7 % (36.0-46.0); Hemoglobin 11.5 g/dL (12.2-16.2); Lymphocytes # (auto) 1.9 uL; Lymphocytes % (auto) 34.9 % (10.0-50.0); Mean Corpuscular Hemoglobin 27.5 pg (28.0-32.0); Mean Corpuscular Hgb Conc. 32.1 g/dL (32.0-36.0); Mean Corpuscular Volume 85.7 fL (80.0-100.0); Monocytes # (auto) 0.6 uL; Monocytes % (auto) 10.1 % (0.0-12.0); Neutrophils # (auto) 2.8 uL; Neutrophils % (auto) 51.2 % (37.0-80.0); Nucleated Red Blood Cells % 0.4 %; Platelet Count (auto) 224 10^3/uL (140-450); Red Blood Cells 4.16 10^6/uL (4.0-5.20); Red Cell Distribution Width 16.8 % (11.8-14.3); White Blood Cell 5.5 10^3/uL (4.4-10.8)
[2018-09-10 16:03] LABS: BUN/Creatinine Ratio 19.4; Calcium 8.6 mg/dL (8.5-10.1); Magnesium 2.3 mg/dL (1.6-2.6); Potassium 4.1 mmol/L (3.5-5.1)
== END | disposition home or self-care (01) ==
LOC: CHF HDHVI 10:49
PROVIDERS: ATTEND Internal Medicine Cardiovascular Disease
DX: I13.0 Hypertensive heart and chronic kidney disease with heart failure and stage 1 through stage 4 chronic kidney disease, or unspecified chronic kidney disease (principal); I50.42 Chronic combined systolic (congestive) and diastolic (congestive) heart failure; E11.22 Type 2 diabetes mellitus with diabetic chronic kidney disease; E11.51 Type 2 diabetes mellitus with diabetic peripheral angiopathy without gangrene; E11.40 Type 2 diabetes mellitus with diabetic neuropathy, unspecified; E11.21 Type 2 diabetes mellitus with diabetic nephropathy; E11.319 Type 2 diabetes mellitus with unspecified diabetic retinopathy without macular edema; I27.21 Secondary pulmonary arterial hypertension; N18.3 Chronic kidney disease, stage 3 (moderate); I25.10 Atherosclerotic heart disease of native coronary artery without angina pectoris; J44.9 Chronic obstructive pulmonary disease, unspecified; I70.0 Atherosclerosis of aorta; E78.5 Hyperlipidemia, unspecified; E03.9 Hypothyroidism, unspecified; E83.40 Disorders of magnesium metabolism, unspecified; E66.01 Morbid (severe) obesity due to excess calories; D64.9 Anemia, unspecified; G89.29 Other chronic pain; K21.9 Gastro-esophageal reflux disease without esophagitis; F32.9 Major depressive disorder, single episode, unspecified; Z90.49 Acquired absence of other specified parts of digestive tract; Z98.61 Coronary angioplasty status; Z86.711 Personal history of pulmonary embolism; Z86.718 Personal history of other venous thrombosis and embolism; Z79.4 Long term (current) use of insulin; Z79.01 Long term (current) use of anticoagulants; Z79.82 Long term (current) use of aspirin
CPT/HCPCS: 36415; 80048; 83735; 85025; 96365; 96366; 96372; G0463; J1642; J1940; J3420

== ENCOUNTER → 2018-09-14 | Outpatient (CLI) | payer MEDICARE, MEDICAID ==
[~2018-09-14] MED LIST changes: -CYANOCOBALAMIN (B-12) 1000 MCG/1 ML VIAL IM ONE; -CYANOCOBALAMIN (B-12) 1000 MCG/1 ML VIAL ONE; +FUROSEMIDE 100 MG/10ML VIAL IV ONE; -FUROSEMIDE INJECTION 100 MG in SODIUM CHL 0.9% 100 ML IV SCH; +KETOROLAC TROMETH 60MG/2ML VIAL IM ONE; -POTASSIUM CHL 20 Meq TABLET PO ONE; +SODIUM CHLORIDE 0.9% 90 ML IV ONE
[2018-09-14 13:30] VITALS: BP 128/59
[2018-09-14 14:00] VITALS: BP 142/62
[2018-09-14 14:30] VITALS: BP 143/59
[2018-09-14 15:30] VITALS: BP 145/71
[2018-09-14 16:25] VITALS: BP 121/81
== END | disposition home or self-care (01) ==
LOC: CHF HDHVI 12:28
PROVIDERS: ATTEND Internal Medicine Cardiovascular Disease
DX: I13.0 Hypertensive heart and chronic kidney disease with heart failure and stage 1 through stage 4 chronic kidney disease, or unspecified chronic kidney disease (principal); I50.42 Chronic combined systolic (congestive) and diastolic (congestive) heart failure; E11.22 Type 2 diabetes mellitus with diabetic chronic kidney disease; N18.3 Chronic kidney disease, stage 3 (moderate); E11.21 Type 2 diabetes mellitus with diabetic nephropathy; E11.40 Type 2 diabetes mellitus with diabetic neuropathy, unspecified; E11.51 Type 2 diabetes mellitus with diabetic peripheral angiopathy without gangrene; E11.319 Type 2 diabetes mellitus with unspecified diabetic retinopathy without macular edema; J44.9 Chronic obstructive pulmonary disease, unspecified; I25.10 Atherosclerotic heart disease of native coronary artery without angina pectoris; I70.0 Atherosclerosis of aorta; E78.5 Hyperlipidemia, unspecified; E03.9 Hypothyroidism, unspecified; I27.21 Secondary pulmonary arterial hypertension; G47.30 Sleep apnea, unspecified; K21.9 Gastro-esophageal reflux disease without esophagitis; G89.29 Other chronic pain; E66.01 Morbid (severe) obesity due to excess calories; F32.9 Major depressive disorder, single episode, unspecified; Z79.01 Long term (current) use of anticoagulants; Z79.4 Long term (current) use of insulin; Z90.49 Acquired absence of other specified parts of digestive tract; Z86.718 Personal history of other venous thrombosis and embolism; Z86.711 Personal history of pulmonary embolism; Z95.1 Presence of aortocoronary bypass graft
CPT/HCPCS: 96365; 96366; 96372; G0463; J1642; J1885; J1940

== ENCOUNTER → 2018-09-21 | Outpatient (CLI) | payer MEDICARE, MEDICAID ==
[~2018-09-21] MED LIST changes: -KETOROLAC TROMETH 60MG/2ML VIAL IM ONE; +POTASSIUM CHL 20 Meq TABLET PO ONE; +SODIUM CHLORIDE 0.9% 100 ML IV SCH; -SODIUM CHLORIDE 0.9% 90 ML IV ONE
[2018-09-21 14:00] VITALS: BP 118/44
[2018-09-21 14:30] VITALS: BP 117/47
[2018-09-21 16:10] VITALS: BP 134/60
[2018-09-21 16:14] LABS: BUN/Creatinine Ratio 24.9; Calcium 8.3 mg/dL (8.5-10.1); Magnesium 2.3 mg/dL (1.6-2.6); Potassium 4.3 mmol/L (3.5-5.1)
[2018-09-21 16:16] LABS: Basophils # (auto) 0 uL; Basophils % (auto) 0.4 % (0.0-2.0); Eosinophils # (auto) 0.2 uL; Eosinophils % (auto) 3.4 % (0.0-7.0); Hematocrit 36.6 % (36.0-46.0); Hemoglobin 11.8 g/dL (12.2-16.2); Lymphocytes # (auto) 2.9 uL; Lymphocytes % (auto) 40.6 % (10.0-50.0); Mean Corpuscular Hemoglobin 27.8 pg (28.0-32.0); Mean Corpuscular Hgb Conc. 32.3 g/dL (32.0-36.0); Mean Corpuscular Volume 86.1 fL (80.0-100.0); Monocytes # (auto) 0.6 uL; Monocytes % (auto) 9.1 % (0.0-12.0); Neutrophils # (auto) 3.3 uL; Neutrophils % (auto) 46.5 % (37.0-80.0); Nucleated Red Blood Cells % 0.8 %; Platelet Count (auto) 228 10^3/uL (140-450); Red Blood Cells 4.25 10^6/uL (4.0-5.20); White Blood Cell 7.1 10^3/uL (4.4-10.8)
== END | disposition home or self-care (01) ==
LOC: CHF HDHVI 13:31
PROVIDERS: ATTEND Internal Medicine Cardiovascular Disease
DX: I13.0 Hypertensive heart and chronic kidney disease with heart failure and stage 1 through stage 4 chronic kidney disease, or unspecified chronic kidney disease (principal); E11.22 Type 2 diabetes mellitus with diabetic chronic kidney disease; N18.3 Chronic kidney disease, stage 3 (moderate); I50.42 Chronic combined systolic (congestive) and diastolic (congestive) heart failure; I25.10 Atherosclerotic heart disease of native coronary artery without angina pectoris; D64.9 Anemia, unspecified; E11.40 Type 2 diabetes mellitus with diabetic neuropathy, unspecified; E11.51 Type 2 diabetes mellitus with diabetic peripheral angiopathy without gangrene; I48.91 Unspecified atrial fibrillation; M19.90 Unspecified osteoarthritis, unspecified site; E83.40 Disorders of magnesium metabolism, unspecified; J44.9 Chronic obstructive pulmonary disease, unspecified; E78.5 Hyperlipidemia, unspecified; E03.9 Hypothyroidism, unspecified; F32.9 Major depressive disorder, single episode, unspecified; G89.29 Other chronic pain; E66.01 Morbid (severe) obesity due to excess calories; Z68.42 Body mass index [BMI] 45.0-49.9, adult; M10.9 Gout, unspecified; Z86.718 Personal history of other venous thrombosis and embolism; Z79.899 Other long term (current) drug therapy; Z79.82 Long term (current) use of aspirin; Z79.4 Long term (current) use of insulin; Z95.1 Presence of aortocoronary bypass graft; Z79.01 Long term (current) use of anticoagulants; Z90.49 Acquired absence of other specified parts of digestive tract; Z95.5 Presence of coronary angioplasty implant and graft
CPT/HCPCS: 36415; 80048; 83735; 85025; 96365; 96366; G0463; J1642; J1940

== ENCOUNTER → 2018-10-12 | Outpatient (CLI) | payer MEDICARE, MEDICAID ==
[~2018-10-12] MED LIST changes: +CYANOCOBALAMIN (B-12) 1000 MCG/1 ML VIAL IM ONE; +CYANOCOBALAMIN (B-12) 1000 MCG/1 ML VIAL ONE
[2018-10-12 13:12] VITALS: BP 111/57
[2018-10-12 13:45] VITALS: BP 140/61
[2018-10-12 14:12] VITALS: BP 130/53
[2018-10-12 14:45] VITALS: BP 145/67
[2018-10-12 16:35] VITALS: BP 127/56
[2018-10-12 16:40] LABS: Calcium 8.3 mg/dL (8.5-10.1); Magnesium 2.1 mg/dL (1.6-2.6); Potassium 4.1 mmol/L (3.5-5.1)
[2018-10-12 16:41] LABS: BUN/Creatinine Ratio 27.1
[2018-10-12 16:51] LABS: Basophils # (auto) 0 uL; Basophils % (auto) 0.5 % (0.0-2.0); Eosinophils # (auto) 0.2 uL; Eosinophils % (auto) 2.8 % (0.0-7.0); Hematocrit 37.7 % (36.0-46.0); Hemoglobin 12.1 g/dL (12.2-16.2); Lymphocytes # (auto) 2.4 uL; Lymphocytes % (auto) 34.1 % (10.0-50.0); Mean Corpuscular Hemoglobin 27.9 pg (28.0-32.0); Mean Corpuscular Hgb Conc. 32.2 g/dL (32.0-36.0); Mean Corpuscular Volume 86.7 fL (80.0-100.0); Monocytes # (auto) 0.7 uL; Monocytes % (auto) 9.9 % (0.0-12.0); Neutrophils # (auto) 3.6 uL; Neutrophils % (auto) 52.7 % (37.0-80.0); Platelet Count (auto) 228 10^3/uL (140-450); Red Blood Cells 4.34 10^6/uL (4.0-5.20); Red Cell Distribution Width 16.5 % (11.8-14.3); White Blood Cell 6.9 10^3/uL (4.4-10.8)
== END | disposition home or self-care (01) ==
LOC: CHF HDHVI 12:52
PROVIDERS: ATTEND Internal Medicine Cardiovascular Disease
DX: I13.0 Hypertensive heart and chronic kidney disease with heart failure and stage 1 through stage 4 chronic kidney disease, or unspecified chronic kidney disease (principal); D64.9 Anemia, unspecified; E11.22 Type 2 diabetes mellitus with diabetic chronic kidney disease; N18.4 Chronic kidney disease, stage 4 (severe); I50.42 Chronic combined systolic (congestive) and diastolic (congestive) heart failure; I25.10 Atherosclerotic heart disease of native coronary artery without angina pectoris; I48.91 Unspecified atrial fibrillation; I27.21 Secondary pulmonary arterial hypertension; I73.9 Peripheral vascular disease, unspecified; I89.0 Lymphedema, not elsewhere classified; E78.5 Hyperlipidemia, unspecified; E66.01 Morbid (severe) obesity due to excess calories; K21.9 Gastro-esophageal reflux disease without esophagitis; I27.9 Pulmonary heart disease, unspecified; Z68.41 Body mass index [BMI] 40.0-44.9, adult; E03.9 Hypothyroidism, unspecified; E11.40 Type 2 diabetes mellitus with diabetic neuropathy, unspecified; E11.51 Type 2 diabetes mellitus with diabetic peripheral angiopathy without gangrene; E11.21 Type 2 diabetes mellitus with diabetic nephropathy; E11.319 Type 2 diabetes mellitus with unspecified diabetic retinopathy without macular edema; E78.00 Pure hypercholesterolemia, unspecified; J44.9 Chronic obstructive pulmonary disease, unspecified; K21.0 Gastro-esophageal reflux disease with esophagitis; K58.9 Irritable bowel syndrome, unspecified; G89.29 Other chronic pain; M54.5 Low back pain; G47.30 Sleep apnea, unspecified; M19.90 Unspecified osteoarthritis, unspecified site; M10.9 Gout, unspecified; F41.9 Anxiety disorder, unspecified; F32.9 Major depressive disorder, single episode, unspecified; Z79.899 Other long term (current) drug therapy; Z90.49 Acquired absence of other specified parts of digestive tract; Z79.01 Long term (current) use of anticoagulants; Z79.82 Long term (current) use of aspirin; Z79.4 Long term (current) use of insulin; Z95.1 Presence of aortocoronary bypass graft; Z86.718 Personal history of other venous thrombosis and embolism; Z86.711 Personal history of pulmonary embolism; Z98.61 Coronary angioplasty status; Z87.440 Personal history of urinary (tract) infections; Z90.89 Acquired absence of other organs
CPT/HCPCS: 36415; 80048; 83036; 83735; 85025; 96365; 96366; 96372; G0463; J1642

== ENCOUNTER → 2018-10-15 | Outpatient (CLI) | payer MEDICARE, MEDICAID ==
[2018-10-15] VITALS (7 sets, daily range): BP systolic 122–142; BP diastolic 50–60
[~2018-10-15] MED LIST changes: -CYANOCOBALAMIN (B-12) 1000 MCG/1 ML VIAL IM ONE; -CYANOCOBALAMIN (B-12) 1000 MCG/1 ML VIAL ONE; -POTASSIUM CHL 20 Meq TABLET PO ONE
--- NOTE | 2018-10-15 10:22 | NUR ---
CHF PT TO CHF CLINIC FOR MD KATHLEEN ORDERED LASIX DRIP THERAPY VIA PORT A CATH.
--- NOTE | 2018-10-15 10:37 | NUR ---
CHF Corrie Cath Insertion 20 gauge Corrie Cath inserted using sterile technique in the upper chest with occlusive dressing over conner needle. Patient tolerated procedure well. Ordered labs drawn and sent. See e-MAR for medications given during this visit. Clinic Provider Clinic Provider DR. KATHLEEN, pt with new orders received and carried out. Lasix gtt started at {30}mg/hr AT 1037 , POTASSIUM CHLORIDE PO 30MEQ per MD order.
--- NOTE | 2018-10-15 10:42 | NUR ---
CHF POTASSIUM CHLORIDE 30 MEQ PO ADMINISTERED.
== END | disposition home or self-care (01) ==
LOC: CHF HDHVI 10:34
PROVIDERS: ATTEND Internal Medicine Cardiovascular Disease
DX: I13.0 Hypertensive heart and chronic kidney disease with heart failure and stage 1 through stage 4 chronic kidney disease, or unspecified chronic kidney disease (principal); I50.42 Chronic combined systolic (congestive) and diastolic (congestive) heart failure; I50.9 Heart failure, unspecified; E11.22 Type 2 diabetes mellitus with diabetic chronic kidney disease; N18.4 Chronic kidney disease, stage 4 (severe); I25.10 Atherosclerotic heart disease of native coronary artery without angina pectoris; E11.51 Type 2 diabetes mellitus with diabetic peripheral angiopathy without gangrene; E11.21 Type 2 diabetes mellitus with diabetic nephropathy; E11.40 Type 2 diabetes mellitus with diabetic neuropathy, unspecified; E11.319 Type 2 diabetes mellitus with unspecified diabetic retinopathy without macular edema; E11.65 Type 2 diabetes mellitus with hyperglycemia; J44.9 Chronic obstructive pulmonary disease, unspecified; I70.0 Atherosclerosis of aorta; E78.5 Hyperlipidemia, unspecified; E03.9 Hypothyroidism, unspecified; K21.9 Gastro-esophageal reflux disease without esophagitis; G47.30 Sleep apnea, unspecified; I48.91 Unspecified atrial fibrillation; I27.21 Secondary pulmonary arterial hypertension; M19.90 Unspecified osteoarthritis, unspecified site; E78.00 Pure hypercholesterolemia, unspecified; G47.00 Insomnia, unspecified; E66.01 Morbid (severe) obesity due to excess calories; I89.0 Lymphedema, not elsewhere classified; G89.29 Other chronic pain; F32.9 Major depressive disorder, single episode, unspecified; F41.9 Anxiety disorder, unspecified; Z86.718 Personal history of other venous thrombosis and embolism; Z86.711 Personal history of pulmonary embolism; Z90.49 Acquired absence of other specified parts of digestive tract; Z79.01 Long term (current) use of anticoagulants; Z79.82 Long term (current) use of aspirin; Z79.4 Long term (current) use of insulin; Z79.899 Other long term (current) drug therapy; Z95.1 Presence of aortocoronary bypass graft; Z95.5 Presence of coronary angioplasty implant and graft; Z86.73 Personal history of transient ischemic attack (TIA), and cerebral infarction without residual deficits
CPT/HCPCS: 96365; 96366; G0463; J1642; J1940

== ENCOUNTER → 2018-10-19 | Outpatient (CLI) | payer MEDICARE, MEDICAID ==
[~2018-10-19] VITALS: Ht 165.1 cm; Wt 123.1 kg
[~2018-10-19] MED LIST changes: -FUROSEMIDE 100 MG/10ML VIAL IV ONE; +FUROSEMIDE INJECTION 100 MG in SODIUM CHL 0.9% 100 ML IV SCH; +POTASSIUM CHL 20 Meq TABLET PO ONE; -SODIUM CHLORIDE 0.9% 100 ML IV SCH
--- NOTE | 2018-10-19 13:15 | NUR ---
CHF PT TO CHF CLINIC FOR MD KATHLEEN ORDERED DIURETIC THERAPY FOR CHF MANAGEMENT.
--- NOTE | 2018-10-19 13:20 | NUR ---
CHF Corrie Cath Insertion 20 gauge Corrie Cath inserted using sterile technique in the upper chest with occlusive dressing over conner needle. Patient tolerated procedure well. Ordered labs drawn and sent. See e-MAR for medications given during this visit. Clinic Provider Clinic Provider DR. KATHLEEN pt with new orders received and carried out. Lasix gtt started at {30}mg/hr per MD order. USE PORT A CATH.
[2018-10-19 13:30] VITALS: BP 149/59
[2018-10-19 13:45] VITALS: BP 150/58
[2018-10-19 14:15] VITALS: BP 145/62
--- NOTE | 2018-10-19 15:25 | NUR ---
CHF POTASSIUM CHLORIDE 20 MEQ PO ADMINISTERED.
[2018-10-19 16:10] VITALS: BP 166/59
--- NOTE | 2018-10-19 16:10 | NUR ---
CHF IV LASIX COMPLETE 1555 Corrie Cath Removal Gutierrez needle D/C'd after Heparin flush per protocol. See e-MAR for medications given during this visit. Sterile occlusive dressing to site. Patient tolerated procedure well. Site benign post infusion. Discharge Instructions See e-MAR for any mediations given with this visit. Patient education given on disease process. Patient verbalized understanding. Previous labs reviewed. Patient discharged in stable condition with after care instructions and follow up appointment. FOLLOW UP FRIDAY.
== END | disposition home or self-care (01) ==
LOC: CHF HDHVI 12:37
PROVIDERS: ATTEND Internal Medicine Cardiovascular Disease
DX: I13.0 Hypertensive heart and chronic kidney disease with heart failure and stage 1 through stage 4 chronic kidney disease, or unspecified chronic kidney disease (principal); I50.42 Chronic combined systolic (congestive) and diastolic (congestive) heart failure; N18.4 Chronic kidney disease, stage 4 (severe); J44.9 Chronic obstructive pulmonary disease, unspecified; K21.9 Gastro-esophageal reflux disease without esophagitis; E78.5 Hyperlipidemia, unspecified; F32.9 Major depressive disorder, single episode, unspecified; E78.00 Pure hypercholesterolemia, unspecified; E11.22 Type 2 diabetes mellitus with diabetic chronic kidney disease; E11.51 Type 2 diabetes mellitus with diabetic peripheral angiopathy without gangrene; F41.9 Anxiety disorder, unspecified; G89.29 Other chronic pain; E11.40 Type 2 diabetes mellitus with diabetic neuropathy, unspecified; E11.319 Type 2 diabetes mellitus with unspecified diabetic retinopathy without macular edema; M19.90 Unspecified osteoarthritis, unspecified site; E11.649 Type 2 diabetes mellitus with hypoglycemia without coma; Z79.01 Long term (current) use of anticoagulants; Z79.82 Long term (current) use of aspirin; Z79.4 Long term (current) use of insulin; Z79.899 Other long term (current) drug therapy; Z86.73 Personal history of transient ischemic attack (TIA), and cerebral infarction without residual deficits; Z86.711 Personal history of pulmonary embolism
CPT/HCPCS: 96365; 96366; G0463; J1642; J1940

== ENCOUNTER → 2018-10-22 | Outpatient (CLI) | payer MEDICARE, MEDICAID ==
[~2018-10-22] VITALS: Ht 30.5 cm; Wt 122.1 kg
[~2018-10-22] MED LIST changes: +FUROSEMIDE 100 MG/10ML VIAL IV ONE; -FUROSEMIDE INJECTION 100 MG in SODIUM CHL 0.9% 100 ML IV SCH
--- NOTE | 2018-10-22 10:25 | NUR ---
CHF PT TO CHF CLINIC FOR MD FRANNIE HERNANDEZ DIURETIC THERAPY LASIX DRIP FOR CHF /PAH MANAGEMENT .
[2018-10-22] MEDS: SODIUM CHLORIDE 0.9% 100 ML IV SCH (10:35)
--- NOTE | 2018-10-22 10:35 | NUR ---
CHF Corrie Cath Insertion 20 gauge Corrie Cath inserted using sterile technique in the upper chest with occlusive dressing over conner needle. Patient tolerated procedure well. Ordered labs drawn and sent. See e-MAR for medications given during this visit. Clinic Provider Clinic Provider DR. KATHLEEN pt with new orders received and carried out. Lasix gtt started at {30}mg/hr . POTASSIUM CHLORIDE 30MEQ PO per MD order.
--- NOTE | 2018-10-22 10:40 | NUR ---
CHF PO POTASSIUM CHLORIDE 30MEQ PO.
[2018-10-22 11:00] VITALS: BP 125/51
[2018-10-22 11:30] VITALS: BP 125/48
[2018-10-22 12:00] VITALS: BP 122/47
[2018-10-22 12:30] VITALS: BP 117/53
[2018-10-22 13:00] VITALS: BP 122/53
[2018-10-22 14:00] VITALS: BP 122/52
--- NOTE | 2018-10-22 14:00 | NUR ---
CHF IV LASIX COMPLETE AT 1355, Corrie Cath Removal Gutierrez needle D/C'd after Heparin flush per protocol. See e-MAR for medications given during this visit. Sterile occlusive dressing to site. Patient tolerated procedure well. Site benign post infusion. Discharge Instructions See e-MAR for any mediations given with this visit. Patient education given on disease process. Patient verbalized understanding. Previous labs reviewed. Patient discharged in stable condition with after care instructions and follow up appointment. FOLLOW UP FRIDAY FOR IV LASIX THERAPY.
== END | disposition home or self-care (01) ==
LOC: CHF HDHVI 10:18
PROVIDERS: ATTEND Internal Medicine Cardiovascular Disease
DX: I13.0 Hypertensive heart and chronic kidney disease with heart failure and stage 1 through stage 4 chronic kidney disease, or unspecified chronic kidney disease (principal); I50.42 Chronic combined systolic (congestive) and diastolic (congestive) heart failure; N18.4 Chronic kidney disease, stage 4 (severe); E11.22 Type 2 diabetes mellitus with diabetic chronic kidney disease; J96.90 Respiratory failure, unspecified, unspecified whether with hypoxia or hypercapnia; I25.10 Atherosclerotic heart disease of native coronary artery without angina pectoris; E78.5 Hyperlipidemia, unspecified; F32.9 Major depressive disorder, single episode, unspecified; J44.9 Chronic obstructive pulmonary disease, unspecified; E66.01 Morbid (severe) obesity due to excess calories; E11.21 Type 2 diabetes mellitus with diabetic nephropathy; E11.51 Type 2 diabetes mellitus with diabetic peripheral angiopathy without gangrene; E11.40 Type 2 diabetes mellitus with diabetic neuropathy, unspecified; E11.319 Type 2 diabetes mellitus with unspecified diabetic retinopathy without macular edema; E11.649 Type 2 diabetes mellitus with hypoglycemia without coma; F41.9 Anxiety disorder, unspecified; M19.90 Unspecified osteoarthritis, unspecified site; G47.00 Insomnia, unspecified; K21.9 Gastro-esophageal reflux disease without esophagitis; Z79.01 Long term (current) use of anticoagulants; Z79.82 Long term (current) use of aspirin; Z79.4 Long term (current) use of insulin; Z79.899 Other long term (current) drug therapy
CPT/HCPCS: 96365; 96366; G0463; J1642; J1940

== ENCOUNTER → 2018-10-26 | Outpatient (CLI) | payer MEDICARE, MEDICAID ==
[~2018-10-26] VITALS: Ht 165.1 cm; Wt 122.2 kg
[2018-10-26] VITALS (7 sets, daily range): BP systolic 113–154; BP diastolic 54–96
[~2018-10-26] MED LIST changes: +KETOROLAC TROMETH 60MG/2ML VIAL IM ONE; -POTASSIUM CHL 20 Meq TABLET PO ONE
--- NOTE | 2018-10-26 12:20 | NUR ---
CHF PT TO CHF CLINIC FOR MD KATHLEEN ORDERED STAT LABS AND START PT ON DOBUTAMINE DRIP AT 5MCG/KG/MIN VIA PORT A CATH. Addendum: 10/26/18 at 1317 by Liudmila Wise RN CO ABOVE ORDER INCORRECT, WRONG PT. CLARIFICATION ORDER MD KATHLEEN ORDERED LABS AND LASIX DRIP 100MG/100ML NS AT 30 ML/HR , POTASSIUM CHLORIDE 30 MEQ PO AND TORADOL 60MG IM, FOR R NECK PAIN THAT RADIATES TO R SHOULDER RATED AT 10/10.
--- NOTE | 2018-10-26 12:34 | NUR ---
CHF TORADOL 60MG IM R GLUTE FOR PAIN TO NECK 07/15. PT TOLERATED INJECTION WELL.
[2018-10-26] MEDS: SODIUM CHLORIDE 0.9% 100 ML IV SCH (12:40)
--- NOTE | 2018-10-26 12:40 | NUR ---
CHF Corrie Cath Insertion 20 gauge Corrie Cath inserted using sterile technique in the upper chest with occlusive dressing over conner needle. Patient tolerated procedure well. Ordered labs drawn and sent. See e-MAR for medications given during this visit. LASIX STARTED AT 30ML/HR. PT TOLERATED WELL.
--- NOTE | 2018-10-26 12:42 | NUR ---
CHF ADMINISTERED POTASSIUM CHLORIDE 30 MEQ PO. PT TOLERATED WELL.
--- NOTE | 2018-10-26 13:30 | NUR ---
CHF PT STATES PAIN 8/10 NOW TO R NECK AND SHOULDER.
--- NOTE | 2018-10-26 14:40 | NUR ---
CHF PT UP TO BATHROOM X 1
--- NOTE | 2018-10-26 15:13 | NUR ---
CHF PT DISCONNECTED FROM IV FOR APPT.
--- NOTE | 2018-10-26 15:47 | NUR ---
CHF PT RETURNED TO CLINIC FROM MD [facility]. PORT A CATH FLUSHED AND IV THERAPY RESUMED.
[2018-10-26 16:00] LABS: Basophils # (auto) 0 uL; Basophils % (auto) 0.3 % (0.0-2.0); Eosinophils # (auto) 0.1 uL; Eosinophils % (auto) 1.6 % (0.0-7.0); Hematocrit 39.9 % (36.0-46.0); Hemoglobin 12.7 g/dL (12.2-16.2); Lymphocytes # (auto) 1.9 uL; Lymphocytes % (auto) 29.2 % (10.0-50.0); Mean Corpuscular Hemoglobin 27.7 pg (28.0-32.0); Mean Corpuscular Hgb Conc. 31.9 g/dL (32.0-36.0); Mean Corpuscular Volume 86.7 fL (80.0-100.0); Monocytes # (auto) 0.4 uL; Monocytes % (auto) 6.6 % (0.0-12.0); Neutrophils # (auto) 4.1 uL; Neutrophils % (auto) 62.3 % (37.0-80.0); Nucleated Red Blood Cells % 0.2 %; Platelet Count (auto) 206 10^3/uL (140-450); Red Cell Distribution Width 16.8 % (11.8-14.3); White Blood Cell 6.7 10^3/uL (4.4-10.8)
[2018-10-26 16:12] LABS: BUN/Creatinine Ratio 31.4; Magnesium 2.3 mg/dL (1.6-2.6); Potassium 4.1 mmol/L (3.5-5.1)
--- NOTE | 2018-10-26 16:13 | NUR ---
CHF IV LASIX DRIP COMPLETE 1608 Corrie Cath Removal Gutierrez needle D/C'd after Heparin flush per protocol. See e-MAR for medications given during this visit. Sterile occlusive dressing to site. Patient tolerated procedure well. Site benign post infusion. Discharge Instructions See e-MAR for any mediations given with this visit. Patient education given on disease process. Patient verbalized understanding. Previous labs reviewed. Patient discharged in stable condition with after care instructions and follow up appointment. PT LEFT WITH PAIN TO R NECK AND SHOULDER 01/13. MUCH BETTER THAN THE 07/15 WHEN SHE CAME IN SHE STATED. F/U FRIDAY FOR IV LASIX THERAPY PER MD ORDER. PT VERB UNDERSTANDING.
== END | disposition home or self-care (01) ==
LOC: CHF HDHVI 12:21
PROVIDERS: ATTEND Internal Medicine Cardiovascular Disease
DX: I13.0 Hypertensive heart and chronic kidney disease with heart failure and stage 1 through stage 4 chronic kidney disease, or unspecified chronic kidney disease (principal); E11.22 Type 2 diabetes mellitus with diabetic chronic kidney disease; N18.4 Chronic kidney disease, stage 4 (severe); I50.42 Chronic combined systolic (congestive) and diastolic (congestive) heart failure; E83.40 Disorders of magnesium metabolism, unspecified; I70.0 Atherosclerosis of aorta; I25.10 Atherosclerotic heart disease of native coronary artery without angina pectoris; I48.91 Unspecified atrial fibrillation; J44.9 Chronic obstructive pulmonary disease, unspecified; K21.9 Gastro-esophageal reflux disease without esophagitis; E78.5 Hyperlipidemia, unspecified; E03.9 Hypothyroidism, unspecified; E78.00 Pure hypercholesterolemia, unspecified; E11.21 Type 2 diabetes mellitus with diabetic nephropathy; E11.40 Type 2 diabetes mellitus with diabetic neuropathy, unspecified; E11.51 Type 2 diabetes mellitus with diabetic peripheral angiopathy without gangrene; E11.319 Type 2 diabetes mellitus with unspecified diabetic retinopathy without macular edema; F32.9 Major depressive disorder, single episode, unspecified; M19.90 Unspecified osteoarthritis, unspecified site; F41.9 Anxiety disorder, unspecified; G89.29 Other chronic pain; E66.01 Morbid (severe) obesity due to excess calories; Z68.41 Body mass index [BMI] 40.0-44.9, adult; Z79.01 Long term (current) use of anticoagulants; Z79.82 Long term (current) use of aspirin; Z79.4 Long term (current) use of insulin; Z90.49 Acquired absence of other specified parts of digestive tract; Z95.1 Presence of aortocoronary bypass graft; Z95.5 Presence of coronary angioplasty implant and graft; Z86.711 Personal history of pulmonary embolism
CPT/HCPCS: 36415; 80048; 83735; 85025; 96365; 96366; 96372; G0463; J1642; J1885; J1940

== ENCOUNTER → 2018-10-29 | Outpatient (CLI) | payer MEDICARE, MEDICAID ==
[2018-10-29] VITALS (7 sets, daily range): BP systolic 102–123; BP diastolic 37–77
[~2018-10-29] VITALS: Ht 30.5 cm; Wt 122.9 kg
[~2018-10-29] MED LIST changes: -KETOROLAC TROMETH 60MG/2ML VIAL IM ONE; +SODIUM CHLORIDE 0.9% 1,000 ML IV SCH
--- NOTE | 2018-10-29 10:35 | NUR ---
CHF PT TO CHF CLINIC FOR MD KATHLEEN ORDERED LASIX DRIP THERAPY FOR PAH AND CHF TX
--- NOTE | 2018-10-29 10:57 | NUR ---
CHF Corrie Cath Insertion 20 gauge Corrie Cath inserted using sterile technique in the upper chest with occlusive dressing over conner needle. Patient tolerated procedure well. Ordered labs drawn and sent. See e-MAR for medications given during this visit. Clinic Provider Clinic Provider DR. KATHLEEN pt with new orders received and carried out. Lasix gtt started at {30}mg/hr, POTASSIUM CHLORIDE 30 MEQ PO per MD order.
--- NOTE | 2018-10-29 14:55 | NUR ---
CHF Corrie Cath Removal Gutierrez needle D/C'd after Heparin flush per protocol. See e-MAR for medications given during this visit. Sterile occlusive dressing to site. Patient tolerated procedure well. Site benign post infusion. Discharge Instructions See e-MAR for any mediations given with this visit. Patient education given on disease process. Patient verbalized understanding. Previous labs reviewed. Patient discharged in stable condition with after care instructions and follow up appointment.
== END | disposition home or self-care (01) ==
LOC: CHF HDHVI 10:32
PROVIDERS: ATTEND Internal Medicine Cardiovascular Disease
DX: I27.21 Secondary pulmonary arterial hypertension (principal); I25.10 Atherosclerotic heart disease of native coronary artery without angina pectoris; I13.0 Hypertensive heart and chronic kidney disease with heart failure and stage 1 through stage 4 chronic kidney disease, or unspecified chronic kidney disease; E11.22 Type 2 diabetes mellitus with diabetic chronic kidney disease; N18.4 Chronic kidney disease, stage 4 (severe); I50.42 Chronic combined systolic (congestive) and diastolic (congestive) heart failure; I70.0 Atherosclerosis of aorta; I48.91 Unspecified atrial fibrillation; J96.10 Chronic respiratory failure, unspecified whether with hypoxia or hypercapnia; J44.9 Chronic obstructive pulmonary disease, unspecified; K21.9 Gastro-esophageal reflux disease without esophagitis; E78.5 Hyperlipidemia, unspecified; E03.9 Hypothyroidism, unspecified; E78.00 Pure hypercholesterolemia, unspecified; E11.21 Type 2 diabetes mellitus with diabetic nephropathy; E11.40 Type 2 diabetes mellitus with diabetic neuropathy, unspecified; E11.51 Type 2 diabetes mellitus with diabetic peripheral angiopathy without gangrene; E11.319 Type 2 diabetes mellitus with unspecified diabetic retinopathy without macular edema; E66.01 Morbid (severe) obesity due to excess calories; M19.90 Unspecified osteoarthritis, unspecified site; G89.29 Other chronic pain; F32.9 Major depressive disorder, single episode, unspecified; F41.9 Anxiety disorder, unspecified; Z68.41 Body mass index [BMI] 40.0-44.9, adult; Z95.5 Presence of coronary angioplasty implant and graft; Z95.1 Presence of aortocoronary bypass graft; Z79.4 Long term (current) use of insulin; Z79.82 Long term (current) use of aspirin; Z99.81 Dependence on supplemental oxygen; Z79.899 Other long term (current) drug therapy; Z86.711 Personal history of pulmonary embolism; Z86.73 Personal history of transient ischemic attack (TIA), and cerebral infarction without residual deficits; Z86.718 Personal history of other venous thrombosis and embolism
CPT/HCPCS: 96365; 96366; G0463; J1642; J1940; J7030

== ENCOUNTER → 2018-11-02 | Outpatient (CLI) | payer MEDICARE, MEDICAID ==
[~2018-11-02] MED LIST changes: -POTASSIUM CHL 10 Meq TABLET PO ONE; -SODIUM CHLORIDE 0.9% 1,000 ML IV SCH; +SODIUM CHLORIDE 0.9% 100 ML IV SCH
--- NOTE | 2018-11-02 12:50 | NUR ---
CHF PT TO CHF CLINIC FOR MD KATHLEEN ORDERED IV LASIX DRIP THERAPY AT 30ML/HR OF 100MG LASIX/100ML NS BAG VIA PORT FOR CHF/PAH MANAGEMENT
--- NOTE | 2018-11-02 13:21 | NUR ---
CHF Corrie Cath Insertion 20 gauge Corrie Cath inserted using sterile technique in the upper chest with occlusive dressing over conner needle. Patient tolerated procedure well. Ordered labs drawn and sent. See e-MAR for medications given during this visit.
[2018-11-02 13:30] VITALS: BP 137/56
[2018-11-02 14:00] VITALS: BP 136/59
[2018-11-02 14:30] VITALS: BP 116/52
[2018-11-02 15:30] VITALS: BP 121/60
[2018-11-02 16:00] VITALS: BP 130/54
[2018-11-02 16:26] LABS: Potassium 4.1 mmol/L (3.5-5.1)
[2018-11-02 16:45] VITALS: BP 130/60
--- NOTE | 2018-11-02 16:45 | NUR ---
CHF IV LASIX COMPLETE AT 1638 Corrie Cath Removal Gutierrez needle D/C'd after Heparin flush per protocol. See e-MAR for medications given during this visit. Sterile occlusive dressing to site. Patient tolerated procedure well. Site benign post infusion. FOLLOW UP NEXT FRIDAY FOR CHF CLINIC PT HAS OTHER MD APPTS ON FRIDAY THIS WEEK AND WILL NOT BE ABLE TO COME BACK UNTIL Friday11/09/18
== END | disposition home or self-care (01) ==
LOC: CHF HDHVI 12:36
PROVIDERS: ATTEND Internal Medicine Cardiovascular Disease
DX: I13.0 Hypertensive heart and chronic kidney disease with heart failure and stage 1 through stage 4 chronic kidney disease, or unspecified chronic kidney disease (principal); I50.42 Chronic combined systolic (congestive) and diastolic (congestive) heart failure; E11.22 Type 2 diabetes mellitus with diabetic chronic kidney disease; E11.40 Type 2 diabetes mellitus with diabetic neuropathy, unspecified; E11.51 Type 2 diabetes mellitus with diabetic peripheral angiopathy without gangrene; E11.319 Type 2 diabetes mellitus with unspecified diabetic retinopathy without macular edema; E11.21 Type 2 diabetes mellitus with diabetic nephropathy; D63.1 Anemia in chronic kidney disease; R94.4 Abnormal results of kidney function studies; E55.9 Vitamin D deficiency, unspecified; I27.21 Secondary pulmonary arterial hypertension; J44.9 Chronic obstructive pulmonary disease, unspecified; E44.1 Mild protein-calorie malnutrition; E66.01 Morbid (severe) obesity due to excess calories; E78.00 Pure hypercholesterolemia, unspecified; F41.9 Anxiety disorder, unspecified; I25.10 Atherosclerotic heart disease of native coronary artery without angina pectoris; K21.9 Gastro-esophageal reflux disease without esophagitis; E78.5 Hyperlipidemia, unspecified; F32.9 Major depressive disorder, single episode, unspecified; I48.91 Unspecified atrial fibrillation; M19.90 Unspecified osteoarthritis, unspecified site; G89.29 Other chronic pain; E03.9 Hypothyroidism, unspecified; N18.4 Chronic kidney disease, stage 4 (severe); G47.00 Insomnia, unspecified; E11.65 Type 2 diabetes mellitus with hyperglycemia; Z79.4 Long term (current) use of insulin; Z95.1 Presence of aortocoronary bypass graft; Z98.61 Coronary angioplasty status; Z90.49 Acquired absence of other specified parts of digestive tract; Z79.01 Long term (current) use of anticoagulants; Z79.82 Long term (current) use of aspirin; Z86.711 Personal history of pulmonary embolism; Z86.718 Personal history of other venous thrombosis and embolism; Z87.440 Personal history of urinary (tract) infections; Z99.81 Dependence on supplemental oxygen; Z79.899 Other long term (current) drug therapy
CPT/HCPCS: 36415; 82306; 82565; 83036; 84132; 84520; 96365; 96366; G0463; J1642; J1940

== ENCOUNTER 2018-11-11 09:04 | Inpatient (IN) | payer MEDICARE, MEDICAID ==
[~2018-11-11] VITALS: Ht 162.6 cm; Wt 127.4 kg
[~2018-11-11 09:04] MED LIST changes: -FUROSEMIDE 100 MG/10ML VIAL IV ONE; -FUROSEMIDE INJECTION 10 ML ONE; -SODIUM CHLORIDE 0.9% 100 ML IV SCH
[2018-11-11] MEDS ORDERED: SODIUM CHLORIDE 0.9% 1,000 ML IV ONE (10:13)
[2018-11-11] MEDS: ONDANSETRON HCL 4 MG/2 ML VIAL IV ONE ×2 (10:18→10:58)
[2018-11-11 10:26] LABS: Basophils # (auto) 0.1 uL; Eosinophils # (auto) 0.2 uL; Eosinophils % (auto) 3.9 % (0.0-7.0); Hematocrit 37.6 % (36.0-46.0); Hemoglobin 12.3 g/dL (12.2-16.2); Lymphocytes # (auto) 2.3 uL; Lymphocytes % (auto) 41.5 % (10.0-50.0); Mean Corpuscular Hemoglobin 28.1 pg (28.0-32.0); Mean Corpuscular Hgb Conc. 32.6 g/dL (32.0-36.0); Mean Corpuscular Volume 86.3 fL (80.0-100.0); Monocytes # (auto) 0.5 uL; Monocytes % (auto) 9.7 % (0.0-12.0); Neutrophils # (auto) 2.4 uL; Neutrophils % (auto) 43.9 % (37.0-80.0); Nucleated Red Blood Cells % 0.3 %; Platelet Count (auto) 202 10^3/uL (140-450); Red Blood Cells 4.36 10^6/uL (4.0-5.20); Red Cell Distribution Width 16.8 % (11.8-14.3); White Blood Cell 5.5 10^3/uL (4.4-10.8)
[2018-11-11 10:40] LABS: Albumin 3.3 g/dL (3.4-5.0); Anion Gap 5 (5-15); Blood Urea Nitrogen 29 mg/dL (7-18); Calcium 8.5 mg/dL (8.5-10.1); Carbon Dioxide 28 mmol/L (21-32); Chloride 108 mmol/L (98-107); Glucose 127 mg/dL (74-106); Potassium 4.3 mmol/L (3.5-5.1); Sodium 141 mmol/L (136-145)
[2018-11-11 10:47] LABS: Alanine Aminotransferase 15 U/L (13-56); Alkaline Phosphatase 65 U/L (45-117); Aspartate Aminotransferase 12 U/L (15-37); BUN/Creatinine Ratio 21.5; Bilirubin, Total 0.4 mg/dL (0.2-1.0); GFR African American 48 mL/min; GFR Non-African American 40 mL/min; Total Protein 6.6 g/dL (6.4-8.2)
[2018-11-11] MEDS: MORPHINE SULFATE 4 MG/ML SYR/VIAL IV PRN ×3 (10:59→19:53)
[2018-11-11] MEDS ORDERED: ENOXAPARIN SOD 60 MG/0.6 ML SYRINGE SC ONE (14:00)
--- NOTE | 2018-11-11 14:10 | NUR ---
Telemetry admit from ER VIVICHERRY Evelyn admitted to Telemetry unit after SBAR received. Patient oriented to Simi Webb, primary RN, unit, room, bed, and unit policies regarding patient care and visiting hours. Patient now on continuous telemetry monitoring, tele box #[id number] and telemetry reading on arrival to unit is . Patient placed on bedside oxygen, weighed by bedscale and encouraged to call if they need something. All questions and concerns addressed, patient verbalized understanding. Note:
[2018-11-11 14:20] LABS: INR 0.91 (0.9-1.15); Partial Thromboplastin Time 24.4 sec (23.78-33.04); Prothrombin Time 9.8 sec (9.27-12.13)
[2018-11-11] MEDS ORDERED: NITROGLYCERIN 0.4 MG SL TAB SL PRN (14:30)
[2018-11-11] MEDS ORDERED: IPRATROPIUM BROM 0.5 MG/2.5ML INH SOL NEB PRN (14:30)
[2018-11-11] MEDS ORDERED: MORPHINE SULFATE 4 MG/ML SYR/VIAL IV PRN ×2 (14:30)
[2018-11-11] MEDS ORDERED: ONDANSETRON HCL 4 MG/2 ML VIAL IV PRN (14:30)
[2018-11-11] MEDS ORDERED: ALBUTEROL SULF 2.5 MG/0.5ML(0.5%) NEB SOLN NEB PRN (14:30)
[2018-11-11 17:43] VITALS: BP 102/55
--- NOTE | 2018-11-11 18:50 | NUR ---
Respiratory note: PT ASSESSED FOR PRN MED NEB TX. PT'S HR 60, RR 16, SPO2 99% ON 3L NC, BS CLEAR/DIMINISHED. NO SIGNS OF ANY RESPIRATORY DISTRESS NOTED. ADVISED PT TO PLEASE CALL IF NEEDED.
[2018-11-11] MEDS: RIOCIGUAT BASE 2.5 MG PO SCH (19:52)
[2018-11-11] MEDS: APIXABAN 5 MG TAB PO SCH (19:52)
[2018-11-11] MEDS: ATORVASTATIN 20 MG TAB PO SCH (19:52)
[2018-11-11 22:00] VITALS: BP 110/43
[2018-11-12] VITALS (7 sets, daily range): BP systolic 106–152; BP diastolic 40–71
[2018-11-12 05:54] LABS: Basophils # (auto) 0 uL; Basophils % (auto) 0.4 % (0.0-2.0); Eosinophils # (auto) 0.2 uL; Eosinophils % (auto) 3.5 % (0.0-7.0); Hematocrit 34.7 % (36.0-46.0); Hemoglobin 11.4 g/dL (12.2-16.2); Lymphocytes # (auto) 2.1 uL; Lymphocytes % (auto) 45.8 % (10.0-50.0); Mean Corpuscular Hemoglobin 28.5 pg (28.0-32.0); Mean Corpuscular Hgb Conc. 32.7 g/dL (32.0-36.0); Monocytes # (auto) 0.5 uL; Monocytes % (auto) 10.3 % (0.0-12.0); Neutrophils # (auto) 1.8 uL; Nucleated Red Blood Cells % 0.1 %; Platelet Count (auto) 178 10^3/uL (140-450); Red Blood Cells 3.99 10^6/uL (4.0-5.20); Red Cell Distribution Width 16.7 % (11.8-14.3); White Blood Cell 4.5 10^3/uL (4.4-10.8)
[2018-11-12] MEDS: RIOCIGUAT BASE 2.5 MG PO SCH ×3 (06:00→21:18)
[2018-11-12] MEDS: MECLIZINE HCL 25 MG TAB PO SCH (06:10)
[2018-11-12] MEDS: INSULIN LANTUS (GLARGINE) 1 /0.01ml (100units/ml) SC SCH (06:11)
[2018-11-12 06:21] LABS: BUN/Creatinine Ratio 21.1; Calcium 8.1 mg/dL (8.5-10.1); Magnesium 2.3 mg/dL (1.6-2.6); Potassium 4.7 mmol/L (3.5-5.1)
--- NOTE | 2018-11-12 07:25 | NUR ---
Opening Shift Note REceived report from Elisabeth BRYANT. Assumed care of patient, awake and alert. No S/S of distress/SOB or pain. Instructed about collecting stool sample to check for occult blood. Instructed on POC and to call for assist PRN, will continue to monitor for changes Q1hr and PRN.
--- NOTE | 2018-11-12 09:10 | NUR ---
Respiratory note: ASSESSED PT FOR PRN TX PT WAS AWAKE AND ALERT NO RESP DISTRESS NOTED. HR 72, RR 16, SPO2 99% ON 3L NC. BS ARE DIMINISHED. PT KNOWS TO HAVE RT PAGED IF TX IS NEEDED.
[2018-11-12] MEDS: APIXABAN 5 MG TAB PO SCH ×2 (09:18→21:17)
[2018-11-12] MEDS: ASPirin-EC 81 mg tab PO SCH (09:19)
[2018-11-12] MEDS: PARoxetine 20 MG TAB PO SCH (09:19)
[2018-11-12] MEDS: LOSARTAN POTASSIUM 50 MG TAB PO SCH (09:19)
[2018-11-12] MEDS: METOPROLOL SUCCINATE XL 50 MG TAB PO SCH (09:19)
[2018-11-12] MEDS: FERROUS SULFATE 325 MG TAB PO SCH (09:20)
[2018-11-12] MEDS: ALLOPURINOL 100 MG TAB PO SCH (09:20)
[2018-11-12] MEDS: HYDROcodone-ACET 5/325MG TAB PO PRN (11:57)
--- NOTE | 2018-11-12 11:58 | NUR ---
INFORMED DR. Juan JEWELL THAT PATIENT HAS A FEVER, NO TYLENOL ORDERED PRN. WILL GIVE NORCO PO FOR NOW.
--- NOTE | 2018-11-12 12:30 | NUR ---
Dr. Juan Amos at bedside.
[2018-11-12] MEDS ORDERED: IOHEXOL 350 MG/ML 100ML IJ ONE (13:01)
[2018-11-12] MEDS ORDERED: IODIXANOL 320MG/ML 100ML BTL IV ONE (13:40)
--- NOTE | 2018-11-12 15:30 | NUR ---
IV insertion for CT scan ANother IV access obtained, via clean sterile technique by inserting gauge catheter 20 at left forearm after 2 attempts. IV secured properly. No trauma to site. Patient tolerated well. Called Radiology and CT scan, spoke with Bright and Darrian respectively.
[2018-11-12] MEDS ORDERED: RIOCIGUAT BASE 2.5 MG PO ONE (16:30)
--- NOTE | 2018-11-12 19:31 | NUR ---
PT ASSESSED FOR PRN MED NEB TX. SPO2 100% ON 3L NC, NC TITRATED TO 2L - HR 58. PT DENIES ANY RESPIRATORY DISTRESS. NO TX INDICATED AT THIS TIME. WILL CONTINUE TO MONITOR PT.
[2018-11-12] MEDS: ATORVASTATIN 20 MG TAB PO SCH (21:17)
[2018-11-13 05:00] VITALS: BP 121/49
[2018-11-13] MEDS: MECLIZINE HCL 25 MG TAB PO SCH (06:03)
[2018-11-13] MEDS: INSULIN LANTUS (GLARGINE) 1 /0.01ml (100units/ml) SC SCH (06:04)
[2018-11-13] MEDS: RIOCIGUAT BASE 2.5 MG PO SCH ×3 (06:06→22:00)
--- NOTE | 2018-11-13 06:35 | NUR ---
Respiratory note: HR 63,16, POX 95%, BS CLEAR AND DIMINISHED. PRN [place] TX NOT WANTED AT THIS TIME.
--- NOTE | 2018-11-13 07:15 | NUR ---
Opening Shift Note REceived report from Elisabeth BRYANT. Assumed care of patient, awake and alert. No S/S of distress/SOB or pain. For VQ scan today, Luis Daniel [place] is aware. Instructed on POC and to call for assist PRN, will continue to monitor for changes Q1hr and PRN.
[2018-11-13 08:00] VITALS: BP 127/49
--- NOTE | 2018-11-13 08:35 | NUR ---
ASSISTED PATIENT TO [facility] FOR VQ SCAN BY [facility] WITH ANNE SALGUERO.
[2018-11-13 09:00] VITALS: BP_SYST 121; BP_SYST 141; BP_DIAS 49; BP_DIAS 94
--- NOTE | 2018-11-13 09:21 | NUR ---
PATIENT IS BACK TO ROOM. VQ SCAN DONE.
[2018-11-13] MEDS: ALLOPURINOL 100 MG TAB PO SCH (09:44)
[2018-11-13] MEDS: METOPROLOL SUCCINATE XL 50 MG TAB PO SCH (09:45)
[2018-11-13] MEDS: APIXABAN 5 MG TAB PO SCH (09:45)
[2018-11-13] MEDS: BUMETANIDE 1 MG TAB PO SCH (09:45)
[2018-11-13] MEDS: FERROUS SULFATE 325 MG TAB PO SCH (09:46)
[2018-11-13] MEDS: LOSARTAN POTASSIUM 50 MG TAB PO SCH (09:46)
[2018-11-13] MEDS: HYDROcodone-ACET 5/325MG TAB PO PRN ×2 (09:46→22:00)
[2018-11-13] MEDS: POTASSIUM CHLORIDE 8 MEQ TAB PO SCH (09:46)
[2018-11-13] MEDS: ASPirin-EC 81 mg tab PO SCH (09:47)
[2018-11-13] MEDS: PARoxetine 20 MG TAB PO SCH (09:47)
--- NOTE | 2018-11-13 12:05 | NUR ---
Dr. Juan Amos at bedside.
[2018-11-13 13:00] VITALS: BP 105/43
--- NOTE | 2018-11-13 16:15 | NUR ---
Dr. Hernandez at bedside. Received verbal order that patient will have [facility] on Friday (11-16-18).
[2018-11-13 17:00] VITALS: BP 114/49
[2018-11-13] MEDS: ATORVASTATIN 20 MG TAB PO SCH (21:59)
[2018-11-13 22:00] VITALS: BP 104/43
--- NOTE | 2018-11-13 22:40 | NUR ---
Respiratory note: PT SEEN FOR PRN MED NEB TX AT 2240. TREATMENT NOT INDICATED AT THIS TIME. PT IS SLEEPING COMFORTABLY WITH NO SIGNS OF DISTRESS NOTED. HR 66 RR 18 POX 97.
[2018-11-14 05:00] VITALS: BP 96/55
[2018-11-14] MEDS: RIOCIGUAT BASE 2.5 MG PO SCH ×3 (06:08→20:17)
[2018-11-14] MEDS: MECLIZINE HCL 25 MG TAB PO SCH (06:08)
[2018-11-14] MEDS: INSULIN LANTUS (GLARGINE) 1 /0.01ml (100units/ml) SC SCH (06:09)
[2018-11-14 08:08] VITALS: BP 127/49
[2018-11-14 09:00] VITALS: BP 129/54
[2018-11-14] MEDS: BUMETANIDE 1 MG TAB PO SCH (09:03)
[2018-11-14] MEDS: FERROUS SULFATE 325 MG TAB PO SCH (09:03)
[2018-11-14] MEDS: ASPirin-EC 81 mg tab PO SCH (09:03)
[2018-11-14] MEDS: LOSARTAN POTASSIUM 50 MG TAB PO SCH (09:04)
[2018-11-14] MEDS: PARoxetine 20 MG TAB PO SCH (09:04)
[2018-11-14] MEDS: ALLOPURINOL 100 MG TAB PO SCH (09:04)
[2018-11-14] MEDS: POTASSIUM CHLORIDE 8 MEQ TAB PO SCH (09:04)
[2018-11-14] MEDS: METOPROLOL SUCCINATE XL 50 MG TAB PO SCH (09:20)
[2018-11-14] MEDS ORDERED: cefTRIAXone 1GM/50ML D5W 50 ML IV ONE (09:45)
[2018-11-14] MEDS ORDERED: guaiFENesin-DM 100/10mg/5ml SYR PO PRN (09:45)
[2018-11-14] MEDS ORDERED: VANCOMYCIN PER PHARMACY 0 MG IV SCH (09:45)
[2018-11-14] MEDS ORDERED: VANCOMYCIN 1GM/250ML 250 ML IV ONE (11:00)
[2018-11-14 13:00] VITALS: BP 125/63
[2018-11-14 17:00] VITALS: BP 118/51
[2018-11-14] MEDS: ATORVASTATIN 20 MG TAB PO SCH (20:17)
[2018-11-14] MEDS: HYDROcodone-ACET 5/325MG TAB PO PRN (20:17)
[2018-11-14 22:19] VITALS: BP 97/40
[2018-11-15] VITALS (7 sets, daily range): BP systolic 98–129; BP diastolic 41–60
--- NOTE | 2018-11-15 05:46 | NUR ---
PT ASSESSED FOR PRN HHN TX. PT IS ON 2LNC, SPO2 97%. NO S/S OF RESPIRATORY DISTRESS. PT AWARE TO HAVE RT PAGED IF BREATHING TX INDICATED.
[2018-11-15] MEDS: RIOCIGUAT BASE 2.5 MG PO SCH ×3 (05:53→21:40)
[2018-11-15] MEDS: MECLIZINE HCL 25 MG TAB PO SCH (05:53)
[2018-11-15] MEDS: INSULIN LANTUS (GLARGINE) 1 /0.01ml (100units/ml) SC SCH (05:54)
[2018-11-15 06:01] LABS: Basophils # (auto) 0 uL; Basophils % (auto) 0.5 % (0.0-2.0); Eosinophils # (auto) 0.2 uL; Eosinophils % (auto) 4.1 % (0.0-7.0); Hematocrit 34.9 % (36.0-46.0); Hemoglobin 11.4 g/dL (12.2-16.2); Lymphocytes # (auto) 1.8 uL; Lymphocytes % (auto) 42.8 % (10.0-50.0); Mean Corpuscular Hemoglobin 28.4 pg (28.0-32.0); Mean Corpuscular Hgb Conc. 32.8 g/dL (32.0-36.0); Mean Corpuscular Volume 86.7 fL (80.0-100.0); Monocytes # (auto) 0.5 uL; Monocytes % (auto) 11.3 % (0.0-12.0); Neutrophils # (auto) 1.8 uL; Neutrophils % (auto) 41.3 % (37.0-80.0); Nucleated Red Blood Cells % 0.1 %; Platelet Count (auto) 177 10^3/uL (140-450); Red Blood Cells 4.02 10^6/uL (4.0-5.20); Red Cell Distribution Width 16.1 % (11.8-14.3); White Blood Cell 4.3 10^3/uL (4.4-10.8)
[2018-11-15 06:19] LABS: Potassium 4.3 mmol/L (3.5-5.1)
[2018-11-15 06:28] LABS: BUN/Creatinine Ratio 31.9; Calcium 8.7 mg/dL (8.5-10.1)
[2018-11-15] MEDS: PARoxetine 20 MG TAB PO SCH (08:38)
[2018-11-15] MEDS: BUMETANIDE 1 MG TAB PO SCH (08:38)
[2018-11-15] MEDS: ALLOPURINOL 100 MG TAB PO SCH (08:39)
[2018-11-15] MEDS: ASPirin-EC 81 mg tab PO SCH (08:39)
[2018-11-15] MEDS: METOPROLOL SUCCINATE XL 50 MG TAB PO SCH (08:39)
[2018-11-15] MEDS: FERROUS SULFATE 325 MG TAB PO SCH (08:39)
[2018-11-15] MEDS: POTASSIUM CHLORIDE 8 MEQ TAB PO SCH (08:39)
[2018-11-15] MEDS: cefTRIAXone 1GM/50ML D5W 50 ML IV SCH (08:40)
[2018-11-15] MEDS: LOSARTAN POTASSIUM 50 MG TAB PO SCH (08:40)
[2018-11-15] MEDS: VANCOMYCIN 750 MG in D5W 5% 250 ML IV SCH (14:11)
--- NOTE | 2018-11-15 18:40 | NUR ---
Respiratory note: ASSESSED PT FOR PRN MED NEB AT THIS TIME, PT DENIES SOB AT THIS TIME, NO RESP DISTRESS NOTED, NO TX INDICATED, PULSE OX 99% ON 2L NC, HR 63, RR 18, BILATERAL BS DIMINISHED.
--- NOTE | 2018-11-15 19:15 | NUR ---
ASSUMED CARE, PT. AWAKE, NO C/O PAIN, ADVISED PT. NPO AFTER MN, NO SOB.
[2018-11-15] MEDS: ATORVASTATIN 20 MG TAB PO SCH (21:40)
[2018-11-16 05:36] LABS: INR 0.93 (0.9-1.15)
[2018-11-16] MEDS: RIOCIGUAT BASE 2.5 MG PO SCH ×4 (05:38→21:22)
[2018-11-16 05:50] VITALS: BP 104/50
[2018-11-16] MEDS: MECLIZINE HCL 25 MG TAB PO SCH (06:04)
[2018-11-16] MEDS: INSULIN LANTUS (GLARGINE) 1 /0.01ml (100units/ml) SC SCH (06:04)
--- NOTE | 2018-11-16 07:35 | NUR ---
Opening Shift Note Assumed care of patient, currently sleeping, breathing even and unlabored. No S/S of distress/SOB or pain reported at this time. Instructed on POC and to call for assist PRN, call light within reach, will continue to monitor for changes Q1hr and PRN.
[2018-11-16 08:00] VITALS: BP 117/44
--- NOTE | 2018-11-16 08:17 | NUR ---
RT NOTE: WENT TO PTS ROOM TO ASSESS FOR PRN BREATHING TX, NO INDICATION FOR TX AT THIS TIME. SPO2 96% ON 3L, HR 60, RR 18. WILL CONTINUE TO MONITOR PT.
[2018-11-16 09:00] VITALS: BP 117/44
[2018-11-16] MEDS: cefTRIAXone 1GM/50ML D5W 50 ML IV SCH (10:37)
[2018-11-16] MEDS: PARoxetine 20 MG TAB PO SCH (10:38)
[2018-11-16] MEDS: FERROUS SULFATE 325 MG TAB PO SCH (10:38)
[2018-11-16] MEDS: ALLOPURINOL 100 MG TAB PO SCH (10:38)
[2018-11-16] MEDS: METOPROLOL SUCCINATE XL 50 MG TAB PO SCH (10:38)
[2018-11-16] MEDS: LOSARTAN POTASSIUM 50 MG TAB PO SCH (10:39)
--- NOTE | 2018-11-16 10:40 | NUR ---
ACTIVITY PT ASSISTED TO BSC, PT TOLERATED WELL, ASSISTED BACK TO BED, CALL LIGHT WITHIN REACH, ABLE TO DEMONSTRATE HOW TO USE CALL LIGHT, CONT CARE
--- NOTE | 2018-11-16 10:56 | NUR ---
BLOOD BLANK CALLED/ANTIBODY SCREEN POSITIVE IN CASE OF A NEED OF PRBC ORDER, ORDER NEEDS TO BE PLACED IN ADVANCE, WILL NOTIFY
--- NOTE | 2018-11-16 12:28 | NUR ---
NUTRITION ASSESSMENT NOTES Please refer to link notes of nutrition screen form filed under the intervention section of the plan of care for further details. Est. Needs based on AdBW (79 kg): 1600 kcal to 1950 kcal (20-25 kcal/kgAdBW), 79 gms to 95 gms pro (1.0-1.2 gms/kgAdBW). Will continue to monitor pertinent labs and reassess nutrient needs prn Thank you. Addendum: 11/16/18 at [address] Amended: Links added.
[2018-11-16 13:00] VITALS: BP 133/71
--- NOTE | 2018-11-16 13:25 | NUR ---
PT OFF UNIT/TAKEN TO ENROLLMENT PROCESSOR NO DISTRESS NOTED AT THIS TIME
[2018-11-16] MEDS ORDERED: IOHEXOL 350 MG/ML 100ML IJ ONE (13:55)
[2018-11-16] MEDS ORDERED: LIDOCAINE 2%HCL (LOCAL ANESTH.) INJ 20ML MDV ONE (13:55)
[2018-11-16] MEDS ORDERED: VANCOMYCIN 750 MG in D5W 5% 250 ML IV SCH (14:00)
[2018-11-16] MEDS ORDERED: MIDAZOLAM HCL 1MG/1ML-2 ML VIAL ONE (14:08)
[2018-11-16] MEDS ORDERED: ANGIOMAX 250 MG VIAL IV ONE (14:08)
[2018-11-16] MEDS ORDERED: fentaNYL CITRATE 100 MCG/2 ML VL ONE (14:08)
[2018-11-16] MEDS ORDERED: SODIUM CHL 0.9% 0 ML ONE (14:09)
[2018-11-16] MEDS ORDERED: IODIXANOL 320MG/ML 100ML BTL IV ONE (14:28)
[2018-11-16] MEDS ORDERED: SODIUM CHLORIDE 0.9% 1,000 ML IV SCH (15:17)
--- NOTE | 2018-11-16 15:50 | NUR ---
VIVICHERRY Evelyn brought to bed following Left Cardiac catheterization, on cardiac exercise physiologist and portable oxygen. Catheterization site assessed for any bleeding, redness or swelling. Right groin dressing CDI, no redness, bleeding or swelling is noted. Pedal pulses on affected leg assessed for positive tissue perfusion. Patient instructed on need to notify staff immediately if any pain, burning or wetness to site, and any lower back pain. Call light within reach and able to demonstrate how to use call light. All questions and concerns addressed, patient verbalized understanding of all education and instruction. Patient aware she is to remain in supine position and to avoid any activity to RLE until 1700
[2018-11-16] MEDS: VANCOMYCIN 750 MG in D5W 5% 250 ML IV SCH (16:50)
[2018-11-16] MEDS: POTASSIUM CHLORIDE 8 MEQ TAB PO SCH (16:51)
[2018-11-16] MEDS: ASPirin-EC 81 mg tab PO SCH (16:51)
[2018-11-16] MEDS: BUMETANIDE 1 MG TAB PO SCH (16:51)
--- NOTE | 2018-11-16 19:05 | NUR ---
ASSUMED CARE, PT AWAKE, EATING HER DINNER, NO C/O PAIN, DRESSING ON RT. GROIN DRY AND INTACT, NO SOB.
[2018-11-16] MEDS: ATORVASTATIN 20 MG TAB PO SCH (21:22)
[2018-11-16 22:00] VITALS: BP 141/76
--- NOTE | 2018-11-16 22:34 | NUR ---
Respiratory note: PT SEEN AND ASSESSED FOR PRN MED NEB TX AT 2234. TX NOT INDICATED AT THIS TIME. PT IS SLEEPING WITH NO DISTRESS OR SOB NOTED. HR 62 RR 18 SP02 96% ON 2L NASAL CANNULA.
[2018-11-17 04:58] VITALS: BP 118/53
[2018-11-17] MEDS: RIOCIGUAT BASE 2.5 MG PO SCH ×3 (06:16→21:44)
[2018-11-17] MEDS: MECLIZINE HCL 25 MG TAB PO SCH (06:17)
[2018-11-17] MEDS: INSULIN LANTUS (GLARGINE) 1 /0.01ml (100units/ml) SC SCH (06:17)
--- NOTE | 2018-11-17 07:30 | NUR ---
Opening Shift Note Assumed care of patient, sleeping and appears comfortable. No S/S of distress/SOB or pain. Instructed on POC and to call for assist PRN, will continue to monitor for changes Q1hr and PRN.
[2018-11-17 09:00] VITALS: BP 131/63
[2018-11-17] MEDS: cefTRIAXone 1GM/50ML D5W 50 ML IV SCH (09:06)
[2018-11-17] MEDS: METOPROLOL SUCCINATE XL 50 MG TAB PO SCH (09:11)
[2018-11-17] MEDS: FERROUS SULFATE 325 MG TAB PO SCH (09:12)
[2018-11-17] MEDS: BUMETANIDE 1 MG TAB PO SCH (09:12)
[2018-11-17] MEDS: POTASSIUM CHLORIDE 8 MEQ TAB PO SCH (09:13)
[2018-11-17] MEDS: PARoxetine 20 MG TAB PO SCH (09:13)
[2018-11-17] MEDS: LOSARTAN POTASSIUM 50 MG TAB PO SCH (09:14)
[2018-11-17] MEDS: ALLOPURINOL 100 MG TAB PO SCH (09:14)
[2018-11-17] MEDS: ASPirin-EC 81 mg tab PO SCH (09:14)
[2018-11-17 13:29] LABS: Basophils # (auto) 0 uL; Basophils % (auto) 0.9 % (0.0-2.0); Eosinophils # (auto) 0.2 uL; Eosinophils % (auto) 3.9 % (0.0-7.0); Hematocrit 36.3 % (36.0-46.0); Lymphocytes # (auto) 1.8 uL; Lymphocytes % (auto) 35.8 % (10.0-50.0); Mean Corpuscular Hemoglobin 28.4 pg (28.0-32.0); Mean Corpuscular Hgb Conc. 32.9 g/dL (32.0-36.0); Mean Corpuscular Volume 86.2 fL (80.0-100.0); Monocytes # (auto) 0.5 uL; Monocytes % (auto) 10.2 % (0.0-12.0); Neutrophils # (auto) 2.5 uL; Neutrophils % (auto) 49.2 % (37.0-80.0); Platelet Count (auto) 204 10^3/uL (140-450); Red Blood Cells 4.21 10^6/uL (4.0-5.20); Red Cell Distribution Width 16.2 % (11.8-14.3); White Blood Cell 5.2 10^3/uL (4.4-10.8)
--- NOTE | 2018-11-17 13:36 | NUR ---
Regarding discharge I spoke to Hospitalist Dr Amos regarding discharge and pt unable to be picked up at this time. Per patient, her daughter and granddaughter work until 11pm at "[place] and can't come until after work". Patient states her daughter will be able to pick her up after work. Pt states she has no way of getting into her house even if she was able to get a ride back home due lack of keys in her possession at this time. She states "noone else will be able to open up the door to her house and her daughter and granddaughter are at work" as she mention previously. Pt has o2 at home and her daughter will brain picker her tank from her house and bring it for her to be transported home. I spoke to staff development coordinator and was instructed to contact social insurance analyst for options? for patient to be able to go home today?. I spoke to social insurance analyst Anju regarding pt having no way to get in to her house, she states pt will need to remain here (in the hospital) until she can be safely picked up by her daughter or granddaughter. I notified Dr Amos and he states is okay for patient to continue admission until she is picked up at 1am as the daughter told nurse Turk. Patient aware, primary rn Rosalee aware.
[2018-11-17 13:42] LABS: Calcium 8.4 mg/dL (8.5-10.1); Potassium 4.4 mmol/L (3.5-5.1)
[2018-11-17 13:45] LABS: Bilirubin, Total 0.3 mg/dL (0.2-1.0); Total Protein 6.6 g/dL (6.4-8.2)
[2018-11-17 13:46] VITALS: BP 122/61
[2018-11-17] MEDS: VANCOMYCIN 750 MG in D5W 5% 250 ML IV SCH (14:27)
--- NOTE | 2018-11-17 14:47 | NUR ---
Discharge - called family This nurse returned call to patient's daughter, Stacy, to let her know the MD said the patient could stay until 1 am when family will be available to pick her up as she has no other way to get into her home.
--- NOTE | 2018-11-17 15:09 | NUR ---
Respiratory note: PT ASSESSED FOR PRN MED NEB TX, NO TX DESIRED NOR INDICATED. PT AND RN AWARE TO HAVE RT PAGED IF NEEDED. HR 78 RR 17 SPO2 97% ON 2L N/C BREATH SOUNDS ARE DIMINISHED T/O.
[2018-11-17 17:05] VITALS: BP 109/55
--- NOTE | 2018-11-17 19:00 | NUR ---
assumed care, pt. awake, no c/o pain, pt. d/c home tonight, waiting for her grand daughter to pick her up ,no sob.
[2018-11-17 21:43] VITALS: BP 108/53
[2018-11-17] MEDS: ATORVASTATIN 20 MG TAB PO SCH (21:44)
--- NOTE | 2018-11-17 22:30 | NUR ---
pt. d/c home with relatives in stable condition, iv removed and tele monitor sent to [facility].
== END 2018-11-17 22:30 | disposition home or self-care (01) | DRG 286 ==
LOC: EDBD 09:04 → ER 09:06 → TELE-WESTW 13:51
PROVIDERS: ADMIT Nurse Practitioner Acute Care; ATTEND Family Medicine
PROC: 4A023N7 Measurement of Cardiac Sampling and Pressure, Left Heart, Percutaneous Approach (ICD-10-PCS; principal; 2018-11-16)
PROC: B2151ZZ Fluoroscopy of Left Heart using Low Osmolar Contrast (ICD-10-PCS; 2018-11-16)
PROC: B2111ZZ Fluoroscopy of Multiple Coronary Arteries using Low Osmolar Contrast (ICD-10-PCS; 2018-11-16)
DX: I13.0 Hypertensive heart and chronic kidney disease with heart failure and stage 1 through stage 4 chronic kidney disease, or unspecified chronic kidney disease (principal); J96.20 Acute and chronic respiratory failure, unspecified whether with hypoxia or hypercapnia; I50.43 Acute on chronic combined systolic (congestive) and diastolic (congestive) heart failure; J44.1 Chronic obstructive pulmonary disease with (acute) exacerbation; E44.1 Mild protein-calorie malnutrition; L03.116 Cellulitis of left lower limb; L03.115 Cellulitis of right lower limb; Z68.42 Body mass index [BMI] 45.0-49.9, adult; R07.9 Chest pain, unspecified; I70.0 Atherosclerosis of aorta; E11.21 Type 2 diabetes mellitus with diabetic nephropathy; N18.3 Chronic kidney disease, stage 3 (moderate); E11.22 Type 2 diabetes mellitus with diabetic chronic kidney disease; E78.00 Pure hypercholesterolemia, unspecified; E66.01 Morbid (severe) obesity due to excess calories; Z99.81 Dependence on supplemental oxygen; F32.9 Major depressive disorder, single episode, unspecified; Z88.8 Allergy status to other drugs, medicaments and biological substances; E11.51 Type 2 diabetes mellitus with diabetic peripheral angiopathy without gangrene; E78.5 Hyperlipidemia, unspecified; I25.10 Atherosclerotic heart disease of native coronary artery without angina pectoris; K21.9 Gastro-esophageal reflux disease without esophagitis; Z79.4 Long term (current) use of insulin; Z82.49 Family history of ischemic heart disease and other diseases of the circulatory system; Z83.3 Family history of diabetes mellitus; Z86.718 Personal history of other venous thrombosis and embolism; Z86.73 Personal history of transient ischemic attack (TIA), and cerebral infarction without residual deficits; Z95.5 Presence of coronary angioplasty implant and graft; Z96.649 Presence of unspecified artificial hip joint; Z79.82 Long term (current) use of aspirin; Z79.899 Other long term (current) drug therapy
CPT/HCPCS: 36415; 71046; 71275; 78582; 80048; 80053; 80061; 80202; 82962; 83735; 83880; 84443; 84484; 85025; 85379; 85610; 85730; 86850; 86870; 86900; 86901; 93005; 93306; 93458; 93970; 94761; 96361; 96372; 96374; 96375; G0378; J0696; J1815; J2250; J2405; J7060; Q9967

== ENCOUNTER → 2018-11-23 | Outpatient (CLI) | payer MEDICARE, MEDICAID ==
[2018-11-23] VITALS (7 sets, daily range): BP systolic 114–152; BP diastolic 51–88
[~2018-11-23] MED LIST changes: +FUROSEMIDE 100 MG/10ML VIAL IV ONE; +FUROSEMIDE INJECTION 10 ML ONE; +POTASSIUM CHL 10 Meq TABLET PO ONE; +POTASSIUM CHL 20 Meq TABLET PO ONE
--- NOTE | 2018-11-23 12:27 | NUR ---
CHF PT TO CHF CLINIC FOR MD FRANNIE HOLLAND.
[2018-11-23] MEDS: SODIUM CHLORIDE 0.9% 100 ML IV SCH (12:40)
--- NOTE | 2018-11-23 12:40 | NUR ---
CHF Corrie Cath Insertion 20 gauge Corrie Cath inserted using sterile technique in the upper chest with occlusive dressing over conner needle. Patient tolerated procedure well. Ordered labs drawn and sent. See e-MAR for medications given during this visit. Clinic Provider Clinic Provider DR KATHLEEN pt with new orders received and carried out. Lasix gtt started at {30}mg/hr per MD order.
[2018-11-23 16:25] LABS: BUN/Creatinine Ratio 20.3; Calcium 8.2 mg/dL (8.5-10.1); Magnesium 2.1 mg/dL (1.6-2.6); Potassium 3.9 mmol/L (3.5-5.1)
[2018-11-23 16:37] LABS: Basophils # (auto) 0.1 uL; Basophils % (auto) 1.1 % (0.0-2.0); Eosinophils # (auto) 0.6 uL; Hematocrit 35.1 % (36.0-46.0); Hemoglobin 11.5 g/dL (12.2-16.2); Lymphocytes # (auto) 2.4 uL; Lymphocytes % (auto) 34.2 % (10.0-50.0); Mean Corpuscular Hemoglobin 28.6 pg (28.0-32.0); Mean Corpuscular Hgb Conc. 32.7 g/dL (32.0-36.0); Mean Corpuscular Volume 87.4 fL (80.0-100.0); Monocytes # (auto) 0.6 uL; Monocytes % (auto) 9.1 % (0.0-12.0); Neutrophils # (auto) 3.4 uL; Neutrophils % (auto) 47.6 % (37.0-80.0); Nucleated Red Blood Cells % 0.5 %; Platelet Count (auto) 227 10^3/uL (140-450); Red Blood Cells 4.01 10^6/uL (4.0-5.20); Red Cell Distribution Width 16.5 % (11.8-14.3); White Blood Cell 7.1 10^3/uL (4.4-10.8)
== END | disposition home or self-care (01) ==
LOC: CHF HDHVI 12:30
PROVIDERS: ATTEND Internal Medicine Cardiovascular Disease
DX: I13.0 Hypertensive heart and chronic kidney disease with heart failure and stage 1 through stage 4 chronic kidney disease, or unspecified chronic kidney disease (principal); E11.22 Type 2 diabetes mellitus with diabetic chronic kidney disease; I50.42 Chronic combined systolic (congestive) and diastolic (congestive) heart failure; N18.4 Chronic kidney disease, stage 4 (severe); I25.10 Atherosclerotic heart disease of native coronary artery without angina pectoris; E83.40 Disorders of magnesium metabolism, unspecified; D64.9 Anemia, unspecified; E11.51 Type 2 diabetes mellitus with diabetic peripheral angiopathy without gangrene; E11.319 Type 2 diabetes mellitus with unspecified diabetic retinopathy without macular edema; I48.91 Unspecified atrial fibrillation; I27.21 Secondary pulmonary arterial hypertension; J44.9 Chronic obstructive pulmonary disease, unspecified; J96.10 Chronic respiratory failure, unspecified whether with hypoxia or hypercapnia; K21.9 Gastro-esophageal reflux disease without esophagitis; E66.01 Morbid (severe) obesity due to excess calories; E03.9 Hypothyroidism, unspecified; E78.5 Hyperlipidemia, unspecified; F41.9 Anxiety disorder, unspecified; G89.29 Other chronic pain; G47.30 Sleep apnea, unspecified; E78.00 Pure hypercholesterolemia, unspecified; M19.90 Unspecified osteoarthritis, unspecified site; Z68.41 Body mass index [BMI] 40.0-44.9, adult; Z99.81 Dependence on supplemental oxygen; Z79.82 Long term (current) use of aspirin; Z79.4 Long term (current) use of insulin; Z79.899 Other long term (current) drug therapy; Z79.01 Long term (current) use of anticoagulants; Z86.711 Personal history of pulmonary embolism; Z96.649 Presence of unspecified artificial hip joint; Z86.73 Personal history of transient ischemic attack (TIA), and cerebral infarction without residual deficits; Z95.5 Presence of coronary angioplasty implant and graft
CPT/HCPCS: 36415; 80048; 83735; 83880; 85025; 96365; 96366; G0463; J1642; J1940

== ENCOUNTER → 2018-11-30 | Outpatient (CLI) | payer MEDICARE, MEDICAID ==
--- NOTE | 2018-11-30 12:23 | NUR ---
CHF PT ARRIVAL TO CHF CLINIC FOR LASIX DRIP. ALERT AND ORIENTED X 3. V/S OBTAINED ORDERS RECIEVED FROM
--- NOTE | 2018-11-30 12:51 | NUR ---
Corrie Cath Insertion 20 gauge Corrie Cath inserted using sterile technique in the upper chest with occlusive dressing over conner needle. Patient tolerated procedure well. Ordered labs drawn and sent. See e-MAR for medications given during this visit.
[2018-11-30 13:00] VITALS: BP 105/38
[2018-11-30 13:15] VITALS: BP 110/37
[2018-11-30 14:00] VITALS: BP 128/50
[2018-11-30 14:30] VITALS: BP 127/52
[2018-11-30 16:08] VITALS: BP 144/67
--- NOTE | 2018-11-30 16:08 | NUR ---
Discharge Instructions See e-MAR for any mediations given with this visit. Patient education given on disease process. Patient verbalized understanding. Previous labs reviewed. Patient discharged in stable condition with after care instructions and follow up appointment. medications LASIX DRIP START TIME 1251 STOP TIME 1600 POTASSIUM 30 MEQ PO X 1 HEPARIN 500 UNITS IV X A TO PORAT CATH
--- NOTE | 2018-11-30 16:08 | NUR ---
CHF Corrie Cath Removal Gutierrez needle D/C'd after Heparin flush per protocol. See e-MAR for medications given during this visit. Sterile occlusive dressing to site. Patient tolerated procedure well. Site benign post infusion.
[2018-11-30 16:13] LABS: Calcium 6.4 mg/dL (8.5-10.1); Magnesium 1.6 mg/dL (1.6-2.6); Potassium 3.1 mmol/L (3.5-5.1)
[2018-11-30 16:18] LABS: Basophils # (auto) 0 uL; Basophils % (auto) 0.7 % (0.0-2.0); Eosinophils # (auto) 0.7 uL; Eosinophils % (auto) 11.3 % (0.0-7.0); Hematocrit 30.9 % (36.0-46.0); Hemoglobin 9.9 g/dL (12.2-16.2); Lymphocytes # (auto) 2.1 uL; Lymphocytes % (auto) 33.8 % (10.0-50.0); Mean Corpuscular Hemoglobin 28.1 pg (28.0-32.0); Monocytes # (auto) 0.5 uL; Monocytes % (auto) 7.6 % (0.0-12.0); Neutrophils # (auto) 2.9 uL; Neutrophils % (auto) 46.6 % (37.0-80.0); Nucleated Red Blood Cells % 0.2 %; Platelet Count (auto) 212 10^3/uL (140-450); Red Blood Cells 3.52 10^6/uL (4.0-5.20); Red Cell Distribution Width 16.5 % (11.8-14.3); White Blood Cell 6.2 10^3/uL (4.4-10.8)
== END | disposition home or self-care (01) ==
LOC: CHF HDHVI 12:21
PROVIDERS: ATTEND Internal Medicine Cardiovascular Disease
DX: I13.0 Hypertensive heart and chronic kidney disease with heart failure and stage 1 through stage 4 chronic kidney disease, or unspecified chronic kidney disease (principal); E11.22 Type 2 diabetes mellitus with diabetic chronic kidney disease; N18.4 Chronic kidney disease, stage 4 (severe); I50.42 Chronic combined systolic (congestive) and diastolic (congestive) heart failure; E83.40 Disorders of magnesium metabolism, unspecified; D64.9 Anemia, unspecified; I27.21 Secondary pulmonary arterial hypertension; I25.10 Atherosclerotic heart disease of native coronary artery without angina pectoris; E11.51 Type 2 diabetes mellitus with diabetic peripheral angiopathy without gangrene; E11.319 Type 2 diabetes mellitus with unspecified diabetic retinopathy without macular edema; M19.90 Unspecified osteoarthritis, unspecified site; G89.29 Other chronic pain; J44.9 Chronic obstructive pulmonary disease, unspecified; F32.9 Major depressive disorder, single episode, unspecified; E66.01 Morbid (severe) obesity due to excess calories; F41.9 Anxiety disorder, unspecified; E78.00 Pure hypercholesterolemia, unspecified; Z86.73 Personal history of transient ischemic attack (TIA), and cerebral infarction without residual deficits; Z95.1 Presence of aortocoronary bypass graft; Z79.899 Other long term (current) drug therapy; Z86.711 Personal history of pulmonary embolism; Z90.49 Acquired absence of other specified parts of digestive tract; Z79.01 Long term (current) use of anticoagulants; Z79.4 Long term (current) use of insulin; Z68.41 Body mass index [BMI] 40.0-44.9, adult; Z99.81 Dependence on supplemental oxygen
CPT/HCPCS: 36415; 80048; 83735; 85025; 96365; 96366; G0463; J1642; J1940

== ENCOUNTER → 2018-12-03 | Outpatient (CLI) | payer MEDICARE, MEDICAID ==
[~2018-12-03] MED LIST changes: +CYANOCOBALAMIN (B-12) 1000 MCG/1 ML VIAL IM ONE; +CYANOCOBALAMIN (B-12) 1000 MCG/1 ML VIAL ONE; +MAGNESIUM SULFATE 1GM/100ML 200 ML IV ONE
--- NOTE | 2018-12-03 10:19 | NUR ---
CHF PT TO CHF CLINIC FOR FOLLOW UP AND LASIX INFUSION THERAPY. ALERT ORIENTED DISCUSSED PLAN OF CARE, PT VERBALIZED UNDERSTANDING
--- NOTE | 2018-12-03 10:25 | NUR ---
Corrie Cath Insertion 20 gauge NON CORING Corrie Cath inserted using sterile technique in the upper chest with occlusive dressing over conner needle. Patient tolerated procedure well. Ordered labs drawn and sent. See e-MAR for medications given during this visit.
[2018-12-03 10:45] VITALS: BP 123/47
[2018-12-03 11:15] VITALS: BP 115/48
[2018-12-03 11:45] VITALS: BP 112/69
[2018-12-03] MEDS: MAGNESIUM SULFATE 1GM/100ML 100 ML IV SCH ×2 (11:57→14:00)
[2018-12-03 12:30] VITALS: BP 109/43
[2018-12-03 13:00] VITALS: BP 104/41
--- NOTE | 2018-12-03 13:45 | NUR ---
Corrie Cath Removal Gutierrez needle D/C'd after Heparin flush per protocol. See e-MAR for medications given during this visit. Sterile occlusive dressing to site. Patient tolerated procedure well. Site benign post infusion.
[2018-12-03 14:00] VITALS: BP 120/54
--- NOTE | 2018-12-03 14:00 | NUR ---
Discharge Instructions See e-MAR for any mediations given with this visit. Patient education given on disease process. Patient verbalized understanding. Previous labs reviewed. Patient discharged in stable condition with after care instructions and follow up appointment. MEDICATIONS 1030 START TIME LASIX DRIP 30MG/HR X 3 HOURS 1330 STOP TIME LASIX DRIP 1157 START MAGNESIUM IVPB X 2 1400 STOP MAGNESIUM 1034 VITAMIN B12 1000 MCG IM 1050 POTASSIUM 40 meq X 1 1345 HEPARIN 500 UNITS IV PUSH X 1
[2018-12-03 16:09] LABS: Albumin 3.3 g/dL (3.4-5.0); BUN/Creatinine Ratio 16.3; Calcium 8.5 mg/dL (8.5-10.1); Phosphorus 3.4 mg/dL (2.5-4.90); Potassium 3.9 mmol/L (3.5-5.1); Uric Acid 9.8 mg/dL (2.6-6.0)
[2018-12-03 16:19] LABS: Urine Blood Negative /uL (Negative); Urine Specific Gravity 1.007 (1.001-1.035)
[2018-12-03 16:25] LABS: Hematocrit 37.2 % (36.0-46.0); Hemoglobin 11.9 g/dL (12.2-16.2); Mean Corpuscular Hgb Conc. 31.9 g/dL (32.0-36.0); Mean Corpuscular Volume 87.7 fL (80.0-100.0); Platelet Count (auto) 227 10^3/uL (140-450); Red Blood Cells 4.24 10^6/uL (4.0-5.20); Red Cell Distribution Width 16.8 % (11.8-14.3); White Blood Cell 6.8 10^3/uL (4.4-10.8)
[2018-12-03 17:02] LABS: Band Neutrophils % (manual) 0; Basophils % (manual) 0 (0.0-2.0); Blast Cells 0; Metamyelocytes % 0; Myelocytes % 0; Promyelocytes % 0; Reactive Lymphocytes 0
[2018-12-03 20:09] LABS: Eosinophils % (manual) 18 (0-7); Lymphocytes % (manual) 30 (10.0-50.0); Monocytes % (manual) 9 (0-12)
[2018-12-04 12:32] LABS: Creatinine, Urine 17.8 mg/dL (30.0-125.0)
[2018-12-04 12:33] LABS: Protein, Urine 5.2 mg/dL (0.0-11.9)
== END | disposition home or self-care (01) ==
LOC: CHF HDHVI 10:19
PROVIDERS: ATTEND Internal Medicine Cardiovascular Disease
DX: I13.0 Hypertensive heart and chronic kidney disease with heart failure and stage 1 through stage 4 chronic kidney disease, or unspecified chronic kidney disease (principal); E11.22 Type 2 diabetes mellitus with diabetic chronic kidney disease; I50.42 Chronic combined systolic (congestive) and diastolic (congestive) heart failure; N18.4 Chronic kidney disease, stage 4 (severe); R80.9 Proteinuria, unspecified; E21.4 Other specified disorders of parathyroid gland; R94.4 Abnormal results of kidney function studies; M10.9 Gout, unspecified; D64.9 Anemia, unspecified; N39.0 Urinary tract infection, site not specified; I27.21 Secondary pulmonary arterial hypertension; R53.81 Other malaise; I48.91 Unspecified atrial fibrillation; E66.01 Morbid (severe) obesity due to excess calories; G47.30 Sleep apnea, unspecified; J96.10 Chronic respiratory failure, unspecified whether with hypoxia or hypercapnia; G89.29 Other chronic pain; K21.9 Gastro-esophageal reflux disease without esophagitis; J44.9 Chronic obstructive pulmonary disease, unspecified; E78.5 Hyperlipidemia, unspecified; E03.9 Hypothyroidism, unspecified; E44.1 Mild protein-calorie malnutrition; E78.00 Pure hypercholesterolemia, unspecified; E11.51 Type 2 diabetes mellitus with diabetic peripheral angiopathy without gangrene; E11.319 Type 2 diabetes mellitus with unspecified diabetic retinopathy without macular edema; Z79.4 Long term (current) use of insulin; Z79.82 Long term (current) use of aspirin; Z99.81 Dependence on supplemental oxygen; Z96.649 Presence of unspecified artificial hip joint; Z68.41 Body mass index [BMI] 40.0-44.9, adult; Z79.01 Long term (current) use of anticoagulants; Z86.73 Personal history of transient ischemic attack (TIA), and cerebral infarction without residual deficits; Z86.711 Personal history of pulmonary embolism; Z87.440 Personal history of urinary (tract) infections; Z95.1 Presence of aortocoronary bypass graft; Z86.718 Personal history of other venous thrombosis and embolism
CPT/HCPCS: 36415; 80069; 81003; 82306; 82570; 83970; 84156; 84550; 85007; 85027; 96365; 96366; 96368; 96372; G0463; J1642; J1940; J3420; J3475

== ENCOUNTER → 2018-12-07 | Outpatient (CLI) | payer MEDICARE, MEDICAID ==
[~2018-12-07] MED LIST changes: -CYANOCOBALAMIN (B-12) 1000 MCG/1 ML VIAL IM ONE; -CYANOCOBALAMIN (B-12) 1000 MCG/1 ML VIAL ONE; -MAGNESIUM SULFATE 1GM/100ML 200 ML IV ONE; -POTASSIUM CHL 20 Meq TABLET PO ONE; +SODIUM CHLORIDE 0.9% 100 ML IV ONE
--- NOTE | 2018-12-07 13:15 | NUR ---
Corrie Cath Insertion 20 gauge Corrie Cath inserted by Tete BRYANT using sterile technique in the R upper chest with occlusive dressing over conner needle. Patient tolerated procedure well. Ordered labs drawn and sent. See e-MAR for medications given during this visit.
[2018-12-07 13:30] VITALS: BP 139/61
[2018-12-07 14:00] VITALS: BP 121/56
[2018-12-07 15:00] VITALS: BP 134/69
[2018-12-07 15:30] VITALS: BP 138/51
[2018-12-07 16:00] VITALS: BP 155/65
[2018-12-07 16:18] LABS: BUN/Creatinine Ratio 21.7; Calcium 8.6 mg/dL (8.5-10.1); Magnesium 2.1 mg/dL (1.6-2.6); Potassium 3.7 mmol/L (3.5-5.1)
[2018-12-07 16:35] VITALS: BP 138/66
--- NOTE | 2018-12-07 16:35 | NUR ---
CHF CLINIC Discharge Instructions See e-MAR for any mediations given with this visit. Patient education given on disease process. Patient verbalized understanding. Previous labs reviewed. Patient discharged in stable condition with after care instructions and follow up appointment. NOTE LASIX [id number] ADMIN BY NICOLETTE BRYANT POTASSIUM PO ADMIN BY YOVANY BRYANT HEPARIN ADMIN BY NICOLETTE BRYANT
== END | disposition home or self-care (01) ==
LOC: CHF HDHVI 12:53
PROVIDERS: ATTEND Internal Medicine Cardiovascular Disease
DX: I13.0 Hypertensive heart and chronic kidney disease with heart failure and stage 1 through stage 4 chronic kidney disease, or unspecified chronic kidney disease (principal); I50.42 Chronic combined systolic (congestive) and diastolic (congestive) heart failure; E11.22 Type 2 diabetes mellitus with diabetic chronic kidney disease; N18.4 Chronic kidney disease, stage 4 (severe); E83.40 Disorders of magnesium metabolism, unspecified; J44.9 Chronic obstructive pulmonary disease, unspecified; J96.10 Chronic respiratory failure, unspecified whether with hypoxia or hypercapnia; I27.21 Secondary pulmonary arterial hypertension; E11.319 Type 2 diabetes mellitus with unspecified diabetic retinopathy without macular edema; E78.5 Hyperlipidemia, unspecified; E03.9 Hypothyroidism, unspecified; F41.9 Anxiety disorder, unspecified; E66.01 Morbid (severe) obesity due to excess calories; E78.00 Pure hypercholesterolemia, unspecified; E44.1 Mild protein-calorie malnutrition; M19.90 Unspecified osteoarthritis, unspecified site; M10.9 Gout, unspecified; G47.30 Sleep apnea, unspecified; G89.29 Other chronic pain; Z79.01 Long term (current) use of anticoagulants; Z79.4 Long term (current) use of insulin; Z79.899 Other long term (current) drug therapy; Z87.01 Personal history of pneumonia (recurrent); Z95.1 Presence of aortocoronary bypass graft; Z95.5 Presence of coronary angioplasty implant and graft; Z87.440 Personal history of urinary (tract) infections; Z86.711 Personal history of pulmonary embolism; Z96.649 Presence of unspecified artificial hip joint; Z90.49 Acquired absence of other specified parts of digestive tract; Z86.73 Personal history of transient ischemic attack (TIA), and cerebral infarction without residual deficits; Z68.41 Body mass index [BMI] 40.0-44.9, adult
CPT/HCPCS: 36415; 80048; 83735; 96365; 96366; G0463; J1642; J1940

== ENCOUNTER → 2018-12-14 | Outpatient (CLI) | payer MEDICARE, MEDICAID ==
[2018-12-14] VITALS (7 sets, daily range): BP systolic 112–151; BP diastolic 48–61
[~2018-12-14] MED LIST changes: -FUROSEMIDE 100 MG/10ML VIAL IV ONE; +FUROSEMIDE IV SCH; +POTASSIUM CHL 20 Meq TABLET PO ONE; +SODIUM CHL 0.9% IV SCH; -SODIUM CHLORIDE 0.9% 100 ML IV ONE; +SODIUM CHLORIDE 0.9% 100 ML IV SCH
--- NOTE | 2018-12-14 13:00 | NUR ---
CHF PT ARRIVED AT CHF CLINIC FOR LASIX THERAPY, V/S OBTAINED 0 DISTRESS
--- NOTE | 2018-12-14 13:10 | NUR ---
Corrie Cath Insertion 20 gauge Corire Cath inserted using sterile technique in the upper chest with occlusive dressing over conner needle. Patient tolerated procedure well. . See e-MAR for medications given during this visit.
--- NOTE | 2018-12-14 16:20 | NUR ---
Discharge Instructions See e-MAR for any mediations given with this visit. Patient education given on disease process. Patient verbalized understanding. Previous labs reviewed. Patient discharged in stable condition with after care instructions and follow up appointment. MEDICATIONS 1327 LASIX START TIME 1620 LASIX STOP TIME HEPARIN 500 MF IVP X 1 POTASSIUM 40 MEQ PO X 1
== END | disposition home or self-care (01) ==
LOC: CHF HDHVI 12:42
PROVIDERS: ATTEND Internal Medicine Cardiovascular Disease
DX: I27.21 Secondary pulmonary arterial hypertension (principal); I13.0 Hypertensive heart and chronic kidney disease with heart failure and stage 1 through stage 4 chronic kidney disease, or unspecified chronic kidney disease; E11.22 Type 2 diabetes mellitus with diabetic chronic kidney disease; N18.4 Chronic kidney disease, stage 4 (severe); I50.42 Chronic combined systolic (congestive) and diastolic (congestive) heart failure; J96.10 Chronic respiratory failure, unspecified whether with hypoxia or hypercapnia; I25.10 Atherosclerotic heart disease of native coronary artery without angina pectoris; I48.91 Unspecified atrial fibrillation; I70.0 Atherosclerosis of aorta; J44.9 Chronic obstructive pulmonary disease, unspecified; K21.9 Gastro-esophageal reflux disease without esophagitis; E78.5 Hyperlipidemia, unspecified; E03.9 Hypothyroidism, unspecified; E66.01 Morbid (severe) obesity due to excess calories; G89.29 Other chronic pain; E78.00 Pure hypercholesterolemia, unspecified; E11.51 Type 2 diabetes mellitus with diabetic peripheral angiopathy without gangrene; E11.319 Type 2 diabetes mellitus with unspecified diabetic retinopathy without macular edema; E11.40 Type 2 diabetes mellitus with diabetic neuropathy, unspecified; F41.9 Anxiety disorder, unspecified; F32.9 Major depressive disorder, single episode, unspecified; Z79.82 Long term (current) use of aspirin; Z79.01 Long term (current) use of anticoagulants; Z68.41 Body mass index [BMI] 40.0-44.9, adult; Z79.4 Long term (current) use of insulin; Z79.899 Other long term (current) drug therapy; Z86.73 Personal history of transient ischemic attack (TIA), and cerebral infarction without residual deficits; Z95.5 Presence of coronary angioplasty implant and graft; Z86.711 Personal history of pulmonary embolism; Z96.649 Presence of unspecified artificial hip joint; Z99.81 Dependence on supplemental oxygen
CPT/HCPCS: 96365; 96366; G0463; J1642; J1940

== ENCOUNTER → 2018-12-17 | Outpatient (CLI) | payer MEDICARE, MEDICAID ==
[~2018-12-17] VITALS: Ht 33 cm; Wt 129.3 kg
[~2018-12-17] MED LIST changes: +CYANOCOBALAMIN (B-12) 1000 MCG/1 ML VIAL IM ONE; +CYANOCOBALAMIN (B-12) 1000 MCG/1 ML VIAL ONE; +FUROSEMIDE INJECTION 100 MG in SODIUM CHL 0.9% 100 ML IV ONE; -FUROSEMIDE IV SCH; -SODIUM CHL 0.9% IV SCH; -SODIUM CHLORIDE 0.9% 100 ML IV SCH
--- NOTE | 2018-12-17 10:28 | NUR ---
CHF PT ARRIVED TO CHF CLINIC FOR LASIX TREATMENT , V/S OBTAINED 0 DISTRESS. DISCUSSED PLAN OF CARE PT VERBALIZED UNDERSTANDING
[2018-12-17 11:05] VITALS: BP 103/44
[2018-12-17 11:45] VITALS: BP 123/49
[2018-12-17 12:22] LABS: Basophils # (auto) 0 uL; Basophils % (auto) 0.4 % (0.0-2.0); Eosinophils # (auto) 0.5 uL; Eosinophils % (auto) 10.6 % (0.0-7.0); Hematocrit 36.1 % (36.0-46.0); Hemoglobin 11.8 g/dL (12.2-16.2); Lymphocytes # (auto) 1.7 uL; Lymphocytes % (auto) 34.9 % (10.0-50.0); Mean Corpuscular Hemoglobin 28.2 pg (28.0-32.0); Mean Corpuscular Hgb Conc. 32.6 g/dL (32.0-36.0); Mean Corpuscular Volume 86.5 fL (80.0-100.0); Monocytes # (auto) 0.5 uL; Monocytes % (auto) 11.3 % (0.0-12.0); Neutrophils % (auto) 42.8 % (37.0-80.0); Nucleated Red Blood Cells % 0.1 %; Platelet Count (auto) 197 10^3/uL (140-450); Red Blood Cells 4.18 10^6/uL (4.0-5.20); Red Cell Distribution Width 16.7 % (11.8-14.3); White Blood Cell 4.7 10^3/uL (4.4-10.8)
[2018-12-17 12:30] VITALS: BP 124/55
[2018-12-17 12:59] LABS: Calcium 8.4 mg/dL (8.5-10.1); Potassium 3.9 mmol/L (3.5-5.1)
[2018-12-17 13:01] LABS: BUN/Creatinine Ratio 16.2
[2018-12-17 13:30] VITALS: BP 113/58
[2018-12-17 14:27] VITALS: BP 122/60
--- NOTE | 2018-12-17 14:27 | NUR ---
Discharge Instructions See e-MAR for any mediations given with this visit. Patient education given on disease process. Patient verbalized understanding. Previous labs reviewed. Patient discharged in stable condition with after care instructions and follow up appointment. MEDICATIONS START TIME 1105 LASIX DRIP 30MG/HR STOP TIME LASIX DRIP 1405 1419 B12 INJECTION 1000MCG IM X 1 1416 HEPARIN 500 UNITS IV
== END | disposition home or self-care (01) ==
LOC: Rad HDHVI 10:44
PROVIDERS: ATTEND Internal Medicine Cardiovascular Disease
DX: I13.0 Hypertensive heart and chronic kidney disease with heart failure and stage 1 through stage 4 chronic kidney disease, or unspecified chronic kidney disease (principal); E11.22 Type 2 diabetes mellitus with diabetic chronic kidney disease; I50.42 Chronic combined systolic (congestive) and diastolic (congestive) heart failure; N18.4 Chronic kidney disease, stage 4 (severe); D51.9 Vitamin B12 deficiency anemia, unspecified; I27.21 Secondary pulmonary arterial hypertension; J96.10 Chronic respiratory failure, unspecified whether with hypoxia or hypercapnia; K21.9 Gastro-esophageal reflux disease without esophagitis; E78.5 Hyperlipidemia, unspecified; E03.9 Hypothyroidism, unspecified; E66.01 Morbid (severe) obesity due to excess calories; E11.51 Type 2 diabetes mellitus with diabetic peripheral angiopathy without gangrene; E11.319 Type 2 diabetes mellitus with unspecified diabetic retinopathy without macular edema; M19.90 Unspecified osteoarthritis, unspecified site; Z87.440 Personal history of urinary (tract) infections; Z90.49 Acquired absence of other specified parts of digestive tract; Z68.41 Body mass index [BMI] 40.0-44.9, adult; Z99.81 Dependence on supplemental oxygen; Z79.01 Long term (current) use of anticoagulants; Z79.82 Long term (current) use of aspirin; Z79.4 Long term (current) use of insulin
CPT/HCPCS: 36415; 80048; 82607; 85025; 96365; 96366; 96372; G0463; J1642; J1940; J3420

== ENCOUNTER → 2018-12-28 | Outpatient (CLI) | payer MEDICARE, MEDICAID ==
[~2018-12-28] MED LIST changes: -CYANOCOBALAMIN (B-12) 1000 MCG/1 ML VIAL IM ONE; -CYANOCOBALAMIN (B-12) 1000 MCG/1 ML VIAL ONE; -POTASSIUM CHL 20 Meq TABLET PO ONE
--- NOTE | 2018-12-28 13:05 | NUR ---
CHF PT ARRIVED AT CHF CLINIC, ALERT ORIENTED AMBULATING WITH WALKER. O DISTRESS
[2018-12-28 13:30] VITALS: BP 120/51
[2018-12-28 14:00] VITALS: BP 142/59
[2018-12-28 15:00] VITALS: BP 116/50
[2018-12-28 16:00] VITALS: BP 126/57
[2018-12-28 16:17] LABS: Basophils # (auto) 0 uL; Basophils % (auto) 0.4 % (0.0-2.0); Eosinophils # (auto) 0.3 uL; Eosinophils % (auto) 4.4 % (0.0-7.0); Hematocrit 36.8 % (36.0-46.0); Lymphocytes # (auto) 2.2 uL; Lymphocytes % (auto) 35.3 % (10.0-50.0); Mean Corpuscular Hemoglobin 28.1 pg (28.0-32.0); Mean Corpuscular Hgb Conc. 32.6 g/dL (32.0-36.0); Mean Corpuscular Volume 86.2 fL (80.0-100.0); Monocytes # (auto) 0.5 uL; Monocytes % (auto) 7.9 % (0.0-12.0); Neutrophils # (auto) 3.2 uL; Nucleated Red Blood Cells % 0.3 %; Platelet Count (auto) 253 10^3/uL (140-450); Red Blood Cells 4.26 10^6/uL (4.0-5.20); Red Cell Distribution Width 16.2 % (11.8-14.3); White Blood Cell 6.1 10^3/uL (4.4-10.8)
[2018-12-28 16:20] LABS: BUN/Creatinine Ratio 15.7; Calcium 8.5 mg/dL (8.5-10.1); Potassium 3.9 mmol/L (3.5-5.1)
[2018-12-28 16:40] VITALS: BP 130/54
--- NOTE | 2018-12-28 16:40 | NUR ---
Discharge Instructions See e-MAR for any mediations given with this visit. Patient education given on disease process. Patient verbalized understanding. Previous labs reviewed. Patient discharged in stable condition with after care instructions and follow up appointment. Addendum: 12/28/18 at 1729 by NICOLETTE CARDENAS RN RN NM MEDICATIONS 1315 START TIME LASIX DRIP 1624 LASIX STOP TIME POTASSIUM 30 MEQ PO X 1 1500 HEPARIN 500 UNITS IVP X 1
== END | disposition home or self-care (01) ==
LOC: CHF HDHVI 12:28
PROVIDERS: ATTEND Internal Medicine Cardiovascular Disease
DX: I13.0 Hypertensive heart and chronic kidney disease with heart failure and stage 1 through stage 4 chronic kidney disease, or unspecified chronic kidney disease (principal); E11.22 Type 2 diabetes mellitus with diabetic chronic kidney disease; I50.42 Chronic combined systolic (congestive) and diastolic (congestive) heart failure; N18.4 Chronic kidney disease, stage 4 (severe); E83.40 Disorders of magnesium metabolism, unspecified; D64.9 Anemia, unspecified; E78.5 Hyperlipidemia, unspecified; E03.9 Hypothyroidism, unspecified; E66.01 Morbid (severe) obesity due to excess calories; E11.51 Type 2 diabetes mellitus with diabetic peripheral angiopathy without gangrene; E11.319 Type 2 diabetes mellitus with unspecified diabetic retinopathy without macular edema; E11.41 Type 2 diabetes mellitus with diabetic mononeuropathy; M19.90 Unspecified osteoarthritis, unspecified site; M10.9 Gout, unspecified; F41.9 Anxiety disorder, unspecified; F32.9 Major depressive disorder, single episode, unspecified; G89.29 Other chronic pain; I25.10 Atherosclerotic heart disease of native coronary artery without angina pectoris; J44.9 Chronic obstructive pulmonary disease, unspecified; E11.40 Type 2 diabetes mellitus with diabetic neuropathy, unspecified; K21.9 Gastro-esophageal reflux disease without esophagitis; E78.00 Pure hypercholesterolemia, unspecified; E44.1 Mild protein-calorie malnutrition; Z86.718 Personal history of other venous thrombosis and embolism; Z87.440 Personal history of urinary (tract) infections; Z90.49 Acquired absence of other specified parts of digestive tract; Z79.4 Long term (current) use of insulin; Z79.82 Long term (current) use of aspirin; Z79.899 Other long term (current) drug therapy; Z86.711 Personal history of pulmonary embolism; Z95.5 Presence of coronary angioplasty implant and graft; Z96.649 Presence of unspecified artificial hip joint; Z68.41 Body mass index [BMI] 40.0-44.9, adult; Z99.81 Dependence on supplemental oxygen; Z95.1 Presence of aortocoronary bypass graft
CPT/HCPCS: 36415; 80048; 83735; 85025; 96365; 96366; G0463; J1642; J1940

== ENCOUNTER → 2018-12-31 | Outpatient (CLI) | payer MEDICARE, MEDICAID ==
[~2018-12-31] MED LIST changes: -FUROSEMIDE INJECTION 100 MG in SODIUM CHL 0.9% 100 ML IV ONE; +FUROSEMIDE INJECTION 100 MG in SODIUM CHL 0.9% 100 ML IV SCH; +POTASSIUM CHL 20 Meq TABLET PO ONE
[2018-12-31 10:53] VITALS: BP 121/50
[2018-12-31 11:30] VITALS: BP 108/46
[2018-12-31 14:00] VITALS: BP 109/44
[2018-12-31 14:30] VITALS: BP 121/43
[2018-12-31 14:37] VITALS: BP 121/43
--- NOTE | 2018-12-31 14:37 | NUR ---
CHF Corrie Cath Insertion 20 gauge Corrie Cath inserted using sterile technique in the RIGHT upper chest with occlusive dressing over conner needle. Patient tolerated procedure well. Clinic Provider Clinic Provider into see pt with new orders received and carried out. Lasix gtt started at 33.3 mg/hr per MD order. Corrie Cath Removal Conner needle D/C'd after Heparin flush per protocol. Sterile occlusive dressing to site. Patient tolerated procedure well. Site benign post infusion. Discharge Instructions See e-MAR for any mediations given with this visit. Patient education given on disease process. Patient verbalized understanding. Patient discharged in stable condition with after care instructions and follow up appointment. MEDICATION ADMINISTRATION LASIX DRIP 33.3 MG/HR X 3 HOURS START AT 1128/STOP AT 1430 (TOTAL 100 MG DELIVERED) AT 33.3 ML/HR K DUR 30 MEQ AT 1435 HEPARIN 500 UNITS IVP TO PORTACATH AT 1430
== END | disposition home or self-care (01) ==
LOC: CHF HDHVI 10:39
PROVIDERS: ATTEND Internal Medicine Cardiovascular Disease
DX: I13.0 Hypertensive heart and chronic kidney disease with heart failure and stage 1 through stage 4 chronic kidney disease, or unspecified chronic kidney disease (principal); E11.22 Type 2 diabetes mellitus with diabetic chronic kidney disease; N18.4 Chronic kidney disease, stage 4 (severe); I50.42 Chronic combined systolic (congestive) and diastolic (congestive) heart failure; E78.00 Pure hypercholesterolemia, unspecified; I27.21 Secondary pulmonary arterial hypertension; J44.9 Chronic obstructive pulmonary disease, unspecified; J96.10 Chronic respiratory failure, unspecified whether with hypoxia or hypercapnia; K21.9 Gastro-esophageal reflux disease without esophagitis; E78.5 Hyperlipidemia, unspecified; F32.9 Major depressive disorder, single episode, unspecified; E66.01 Morbid (severe) obesity due to excess calories; G89.29 Other chronic pain; E11.41 Type 2 diabetes mellitus with diabetic mononeuropathy; E11.51 Type 2 diabetes mellitus with diabetic peripheral angiopathy without gangrene; E11.319 Type 2 diabetes mellitus with unspecified diabetic retinopathy without macular edema; I48.91 Unspecified atrial fibrillation; M10.9 Gout, unspecified; E44.1 Mild protein-calorie malnutrition; G47.30 Sleep apnea, unspecified; Z79.2 Long term (current) use of antibiotics; Z79.01 Long term (current) use of anticoagulants; Z79.899 Other long term (current) drug therapy; Z86.73 Personal history of transient ischemic attack (TIA), and cerebral infarction without residual deficits; Z95.1 Presence of aortocoronary bypass graft; Z99.81 Dependence on supplemental oxygen; Z95.5 Presence of coronary angioplasty implant and graft; Z86.711 Personal history of pulmonary embolism; Z87.440 Personal history of urinary (tract) infections; Z68.41 Body mass index [BMI] 40.0-44.9, adult; Z79.4 Long term (current) use of insulin
CPT/HCPCS: 96365; 96366; G0463; J1642; J1940

== ENCOUNTER → 2019-01-11 | Outpatient (CLI) | payer MEDICARE, MEDICAID ==
--- NOTE | 2019-01-11 12:41 | NUR ---
CHF PT ARRIVED TO THE CHF CLINIC FOR DIURETIC THJERAPY PER MD ORDER. PT IS A/O X 3 0 DISTRESS. DISCUSSED PLAN OF CARE PT VERBALIZED UNDERSTANDING.
[2019-01-11 16:26] LABS: Potassium 4.1 mmol/L (3.5-5.1)
[2019-01-11 16:33] LABS: Albumin 3.4 g/dL (3.4-5.0); BUN/Creatinine Ratio 25.9; Basophils # (auto) 0 uL; Basophils % (auto) 0.4 % (0.0-2.0); Bilirubin, Total 0.3 mg/dL (0.2-1.0); Calcium 8.7 mg/dL (8.5-10.1); Eosinophils # (auto) 0.2 uL; Eosinophils % (auto) 3.6 % (0.0-7.0); Hematocrit 37.3 % (36.0-46.0); Hemoglobin 11.7 g/dL (12.2-16.2); Lymphocytes # (auto) 2.6 uL; Lymphocytes % (auto) 37.1 % (10.0-50.0); Magnesium 2.3 mg/dL (1.6-2.6); Mean Corpuscular Hemoglobin 27.3 pg (28.0-32.0); Mean Corpuscular Hgb Conc. 31.5 g/dL (32.0-36.0); Mean Corpuscular Volume 86.8 fL (80.0-100.0); Monocytes # (auto) 0.5 uL; Monocytes % (auto) 7.1 % (0.0-12.0); Neutrophils # (auto) 3.6 uL; Neutrophils % (auto) 51.8 % (37.0-80.0); Nucleated Red Blood Cells % 0.8 %; Platelet Count (auto) 220 10^3/uL (140-450); Red Cell Distribution Width 16.2 % (11.8-14.3); Total Protein 6.7 g/dL (6.4-8.2); White Blood Cell 6.9 10^3/uL (4.4-10.8)
[2019-01-11 16:34] VITALS: BP 129/59
--- NOTE | 2019-01-11 16:34 | NUR ---
Discharge Instructions See e-MAR for any mediations given with this visit. Patient education given on disease process. Patient verbalized understanding. Previous labs reviewed. Patient discharged in stable condition with after care instructions and follow up appointment. MEDICATIONS 1350 START TIME LASIX 1610 STOP TIME LASIX
== END | disposition home or self-care (01) ==
LOC: Rad HDHVI 12:37
PROVIDERS: ATTEND Internal Medicine Cardiovascular Disease
DX: I13.0 Hypertensive heart and chronic kidney disease with heart failure and stage 1 through stage 4 chronic kidney disease, or unspecified chronic kidney disease (principal); E11.22 Type 2 diabetes mellitus with diabetic chronic kidney disease; I50.33 Acute on chronic diastolic (congestive) heart failure; I50.32 Chronic diastolic (congestive) heart failure; N18.4 Chronic kidney disease, stage 4 (severe); D64.9 Anemia, unspecified; E83.40 Disorders of magnesium metabolism, unspecified; F41.9 Anxiety disorder, unspecified; J44.9 Chronic obstructive pulmonary disease, unspecified; K21.9 Gastro-esophageal reflux disease without esophagitis; E78.5 Hyperlipidemia, unspecified; E03.9 Hypothyroidism, unspecified; E66.01 Morbid (severe) obesity due to excess calories; G89.21 Chronic pain due to trauma; E44.1 Mild protein-calorie malnutrition; E78.00 Pure hypercholesterolemia, unspecified; E11.41 Type 2 diabetes mellitus with diabetic mononeuropathy; E11.319 Type 2 diabetes mellitus with unspecified diabetic retinopathy without macular edema; J96.10 Chronic respiratory failure, unspecified whether with hypoxia or hypercapnia; I48.91 Unspecified atrial fibrillation; Z90.49 Acquired absence of other specified parts of digestive tract; Z79.4 Long term (current) use of insulin; Z79.82 Long term (current) use of aspirin; Z86.718 Personal history of other venous thrombosis and embolism; Z86.711 Personal history of pulmonary embolism; Z87.440 Personal history of urinary (tract) infections; Z79.01 Long term (current) use of anticoagulants; Z87.01 Personal history of pneumonia (recurrent); Z95.5 Presence of coronary angioplasty implant and graft; Z95.1 Presence of aortocoronary bypass graft; Z79.899 Other long term (current) drug therapy; Z99.81 Dependence on supplemental oxygen
CPT/HCPCS: 36415; 80053; 83735; 85025; 93306; 96365; 96366; G0463; J1642; J1940

== ENCOUNTER → 2019-01-18 | Outpatient (CLI) | payer MEDICARE, MEDICAID ==
[~2019-01-18] MED LIST changes: -FUROSEMIDE INJECTION 100 MG in SODIUM CHL 0.9% 100 ML IV SCH; +FUROSEMIDE INJECTION 500 MG in SODIUM CHL 0.9% 500 ML IV SCH
--- NOTE | 2019-01-18 12:37 | NUR ---
CHF PT ARRIVED AT THE CHF CLINIC IN 0 DISTRESS, VITAL SIGNS OBTAINED , UPDATED ORDERS RECIEVD AND NOTED
[2019-01-18 16:04] LABS: Potassium 4.2 mmol/L (3.5-5.1)
[2019-01-18 16:07] LABS: Albumin 3.4 g/dL (3.4-5.0); BUN/Creatinine Ratio 29.4; Calcium 8.5 mg/dL (8.5-10.1)
[2019-01-18 16:18] LABS: Bilirubin, Total 0.2 mg/dL (0.2-1.0); Total Protein 6.8 g/dL (6.4-8.2)
[2019-01-18 16:20] VITALS: BP 130/50
--- NOTE | 2019-01-18 16:20 | NUR ---
Discharge Instructions See e-MAR for any mediations given with this visit. Patient education given on disease process. Patient verbalized understanding. Previous labs reviewed. Patient discharged in stable condition with after care instructions and follow up appointment. MEDICATIONS 1300 START TIME LASIX 30MG/HR 1605 STOP TIME LASIX 1604 POTASSIUM 30 MEQ PO X 1` 1615 HEPARIN 500 UNITS IV X 1
[2019-01-18 16:37] LABS: Basophils # (auto) 0 uL; Basophils % (auto) 0.4 % (0.0-2.0); Eosinophils # (auto) 0.3 uL; Eosinophils % (auto) 4.3 % (0.0-7.0); Hematocrit 36.4 % (36.0-46.0); Hemoglobin 11.7 g/dL (12.2-16.2); Lymphocytes # (auto) 2.3 uL; Lymphocytes % (auto) 36.1 % (10.0-50.0); Mean Corpuscular Hemoglobin 27.8 pg (28.0-32.0); Mean Corpuscular Hgb Conc. 32.1 g/dL (32.0-36.0); Mean Corpuscular Volume 86.4 fL (80.0-100.0); Monocytes # (auto) 0.6 uL; Monocytes % (auto) 9.6 % (0.0-12.0); Neutrophils # (auto) 3.1 uL; Neutrophils % (auto) 49.6 % (37.0-80.0); Nucleated Red Blood Cells % 1.1 %; Platelet Count (auto) 196 10^3/uL (140-450); Red Blood Cells 4.22 10^6/uL (4.0-5.20); Red Cell Distribution Width 15.9 % (11.8-14.3); White Blood Cell 6.3 10^3/uL (4.4-10.8)
== END | disposition home or self-care (01) ==
LOC: CHF HDHVI 12:36
PROVIDERS: ATTEND Internal Medicine Cardiovascular Disease
DX: I13.0 Hypertensive heart and chronic kidney disease with heart failure and stage 1 through stage 4 chronic kidney disease, or unspecified chronic kidney disease (principal); E11.22 Type 2 diabetes mellitus with diabetic chronic kidney disease; N18.4 Chronic kidney disease, stage 4 (severe); I50.42 Chronic combined systolic (congestive) and diastolic (congestive) heart failure; E83.40 Disorders of magnesium metabolism, unspecified; D64.9 Anemia, unspecified; J44.9 Chronic obstructive pulmonary disease, unspecified; J96.10 Chronic respiratory failure, unspecified whether with hypoxia or hypercapnia; I70.0 Atherosclerosis of aorta; K21.9 Gastro-esophageal reflux disease without esophagitis; E78.5 Hyperlipidemia, unspecified; E03.9 Hypothyroidism, unspecified; E66.01 Morbid (severe) obesity due to excess calories; E78.00 Pure hypercholesterolemia, unspecified; E11.41 Type 2 diabetes mellitus with diabetic mononeuropathy; E11.319 Type 2 diabetes mellitus with unspecified diabetic retinopathy without macular edema; E11.51 Type 2 diabetes mellitus with diabetic peripheral angiopathy without gangrene; M19.90 Unspecified osteoarthritis, unspecified site; F41.9 Anxiety disorder, unspecified; Z87.01 Personal history of pneumonia (recurrent); Z86.73 Personal history of transient ischemic attack (TIA), and cerebral infarction without residual deficits; Z99.81 Dependence on supplemental oxygen; Z79.01 Long term (current) use of anticoagulants; Z79.4 Long term (current) use of insulin; Z79.899 Other long term (current) drug therapy; Z95.1 Presence of aortocoronary bypass graft; Z95.5 Presence of coronary angioplasty implant and graft
CPT/HCPCS: 36415; 80053; 83735; 85025; 96365; 96366; G0463; J1642; J1940

== ENCOUNTER → 2019-01-21 | Outpatient (CLI) | payer MEDICARE, MEDICAID ==
[~2019-01-21] MED LIST changes: +CYANOCOBALAMIN (B-12) 1000 MCG/1 ML VIAL IM ONE; +CYANOCOBALAMIN (B-12) 1000 MCG/1 ML VIAL ONE; +FUROSEMIDE INJECTION 100 MG in SODIUM CHL 0.9% 100 ML IV SCH; -FUROSEMIDE INJECTION 500 MG in SODIUM CHL 0.9% 500 ML IV SCH
--- NOTE | 2019-01-21 10:39 | NUR ---
CHF PT ARRIVED AT [facility]INIC FOR ALERT ORIENTED 0 DISTRESS. VITAL SIGNS OBTAINED PT IN 0 DISTRESS
--- NOTE | 2019-01-21 10:45 | NUR ---
Corrie Cath Insertion 22 gauge Corrie Cath inserted using sterile technique in the upper chest with occlusive dressing over conner needle. Patient tolerated procedure well. Ordered labs drawn and sent. See e-MAR for medications given during this visit.
--- NOTE | 2019-01-21 11:00 | NUR ---
Clinic Provider Clinic Provider FRANNIE see pt with new orders received and carried out. Lasix gtt started at {30}mg/hr per MD order.
[2019-01-21 14:35] VITALS: BP 144/50
--- NOTE | 2019-01-21 14:38 | NUR ---
Discharge Instructions See e-MAR for any mediations given with this visit. Patient education given on disease process. Patient verbalized understanding. Previous labs reviewed. Patient discharged in stable condition with after care instructions and follow up appointment. MEDICATIONS 1058 START TIME LASIX DRIP 30 MG /HR X 3 HR 1409 STOP TIME LASIX DRIP 1418 POTASSIUM 30 MEQ PO X 1 1418 HEPARIN 500 UNITS IVP X 1 TRO VIDAL CATH 1420 VITAMIN B12 1000MCG IM X 1
== END | disposition home or self-care (01) ==
LOC: CHF HDHVI 10:39
PROVIDERS: ATTEND Internal Medicine Cardiovascular Disease
DX: I13.0 Hypertensive heart and chronic kidney disease with heart failure and stage 1 through stage 4 chronic kidney disease, or unspecified chronic kidney disease (principal); E11.22 Type 2 diabetes mellitus with diabetic chronic kidney disease; N18.4 Chronic kidney disease, stage 4 (severe); I50.42 Chronic combined systolic (congestive) and diastolic (congestive) heart failure; R53.83 Other fatigue; F41.9 Anxiety disorder, unspecified; J44.9 Chronic obstructive pulmonary disease, unspecified; K21.9 Gastro-esophageal reflux disease without esophagitis; E78.5 Hyperlipidemia, unspecified; E03.9 Hypothyroidism, unspecified; E66.01 Morbid (severe) obesity due to excess calories; E78.00 Pure hypercholesterolemia, unspecified; E11.51 Type 2 diabetes mellitus with diabetic peripheral angiopathy without gangrene; E11.41 Type 2 diabetes mellitus with diabetic mononeuropathy; E11.319 Type 2 diabetes mellitus with unspecified diabetic retinopathy without macular edema; E44.1 Mild protein-calorie malnutrition; G89.29 Other chronic pain; M10.9 Gout, unspecified; F32.9 Major depressive disorder, single episode, unspecified; I27.21 Secondary pulmonary arterial hypertension; Z99.81 Dependence on supplemental oxygen; Z79.899 Other long term (current) drug therapy; Z87.01 Personal history of pneumonia (recurrent); Z87.440 Personal history of urinary (tract) infections; Z79.01 Long term (current) use of anticoagulants; Z79.2 Long term (current) use of antibiotics; Z95.1 Presence of aortocoronary bypass graft; Z90.49 Acquired absence of other specified parts of digestive tract; Z95.5 Presence of coronary angioplasty implant and graft; Z96.649 Presence of unspecified artificial hip joint; Z86.718 Personal history of other venous thrombosis and embolism; Z68.41 Body mass index [BMI] 40.0-44.9, adult
CPT/HCPCS: 96365; 96366; 96372; G0463; J1642; J1940; J3420

== ENCOUNTER → 2019-01-25 | Outpatient (CLI) | payer MEDICARE, MEDICAID ==
[~2019-01-25] MED LIST changes: -CYANOCOBALAMIN (B-12) 1000 MCG/1 ML VIAL IM ONE; -CYANOCOBALAMIN (B-12) 1000 MCG/1 ML VIAL ONE; -POTASSIUM CHL 20 Meq TABLET PO ONE
--- NOTE | 2019-01-25 12:05 | NUR ---
CHF PT ARRIVED TO [facility]F CLINIC 0 DISTRESS, V/S OBTAINED, DISCUSSED PLAN OF CARE PT VERBALIZED UNDERSTANDING
--- NOTE | 2019-01-25 12:15 | NUR ---
Clinic Provider Clinic Provider into see pt with new orders received and carried out. Lasix gtt started at {30}mg/hr per MD order.
[2019-01-25 12:30] VITALS: BP 120/58
[2019-01-25 13:00] VITALS: BP 130/51
[2019-01-25 13:30] VITALS: BP 124/57
[2019-01-25 15:00] VITALS: BP 126/57
--- NOTE | 2019-01-25 15:25 | NUR ---
Discharge Instructions See e-MAR for any mediations given with this visit. Patient education given on disease process. Patient verbalized understanding. Previous labs reviewed. Patient discharged in stable condition with after care instructions and follow up appointment. MEDICATIONS 1235 START TIME LASIX DRIP 30MG/HR X 3 HR 1535 STOP TIME LASIX DRIP 1455 POTASSIUM 30 MEQ PO X 1 1520 HEPARIN 500 UNITS IVP X 1
[2019-01-25 15:35] VITALS: BP 150/66
[2019-01-25 16:08] LABS: Calcium 8.5 mg/dL (8.5-10.1); Magnesium 2.1 mg/dL (1.6-2.6)
[2019-01-25 16:11] LABS: BUN/Creatinine Ratio 28.8
[2019-01-25 16:13] LABS: Basophils # (auto) 0 uL; Basophils % (auto) 0.5 % (0.0-2.0); Eosinophils # (auto) 0.3 uL; Eosinophils % (auto) 4.9 % (0.0-7.0); Hematocrit 35.5 % (36.0-46.0); Hemoglobin 11.5 g/dL (12.2-16.2); Lymphocytes # (auto) 2.6 uL; Lymphocytes % (auto) 41.6 % (10.0-50.0); Mean Corpuscular Hemoglobin 27.9 pg (28.0-32.0); Mean Corpuscular Hgb Conc. 32.4 g/dL (32.0-36.0); Mean Corpuscular Volume 86.2 fL (80.0-100.0); Monocytes # (auto) 0.6 uL; Monocytes % (auto) 9.3 % (0.0-12.0); Neutrophils # (auto) 2.7 uL; Neutrophils % (auto) 43.7 % (37.0-80.0); Nucleated Red Blood Cells % 1.4 %; Platelet Count (auto) 218 10^3/uL (140-450); Red Blood Cells 4.12 10^6/uL (4.0-5.20); Red Cell Distribution Width 16.6 % (11.8-14.3); White Blood Cell 6.1 10^3/uL (4.4-10.8)
[2019-01-25 16:16] LABS: Potassium 4.2 mmol/L (3.5-5.1)
== END | disposition home or self-care (01) ==
LOC: CHF HDHVI 12:04
PROVIDERS: ATTEND Internal Medicine Cardiovascular Disease
DX: I27.21 Secondary pulmonary arterial hypertension (principal); I13.0 Hypertensive heart and chronic kidney disease with heart failure and stage 1 through stage 4 chronic kidney disease, or unspecified chronic kidney disease; E11.22 Type 2 diabetes mellitus with diabetic chronic kidney disease; N18.4 Chronic kidney disease, stage 4 (severe); I50.42 Chronic combined systolic (congestive) and diastolic (congestive) heart failure; D64.9 Anemia, unspecified; E83.40 Disorders of magnesium metabolism, unspecified; J44.9 Chronic obstructive pulmonary disease, unspecified; F41.9 Anxiety disorder, unspecified; K21.9 Gastro-esophageal reflux disease without esophagitis; E78.5 Hyperlipidemia, unspecified; E03.9 Hypothyroidism, unspecified; F32.9 Major depressive disorder, single episode, unspecified; E66.01 Morbid (severe) obesity due to excess calories; G89.29 Other chronic pain; E78.00 Pure hypercholesterolemia, unspecified; I48.91 Unspecified atrial fibrillation; E11.41 Type 2 diabetes mellitus with diabetic mononeuropathy; I25.10 Atherosclerotic heart disease of native coronary artery without angina pectoris; E11.51 Type 2 diabetes mellitus with diabetic peripheral angiopathy without gangrene; E11.319 Type 2 diabetes mellitus with unspecified diabetic retinopathy without macular edema; I70.0 Atherosclerosis of aorta; J96.10 Chronic respiratory failure, unspecified whether with hypoxia or hypercapnia; M19.90 Unspecified osteoarthritis, unspecified site; Z79.01 Long term (current) use of anticoagulants; Z79.2 Long term (current) use of antibiotics; Z99.81 Dependence on supplemental oxygen; Z79.4 Long term (current) use of insulin; Z79.899 Other long term (current) drug therapy; Z87.01 Personal history of pneumonia (recurrent); Z95.1 Presence of aortocoronary bypass graft; Z90.49 Acquired absence of other specified parts of digestive tract; Z95.5 Presence of coronary angioplasty implant and graft; Z96.649 Presence of unspecified artificial hip joint; Z86.73 Personal history of transient ischemic attack (TIA), and cerebral infarction without residual deficits; Z79.82 Long term (current) use of aspirin
CPT/HCPCS: 36415; 80048; 83735; 85025; 96365; 96366; G0463; J1642; J1940

== ENCOUNTER → 2019-01-28 | Outpatient (CLI) | payer MEDICARE, MEDICAID ==
[2019-01-28] VITALS (7 sets, daily range): BP systolic 125–139; BP diastolic 38–54
[~2019-01-28] MED LIST changes: +FUROSEMIDE 100 MG/10ML VIAL IV ONE; -FUROSEMIDE INJECTION 100 MG in SODIUM CHL 0.9% 100 ML IV SCH; +SODIUM CHLORIDE 0.9% 100 ML IV SCH
--- NOTE | 2019-01-28 14:25 | NUR ---
PICC Line meds Medication completed per MD order. See e-MAR for medications given during this visit. Patient tolerated medication well. PICC line flushed per protocol. Dressing chagned PRN via aseptic technique. Patient tolerated procedure well. Patient D/C'd stable with aftercare and follow up instructions per MD.
--- NOTE | 2019-01-28 14:30 | NUR ---
Discharge Instructions See e-MAR for any mediations given with this visit. Patient education given on disease process. Patient verbalized understanding. Previous labs reviewed. Patient discharged in stable condition with after care instructions and follow up appointment. MEDICATIONS 1110 START TIME LASIX 30MG/HR X 3HR 1420 STOP TIME LASIX DRIP 1115 POTASSIUM 30MEQ PO X 1 1425 HEPARIN 500 INTIS IVP X 1 TO PORTACATH
== END | disposition home or self-care (01) ==
LOC: CHF HDHVI 10:38
PROVIDERS: ATTEND Internal Medicine Cardiovascular Disease
DX: I13.0 Hypertensive heart and chronic kidney disease with heart failure and stage 1 through stage 4 chronic kidney disease, or unspecified chronic kidney disease (principal); I50.42 Chronic combined systolic (congestive) and diastolic (congestive) heart failure; N18.4 Chronic kidney disease, stage 4 (severe); I27.21 Secondary pulmonary arterial hypertension; F41.9 Anxiety disorder, unspecified; I25.10 Atherosclerotic heart disease of native coronary artery without angina pectoris; J44.9 Chronic obstructive pulmonary disease, unspecified; K21.9 Gastro-esophageal reflux disease without esophagitis; E78.5 Hyperlipidemia, unspecified; E03.9 Hypothyroidism, unspecified; F32.9 Major depressive disorder, single episode, unspecified; E66.01 Morbid (severe) obesity due to excess calories; G89.29 Other chronic pain; E11.22 Type 2 diabetes mellitus with diabetic chronic kidney disease; E11.41 Type 2 diabetes mellitus with diabetic mononeuropathy; E11.51 Type 2 diabetes mellitus with diabetic peripheral angiopathy without gangrene; E11.319 Type 2 diabetes mellitus with unspecified diabetic retinopathy without macular edema; M19.90 Unspecified osteoarthritis, unspecified site; E11.40 Type 2 diabetes mellitus with diabetic neuropathy, unspecified; Z68.41 Body mass index [BMI] 40.0-44.9, adult; Z99.81 Dependence on supplemental oxygen; Z79.2 Long term (current) use of antibiotics; Z79.01 Long term (current) use of anticoagulants; Z79.82 Long term (current) use of aspirin; Z79.4 Long term (current) use of insulin; Z79.899 Other long term (current) drug therapy; Z87.01 Personal history of pneumonia (recurrent); Z95.1 Presence of aortocoronary bypass graft; Z86.73 Personal history of transient ischemic attack (TIA), and cerebral infarction without residual deficits
CPT/HCPCS: 96365; 96366; G0463; J1642; J1940

== ENCOUNTER → 2019-02-01 | Outpatient (CLI) | payer MEDICARE, MEDICAID ==
[~2019-02-01] MED LIST changes: +POTASSIUM CHL 20 Meq TABLET PO ONE; +SODIUM CHLORIDE 0.9% 100 ML IV ONE; -SODIUM CHLORIDE 0.9% 100 ML IV SCH
--- NOTE | 2019-02-01 12:15 | NUR ---
CHF PT ARRIVED TO CHF CLINIC FOR LASIX THERAPY. PT A/O X 3, 0 PAIN. PT VERBALIZED AN INCREASE IN ENERGY SINCE THE LAST VISIT. V/S OBTAINED
--- NOTE | 2019-02-01 12:20 | NUR ---
Clinic Provider Clinic Provider UPDATED new orders received and carried out. lasix gtt started at {30}mg/hr per MD order.
[2019-02-01 12:40] VITALS: BP_SYST 130; BP_SYST 136; BP_DIAS 32; BP_DIAS 53
[2019-02-01 13:00] VITALS: BP 146/64
[2019-02-01 13:30] VITALS: BP 146/64
[2019-02-01 14:00] VITALS: BP 133/62
[2019-02-01 14:30] VITALS: BP 137/45
[2019-02-01 15:45] VITALS: BP 118/42
--- NOTE | 2019-02-01 15:45 | NUR ---
Discharge Instructions See e-MAR for any mediations given with this visit. Patient education given on disease process. Patient verbalized understanding. Previous labs reviewed. Patient discharged in stable condition with after care instructions and follow up appointment. MEDICATIONS 1235 START TIME LASIX DRIP 30MG/HR 1530 STOP TIME LASIX DRIP 1235 POTASSIUM 30 MEQ PO X 1 1535 HEPAIN 500 UNITS IVP X 1
[2019-02-01 16:09] LABS: Calcium 8.8 mg/dL (8.5-10.1); Magnesium 2.2 mg/dL (1.6-2.6)
[2019-02-01 16:12] LABS: BUN/Creatinine Ratio 25.4
[2019-02-01 16:51] LABS: Basophils # (auto) 0.1 uL; Basophils % (auto) 1.2 % (0.0-2.0); Eosinophils # (auto) 0.2 uL; Eosinophils % (auto) 3.6 % (0.0-7.0); Hematocrit 36.1 % (36.0-46.0); Hemoglobin 11.8 g/dL (12.2-16.2); Lymphocytes # (auto) 2.3 uL; Lymphocytes % (auto) 38.7 % (10.0-50.0); Mean Corpuscular Hemoglobin 28.2 pg (28.0-32.0); Mean Corpuscular Hgb Conc. 32.7 g/dL (32.0-36.0); Mean Corpuscular Volume 86.3 fL (80.0-100.0); Monocytes # (auto) 0.5 uL; Monocytes % (auto) 9.2 % (0.0-12.0); Neutrophils # (auto) 2.8 uL; Neutrophils % (auto) 47.3 % (37.0-80.0); Nucleated Red Blood Cells % 0.2 %; Platelet Count (auto) 228 10^3/uL (140-450); Red Blood Cells 4.19 10^6/uL (4.0-5.20); Red Cell Distribution Width 16.3 % (11.8-14.3); White Blood Cell 5.9 10^3/uL (4.4-10.8)
== END | disposition home or self-care (01) ==
LOC: CHF HDHVI 12:18
PROVIDERS: ATTEND Internal Medicine Cardiovascular Disease
DX: I13.0 Hypertensive heart and chronic kidney disease with heart failure and stage 1 through stage 4 chronic kidney disease, or unspecified chronic kidney disease (principal); E11.22 Type 2 diabetes mellitus with diabetic chronic kidney disease; I50.42 Chronic combined systolic (congestive) and diastolic (congestive) heart failure; N18.4 Chronic kidney disease, stage 4 (severe); D64.9 Anemia, unspecified; E83.40 Disorders of magnesium metabolism, unspecified; I25.10 Atherosclerotic heart disease of native coronary artery without angina pectoris; F41.9 Anxiety disorder, unspecified; J44.9 Chronic obstructive pulmonary disease, unspecified; K21.9 Gastro-esophageal reflux disease without esophagitis; E78.5 Hyperlipidemia, unspecified; E03.9 Hypothyroidism, unspecified; I27.21 Secondary pulmonary arterial hypertension; E11.40 Type 2 diabetes mellitus with diabetic neuropathy, unspecified; E11.51 Type 2 diabetes mellitus with diabetic peripheral angiopathy without gangrene; E11.319 Type 2 diabetes mellitus with unspecified diabetic retinopathy without macular edema; M19.90 Unspecified osteoarthritis, unspecified site; J96.10 Chronic respiratory failure, unspecified whether with hypoxia or hypercapnia; E78.00 Pure hypercholesterolemia, unspecified; M10.9 Gout, unspecified; F32.9 Major depressive disorder, single episode, unspecified; G89.29 Other chronic pain; G47.30 Sleep apnea, unspecified; E44.1 Mild protein-calorie malnutrition; E66.01 Morbid (severe) obesity due to excess calories; I48.91 Unspecified atrial fibrillation; Z87.440 Personal history of urinary (tract) infections; Z86.711 Personal history of pulmonary embolism; Z79.2 Long term (current) use of antibiotics; Z79.01 Long term (current) use of anticoagulants; Z79.899 Other long term (current) drug therapy; Z96.649 Presence of unspecified artificial hip joint; Z99.81 Dependence on supplemental oxygen; Z90.49 Acquired absence of other specified parts of digestive tract; Z86.73 Personal history of transient ischemic attack (TIA), and cerebral infarction without residual deficits; Z68.41 Body mass index [BMI] 40.0-44.9, adult; Z87.01 Personal history of pneumonia (recurrent); Z79.4 Long term (current) use of insulin; Z95.5 Presence of coronary angioplasty implant and graft
CPT/HCPCS: 36415; 80048; 83735; 85025; 96365; 96366; G0463; J1642; J1940

== ENCOUNTER → 2019-02-08 | Outpatient (CLI) | payer MEDICARE, MEDICAID ==
[~2019-02-08] MED LIST changes: -POTASSIUM CHL 20 Meq TABLET PO ONE
--- NOTE | 2019-02-08 12:25 | NUR ---
CHF PT ALERT ORIENTED 0 DISTRESS. V/S OBTAINED . MD ORDERS RECEIVED AND NOTED
[2019-02-08 13:30] VITALS: BP 124/82
[2019-02-08 14:00] VITALS: BP 120/60
[2019-02-08 14:30] VITALS: BP 115/51
[2019-02-08 15:00] VITALS: BP 110/50
[2019-02-08 15:47] VITALS: BP 125/59
--- NOTE | 2019-02-08 15:47 | NUR ---
Discharge Instructions See e-MAR for any mediations given with this visit. Patient education given on disease process. Patient verbalized understanding. Previous labs reviewed. Patient discharged in stable condition with after care instructions and follow up appointment. MEDICATIONS 1302 START TIME LASIX DRIP 30MG/HR X 3 HR 1550 STOP TIME LASIX DRIP 1529 POTASSIUM 30 MEQ PO X 1 1529 HEPARIN 500MG IVP X 1
[2019-02-08 16:20] LABS: Potassium 3.8 mmol/L (3.5-5.1)
[2019-02-08 16:33] LABS: Basophils # (auto) 0 uL; Basophils % (auto) 0.6 % (0.0-2.0); Eosinophils # (auto) 0.3 uL; Eosinophils % (auto) 4.4 % (0.0-7.0); Hematocrit 35.2 % (36.0-46.0); Hemoglobin 11.5 g/dL (12.2-16.2); Lymphocytes # (auto) 2.3 uL; Lymphocytes % (auto) 39.1 % (10.0-50.0); Mean Corpuscular Hemoglobin 28.1 pg (28.0-32.0); Mean Corpuscular Hgb Conc. 32.5 g/dL (32.0-36.0); Mean Corpuscular Volume 86.5 fL (80.0-100.0); Monocytes # (auto) 0.6 uL; Monocytes % (auto) 9.4 % (0.0-12.0); Neutrophils # (auto) 2.8 uL; Neutrophils % (auto) 46.5 % (37.0-80.0); Nucleated Red Blood Cells % 0.3 %; Platelet Count (auto) 203 10^3/uL (140-450); Red Blood Cells 4.07 10^6/uL (4.0-5.20); Red Cell Distribution Width 16.7 % (11.8-14.3)
== END | disposition home or self-care (01) ==
LOC: CHF HDHVI 12:24
PROVIDERS: ATTEND Internal Medicine Cardiovascular Disease
DX: I13.0 Hypertensive heart and chronic kidney disease with heart failure and stage 1 through stage 4 chronic kidney disease, or unspecified chronic kidney disease (principal); E11.22 Type 2 diabetes mellitus with diabetic chronic kidney disease; N18.4 Chronic kidney disease, stage 4 (severe); I50.42 Chronic combined systolic (congestive) and diastolic (congestive) heart failure; D64.9 Anemia, unspecified; E61.2 Magnesium deficiency; E78.5 Hyperlipidemia, unspecified; I25.10 Atherosclerotic heart disease of native coronary artery without angina pectoris; I27.21 Secondary pulmonary arterial hypertension; G47.30 Sleep apnea, unspecified; E11.51 Type 2 diabetes mellitus with diabetic peripheral angiopathy without gangrene; E11.319 Type 2 diabetes mellitus with unspecified diabetic retinopathy without macular edema; E11.40 Type 2 diabetes mellitus with diabetic neuropathy, unspecified; K21.9 Gastro-esophageal reflux disease without esophagitis; F41.9 Anxiety disorder, unspecified; J44.9 Chronic obstructive pulmonary disease, unspecified; J96.10 Chronic respiratory failure, unspecified whether with hypoxia or hypercapnia; E78.00 Pure hypercholesterolemia, unspecified; E03.9 Hypothyroidism, unspecified; M10.9 Gout, unspecified; E66.01 Morbid (severe) obesity due to excess calories; F32.9 Major depressive disorder, single episode, unspecified; E44.1 Mild protein-calorie malnutrition; G89.29 Other chronic pain; Z79.899 Other long term (current) drug therapy; Z87.01 Personal history of pneumonia (recurrent); Z87.440 Personal history of urinary (tract) infections; Z86.711 Personal history of pulmonary embolism; Z79.2 Long term (current) use of antibiotics; Z79.4 Long term (current) use of insulin; Z90.49 Acquired absence of other specified parts of digestive tract; Z79.01 Long term (current) use of anticoagulants; Z96.649 Presence of unspecified artificial hip joint; Z99.81 Dependence on supplemental oxygen; Z86.73 Personal history of transient ischemic attack (TIA), and cerebral infarction without residual deficits; Z86.718 Personal history of other venous thrombosis and embolism
CPT/HCPCS: 36415; 80048; 83735; 85025; 96365; 96366; G0463; J1642; J1940

== ENCOUNTER → 2019-02-11 | Outpatient (CLI) | payer MEDICARE, MEDICAID ==
[2019-02-11] VITALS (7 sets, daily range): BP systolic 116–130; BP diastolic 40–63
[~2019-02-11] MED LIST changes: +POTASSIUM CHL 20 Meq TABLET PO ONE
--- NOTE | 2019-02-11 10:48 | NUR ---
CHF PT ARRIVED TO [facility]F CLINIC FOR LASIX DRIP. PT A/O X 3 0 DISTRESS, V/S OBTAINED ORDERS RECEIVED AND NOTED
--- NOTE | 2019-02-11 10:55 | NUR ---
Corrie Cath Insertion 20 gauge Corrie Cath inserted using sterile technique in the R upper chest with occlusive dressing over conner needle. Patient tolerated procedure well. Ordered labs drawn and sent. See e-MAR for medications given during this visit.
--- NOTE | 2019-02-11 11:00 | NUR ---
Clinic Provider Clinic Provider into see pt with new orders received and carried out. Lasix gtt started at {30}mg/hr per MD order.
--- NOTE | 2019-02-11 14:20 | NUR ---
Discharge Instructions See e-MAR for any mediations given with this visit. Patient education given on disease process. Patient verbalized understanding. Previous labs reviewed. Patient discharged in stable condition with after care instructions and follow up appointment. MEDICATIONS 1100 START TIME LASIX DRIP 30MG/HR X 3 HR 1405 STOP TIME LASIX DRIP 1100 POTASSIUM 30 MEQ PO X 1 1412 HEPARIN 500 UNITAS IVP X 1 1100 START TIME NS 100ML 1V X 1 1405 STOP TIME NS
== END | disposition home or self-care (01) ==
LOC: CHF HDHVI 10:53
PROVIDERS: ATTEND Internal Medicine Cardiovascular Disease
DX: I13.0 Hypertensive heart and chronic kidney disease with heart failure and stage 1 through stage 4 chronic kidney disease, or unspecified chronic kidney disease (principal); N18.4 Chronic kidney disease, stage 4 (severe); I50.42 Chronic combined systolic (congestive) and diastolic (congestive) heart failure; I25.10 Atherosclerotic heart disease of native coronary artery without angina pectoris; F41.9 Anxiety disorder, unspecified; J44.9 Chronic obstructive pulmonary disease, unspecified; G89.4 Chronic pain syndrome; J96.10 Chronic respiratory failure, unspecified whether with hypoxia or hypercapnia; K21.9 Gastro-esophageal reflux disease without esophagitis; E03.9 Hypothyroidism, unspecified; F32.9 Major depressive disorder, single episode, unspecified; E66.01 Morbid (severe) obesity due to excess calories; E78.00 Pure hypercholesterolemia, unspecified; E11.22 Type 2 diabetes mellitus with diabetic chronic kidney disease; E11.21 Type 2 diabetes mellitus with diabetic nephropathy; E11.51 Type 2 diabetes mellitus with diabetic peripheral angiopathy without gangrene; E11.319 Type 2 diabetes mellitus with unspecified diabetic retinopathy without macular edema; I48.91 Unspecified atrial fibrillation; M19.90 Unspecified osteoarthritis, unspecified site; E11.40 Type 2 diabetes mellitus with diabetic neuropathy, unspecified; Z99.81 Dependence on supplemental oxygen; Z87.01 Personal history of pneumonia (recurrent); Z87.440 Personal history of urinary (tract) infections; Z79.2 Long term (current) use of antibiotics; Z79.01 Long term (current) use of anticoagulants; Z79.02 Long term (current) use of antithrombotics/antiplatelets; Z79.82 Long term (current) use of aspirin; Z79.4 Long term (current) use of insulin; Z79.899 Other long term (current) drug therapy; Z86.718 Personal history of other venous thrombosis and embolism; Z95.1 Presence of aortocoronary bypass graft; Z95.810 Presence of automatic (implantable) cardiac defibrillator; Z86.73 Personal history of transient ischemic attack (TIA), and cerebral infarction without residual deficits; Z68.41 Body mass index [BMI] 40.0-44.9, adult
CPT/HCPCS: 96365; 96366; G0463; J1642; J1940

== ENCOUNTER → 2019-02-15 | Outpatient (CLI) | payer MEDICARE, MEDICAID ==
[2019-02-15] VITALS (7 sets, daily range): BP systolic 124–165; BP diastolic 49–69
[~2019-02-15] VITALS: Ht 1 cm; Wt 126.1 kg
[~2019-02-15] MED LIST changes: -POTASSIUM CHL 20 Meq TABLET PO ONE
--- NOTE | 2019-02-15 12:39 | NUR ---
CHF PT ARRIVED AT [facility]F CLINIC, A/O X 3 V/S OBTAINED 0 DISTRESS. EXPLAINED PLAN OF CARE, PT VERBALIZED UNDERSTANDING
--- NOTE | 2019-02-15 12:45 | NUR ---
Clinic Provider Clinic Provider into see pt with new orders received and carried out. Dobr. Lasix gtt started at {}mg/hr per MD order.
--- NOTE | 2019-02-15 16:11 | NUR ---
Discharge Instructions See e-MAR for any mediations given with this visit. Patient education given on disease process. Patient verbalized understanding. Previous labs reviewed. Patient discharged in stable condition with after care instructions and follow up appointment. MEDICATIONS 1251 START TIME LASIX DRIP 30MG/HR X 3 1600 STOP TIME LASIX DRIP 1605 HEPARIN 50 UNITS IVP X 1 1440 POTASSIUM 30 MEQ PO X 1
[2019-02-15 16:28] LABS: Basophils # (auto) 0.1 uL; Eosinophils # (auto) 0.2 uL; Hematocrit 36.4 % (36.0-46.0); Hemoglobin 11.7 g/dL (12.2-16.2); Lymphocytes # (auto) 2.4 uL; Lymphocytes % (auto) 43.4 % (10.0-50.0); Mean Corpuscular Hemoglobin 27.7 pg (28.0-32.0); Mean Corpuscular Hgb Conc. 32.2 g/dL (32.0-36.0); Mean Corpuscular Volume 85.9 fL (80.0-100.0); Monocytes # (auto) 0.7 uL; Monocytes % (auto) 11.6 % (0.0-12.0); Neutrophils # (auto) 2.3 uL; Platelet Count (auto) 208 10^3/uL (140-450); Red Blood Cells 4.24 10^6/uL (4.0-5.20); Red Cell Distribution Width 16.6 % (11.8-14.3); White Blood Cell 5.6 10^3/uL (4.4-10.8)
[2019-02-15 16:30] LABS: BUN/Creatinine Ratio 16.3; Calcium 9.3 mg/dL (8.5-10.1); Magnesium 2.3 mg/dL (1.6-2.6); Potassium 4.1 mmol/L (3.5-5.1)
== END | disposition home or self-care (01) ==
LOC: CHF HDHVI 12:31
PROVIDERS: ATTEND Internal Medicine Cardiovascular Disease
DX: I13.0 Hypertensive heart and chronic kidney disease with heart failure and stage 1 through stage 4 chronic kidney disease, or unspecified chronic kidney disease (principal); I50.42 Chronic combined systolic (congestive) and diastolic (congestive) heart failure; N18.4 Chronic kidney disease, stage 4 (severe); E11.22 Type 2 diabetes mellitus with diabetic chronic kidney disease; E83.40 Disorders of magnesium metabolism, unspecified; D64.9 Anemia, unspecified; F41.9 Anxiety disorder, unspecified; I25.10 Atherosclerotic heart disease of native coronary artery without angina pectoris; G89.4 Chronic pain syndrome; J96.10 Chronic respiratory failure, unspecified whether with hypoxia or hypercapnia; K21.9 Gastro-esophageal reflux disease without esophagitis; E78.5 Hyperlipidemia, unspecified; E03.9 Hypothyroidism, unspecified; F32.9 Major depressive disorder, single episode, unspecified; E66.01 Morbid (severe) obesity due to excess calories; E11.21 Type 2 diabetes mellitus with diabetic nephropathy; E11.40 Type 2 diabetes mellitus with diabetic neuropathy, unspecified; E11.319 Type 2 diabetes mellitus with unspecified diabetic retinopathy without macular edema; E11.51 Type 2 diabetes mellitus with diabetic peripheral angiopathy without gangrene; I48.91 Unspecified atrial fibrillation; M19.90 Unspecified osteoarthritis, unspecified site; Z99.81 Dependence on supplemental oxygen; Z90.49 Acquired absence of other specified parts of digestive tract; Z79.2 Long term (current) use of antibiotics; Z79.01 Long term (current) use of anticoagulants; Z79.02 Long term (current) use of antithrombotics/antiplatelets; Z79.82 Long term (current) use of aspirin; Z79.4 Long term (current) use of insulin; Z79.899 Other long term (current) drug therapy; Z95.810 Presence of automatic (implantable) cardiac defibrillator; Z95.5 Presence of coronary angioplasty implant and graft; Z86.73 Personal history of transient ischemic attack (TIA), and cerebral infarction without residual deficits; Z68.42 Body mass index [BMI] 45.0-49.9, adult; Z87.01 Personal history of pneumonia (recurrent)
CPT/HCPCS: 36415; 80048; 83735; 85025; 96365; 96366; G0463; J1642; J1940

== ENCOUNTER → 2019-02-22 | Outpatient (CLI) | payer MEDICARE, MEDICAID ==
[2019-02-22] VITALS (7 sets, daily range): BP systolic 127–150; BP diastolic 55–88
[~2019-02-22] VITALS: Ht 30.5 cm; Wt 125.7 kg
[~2019-02-22] MED LIST changes: -FUROSEMIDE 100 MG/10ML VIAL IV ONE; +FUROSEMIDE INJECTION 100 MG in SODIUM CHL 0.9% 100 ML IV SCH; +POTASSIUM CHL 20 Meq TABLET PO ONE; -SODIUM CHLORIDE 0.9% 100 ML IV ONE
--- NOTE | 2019-02-22 13:00 | NUR ---
Corrie Cath Insertion 20 gauge Corrie Cath inserted using sterile technique in the upper chest with occlusive dressing over conner needle. Patient tolerated procedure well. See e-MAR for medications given during this visit.
--- NOTE | 2019-02-22 13:00 | NUR ---
Clinic Provider Clinic Provider into see pt with new orders received and carried out. Lasix gtt started at {30}mg/hr per MD order.
--- NOTE | 2019-02-22 16:10 | NUR ---
Discharge Instructions See e-MAR for any mediations given with this visit. Patient education given on disease process. Patient verbalized understanding. Previous labs reviewed. Patient discharged in stable condition with after care instructions and follow up appointment. MEDICATIONS 1300 START TIME LASIX DRIP 30MG/HR X 3 HR 1600 STOP TIME LASIX 1305 POTASSIUM 30 MEQ PO X 1 1605 HEPARIN 500 UNITS IVP X 1
== END | disposition home or self-care (01) ==
LOC: CHF HDHVI 12:29
PROVIDERS: ATTEND Internal Medicine Cardiovascular Disease
DX: I13.0 Hypertensive heart and chronic kidney disease with heart failure and stage 1 through stage 4 chronic kidney disease, or unspecified chronic kidney disease (principal); I50.42 Chronic combined systolic (congestive) and diastolic (congestive) heart failure; N18.4 Chronic kidney disease, stage 4 (severe); E11.22 Type 2 diabetes mellitus with diabetic chronic kidney disease; I27.21 Secondary pulmonary arterial hypertension; E83.40 Disorders of magnesium metabolism, unspecified; D64.9 Anemia, unspecified; F41.9 Anxiety disorder, unspecified; I25.10 Atherosclerotic heart disease of native coronary artery without angina pectoris; J44.9 Chronic obstructive pulmonary disease, unspecified; G89.4 Chronic pain syndrome; J96.10 Chronic respiratory failure, unspecified whether with hypoxia or hypercapnia; K21.9 Gastro-esophageal reflux disease without esophagitis; E78.5 Hyperlipidemia, unspecified; E03.9 Hypothyroidism, unspecified; E66.01 Morbid (severe) obesity due to excess calories; E78.00 Pure hypercholesterolemia, unspecified; E11.21 Type 2 diabetes mellitus with diabetic nephropathy; E11.51 Type 2 diabetes mellitus with diabetic peripheral angiopathy without gangrene; E11.319 Type 2 diabetes mellitus with unspecified diabetic retinopathy without macular edema; I48.91 Unspecified atrial fibrillation; M19.90 Unspecified osteoarthritis, unspecified site; E11.40 Type 2 diabetes mellitus with diabetic neuropathy, unspecified; Z99.81 Dependence on supplemental oxygen; Z87.01 Personal history of pneumonia (recurrent); Z90.49 Acquired absence of other specified parts of digestive tract; Z68.42 Body mass index [BMI] 45.0-49.9, adult; Z79.2 Long term (current) use of antibiotics; Z79.01 Long term (current) use of anticoagulants; Z79.02 Long term (current) use of antithrombotics/antiplatelets; Z79.82 Long term (current) use of aspirin; Z79.4 Long term (current) use of insulin; Z79.899 Other long term (current) drug therapy; Z86.718 Personal history of other venous thrombosis and embolism; Z95.1 Presence of aortocoronary bypass graft; Z95.810 Presence of automatic (implantable) cardiac defibrillator; Z95.5 Presence of coronary angioplasty implant and graft; Z86.73 Personal history of transient ischemic attack (TIA), and cerebral infarction without residual deficits; Z87.440 Personal history of urinary (tract) infections
CPT/HCPCS: 96365; 96366; G0463; J1642; J1940

== ENCOUNTER → 2019-02-25 | Outpatient (CLI) | payer MEDICARE, MEDICAID ==
[~2019-02-25] MED LIST changes: +FUROSEMIDE 100 MG/10ML VIAL IV ONE; -FUROSEMIDE INJECTION 100 MG in SODIUM CHL 0.9% 100 ML IV SCH; -POTASSIUM CHL 20 Meq TABLET PO ONE; +SODIUM CHLORIDE 0.9% 100 ML IV ONE
--- NOTE | 2019-02-25 11:00 | NUR ---
CHF PT ARRIVED AT THE [facility] FOR WEEKLY DIURETIC THERAPY, ALERT ORIENTED 0 DISTRESS. V/S OBTAINED,
--- NOTE | 2019-02-25 11:10 | NUR ---
Clinic Provider Clinic Provider into see pt with new orders received and carried out. lasix gtt started at {30}mg/hr per MD order.
--- NOTE | 2019-02-25 11:12 | NUR ---
Corrie Cath Insertion gauge Corrie Cath inserted using sterile technique in the upper chest with occlusive dressing over conner needle. Patient tolerated procedure well. Ordered labs drawn and sent. See e-MAR for medications given during this visit.
[2019-02-25 11:15] VITALS: BP 134/55
[2019-02-25 11:30] VITALS: BP 127/64
[2019-02-25 12:00] VITALS: BP 135/46
[2019-02-25 12:30] VITALS: BP 107/53
[2019-02-25 13:00] VITALS: BP 120/54
[2019-02-25 14:15] VITALS: BP 116/55
--- NOTE | 2019-02-25 14:15 | NUR ---
Discharge Instructions See e-MAR for any mediations given with this visit. Patient education given on disease process. Patient verbalized understanding. Previous labs reviewed. Patient discharged in stable condition with after care instructions and follow up appointment. MEDICATIONS 1113 START TIME LASIX GTT 30MG/HR X 3 HR 1413 STOP TIME LASIX DRIP 1240 POTASSIUM 30 MEQ PO X 1 1413 HEPARIN 500 UNITS 1VP X 1
[2019-02-25 15:59] LABS: Basophils # (auto) 0 uL; Basophils % (auto) 0.4 % (0.0-2.0); Eosinophils # (auto) 0.2 uL; Eosinophils % (auto) 3.8 % (0.0-7.0); Hematocrit 37.5 % (36.0-46.0); Hemoglobin 12.1 g/dL (12.2-16.2); Lymphocytes # (auto) 2.2 uL; Lymphocytes % (auto) 39.8 % (10.0-50.0); Mean Corpuscular Hemoglobin 27.7 pg (28.0-32.0); Mean Corpuscular Hgb Conc. 32.3 g/dL (32.0-36.0); Mean Corpuscular Volume 85.9 fL (80.0-100.0); Monocytes # (auto) 0.6 uL; Monocytes % (auto) 11.2 % (0.0-12.0); Neutrophils # (auto) 2.4 uL; Neutrophils % (auto) 44.8 % (37.0-80.0); Nucleated Red Blood Cells % 0.2 %; Platelet Count (auto) 220 10^3/uL (140-450); Red Blood Cells 4.37 10^6/uL (4.0-5.20); Red Cell Distribution Width 17.5 % (11.8-14.3); White Blood Cell 5.4 10^3/uL (4.4-10.8)
[2019-02-25 16:07] LABS: Calcium 8.3 mg/dL (8.5-10.1); Magnesium 2.2 mg/dL (1.6-2.6); Potassium 4.3 mmol/L (3.5-5.1)
[2019-02-25 16:10] LABS: BUN/Creatinine Ratio 27.6
== END | disposition home or self-care (01) ==
LOC: CHF HDHVI 10:46
PROVIDERS: ATTEND Internal Medicine Cardiovascular Disease
DX: I13.0 Hypertensive heart and chronic kidney disease with heart failure and stage 1 through stage 4 chronic kidney disease, or unspecified chronic kidney disease (principal); I50.42 Chronic combined systolic (congestive) and diastolic (congestive) heart failure; N18.4 Chronic kidney disease, stage 4 (severe); E11.22 Type 2 diabetes mellitus with diabetic chronic kidney disease; D64.9 Anemia, unspecified; E83.40 Disorders of magnesium metabolism, unspecified; F41.9 Anxiety disorder, unspecified; I25.10 Atherosclerotic heart disease of native coronary artery without angina pectoris; J44.9 Chronic obstructive pulmonary disease, unspecified; G89.4 Chronic pain syndrome; J96.10 Chronic respiratory failure, unspecified whether with hypoxia or hypercapnia; K21.9 Gastro-esophageal reflux disease without esophagitis; E78.5 Hyperlipidemia, unspecified; E03.9 Hypothyroidism, unspecified; F32.9 Major depressive disorder, single episode, unspecified; E66.01 Morbid (severe) obesity due to excess calories; E78.00 Pure hypercholesterolemia, unspecified; I27.21 Secondary pulmonary arterial hypertension; E11.51 Type 2 diabetes mellitus with diabetic peripheral angiopathy without gangrene; E11.21 Type 2 diabetes mellitus with diabetic nephropathy; E11.319 Type 2 diabetes mellitus with unspecified diabetic retinopathy without macular edema; I48.91 Unspecified atrial fibrillation; M19.90 Unspecified osteoarthritis, unspecified site; E11.40 Type 2 diabetes mellitus with diabetic neuropathy, unspecified; Z87.01 Personal history of pneumonia (recurrent); Z68.42 Body mass index [BMI] 45.0-49.9, adult; Z90.49 Acquired absence of other specified parts of digestive tract; Z79.2 Long term (current) use of antibiotics; Z79.01 Long term (current) use of anticoagulants; Z79.02 Long term (current) use of antithrombotics/antiplatelets; Z79.82 Long term (current) use of aspirin; Z79.4 Long term (current) use of insulin; Z79.899 Other long term (current) drug therapy; Z86.718 Personal history of other venous thrombosis and embolism; Z95.1 Presence of aortocoronary bypass graft; Z95.810 Presence of automatic (implantable) cardiac defibrillator; Z95.5 Presence of coronary angioplasty implant and graft; Z86.73 Personal history of transient ischemic attack (TIA), and cerebral infarction without residual deficits; Z99.81 Dependence on supplemental oxygen
CPT/HCPCS: 36415; 80048; 83735; 85025; 96365; 96366; G0463; J1642; J1940

== ENCOUNTER → 2019-03-04 | Outpatient (CLI) | payer MEDICARE, MEDICAID ==
[~2019-03-04] MED LIST changes: +CYANOCOBALAMIN (B-12) 1000 MCG/1 ML VIAL ONE; +POTASSIUM CHL 20 Meq TABLET PO ONE
--- NOTE | 2019-03-04 10:35 | NUR ---
Clinic Provider Clinic Provider updated orders received and carried out. Lasix gtt started at {30}mg/hr per MD order.
--- NOTE | 2019-03-04 10:44 | NUR ---
CHF PT ARRIVED TO [facility]F CLINIC FOR WEEKLY DIURETIC THERAPY, A/0 X 3 O DISTRESS V/S OBTAINED.
[2019-03-04 11:45] VITALS: BP 105/51
[2019-03-04 12:00] VITALS: BP 133/53
[2019-03-04 12:30] VITALS: BP 107/47
[2019-03-04 14:00] VITALS: BP 132/55
[2019-03-04 14:42] VITALS: BP 132/50
--- NOTE | 2019-03-04 14:54 | NUR ---
Discharge Instructions See e-MAR for any mediations given with this visit. Patient education given on disease process. Patient verbalized understanding. Previous labs reviewed. Patient discharged in stable condition with after care instructions and follow up appointment. MEDICATIONS 1113 START TIME LASIX DRIP 30 MG/HR X 3 1420 STOP TIME LASIX DRIP 1240 POTASSIUM 30 MEQ PO X 1 1233 VITAMIN B12 1000MCG IM X 1 LOT # [id number] EXP 1435 HEPARIN 500 UNITS IVP X 1
== END | disposition home or self-care (01) ==
LOC: CHF HDHVI 10:31
PROVIDERS: ATTEND Internal Medicine Cardiovascular Disease
DX: I13.0 Hypertensive heart and chronic kidney disease with heart failure and stage 1 through stage 4 chronic kidney disease, or unspecified chronic kidney disease (principal); I50.42 Chronic combined systolic (congestive) and diastolic (congestive) heart failure; N18.4 Chronic kidney disease, stage 4 (severe); E11.22 Type 2 diabetes mellitus with diabetic chronic kidney disease; I25.10 Atherosclerotic heart disease of native coronary artery without angina pectoris; I27.21 Secondary pulmonary arterial hypertension; I48.91 Unspecified atrial fibrillation; J44.9 Chronic obstructive pulmonary disease, unspecified; F41.9 Anxiety disorder, unspecified; K21.9 Gastro-esophageal reflux disease without esophagitis; J96.10 Chronic respiratory failure, unspecified whether with hypoxia or hypercapnia; F32.9 Major depressive disorder, single episode, unspecified; M19.90 Unspecified osteoarthritis, unspecified site; E03.9 Hypothyroidism, unspecified; E78.5 Hyperlipidemia, unspecified; E78.00 Pure hypercholesterolemia, unspecified; E11.40 Type 2 diabetes mellitus with diabetic neuropathy, unspecified; E11.51 Type 2 diabetes mellitus with diabetic peripheral angiopathy without gangrene; G89.4 Chronic pain syndrome; E66.01 Morbid (severe) obesity due to excess calories; Z68.41 Body mass index [BMI] 40.0-44.9, adult; Z79.01 Long term (current) use of anticoagulants; Z79.82 Long term (current) use of aspirin; Z79.4 Long term (current) use of insulin; Z90.49 Acquired absence of other specified parts of digestive tract; Z79.899 Other long term (current) drug therapy; Z86.718 Personal history of other venous thrombosis and embolism; Z95.1 Presence of aortocoronary bypass graft; Z86.73 Personal history of transient ischemic attack (TIA), and cerebral infarction without residual deficits; Z79.2 Long term (current) use of antibiotics
CPT/HCPCS: 96365; 96366; 96372; G0463; J1642; J1940; J3420

== ENCOUNTER → 2019-03-08 | Outpatient (CLI) | payer MEDICARE, MEDICAID ==
[~2019-03-08] MED LIST changes: -CYANOCOBALAMIN (B-12) 1000 MCG/1 ML VIAL ONE; -FUROSEMIDE 100 MG/10ML VIAL IV ONE; +FUROSEMIDE 100 MG/10ML VIAL IV SCH; -SODIUM CHLORIDE 0.9% 100 ML IV ONE
[2019-03-08 16:45] VITALS: BP 129/59
--- NOTE | 2019-03-08 17:00 | NUR ---
IN TO CLINIC FOR SCHEDULED INFUSION. RIGHT CHEST PORT ACCESSED PER PROTOCOL AND USED FOR INFUSION. SITE BENIGN POST INFUSION.CLINIC PROVIDER CONSULTED AND ORDERS RECIEVED AND CARRIED OUT. TOLERATED WELL. UP TO VOID MULTIPLE TIMES WITH USE OF WALKER. VS WNL. DISCHARGED TO SELF CARE WITH MEDICAL TRANSPORTATION TO HOME. MEDICATION ADMINISTRATION LASIX 30 MG/HR X 3 HOUR (TOTAL 90 MG) START AT 1325/STOP AT 1645 KDUR 30 MEQ PO AT 1330 HEPARIN 500 UNITS IVP TO RIGHT CHEST PORT AT 1645
== END | disposition home or self-care (01) ==
LOC: CHF HDHVI 12:56
PROVIDERS: ATTEND Internal Medicine Cardiovascular Disease
DX: I27.21 Secondary pulmonary arterial hypertension (principal); I13.0 Hypertensive heart and chronic kidney disease with heart failure and stage 1 through stage 4 chronic kidney disease, or unspecified chronic kidney disease; E11.22 Type 2 diabetes mellitus with diabetic chronic kidney disease; I50.42 Chronic combined systolic (congestive) and diastolic (congestive) heart failure; N18.4 Chronic kidney disease, stage 4 (severe); I25.10 Atherosclerotic heart disease of native coronary artery without angina pectoris; I48.91 Unspecified atrial fibrillation; J44.9 Chronic obstructive pulmonary disease, unspecified; G89.4 Chronic pain syndrome; J96.10 Chronic respiratory failure, unspecified whether with hypoxia or hypercapnia; F41.9 Anxiety disorder, unspecified; K21.9 Gastro-esophageal reflux disease without esophagitis; E78.5 Hyperlipidemia, unspecified; E03.9 Hypothyroidism, unspecified; F32.9 Major depressive disorder, single episode, unspecified; E44.1 Mild protein-calorie malnutrition; E78.00 Pure hypercholesterolemia, unspecified; E11.40 Type 2 diabetes mellitus with diabetic neuropathy, unspecified; E11.51 Type 2 diabetes mellitus with diabetic peripheral angiopathy without gangrene; E11.319 Type 2 diabetes mellitus with unspecified diabetic retinopathy without macular edema; M19.90 Unspecified osteoarthritis, unspecified site; E66.01 Morbid (severe) obesity due to excess calories; Z96.649 Presence of unspecified artificial hip joint; Z68.41 Body mass index [BMI] 40.0-44.9, adult; Z95.1 Presence of aortocoronary bypass graft; Z79.01 Long term (current) use of anticoagulants; Z86.718 Personal history of other venous thrombosis and embolism; Z86.73 Personal history of transient ischemic attack (TIA), and cerebral infarction without residual deficits; Z79.2 Long term (current) use of antibiotics; Z79.899 Other long term (current) drug therapy; Z95.5 Presence of coronary angioplasty implant and graft; Z79.02 Long term (current) use of antithrombotics/antiplatelets; Z79.82 Long term (current) use of aspirin; Z79.4 Long term (current) use of insulin; Z90.49 Acquired absence of other specified parts of digestive tract; Z95.810 Presence of automatic (implantable) cardiac defibrillator
CPT/HCPCS: 96365; 96366; G0463; J1642; J1940

== ENCOUNTER → 2019-03-15 | Outpatient (CLI) | payer MEDICARE, MEDICAID ==
[~2019-03-15] MED LIST changes: +FUROSEMIDE 100 MG/10ML VIAL IV ONE; -FUROSEMIDE 100 MG/10ML VIAL IV SCH; -POTASSIUM CHL 20 Meq TABLET PO ONE; +SODIUM CHLORIDE 0.9% 100 ML IV ONE
--- NOTE | 2019-03-15 13:20 | NUR ---
CHF PT ARRIVED TO THE [facility] FOR WEEKLY THERAPY. V/S STABLE PT A/O X 3
--- NOTE | 2019-03-15 13:30 | NUR ---
Clinic Provider Clinic Provider UPDATEDE ON PT STATUS new orders received and carried out. Lasix gtt started at {30}mg/hr per MD order.
--- NOTE | 2019-03-15 15:15 | NUR ---
PT SENT FOR MD APPOINTMENT WITH MD KATHLEEN IN BACK OFFICE
[2019-03-15 16:00] VITALS: BP 139/62
--- NOTE | 2019-03-15 16:05 | NUR ---
Discharge Instructions See e-MAR for any mediations given with this visit. Patient education given on disease process. Patient verbalized understanding. Previous labs reviewed. Patient discharged in stable condition with after care instructions and follow up appointment. MEDICATIONS 1335 START TIME LASIX DRIP 30MG/HR 1600 STOP TIME LASIX DRIP 1600 POTASSIUM 30 MEQ PO X 1 1600 HEPARIN 500 UNITS IVP X 1
[2019-03-15 16:14] LABS: Basophils # (auto) 0.1 uL; Basophils % (auto) 0.9 % (0.0-2.0); Eosinophils # (auto) 0.3 uL; Eosinophils % (auto) 4.3 % (0.0-7.0); Hemoglobin 11.8 g/dL (12.2-16.2); Lymphocytes # (auto) 2.7 uL; Lymphocytes % (auto) 42.7 % (10.0-50.0); Mean Corpuscular Hemoglobin 27.3 pg (28.0-32.0); Mean Corpuscular Hgb Conc. 31.9 g/dL (32.0-36.0); Mean Corpuscular Volume 85.6 fL (80.0-100.0); Monocytes # (auto) 0.6 uL; Monocytes % (auto) 9.9 % (0.0-12.0); Neutrophils # (auto) 2.7 uL; Neutrophils % (auto) 42.2 % (37.0-80.0); Nucleated Red Blood Cells % 0.1 %; Platelet Count (auto) 213 10^3/uL (140-450); Red Blood Cells 4.33 10^6/uL (4.0-5.20); Red Cell Distribution Width 16.9 % (11.8-14.3); White Blood Cell 6.4 10^3/uL (4.4-10.8)
[2019-03-15 16:15] LABS: Calcium 9.1 mg/dL (8.5-10.1); Magnesium 2.3 mg/dL (1.6-2.6); Potassium 3.8 mmol/L (3.5-5.1)
[2019-03-15 16:18] LABS: BUN/Creatinine Ratio 22.5
== END | disposition home or self-care (01) ==
LOC: CHF HDHVI 13:24
PROVIDERS: ATTEND Internal Medicine Cardiovascular Disease
DX: I13.0 Hypertensive heart and chronic kidney disease with heart failure and stage 1 through stage 4 chronic kidney disease, or unspecified chronic kidney disease (principal); E11.22 Type 2 diabetes mellitus with diabetic chronic kidney disease; I50.42 Chronic combined systolic (congestive) and diastolic (congestive) heart failure; N18.4 Chronic kidney disease, stage 4 (severe); D64.9 Anemia, unspecified; E83.40 Disorders of magnesium metabolism, unspecified; I25.10 Atherosclerotic heart disease of native coronary artery without angina pectoris; I48.91 Unspecified atrial fibrillation; I27.21 Secondary pulmonary arterial hypertension; F41.9 Anxiety disorder, unspecified; J44.9 Chronic obstructive pulmonary disease, unspecified; J96.10 Chronic respiratory failure, unspecified whether with hypoxia or hypercapnia; G89.4 Chronic pain syndrome; K21.9 Gastro-esophageal reflux disease without esophagitis; E78.5 Hyperlipidemia, unspecified; E03.9 Hypothyroidism, unspecified; F32.9 Major depressive disorder, single episode, unspecified; E44.1 Mild protein-calorie malnutrition; E78.00 Pure hypercholesterolemia, unspecified; E11.40 Type 2 diabetes mellitus with diabetic neuropathy, unspecified; E11.51 Type 2 diabetes mellitus with diabetic peripheral angiopathy without gangrene; M19.90 Unspecified osteoarthritis, unspecified site; E11.319 Type 2 diabetes mellitus with unspecified diabetic retinopathy without macular edema; E66.01 Morbid (severe) obesity due to excess calories; Z68.41 Body mass index [BMI] 40.0-44.9, adult; Z86.718 Personal history of other venous thrombosis and embolism; Z79.01 Long term (current) use of anticoagulants; Z79.899 Other long term (current) drug therapy; Z95.1 Presence of aortocoronary bypass graft; Z79.2 Long term (current) use of antibiotics; Z79.4 Long term (current) use of insulin; Z86.73 Personal history of transient ischemic attack (TIA), and cerebral infarction without residual deficits; Z79.02 Long term (current) use of antithrombotics/antiplatelets; Z90.49 Acquired absence of other specified parts of digestive tract; Z95.5 Presence of coronary angioplasty implant and graft
CPT/HCPCS: 36415; 80048; 83735; 85025; 96365; 96366; G0463; J1642; J1940

== ENCOUNTER → 2019-03-18 | Outpatient (CLI) | payer MEDICARE, MEDICAID ==
[~2019-03-18] VITALS: Ht 165.1 cm; Wt 126.6 kg
[2019-03-18] VITALS (7 sets, daily range): BP systolic 110–132; BP diastolic 45–61
[~2019-03-18] MED LIST changes: -SODIUM CHLORIDE 0.9% 100 ML IV ONE; +SODIUM CHLORIDE 0.9% 100 ML IV SCH
--- NOTE | 2019-03-18 14:30 | NUR ---
IN TO CLINIC FOR FLUID OVERLOAD AND SCHEDULED INFUSION. RIGHT CHEST PORT ACCESSED AND USED FOR INFUSION. SITE BENIGN POST INFUSION. PT TOLERATED DRIP WELL. UP TO VOID X 3 DURING INFUSION. VS WNL. WITHOUT DISTRESS. DISCHERGED TO SELF CARE IN [facility] FOR TRANSPORTATION WITH USE OF WALKER. MEDICATION ADMINISTRATION LASIX 100 MG IN 100 ML AT 30ML/HR START AT 1100/STOP AT 1425 POTASSIUM 30 MEQ PO AT 1120 HEPARIN 500 UNITS IVP AT 1425
== END | disposition home or self-care (01) ==
LOC: CHF HDHVI 10:49
PROVIDERS: ATTEND Internal Medicine Cardiovascular Disease
DX: I27.21 Secondary pulmonary arterial hypertension (principal); I13.0 Hypertensive heart and chronic kidney disease with heart failure and stage 1 through stage 4 chronic kidney disease, or unspecified chronic kidney disease; E11.22 Type 2 diabetes mellitus with diabetic chronic kidney disease; N18.4 Chronic kidney disease, stage 4 (severe); I50.42 Chronic combined systolic (congestive) and diastolic (congestive) heart failure; I25.10 Atherosclerotic heart disease of native coronary artery without angina pectoris; I48.91 Unspecified atrial fibrillation; J96.10 Chronic respiratory failure, unspecified whether with hypoxia or hypercapnia; E11.40 Type 2 diabetes mellitus with diabetic neuropathy, unspecified; E11.51 Type 2 diabetes mellitus with diabetic peripheral angiopathy without gangrene; E11.319 Type 2 diabetes mellitus with unspecified diabetic retinopathy without macular edema; K21.9 Gastro-esophageal reflux disease without esophagitis; E78.5 Hyperlipidemia, unspecified; E03.9 Hypothyroidism, unspecified; F32.9 Major depressive disorder, single episode, unspecified; F41.9 Anxiety disorder, unspecified; E78.00 Pure hypercholesterolemia, unspecified; G89.4 Chronic pain syndrome; M19.90 Unspecified osteoarthritis, unspecified site; E66.01 Morbid (severe) obesity due to excess calories; Z95.1 Presence of aortocoronary bypass graft; Z68.42 Body mass index [BMI] 45.0-49.9, adult; Z79.01 Long term (current) use of anticoagulants; Z79.2 Long term (current) use of antibiotics; Z79.4 Long term (current) use of insulin; Z79.02 Long term (current) use of antithrombotics/antiplatelets; Z95.5 Presence of coronary angioplasty implant and graft; Z95.810 Presence of automatic (implantable) cardiac defibrillator; Z79.82 Long term (current) use of aspirin; Z86.73 Personal history of transient ischemic attack (TIA), and cerebral infarction without residual deficits; Z90.49 Acquired absence of other specified parts of digestive tract; Z79.899 Other long term (current) drug therapy
CPT/HCPCS: 96365; 96366; G0463; J1642; J1940

== ENCOUNTER → 2019-03-22 | Outpatient (CLI) | payer MEDICARE, MEDICAID ==
[~2019-03-22] MED LIST changes: +POTASSIUM CHL 20 Meq TABLET PO ONE; -SODIUM CHLORIDE 0.9% 100 ML IV SCH
--- NOTE | 2019-03-22 15:09 | NUR ---
BACK FROM SEEING DR KATHLEEN. STILL TEARFUL. PT STATES 'IM FINE". RIGHT CHEST PORT ACCESSED AND PARTIAL INFUSION TO BE ADMINISTERED.
[2019-03-22 15:12] VITALS: BP 149/65
[2019-03-22 15:45] VITALS: BP 119/53
[2019-03-22 16:18] LABS: Urine Blood Negative /uL (Negative); Urine Specific Gravity 1.023 (1.001-1.035)
--- NOTE | 2019-03-22 16:38 | NUR ---
Discharge Instructions See e-MAR for any mediations given with this visit. Patient education given on disease process. Patient verbalized understanding. Previous labs reviewed. Patient discharged in stable condition with after care instructions and follow up appointment. MEDICATIONS 1512 START TIME LASIX DRIP 45MG/HR X 1 HR 1620 STOP TIME LASIX DRIP 1630 HEPARIN 500 UNITS IVP X 1 1630 POTASSIUM 30 MEQ PO X 1
[2019-03-22 16:41] VITALS: BP 143/63
== END | disposition home or self-care (01) ==
LOC: CHF HDHVI 12:38
PROVIDERS: ATTEND Internal Medicine Cardiovascular Disease
DX: I27.21 Secondary pulmonary arterial hypertension (principal); I70.0 Atherosclerosis of aorta; N39.0 Urinary tract infection, site not specified; I13.0 Hypertensive heart and chronic kidney disease with heart failure and stage 1 through stage 4 chronic kidney disease, or unspecified chronic kidney disease; E11.22 Type 2 diabetes mellitus with diabetic chronic kidney disease; N18.4 Chronic kidney disease, stage 4 (severe); I50.42 Chronic combined systolic (congestive) and diastolic (congestive) heart failure; I25.10 Atherosclerotic heart disease of native coronary artery without angina pectoris; J44.9 Chronic obstructive pulmonary disease, unspecified; J96.10 Chronic respiratory failure, unspecified whether with hypoxia or hypercapnia; I48.91 Unspecified atrial fibrillation; K21.9 Gastro-esophageal reflux disease without esophagitis; E11.21 Type 2 diabetes mellitus with diabetic nephropathy; E11.51 Type 2 diabetes mellitus with diabetic peripheral angiopathy without gangrene; E11.319 Type 2 diabetes mellitus with unspecified diabetic retinopathy without macular edema; E78.5 Hyperlipidemia, unspecified; E03.9 Hypothyroidism, unspecified; F41.9 Anxiety disorder, unspecified; E78.00 Pure hypercholesterolemia, unspecified; M19.90 Unspecified osteoarthritis, unspecified site; G89.4 Chronic pain syndrome; F32.9 Major depressive disorder, single episode, unspecified; E66.01 Morbid (severe) obesity due to excess calories; Z68.42 Body mass index [BMI] 45.0-49.9, adult; Z79.899 Other long term (current) drug therapy; Z90.49 Acquired absence of other specified parts of digestive tract; Z95.1 Presence of aortocoronary bypass graft; Z95.5 Presence of coronary angioplasty implant and graft; Z95.810 Presence of automatic (implantable) cardiac defibrillator; Z86.718 Personal history of other venous thrombosis and embolism; Z86.73 Personal history of transient ischemic attack (TIA), and cerebral infarction without residual deficits; Z99.81 Dependence on supplemental oxygen; Z79.2 Long term (current) use of antibiotics; Z79.01 Long term (current) use of anticoagulants; Z79.02 Long term (current) use of antithrombotics/antiplatelets; Z79.82 Long term (current) use of aspirin; Z79.4 Long term (current) use of insulin; Z96.649 Presence of unspecified artificial hip joint
CPT/HCPCS: 71046; 81003; 96365; G0463; J1642; J1940

== ENCOUNTER → 2019-03-25 | Outpatient (CLI) | payer MEDICARE, MEDICAID ==
[~2019-03-25] VITALS: Ht 33 cm; Wt 126.6 kg
[2019-03-25] VITALS (8 sets, daily range): BP systolic 115–137; BP diastolic 48–62
[~2019-03-25] MED LIST changes: -BUME2TAB3 PO; +BUME2TAB5 PO; +SODIUM CHLORIDE 0.9% 100 ML IV ONE
--- NOTE | 2019-03-25 10:45 | NUR ---
IN FOR SCHEDULED INFUSION. REPORTS FEELING BETTER.IN WITH WALKER. DECLINES SOB OR FATIGUE. VS WNL.
--- NOTE | 2019-03-25 11:14 | NUR ---
CLINIC PROVIDER CONSULTED AND ORDERS RECIEVED AND CARRIED OUT.
--- NOTE | 2019-03-25 14:20 | NUR ---
Discharge Instructions See e-MAR for any mediations given with this visit. Patient education given on disease process. Patient verbalized understanding. Previous labs reviewed. Patient discharged in stable condition with after care instructions and follow up appointment. MEDICATIONS 1115 START TIME LASIX DRIP 30MG/HR X 3 HR 1415 STOP TIME LASIX DRIP 1115 POTASSIUM 30 MEQ PO X 1 1415 HEPARIN 500 UNITS IVP X 1
[2019-03-25 15:52] LABS: Urine Blood Negative /uL (Negative); Urine Specific Gravity 1.006 (1.001-1.035)
[2019-03-25 16:01] LABS: Basophils # (auto) 0 uL; Basophils % (auto) 0.4 % (0.0-2.0); Eosinophils # (auto) 0.2 uL; Eosinophils % (auto) 3.9 % (0.0-7.0); Hematocrit 37.7 % (36.0-46.0); Hemoglobin 11.9 g/dL (12.2-16.2); Lymphocytes # (auto) 2.3 uL; Lymphocytes % (auto) 40.4 % (10.0-50.0); Mean Corpuscular Hemoglobin 27.1 pg (28.0-32.0); Mean Corpuscular Hgb Conc. 31.5 g/dL (32.0-36.0); Monocytes # (auto) 0.6 uL; Monocytes % (auto) 10.2 % (0.0-12.0); Neutrophils # (auto) 2.6 uL; Neutrophils % (auto) 45.1 % (37.0-80.0); Nucleated Red Blood Cells % 0.2 %; Platelet Count (auto) 207 10^3/uL (140-450); Red Blood Cells 4.38 10^6/uL (4.0-5.20); Red Cell Distribution Width 17.5 % (11.8-14.3); White Blood Cell 5.7 10^3/uL (4.4-10.8)
[2019-03-25 16:05] LABS: Calcium 9.1 mg/dL (8.5-10.1); Magnesium 2.1 mg/dL (1.6-2.6); Potassium 4.4 mmol/L (3.5-5.1)
== END | disposition home or self-care (01) ==
LOC: CHF HDHVI 10:55
PROVIDERS: ATTEND Internal Medicine Cardiovascular Disease
DX: I13.0 Hypertensive heart and chronic kidney disease with heart failure and stage 1 through stage 4 chronic kidney disease, or unspecified chronic kidney disease (principal); E11.22 Type 2 diabetes mellitus with diabetic chronic kidney disease; I50.42 Chronic combined systolic (congestive) and diastolic (congestive) heart failure; N18.4 Chronic kidney disease, stage 4 (severe); D64.9 Anemia, unspecified; E83.40 Disorders of magnesium metabolism, unspecified; N39.0 Urinary tract infection, site not specified; I25.10 Atherosclerotic heart disease of native coronary artery without angina pectoris; I27.21 Secondary pulmonary arterial hypertension; I48.91 Unspecified atrial fibrillation; F41.9 Anxiety disorder, unspecified; G89.4 Chronic pain syndrome; J96.10 Chronic respiratory failure, unspecified whether with hypoxia or hypercapnia; K21.9 Gastro-esophageal reflux disease without esophagitis; E78.5 Hyperlipidemia, unspecified; E03.9 Hypothyroidism, unspecified; F32.9 Major depressive disorder, single episode, unspecified; E44.1 Mild protein-calorie malnutrition; E78.00 Pure hypercholesterolemia, unspecified; E11.21 Type 2 diabetes mellitus with diabetic nephropathy; E11.51 Type 2 diabetes mellitus with diabetic peripheral angiopathy without gangrene; M19.90 Unspecified osteoarthritis, unspecified site; J44.9 Chronic obstructive pulmonary disease, unspecified; E11.319 Type 2 diabetes mellitus with unspecified diabetic retinopathy without macular edema; E66.01 Morbid (severe) obesity due to excess calories; Z68.42 Body mass index [BMI] 45.0-49.9, adult; Z90.49 Acquired absence of other specified parts of digestive tract; Z86.718 Personal history of other venous thrombosis and embolism; Z95.5 Presence of coronary angioplasty implant and graft; Z95.810 Presence of automatic (implantable) cardiac defibrillator; Z79.82 Long term (current) use of aspirin; Z95.1 Presence of aortocoronary bypass graft; Z79.2 Long term (current) use of antibiotics; Z86.73 Personal history of transient ischemic attack (TIA), and cerebral infarction without residual deficits; Z79.4 Long term (current) use of insulin; Z79.01 Long term (current) use of anticoagulants; Z79.02 Long term (current) use of antithrombotics/antiplatelets; Z79.899 Other long term (current) drug therapy
CPT/HCPCS: 36415; 80048; 81003; 83036; 83735; 85025; 87086; 87088; 87186; 96365; 96366; G0463; J1642; J1940

== ENCOUNTER → 2019-04-01 | Outpatient (CLI) | payer MEDICARE, MEDICAID ==
[2019-04-01] VITALS (7 sets, daily range): BP systolic 92–147; BP diastolic 39–84
[~2019-04-01] MED LIST changes: +BUME2TAB3 PO; -BUME2TAB5 PO; +KETOROLAC TROMETH 15 mg/ml 1ML VL IV ONE; +KETOROLAC TROMETH 60MG/2ML VIAL ONE; -SODIUM CHLORIDE 0.9% 100 ML IV ONE; +cefTRIAXone 1GM/50ML D5W 50 ML IV ONE; +cefTRIAXone 1GM/50ML D5W 50 ML IV SCH
--- NOTE | 2019-04-01 10:30 | NUR ---
CHF PT ARRIVED TO THE CHF CLINIC FOR THERAPY. A/O X 3 VERBALIZED PAIN GENERALIZED. TORADOL ORDERED. VSSS
--- NOTE | 2019-04-01 11:15 | NUR ---
Clinic Provider Clinic Provider UPDATED orders received and carried out. Lasix gtt started at {30}mg/hr per MD order.
--- NOTE | 2019-04-01 14:20 | NUR ---
Discharge Instructions See e-MAR for any mediations given with this visit. Patient education given on disease process. Patient verbalized understanding. Previous labs reviewed. Patient discharged in stable condition with after care instructions and follow up appointment. MEDICATIONS 1112 START TIME LASIX DRIP 30 MG/HR X 3 HR 1412 STOP TIME LASIX DRIP 1057 TORADOL 30 MG IM X 1 1127 POTASSIUM 30 MEQ PO X 1 1311 START TIME ROCEPHIN 1 GRAM IVPB X 1 1412 STOP TIME ROCEPHIN 1 GRAM IVPB 1412 HEPARIN 500 UNITS IVPB X 1
[2019-04-01 15:47] LABS: Basophils # (auto) 0 uL; Basophils % (auto) 0.5 % (0.0-2.0); Eosinophils # (auto) 0.2 uL; Eosinophils % (auto) 3.5 % (0.0-7.0); Hematocrit 37.8 % (36.0-46.0); Hemoglobin 12.3 g/dL (12.2-16.2); Lymphocytes % (auto) 39.2 % (10.0-50.0); Mean Corpuscular Hemoglobin 27.8 pg (28.0-32.0); Mean Corpuscular Hgb Conc. 32.6 g/dL (32.0-36.0); Mean Corpuscular Volume 85.1 fL (80.0-100.0); Monocytes # (auto) 0.5 uL; Monocytes % (auto) 9.7 % (0.0-12.0); Neutrophils # (auto) 2.4 uL; Neutrophils % (auto) 47.1 % (37.0-80.0); Nucleated Red Blood Cells % 0.1 %; Platelet Count (auto) 218 10^3/uL (140-450); Red Blood Cells 4.44 10^6/uL (4.0-5.20); Red Cell Distribution Width 17.1 % (11.8-14.3); White Blood Cell 5.1 10^3/uL (4.4-10.8)
[2019-04-01 15:54] LABS: Calcium 8.5 mg/dL (8.5-10.1); Magnesium 2.1 mg/dL (1.6-2.6); Potassium 4.2 mmol/L (3.5-5.1)
[2019-04-01 15:57] LABS: BUN/Creatinine Ratio 18.9
== END | disposition home or self-care (01) ==
LOC: CHF HDHVI 10:30
PROVIDERS: ATTEND Internal Medicine Cardiovascular Disease
DX: I13.0 Hypertensive heart and chronic kidney disease with heart failure and stage 1 through stage 4 chronic kidney disease, or unspecified chronic kidney disease (principal); I50.42 Chronic combined systolic (congestive) and diastolic (congestive) heart failure; E11.22 Type 2 diabetes mellitus with diabetic chronic kidney disease; N18.4 Chronic kidney disease, stage 4 (severe); D64.9 Anemia, unspecified; E83.40 Disorders of magnesium metabolism, unspecified; G89.29 Other chronic pain; I27.21 Secondary pulmonary arterial hypertension; I25.10 Atherosclerotic heart disease of native coronary artery without angina pectoris; I48.91 Unspecified atrial fibrillation; E11.40 Type 2 diabetes mellitus with diabetic neuropathy, unspecified; E11.51 Type 2 diabetes mellitus with diabetic peripheral angiopathy without gangrene; E11.36 Type 2 diabetes mellitus with diabetic cataract; M10.9 Gout, unspecified; E78.5 Hyperlipidemia, unspecified; E03.9 Hypothyroidism, unspecified; E66.01 Morbid (severe) obesity due to excess calories; F41.9 Anxiety disorder, unspecified; K21.9 Gastro-esophageal reflux disease without esophagitis; J44.9 Chronic obstructive pulmonary disease, unspecified; F32.9 Major depressive disorder, single episode, unspecified; E78.00 Pure hypercholesterolemia, unspecified; M19.90 Unspecified osteoarthritis, unspecified site; Z96.649 Presence of unspecified artificial hip joint; Z68.42 Body mass index [BMI] 45.0-49.9, adult; Z86.73 Personal history of transient ischemic attack (TIA), and cerebral infarction without residual deficits; Z79.01 Long term (current) use of anticoagulants; Z79.02 Long term (current) use of antithrombotics/antiplatelets; Z79.899 Other long term (current) drug therapy; Z79.2 Long term (current) use of antibiotics; Z79.82 Long term (current) use of aspirin; Z90.49 Acquired absence of other specified parts of digestive tract; Z79.4 Long term (current) use of insulin; Z95.810 Presence of automatic (implantable) cardiac defibrillator; Z95.5 Presence of coronary angioplasty implant and graft
CPT/HCPCS: 36415; 80048; 83735; 85025; 93701; 96365; 96366; 96368; 96372; G0463; J0696; J1642; J1885; J1940

== ENCOUNTER → 2019-04-05 | Outpatient (CLI) | payer MEDICARE, MEDICAID ==
[2019-04-05] VITALS (7 sets, daily range): BP systolic 124–147; BP diastolic 49–66
[~2019-04-05] MED LIST changes: -KETOROLAC TROMETH 15 mg/ml 1ML VL IV ONE; -KETOROLAC TROMETH 60MG/2ML VIAL ONE; +SODIUM CHLORIDE 0.9% 100 ML IV SCH; -cefTRIAXone 1GM/50ML D5W 50 ML IV ONE; -cefTRIAXone 1GM/50ML D5W 50 ML IV SCH; +cefTRIAXone SOD 1,000 MG VL ONE
--- NOTE | 2019-04-05 16:05 | NUR ---
IN TO CLINIC FOR SCHEDULED INFUSION . CLINIC PROVIDER CONSULTED AND ORDERS RECIEVED AND CARRIED OUT. WITHOUT DISTRESS AND WITHOUT DISCOMFORT. MEDICATION ADMINISTERED TO RIGHT CHEST PORT AND SIT BENIGN POST INFUSION AND TOLERATED WELL. DISCHARGED TO SELF CARE WITH MEDICAL RIDE ARRIVAL. VS WNL. MEDICATION ADMINISTRATION LASIX GTT AT 30 MG/HR X 3 HOURS (100 MG MIXED IN 100 ML 0.9 NS) POTASSIUM 30 MEQ PO AT 1300 HEPARIN 500 UNITS IVP TO RIGHT CHEST PORT AT 1600 ROCEPHIN 1 GRAM IVP AT 1255 OVER 5 MINUTES
== END | disposition home or self-care (01) ==
LOC: CHF HDHVI 12:25
PROVIDERS: ATTEND Internal Medicine Cardiovascular Disease
DX: I25.10 Atherosclerotic heart disease of native coronary artery without angina pectoris (principal); I27.21 Secondary pulmonary arterial hypertension; N39.0 Urinary tract infection, site not specified; I13.0 Hypertensive heart and chronic kidney disease with heart failure and stage 1 through stage 4 chronic kidney disease, or unspecified chronic kidney disease; E11.22 Type 2 diabetes mellitus with diabetic chronic kidney disease; N18.4 Chronic kidney disease, stage 4 (severe); I50.42 Chronic combined systolic (congestive) and diastolic (congestive) heart failure; J44.9 Chronic obstructive pulmonary disease, unspecified; F41.9 Anxiety disorder, unspecified; G89.4 Chronic pain syndrome; I48.91 Unspecified atrial fibrillation; J96.10 Chronic respiratory failure, unspecified whether with hypoxia or hypercapnia; K21.9 Gastro-esophageal reflux disease without esophagitis; E78.5 Hyperlipidemia, unspecified; E03.9 Hypothyroidism, unspecified; E66.01 Morbid (severe) obesity due to excess calories; F32.9 Major depressive disorder, single episode, unspecified; E78.00 Pure hypercholesterolemia, unspecified; E11.40 Type 2 diabetes mellitus with diabetic neuropathy, unspecified; E11.51 Type 2 diabetes mellitus with diabetic peripheral angiopathy without gangrene; E11.36 Type 2 diabetes mellitus with diabetic cataract; Z95.1 Presence of aortocoronary bypass graft; Z68.42 Body mass index [BMI] 45.0-49.9, adult; Z79.2 Long term (current) use of antibiotics; Z79.4 Long term (current) use of insulin; Z90.49 Acquired absence of other specified parts of digestive tract; Z95.810 Presence of automatic (implantable) cardiac defibrillator
CPT/HCPCS: 93701; 96365; 96366; 96375; G0463; J0696; J1642; J1940

== ENCOUNTER → 2019-04-12 | Outpatient (CLI) | payer MEDICARE, MEDICAID ==
[2019-04-12] VITALS (7 sets, daily range): BP systolic 118–151; BP diastolic 48–71
[~2019-04-12] MED LIST changes: -BUME2TAB3 PO; +BUME2TAB5 PO; +CYANOCOBALAMIN (B-12) 1000 MCG/1 ML VIAL IM ONE; +CYANOCOBALAMIN (B-12) 1000 MCG/1 ML VIAL ONE; +SODIUM CHLORIDE 0.9% 100 ML IV ONE; -SODIUM CHLORIDE 0.9% 100 ML IV SCH; -cefTRIAXone SOD 1,000 MG VL ONE
--- NOTE | 2019-04-12 12:45 | NUR ---
CHF PT ARRIVED AT THE CHF CLINIC A/O X 3 0 DISTRESS. VSS
[2019-04-12 16:10] LABS: Albumin 3.6 g/dL (3.4-5.0); Calcium 8.5 mg/dL (8.5-10.1); Potassium 3.9 mmol/L (3.5-5.1)
[2019-04-12 16:13] LABS: BUN/Creatinine Ratio 25.7; Phosphorus 3.4 mg/dL (2.5-4.90); Uric Acid 9.2 mg/dL (2.6-6.0)
--- NOTE | 2019-04-12 16:15 | NUR ---
Discharge Instructions See e-MAR for any mediations given with this visit. Patient education given on disease process. Patient verbalized understanding. Previous labs reviewed. Patient discharged in stable condition with after care instructions and follow up appointment. MEDICATIONS 1307 START TIME LASIX DRIP 30 MG/HR X 3 STOP TIME 1607 POTASSIUM 30 MEQ PO X 1 HEPARIN 500 UNITS IVP X 1 VITAMIN B12 1000 MCG IM X 1 1307 NS 100ML IV AT 30ML/HR X 3 HR
[2019-04-12 16:21] LABS: Basophils # (auto) 0 uL; Basophils % (auto) 0.4 % (0.0-2.0); Eosinophils # (auto) 0.2 uL; Eosinophils % (auto) 4.1 % (0.0-7.0); Hematocrit 36.9 % (36.0-46.0); Hemoglobin 11.9 g/dL (12.2-16.2); Lymphocytes # (auto) 2.5 uL; Lymphocytes % (auto) 41.3 % (10.0-50.0); Mean Corpuscular Hemoglobin 27.6 pg (28.0-32.0); Mean Corpuscular Hgb Conc. 32.3 g/dL (32.0-36.0); Mean Corpuscular Volume 85.5 fL (80.0-100.0); Monocytes # (auto) 0.6 uL; Monocytes % (auto) 9.6 % (0.0-12.0); Neutrophils # (auto) 2.7 uL; Neutrophils % (auto) 44.6 % (37.0-80.0); Nucleated Red Blood Cells % 0.1 %; Platelet Count (auto) 190 10^3/uL (140-450); Red Blood Cells 4.32 10^6/uL (4.0-5.20)
[2019-04-12 17:05] LABS: Urine Blood Negative /uL (Negative); Urine Specific Gravity 1.005 (1.001-1.035)
[2019-04-12 19:27] LABS: Protein, Urine < 5.0 mg/dL (0.0-11.9)
[2019-04-12 20:22] LABS: Creatinine, Urine < 5.0 mg/dL (30.0-125.0)
== END | disposition home or self-care (01) ==
LOC: CHF HDHVI 12:51
PROVIDERS: ATTEND Internal Medicine Cardiovascular Disease
DX: I25.10 Atherosclerotic heart disease of native coronary artery without angina pectoris (principal); I13.0 Hypertensive heart and chronic kidney disease with heart failure and stage 1 through stage 4 chronic kidney disease, or unspecified chronic kidney disease; E11.22 Type 2 diabetes mellitus with diabetic chronic kidney disease; I50.42 Chronic combined systolic (congestive) and diastolic (congestive) heart failure; N18.4 Chronic kidney disease, stage 4 (severe); M10.9 Gout, unspecified; D64.9 Anemia, unspecified; I27.21 Secondary pulmonary arterial hypertension; N25.89 Other disorders resulting from impaired renal tubular function; E21.4 Other specified disorders of parathyroid gland; K90.9 Intestinal malabsorption, unspecified; R53.83 Other fatigue; E11.319 Type 2 diabetes mellitus with unspecified diabetic retinopathy without macular edema; E11.21 Type 2 diabetes mellitus with diabetic nephropathy; F41.9 Anxiety disorder, unspecified; I48.91 Unspecified atrial fibrillation; J44.9 Chronic obstructive pulmonary disease, unspecified; G89.4 Chronic pain syndrome; J96.10 Chronic respiratory failure, unspecified whether with hypoxia or hypercapnia; K21.9 Gastro-esophageal reflux disease without esophagitis; E78.5 Hyperlipidemia, unspecified; E03.9 Hypothyroidism, unspecified; F32.9 Major depressive disorder, single episode, unspecified; E66.01 Morbid (severe) obesity due to excess calories; E78.00 Pure hypercholesterolemia, unspecified; E11.40 Type 2 diabetes mellitus with diabetic neuropathy, unspecified; E11.51 Type 2 diabetes mellitus with diabetic peripheral angiopathy without gangrene; M19.90 Unspecified osteoarthritis, unspecified site; Z95.5 Presence of coronary angioplasty implant and graft; Z90.49 Acquired absence of other specified parts of digestive tract; Z68.42 Body mass index [BMI] 45.0-49.9, adult; Z79.899 Other long term (current) drug therapy; Z95.810 Presence of automatic (implantable) cardiac defibrillator; Z79.02 Long term (current) use of antithrombotics/antiplatelets; Z79.4 Long term (current) use of insulin; Z79.2 Long term (current) use of antibiotics; Z79.82 Long term (current) use of aspirin; Z86.73 Personal history of transient ischemic attack (TIA), and cerebral infarction without residual deficits; Z95.1 Presence of aortocoronary bypass graft
CPT/HCPCS: 36415; 80069; 81003; 82306; 82570; 83970; 84156; 84550; 85025; 96365; 96366; 96372; G0463; J1642; J1940; J3420

== ENCOUNTER → 2019-04-15 | Outpatient (CLI) | payer MEDICARE, MEDICAID ==
[2019-04-15] VITALS (7 sets, daily range): BP systolic 123–140; BP diastolic 48–63
[~2019-04-15] MED LIST changes: -CYANOCOBALAMIN (B-12) 1000 MCG/1 ML VIAL IM ONE; -CYANOCOBALAMIN (B-12) 1000 MCG/1 ML VIAL ONE
--- NOTE | 2019-04-15 10:19 | NUR ---
CHF PT ARRIVED AT THE CHF CLINIC FOR WEEKLY TREATMENT. PT IS A/O X 3 0 DISTRESS, VSS
--- NOTE | 2019-04-15 13:33 | NUR ---
Discharge Instructions See e-MAR for any mediations given with this visit. Patient education given on disease process. Patient verbalized understanding. Previous labs reviewed. Patient discharged in stable condition with after care instructions and follow up appointment. MEDICATIONS 1040 START TIME LASIX DRIP 30MG/HR X 3 HR 1330 STOP TIME LASIX DRIP POTASSIUM 30 MEQ PO X 1 HEPARIN 500 UNITS IVP X 1
== END | disposition home or self-care (01) ==
LOC: CHF HDHVI 10:22
PROVIDERS: ATTEND Internal Medicine Cardiovascular Disease
DX: I13.0 Hypertensive heart and chronic kidney disease with heart failure and stage 1 through stage 4 chronic kidney disease, or unspecified chronic kidney disease (principal); E11.22 Type 2 diabetes mellitus with diabetic chronic kidney disease; I50.42 Chronic combined systolic (congestive) and diastolic (congestive) heart failure; N18.4 Chronic kidney disease, stage 4 (severe); I25.10 Atherosclerotic heart disease of native coronary artery without angina pectoris; I27.21 Secondary pulmonary arterial hypertension; F41.9 Anxiety disorder, unspecified; I48.91 Unspecified atrial fibrillation; J44.9 Chronic obstructive pulmonary disease, unspecified; K21.9 Gastro-esophageal reflux disease without esophagitis; E78.5 Hyperlipidemia, unspecified; E03.9 Hypothyroidism, unspecified; J96.10 Chronic respiratory failure, unspecified whether with hypoxia or hypercapnia; G89.4 Chronic pain syndrome; E11.319 Type 2 diabetes mellitus with unspecified diabetic retinopathy without macular edema; F32.9 Major depressive disorder, single episode, unspecified; E78.00 Pure hypercholesterolemia, unspecified; E11.21 Type 2 diabetes mellitus with diabetic nephropathy; E11.40 Type 2 diabetes mellitus with diabetic neuropathy, unspecified; E11.51 Type 2 diabetes mellitus with diabetic peripheral angiopathy without gangrene; M19.90 Unspecified osteoarthritis, unspecified site; E66.01 Morbid (severe) obesity due to excess calories; Z68.42 Body mass index [BMI] 45.0-49.9, adult; Z86.73 Personal history of transient ischemic attack (TIA), and cerebral infarction without residual deficits; Z79.899 Other long term (current) drug therapy; Z79.2 Long term (current) use of antibiotics; Z95.5 Presence of coronary angioplasty implant and graft; Z79.01 Long term (current) use of anticoagulants; Z79.82 Long term (current) use of aspirin; Z79.4 Long term (current) use of insulin; Z90.49 Acquired absence of other specified parts of digestive tract; Z95.810 Presence of automatic (implantable) cardiac defibrillator
CPT/HCPCS: 96365; 96366; G0463; J1642; J1940

== ENCOUNTER → 2019-04-19 | Outpatient (CLI) | payer MEDICARE, MEDICAID ==
[~2019-04-19] VITALS: Ht 30.5 cm; Wt 124.3 kg
--- NOTE | 2019-04-19 13:00 | NUR ---
CHF PT ARRIVED AT THE [facility]F CLINIC FOR WEEKLY TREATMENT AND THERAPY. PT A/O X 3 0 DISTRESS, V/S OBTAINED
--- NOTE | 2019-04-19 13:20 | NUR ---
Corrie Cath Insertion [20] gauge Corrie Cath inserted using sterile technique in the [R] upper chest with occlusive dressing over conner needle. Patient tolerated procedure well. Ordered labs drawn and sent. See e-MAR for medications given during this visit.
[2019-04-19 13:30] VITALS: BP 127/54
[2019-04-19 13:45] VITALS: BP 126/53
[2019-04-19 14:00] VITALS: BP 137/57
[2019-04-19 14:30] VITALS: BP 135/60
[2019-04-19 15:00] VITALS: BP 137/57
[2019-04-19 16:10] VITALS: BP 149/66
--- NOTE | 2019-04-19 16:15 | NUR ---
Discharge Instructions See e-MAR for any mediations given with this visit. Patient education given on disease process. Patient verbalized understanding. Previous labs reviewed. Patient discharged in stable condition with after care instructions and follow up appointment. MEDICATIONS 1330 START TIME LASIX DRIP 25MG/HR X 2.5 HRS 1600 STOP TIME LASIX DRIP POTASSIUM 20 MEQ PO X 1 HEPARIN 500 UNITS IVP X 1 TO PORTACATH
== END | disposition home or self-care (01) ==
LOC: CHF HDHVI 13:02
PROVIDERS: ATTEND Internal Medicine Cardiovascular Disease
DX: I13.0 Hypertensive heart and chronic kidney disease with heart failure and stage 1 through stage 4 chronic kidney disease, or unspecified chronic kidney disease (principal); E11.22 Type 2 diabetes mellitus with diabetic chronic kidney disease; I50.42 Chronic combined systolic (congestive) and diastolic (congestive) heart failure; I27.21 Secondary pulmonary arterial hypertension; N18.4 Chronic kidney disease, stage 4 (severe); E87.70 Fluid overload, unspecified; F41.9 Anxiety disorder, unspecified; I25.10 Atherosclerotic heart disease of native coronary artery without angina pectoris; J44.9 Chronic obstructive pulmonary disease, unspecified; K21.9 Gastro-esophageal reflux disease without esophagitis; E78.5 Hyperlipidemia, unspecified; E03.9 Hypothyroidism, unspecified; F32.9 Major depressive disorder, single episode, unspecified; E66.01 Morbid (severe) obesity due to excess calories; E78.00 Pure hypercholesterolemia, unspecified; E11.40 Type 2 diabetes mellitus with diabetic neuropathy, unspecified; E11.51 Type 2 diabetes mellitus with diabetic peripheral angiopathy without gangrene; I48.91 Unspecified atrial fibrillation; G89.29 Other chronic pain; M19.90 Unspecified osteoarthritis, unspecified site; E11.21 Type 2 diabetes mellitus with diabetic nephropathy; Z90.49 Acquired absence of other specified parts of digestive tract; Z79.2 Long term (current) use of antibiotics; Z79.4 Long term (current) use of insulin; Z68.42 Body mass index [BMI] 45.0-49.9, adult; Z95.1 Presence of aortocoronary bypass graft; Z95.810 Presence of automatic (implantable) cardiac defibrillator; Z79.01 Long term (current) use of anticoagulants; Z79.02 Long term (current) use of antithrombotics/antiplatelets; Z79.82 Long term (current) use of aspirin; Z95.5 Presence of coronary angioplasty implant and graft; Z79.899 Other long term (current) drug therapy
CPT/HCPCS: 96365; 96366; G0463; J1642; J1940

== ENCOUNTER → 2019-04-22 | Outpatient (CLI) | payer MEDICARE, MEDICAID ==
[~2019-04-22] MED LIST changes: -FUROSEMIDE 100 MG/10ML VIAL IV ONE; +FUROSEMIDE INJECTION 100 MG in SODIUM CHL 0.9% 100 ML IV SCH; -SODIUM CHLORIDE 0.9% 100 ML IV ONE; +SODIUM CHLORIDE 0.9% 100 ML IV SCH
--- NOTE | 2019-04-22 10:27 | NUR ---
CHF PT ARRIVED AT THE [facility]F CLINIC FOR WEEKLY FOLLOW UP AND DIURETIC THERAPY 0 DISTRESS, VSS OBTAINED
[2019-04-22 10:30] VITALS: BP 125/56
[2019-04-22 10:45] VITALS: BP 128/51
[2019-04-22 11:15] VITALS: BP 127/55
[2019-04-22 11:30] VITALS: BP 140/56
[2019-04-22 12:00] VITALS: BP 133/56
[2019-04-22 14:03] VITALS: BP 131/56
--- NOTE | 2019-04-22 14:03 | NUR ---
Discharge Instructions See e-MAR for any mediations given with this visit. Patient education given on disease process. Patient verbalized understanding. Previous labs reviewed. Patient discharged in stable condition with after care instructions and follow up appointment. MEDICATIONS 1030 START TIME LASIX 25MG/HR X 3 HR 1345 STOP TIME LASIX DRIP POTASSIUM 30 MEQ PO X 1 HEPARIN 500 UNITS IVP X 1
== END | disposition home or self-care (01) ==
LOC: CHF HDHVI 10:27
PROVIDERS: ATTEND Internal Medicine Cardiovascular Disease
DX: I27.21 Secondary pulmonary arterial hypertension (principal); I13.2 Hypertensive heart and chronic kidney disease with heart failure and with stage 5 chronic kidney disease, or end stage renal disease; E11.22 Type 2 diabetes mellitus with diabetic chronic kidney disease; I50.42 Chronic combined systolic (congestive) and diastolic (congestive) heart failure; N18.4 Chronic kidney disease, stage 4 (severe); J44.9 Chronic obstructive pulmonary disease, unspecified; I25.10 Atherosclerotic heart disease of native coronary artery without angina pectoris; I48.91 Unspecified atrial fibrillation; K21.9 Gastro-esophageal reflux disease without esophagitis; E78.5 Hyperlipidemia, unspecified; F41.9 Anxiety disorder, unspecified; G89.29 Other chronic pain; J96.10 Chronic respiratory failure, unspecified whether with hypoxia or hypercapnia; E03.9 Hypothyroidism, unspecified; E78.00 Pure hypercholesterolemia, unspecified; E11.40 Type 2 diabetes mellitus with diabetic neuropathy, unspecified; E11.51 Type 2 diabetes mellitus with diabetic peripheral angiopathy without gangrene; E11.319 Type 2 diabetes mellitus with unspecified diabetic retinopathy without macular edema; E11.21 Type 2 diabetes mellitus with diabetic nephropathy; F32.9 Major depressive disorder, single episode, unspecified; M19.90 Unspecified osteoarthritis, unspecified site; E66.01 Morbid (severe) obesity due to excess calories; Z68.42 Body mass index [BMI] 45.0-49.9, adult; Z79.01 Long term (current) use of anticoagulants; Z79.4 Long term (current) use of insulin; Z79.2 Long term (current) use of antibiotics; Z79.02 Long term (current) use of antithrombotics/antiplatelets; Z86.73 Personal history of transient ischemic attack (TIA), and cerebral infarction without residual deficits; Z95.1 Presence of aortocoronary bypass graft; Z79.82 Long term (current) use of aspirin; Z95.810 Presence of automatic (implantable) cardiac defibrillator; Z79.899 Other long term (current) drug therapy; Z95.5 Presence of coronary angioplasty implant and graft; Z90.49 Acquired absence of other specified parts of digestive tract
CPT/HCPCS: 96365; 96366; G0463; J1642; J1940

== ENCOUNTER → 2019-04-26 | Outpatient (CLI) | payer MEDICARE, MEDICAID ==
[~2019-04-26] MED LIST changes: +FUROSEMIDE 100 MG/10ML VIAL IV ONE; -FUROSEMIDE INJECTION 100 MG in SODIUM CHL 0.9% 100 ML IV SCH; +KETOROLAC TROMETH 60MG/2ML VIAL IM ONE; +KETOROLAC TROMETH 60MG/2ML VIAL ONE; -POTASSIUM CHL 20 Meq TABLET PO ONE; +POTASSIUM CHL 20 Meq TABLET PO SCH
--- NOTE | 2019-04-26 13:20 | NUR ---
CHF PT ARRIVED AT THE [facility]F CLINIC FOR TX/EVAL. PT IS A./O X 3 , O DISTRESS, VS STABLE
[2019-04-26 13:42] VITALS: BP 97/55
[2019-04-26 14:00] VITALS: BP 119/55
[2019-04-26 16:00] VITALS: BP 153/62
--- NOTE | 2019-04-26 16:00 | NUR ---
Discharge Instructions See e-MAR for any mediations given with this visit. Patient education given on disease process. Patient verbalized understanding. Previous labs reviewed. Patient discharged in stable condition with after care instructions and follow up appointment. MEDICATIONS 1335 START TIME LASIX DRIP 30MG/HR X 3 HR 1555 STOP TIME LASIX DRIP POTASSIUM 30 MEQ PO X 1 HEPARIN 500 UNIT IVP X 1 TORADOL 60 MG IM X 1 LOT # [id number] EXP 11/26 GIVEN TO LEFT DELTOID
== END | disposition home or self-care (01) ==
LOC: CHF HDHVI 12:38
PROVIDERS: ATTEND Internal Medicine Cardiovascular Disease
DX: I27.21 Secondary pulmonary arterial hypertension (principal); I13.0 Hypertensive heart and chronic kidney disease with heart failure and stage 1 through stage 4 chronic kidney disease, or unspecified chronic kidney disease; I50.42 Chronic combined systolic (congestive) and diastolic (congestive) heart failure; N18.4 Chronic kidney disease, stage 4 (severe); I25.10 Atherosclerotic heart disease of native coronary artery without angina pectoris; J44.9 Chronic obstructive pulmonary disease, unspecified; K21.9 Gastro-esophageal reflux disease without esophagitis; E78.5 Hyperlipidemia, unspecified; E11.22 Type 2 diabetes mellitus with diabetic chronic kidney disease; F41.9 Anxiety disorder, unspecified; E11.319 Type 2 diabetes mellitus with unspecified diabetic retinopathy without macular edema; E03.9 Hypothyroidism, unspecified; E78.00 Pure hypercholesterolemia, unspecified; E11.40 Type 2 diabetes mellitus with diabetic neuropathy, unspecified; E11.51 Type 2 diabetes mellitus with diabetic peripheral angiopathy without gangrene; I48.91 Unspecified atrial fibrillation; M19.90 Unspecified osteoarthritis, unspecified site; G89.4 Chronic pain syndrome; J96.10 Chronic respiratory failure, unspecified whether with hypoxia or hypercapnia; E66.01 Morbid (severe) obesity due to excess calories; Z68.42 Body mass index [BMI] 45.0-49.9, adult; Z86.73 Personal history of transient ischemic attack (TIA), and cerebral infarction without residual deficits; Z95.1 Presence of aortocoronary bypass graft; Z79.2 Long term (current) use of antibiotics; Z79.899 Other long term (current) drug therapy; Z79.4 Long term (current) use of insulin; Z79.01 Long term (current) use of anticoagulants; Z95.5 Presence of coronary angioplasty implant and graft; Z79.82 Long term (current) use of aspirin; Z95.810 Presence of automatic (implantable) cardiac defibrillator; Z79.02 Long term (current) use of antithrombotics/antiplatelets; Z90.49 Acquired absence of other specified parts of digestive tract
CPT/HCPCS: 96365; 96366; 96372; G0463; J1642; J1885; J1940

== ENCOUNTER 2019-04-28 09:23 | Emergency (ER) | payer MEDICARE, MEDICAID ==
[~2019-04-28 09:23] MED LIST changes: -FUROSEMIDE 100 MG/10ML VIAL IV ONE; -FUROSEMIDE INJECTION 10 ML ONE; -KETOROLAC TROMETH 60MG/2ML VIAL IM ONE; -KETOROLAC TROMETH 60MG/2ML VIAL ONE; -POTASSIUM CHL 10 Meq TABLET PO ONE; -POTASSIUM CHL 20 Meq TABLET PO SCH; -SODIUM CHLORIDE 0.9% 100 ML IV SCH
[2019-04-28 10:23] LABS: Basophils # (auto) 0.1 uL; Basophils % (auto) 0.9 % (0.0-2.0); Eosinophils # (auto) 0.2 uL; Eosinophils % (auto) 2.7 % (0.0-7.0); Hematocrit 36.9 % (36.0-46.0); Hemoglobin 12.1 g/dL (12.2-16.2); Lymphocytes # (auto) 1.5 uL; Mean Corpuscular Hemoglobin 27.9 pg (28.0-32.0); Mean Corpuscular Hgb Conc. 32.7 g/dL (32.0-36.0); Mean Corpuscular Volume 85.4 fL (80.0-100.0); Monocytes # (auto) 0.6 uL; Monocytes % (auto) 9.7 % (0.0-12.0); Neutrophils % (auto) 62.7 % (37.0-80.0); Platelet Count (auto) 207 10^3/uL (140-450); Red Blood Cells 4.33 10^6/uL (4.0-5.20); Red Cell Distribution Width 16.6 % (11.8-14.3); White Blood Cell 6.4 10^3/uL (4.4-10.8)
[2019-04-28 10:37] LABS: INR 1.01 (0.9-1.15)
[2019-04-28 10:42] LABS: Albumin 3.5 g/dL (3.4-5.0); BUN/Creatinine Ratio 24.5; Calcium 8.8 mg/dL (8.5-10.1); Potassium 4.1 mmol/L (3.5-5.1)
[2019-04-28 10:44] LABS: Bilirubin, Total 0.5 mg/dL (0.2-1.0); Total Protein 7.2 g/dL (6.4-8.2)
[2019-04-28 12:00] VITALS: BP 156/68
== END 2019-04-28 14:27 | disposition home or self-care (01) ==
LOC: EDBD 09:23 → ER 09:23
DX: R04.0 Epistaxis (principal); D68.9 Coagulation defect, unspecified; I10 Essential (primary) hypertension; E11.21 Type 2 diabetes mellitus with diabetic nephropathy; E11.22 Type 2 diabetes mellitus with diabetic chronic kidney disease; I13.0 Hypertensive heart and chronic kidney disease with heart failure and stage 1 through stage 4 chronic kidney disease, or unspecified chronic kidney disease; N18.9 Chronic kidney disease, unspecified; I50.9 Heart failure, unspecified; J44.9 Chronic obstructive pulmonary disease, unspecified; K21.9 Gastro-esophageal reflux disease without esophagitis; E78.5 Hyperlipidemia, unspecified; Z98.61 Coronary angioplasty status; Z90.49 Acquired absence of other specified parts of digestive tract; Z79.4 Long term (current) use of insulin; Z79.899 Other long term (current) drug therapy
CPT/HCPCS: 30901; 36415; 80053; 85025; 85610

== ENCOUNTER → 2019-05-17 | Outpatient (CLI) | payer MEDICARE, MEDICAID ==
[~2019-05-17] VITALS: Ht 33 cm; Wt 118.0 kg
[~2019-05-17] MED LIST changes: +FUROSEMIDE 100 MG/10ML VIAL IV ONE; +FUROSEMIDE INJECTION 10 ML ONE; +KETOROLAC TROMETH 15 mg/ml 1ML VL IV ONE; +KETOROLAC TROMETH 60MG/2ML VIAL IM ONE; +KETOROLAC TROMETH 60MG/2ML VIAL ONE; +POTASSIUM CHL 10 Meq TABLET PO ONE; +POTASSIUM CHL 20 Meq TABLET PO ONE; +SODIUM CHLORIDE 0.9% 100 ML IV ONE
--- NOTE | 2019-05-17 12:46 | NUR ---
CHF PT ARRIVED IN THE CHF CLINIC FOR WEEKLY DIURETIC THERAPY. PT IS A/0 X 3 PRESENTS WITH PAIN 10/10 TO LOWER BACK REGION. PT STATES SHE FELL AT HOME MOVING. XRAYS ORDERED.
--- NOTE | 2019-05-17 13:30 | NUR ---
PAIN PT GIVEN TORADOL 15MG IM AND IV. PT TOLERATED WELL
[2019-05-17 14:43] LABS: Basophils # (auto) 0 uL; Basophils % (auto) 0.6 % (0.0-2.0); Eosinophils # (auto) 0.1 uL; Hematocrit 36.2 % (36.0-46.0); Hemoglobin 12.1 g/dL (12.2-16.2); Lymphocytes # (auto) 1.8 uL; Lymphocytes % (auto) 28.8 % (10.0-50.0); Mean Corpuscular Hemoglobin 28.6 pg (28.0-32.0); Mean Corpuscular Hgb Conc. 33.4 g/dL (32.0-36.0); Mean Corpuscular Volume 85.7 fL (80.0-100.0); Monocytes # (auto) 0.7 uL; Monocytes % (auto) 10.8 % (0.0-12.0); Neutrophils # (auto) 3.6 uL; Neutrophils % (auto) 57.8 % (37.0-80.0); Platelet Count (auto) 176 10^3/uL (140-450); Red Blood Cells 4.22 10^6/uL (4.0-5.20); Red Cell Distribution Width 17.2 % (11.8-14.3); White Blood Cell 6.3 10^3/uL (4.4-10.8)
[2019-05-17 15:05] LABS: Albumin 3.5 g/dL (3.4-5.0); Magnesium 2.1 mg/dL (1.6-2.6); Potassium 3.9 mmol/L (3.5-5.1)
[2019-05-17 16:06] VITALS: BP 167/66
--- NOTE | 2019-05-17 16:06 | NUR ---
Discharge Instructions See e-MAR for any mediations given with this visit. Patient education given on disease process. Patient verbalized understanding. Previous labs reviewed. Patient discharged in stable condition with after care instructions and follow up appointment. MEDICATIONS LASIX DRIP 15MG/HR [id number] POTASSIUM 20 MEQ PO HEPARIN 500 UNITS IVP TORADOL 30 MG IV TORADOL 30 MG IM
[2019-05-17 16:21] LABS: Bilirubin, Total 0.3 mg/dL (0.2-1.0); Total Protein 6.8 g/dL (6.4-8.2)
[2019-05-17 16:36] LABS: BUN/Creatinine Ratio 21.4
== END | disposition home or self-care (01) ==
LOC: CHF HDHVI 12:31
PROVIDERS: ATTEND Internal Medicine Cardiovascular Disease
DX: I13.2 Hypertensive heart and chronic kidney disease with heart failure and with stage 5 chronic kidney disease, or end stage renal disease (principal); E11.22 Type 2 diabetes mellitus with diabetic chronic kidney disease; I50.42 Chronic combined systolic (congestive) and diastolic (congestive) heart failure; I25.10 Atherosclerotic heart disease of native coronary artery without angina pectoris; N18.4 Chronic kidney disease, stage 4 (severe); D64.9 Anemia, unspecified; E83.40 Disorders of magnesium metabolism, unspecified; I48.91 Unspecified atrial fibrillation; I27.21 Secondary pulmonary arterial hypertension; J44.9 Chronic obstructive pulmonary disease, unspecified; K21.9 Gastro-esophageal reflux disease without esophagitis; E78.5 Hyperlipidemia, unspecified; F41.9 Anxiety disorder, unspecified; G89.4 Chronic pain syndrome; J96.10 Chronic respiratory failure, unspecified whether with hypoxia or hypercapnia; E03.9 Hypothyroidism, unspecified; E11.51 Type 2 diabetes mellitus with diabetic peripheral angiopathy without gangrene; E11.21 Type 2 diabetes mellitus with diabetic nephropathy; E11.319 Type 2 diabetes mellitus with unspecified diabetic retinopathy without macular edema; F32.9 Major depressive disorder, single episode, unspecified; M19.90 Unspecified osteoarthritis, unspecified site; E66.01 Morbid (severe) obesity due to excess calories; Z68.42 Body mass index [BMI] 45.0-49.9, adult; Z86.73 Personal history of transient ischemic attack (TIA), and cerebral infarction without residual deficits; Z79.02 Long term (current) use of antithrombotics/antiplatelets; Z79.01 Long term (current) use of anticoagulants; Z79.2 Long term (current) use of antibiotics; Z95.1 Presence of aortocoronary bypass graft; Z79.82 Long term (current) use of aspirin; Z79.899 Other long term (current) drug therapy; Z79.4 Long term (current) use of insulin; Z95.810 Presence of automatic (implantable) cardiac defibrillator; Z90.49 Acquired absence of other specified parts of digestive tract
CPT/HCPCS: 36415; 73502; 80053; 83735; 85025; 96365; 96366; 96372; 96375; G0463; J1642; J1885; J1940

== ENCOUNTER → 2019-05-20 | Outpatient (CLI) | payer MEDICARE, MEDICAID ==
[2019-05-20] VITALS (9 sets, daily range): BP systolic 117–153; BP diastolic 53–81
[~2019-05-20] MED LIST changes: +CYANOCOBALAMIN (B-12) 1000 MCG/1 ML VIAL IM ONE; +CYANOCOBALAMIN (B-12) 1000 MCG/1 ML VIAL ONE; -KETOROLAC TROMETH 15 mg/ml 1ML VL IV ONE; -POTASSIUM CHL 20 Meq TABLET PO ONE
--- NOTE | 2019-05-20 15:16 | NUR ---
Discharge Instructions See e-MAR for any mediations given with this visit. Patient education given on disease process. Patient verbalized understanding. Previous labs reviewed. Patient discharged in stable condition with after care instructions and follow up appointment. MEDICATIONS LASIX DRIP [id number] POTASSIUM 20 MEQ PO TORADOL 60MG IM TOTAL LEFT AND RIGHT GLUTE HEPARIN 500 UNITS IVP X 1 NS 100 ML IV [id number] VITAMIN B12 1000 MCG IM LEFT DELTOID Addendum: 05/20/19 at 1543 by NICOLETTE CARDENAS RN RN CT TORADOL IM X 2 RIGHT AND LEFT GLUTE
== END | disposition home or self-care (01) ==
LOC: CHF HDHVI 11:13
PROVIDERS: ATTEND Internal Medicine Cardiovascular Disease
DX: I13.0 Hypertensive heart and chronic kidney disease with heart failure and stage 1 through stage 4 chronic kidney disease, or unspecified chronic kidney disease (principal); I50.42 Chronic combined systolic (congestive) and diastolic (congestive) heart failure; N18.4 Chronic kidney disease, stage 4 (severe); E11.22 Type 2 diabetes mellitus with diabetic chronic kidney disease; F41.9 Anxiety disorder, unspecified; I25.10 Atherosclerotic heart disease of native coronary artery without angina pectoris; J44.9 Chronic obstructive pulmonary disease, unspecified; G89.29 Other chronic pain; K21.9 Gastro-esophageal reflux disease without esophagitis; E78.5 Hyperlipidemia, unspecified; E03.9 Hypothyroidism, unspecified; F32.9 Major depressive disorder, single episode, unspecified; E66.01 Morbid (severe) obesity due to excess calories; I27.21 Secondary pulmonary arterial hypertension; E11.51 Type 2 diabetes mellitus with diabetic peripheral angiopathy without gangrene; E11.319 Type 2 diabetes mellitus with unspecified diabetic retinopathy without macular edema; I48.91 Unspecified atrial fibrillation; M19.90 Unspecified osteoarthritis, unspecified site; E11.40 Type 2 diabetes mellitus with diabetic neuropathy, unspecified; E78.00 Pure hypercholesterolemia, unspecified; M10.9 Gout, unspecified; E11.36 Type 2 diabetes mellitus with diabetic cataract; Z90.49 Acquired absence of other specified parts of digestive tract; Z68.42 Body mass index [BMI] 45.0-49.9, adult; Z79.2 Long term (current) use of antibiotics; Z79.01 Long term (current) use of anticoagulants; Z79.02 Long term (current) use of antithrombotics/antiplatelets; Z79.82 Long term (current) use of aspirin; Z79.4 Long term (current) use of insulin; Z79.899 Other long term (current) drug therapy; Z95.1 Presence of aortocoronary bypass graft; Z95.810 Presence of automatic (implantable) cardiac defibrillator; Z86.73 Personal history of transient ischemic attack (TIA), and cerebral infarction without residual deficits
CPT/HCPCS: 96365; 96366; 96372; G0463; J1642; J1885; J1940; J3420

== ENCOUNTER → 2019-05-31 | Outpatient (CLI) | payer MEDICARE, MEDICAID ==
[~2019-05-31] MED LIST changes: +KETOROLAC TROMETH 30 MG/ML 1ML VIAL IM ONE; -KETOROLAC TROMETH 60MG/2ML VIAL IM ONE; +POTASSIUM CHL 20 Meq TABLET PO ONE
--- NOTE | 2019-05-31 12:47 | NUR ---
CHF PT ARRIVED TO THE CHF CLINIC FOR WEEKLY THERAPY. LABS DONE VSS . PT A/0 O X 34
[2019-05-31 15:51] VITALS: BP 130/52
--- NOTE | 2019-05-31 16:00 | NUR ---
Discharge Instructions See e-MAR for any mediations given with this visit. Patient education given on disease process. Patient verbalized understanding. Previous labs reviewed. Patient discharged in stable condition with after care instructions and follow up appointment. MEDICATIONS LASIX DRIP 7130-9033 NS IV 7772-3475 POTASSIUM PO HEPARIN 500 UNITS IVP X 1 TORADOL IM LEFT GLUTE VITAMIN B12 IM LEFT DELTOID
[2019-05-31 16:16] LABS: BUN/Creatinine Ratio 18.2; Calcium 8.5 mg/dL (8.5-10.1); Magnesium 2.2 mg/dL (1.6-2.6); Potassium 3.9 mmol/L (3.5-5.1)
[2019-05-31 16:33] LABS: Basophils # (auto) 0 uL; Basophils % (auto) 0.4 % (0.0-2.0); Eosinophils # (auto) 0.1 uL; Eosinophils % (auto) 1.3 % (0.0-7.0); Hematocrit 38.4 % (36.0-46.0); Hemoglobin 12.3 g/dL (12.2-16.2); Lymphocytes # (auto) 2.1 uL; Lymphocytes % (auto) 29.7 % (10.0-50.0); Mean Corpuscular Hemoglobin 27.8 pg (28.0-32.0); Mean Corpuscular Hgb Conc. 32.1 g/dL (32.0-36.0); Mean Corpuscular Volume 86.6 fL (80.0-100.0); Monocytes # (auto) 0.7 uL; Monocytes % (auto) 9.7 % (0.0-12.0); Neutrophils # (auto) 4.2 uL; Neutrophils % (auto) 58.9 % (37.0-80.0); Nucleated Red Blood Cells % 0.1 %; Platelet Count (auto) 233 10^3/uL (140-450); Red Blood Cells 4.43 10^6/uL (4.0-5.20); Red Cell Distribution Width 17.4 % (11.8-14.3); White Blood Cell 7.2 10^3/uL (4.4-10.8)
== END | disposition home or self-care (01) ==
LOC: CHF HDHVI 12:54
PROVIDERS: ATTEND Internal Medicine Cardiovascular Disease
DX: I13.0 Hypertensive heart and chronic kidney disease with heart failure and stage 1 through stage 4 chronic kidney disease, or unspecified chronic kidney disease (principal); E11.22 Type 2 diabetes mellitus with diabetic chronic kidney disease; N18.4 Chronic kidney disease, stage 4 (severe); I50.42 Chronic combined systolic (congestive) and diastolic (congestive) heart failure; I25.10 Atherosclerotic heart disease of native coronary artery without angina pectoris; D64.9 Anemia, unspecified; D51.9 Vitamin B12 deficiency anemia, unspecified; E83.40 Disorders of magnesium metabolism, unspecified; I48.91 Unspecified atrial fibrillation; I27.21 Secondary pulmonary arterial hypertension; R60.9 Edema, unspecified; J44.9 Chronic obstructive pulmonary disease, unspecified; J96.11 Chronic respiratory failure with hypoxia; J96.12 Chronic respiratory failure with hypercapnia; K21.9 Gastro-esophageal reflux disease without esophagitis; E78.5 Hyperlipidemia, unspecified; E03.9 Hypothyroidism, unspecified; F32.9 Major depressive disorder, single episode, unspecified; G89.29 Other chronic pain; E78.00 Pure hypercholesterolemia, unspecified; E11.21 Type 2 diabetes mellitus with diabetic nephropathy; E11.40 Type 2 diabetes mellitus with diabetic neuropathy, unspecified; E11.51 Type 2 diabetes mellitus with diabetic peripheral angiopathy without gangrene; M19.90 Unspecified osteoarthritis, unspecified site; E11.319 Type 2 diabetes mellitus with unspecified diabetic retinopathy without macular edema; E66.01 Morbid (severe) obesity due to excess calories; Z68.42 Body mass index [BMI] 45.0-49.9, adult; Z79.2 Long term (current) use of antibiotics; Z79.01 Long term (current) use of anticoagulants; Z79.02 Long term (current) use of antithrombotics/antiplatelets; Z79.82 Long term (current) use of aspirin; Z79.4 Long term (current) use of insulin; Z79.899 Other long term (current) drug therapy; Z95.1 Presence of aortocoronary bypass graft; Z95.810 Presence of automatic (implantable) cardiac defibrillator; Z95.5 Presence of coronary angioplasty implant and graft; Z86.73 Personal history of transient ischemic attack (TIA), and cerebral infarction without residual deficits; Z90.49 Acquired absence of other specified parts of digestive tract
CPT/HCPCS: 36415; 80048; 82607; 83735; 85025; 96365; 96366; 96372; G0463; J1642; J1885; J1940; J3420

== ENCOUNTER → 2019-06-03 | Outpatient (CLI) | payer MEDICARE, MEDICAID ==
[~2019-06-03] MED LIST changes: -CYANOCOBALAMIN (B-12) 1000 MCG/1 ML VIAL IM ONE; -CYANOCOBALAMIN (B-12) 1000 MCG/1 ML VIAL ONE; -POTASSIUM CHL 20 Meq TABLET PO ONE
--- NOTE | 2019-06-03 11:00 | NUR ---
CHF PT ARRIVED AT THE CHF CLINIC FOR TX. PT A/O X 3 0 DISTRESS VSS.
[2019-06-03 11:45] VITALS: BP 127/55
[2019-06-03 12:15] VITALS: BP 130/50
[2019-06-03 12:45] VITALS: BP 144/56
[2019-06-03 13:15] VITALS: BP 140/74
[2019-06-03 13:45] VITALS: BP 130/53
[2019-06-03 14:45] VITALS: BP 128/52
--- NOTE | 2019-06-03 14:45 | NUR ---
Discharge Instructions See e-MAR for any mediations given with this visit. Patient education given on disease process. Patient verbalized understanding. Previous labs reviewed. Patient discharged in stable condition with after care instructions and follow up appointment. MEDS LASIX DRIP [id number] POTASSIUM PO HEPARIN 500 UNITS IVP TORADOL IM RIGHT GLUTE
== END | disposition home or self-care (01) ==
LOC: CHF HDHVI 11:12
PROVIDERS: ATTEND Internal Medicine Cardiovascular Disease
DX: I13.0 Hypertensive heart and chronic kidney disease with heart failure and stage 1 through stage 4 chronic kidney disease, or unspecified chronic kidney disease (principal); E11.22 Type 2 diabetes mellitus with diabetic chronic kidney disease; N18.4 Chronic kidney disease, stage 4 (severe); I50.42 Chronic combined systolic (congestive) and diastolic (congestive) heart failure; F41.9 Anxiety disorder, unspecified; I25.10 Atherosclerotic heart disease of native coronary artery without angina pectoris; I48.91 Unspecified atrial fibrillation; I27.21 Secondary pulmonary arterial hypertension; J44.9 Chronic obstructive pulmonary disease, unspecified; K21.9 Gastro-esophageal reflux disease without esophagitis; E78.5 Hyperlipidemia, unspecified; E03.9 Hypothyroidism, unspecified; F32.9 Major depressive disorder, single episode, unspecified; E78.00 Pure hypercholesterolemia, unspecified; E11.21 Type 2 diabetes mellitus with diabetic nephropathy; E11.51 Type 2 diabetes mellitus with diabetic peripheral angiopathy without gangrene; E11.319 Type 2 diabetes mellitus with unspecified diabetic retinopathy without macular edema; E11.40 Type 2 diabetes mellitus with diabetic neuropathy, unspecified; M19.90 Unspecified osteoarthritis, unspecified site; G89.4 Chronic pain syndrome; J96.10 Chronic respiratory failure, unspecified whether with hypoxia or hypercapnia; E66.01 Morbid (severe) obesity due to excess calories; Z68.42 Body mass index [BMI] 45.0-49.9, adult; Z79.899 Other long term (current) drug therapy; Z79.2 Long term (current) use of antibiotics; Z79.01 Long term (current) use of anticoagulants; Z79.02 Long term (current) use of antithrombotics/antiplatelets; Z79.82 Long term (current) use of aspirin; Z79.4 Long term (current) use of insulin; Z95.1 Presence of aortocoronary bypass graft; Z90.49 Acquired absence of other specified parts of digestive tract; Z95.810 Presence of automatic (implantable) cardiac defibrillator; Z95.5 Presence of coronary angioplasty implant and graft; Z86.73 Personal history of transient ischemic attack (TIA), and cerebral infarction without residual deficits
CPT/HCPCS: 96365; 96366; 96372; G0463; J1642; J1885; J1940

== ENCOUNTER → 2019-06-10 | Outpatient (CLI) | payer MEDICARE, MEDICAID ==
[2019-06-10] VITALS (7 sets, daily range): BP systolic 119–168; BP diastolic 46–73
[~2019-06-10] MED LIST changes: -KETOROLAC TROMETH 30 MG/ML 1ML VIAL IM ONE; -KETOROLAC TROMETH 60MG/2ML VIAL ONE; +POTASSIUM CHL 20 Meq TABLET PO ONE
--- NOTE | 2019-06-10 10:24 | NUR ---
CHF PT ARRIVED AT THE CHF CLINIC FOR WEEKLY TX AND F/U. A/O X 3 0 DISTRESS VSS
[2019-06-10 11:58] LABS: Basophils # (auto) 0.1 uL; Basophils % (auto) 1.1 % (0.0-2.0); Eosinophils # (auto) 0.1 uL; Eosinophils % (auto) 2.1 % (0.0-7.0); Hemoglobin 12.5 g/dL (12.2-16.2); Lymphocytes # (auto) 2.2 uL; Lymphocytes % (auto) 36.6 % (10.0-50.0); Mean Corpuscular Hemoglobin 28.2 pg (28.0-32.0); Mean Corpuscular Hgb Conc. 32.8 g/dL (32.0-36.0); Mean Corpuscular Volume 85.9 fL (80.0-100.0); Monocytes # (auto) 0.6 uL; Monocytes % (auto) 9.7 % (0.0-12.0); Neutrophils % (auto) 50.5 % (37.0-80.0); Nucleated Red Blood Cells % 0.2 %; Platelet Count (auto) 201 10^3/uL (140-450); Red Blood Cells 4.42 10^6/uL (4.0-5.20); Red Cell Distribution Width 17.3 % (11.8-14.3); White Blood Cell 5.9 10^3/uL (4.4-10.8)
--- NOTE | 2019-06-10 14:13 | NUR ---
Discharge Instructions See e-MAR for any mediations given with this visit. Patient education given on disease process. Patient verbalized understanding. Previous labs reviewed. Patient discharged in stable condition with after care instructions and follow up appointment. MEDS LASIX DRIP [id number] POTASSIUM PO HEPARIN 500 UNITS IVP
[2019-06-10 15:28] LABS: BUN/Creatinine Ratio 20.5; Calcium 8.6 mg/dL (8.5-10.1); Potassium 3.8 mmol/L (3.5-5.1)
== END | disposition home or self-care (01) ==
LOC: CHF HDHVI 10:25
PROVIDERS: ATTEND Internal Medicine Cardiovascular Disease
DX: I13.0 Hypertensive heart and chronic kidney disease with heart failure and stage 1 through stage 4 chronic kidney disease, or unspecified chronic kidney disease (principal); E11.22 Type 2 diabetes mellitus with diabetic chronic kidney disease; N18.4 Chronic kidney disease, stage 4 (severe); I50.42 Chronic combined systolic (congestive) and diastolic (congestive) heart failure; I25.10 Atherosclerotic heart disease of native coronary artery without angina pectoris; I27.21 Secondary pulmonary arterial hypertension; I48.91 Unspecified atrial fibrillation; D64.9 Anemia, unspecified; J44.9 Chronic obstructive pulmonary disease, unspecified; K21.9 Gastro-esophageal reflux disease without esophagitis; E78.5 Hyperlipidemia, unspecified; E03.9 Hypothyroidism, unspecified; F32.9 Major depressive disorder, single episode, unspecified; G89.29 Other chronic pain; E78.00 Pure hypercholesterolemia, unspecified; E11.21 Type 2 diabetes mellitus with diabetic nephropathy; E11.51 Type 2 diabetes mellitus with diabetic peripheral angiopathy without gangrene; F41.9 Anxiety disorder, unspecified; J96.11 Chronic respiratory failure with hypoxia; J96.12 Chronic respiratory failure with hypercapnia; E66.01 Morbid (severe) obesity due to excess calories; Z68.42 Body mass index [BMI] 45.0-49.9, adult; Z79.01 Long term (current) use of anticoagulants; Z79.2 Long term (current) use of antibiotics; Z79.02 Long term (current) use of antithrombotics/antiplatelets; Z79.82 Long term (current) use of aspirin; Z79.4 Long term (current) use of insulin; Z79.899 Other long term (current) drug therapy; Z95.1 Presence of aortocoronary bypass graft; Z95.810 Presence of automatic (implantable) cardiac defibrillator; Z95.5 Presence of coronary angioplasty implant and graft; Z86.73 Personal history of transient ischemic attack (TIA), and cerebral infarction without residual deficits; Z90.49 Acquired absence of other specified parts of digestive tract
CPT/HCPCS: 36415; 80048; 85025; 96365; 96366; G0463; J1642; J1940

== ENCOUNTER → 2019-06-14 | Outpatient (CLI) | payer MEDICARE, MEDICAID ==
[~2019-06-14] VITALS: Ht 165.1 cm; Wt 116.1 kg
[~2019-06-14] MED LIST changes: -SODIUM CHLORIDE 0.9% 100 ML IV ONE; +SODIUM CHLORIDE 0.9% 100 ML IV SCH
[2019-06-14 14:00] VITALS: BP 147/63
[2019-06-14 14:30] VITALS: BP 145/60
[2019-06-14 15:00] VITALS: BP 124/53
[2019-06-14 16:04] LABS: Basophils # (auto) 0 uL; Basophils % (auto) 0.3 % (0.0-2.0); Eosinophils # (auto) 0.2 uL; Eosinophils % (auto) 2.3 % (0.0-7.0); Hematocrit 38.9 % (36.0-46.0); Hemoglobin 12.6 g/dL (12.2-16.2); Lymphocytes # (auto) 2.4 uL; Lymphocytes % (auto) 33.4 % (10.0-50.0); Mean Corpuscular Hgb Conc. 32.4 g/dL (32.0-36.0); Mean Corpuscular Volume 86.3 fL (80.0-100.0); Monocytes # (auto) 0.6 uL; Monocytes % (auto) 8.1 % (0.0-12.0); Neutrophils % (auto) 55.9 % (37.0-80.0); Nucleated Red Blood Cells % 0.1 %; Platelet Count (auto) 196 10^3/uL (140-450); Red Blood Cells 4.51 10^6/uL (4.0-5.20); Red Cell Distribution Width 17.7 % (11.8-14.3); White Blood Cell 7.1 10^3/uL (4.4-10.8)
[2019-06-14 16:18] VITALS: BP 130/59
--- NOTE | 2019-06-14 16:18 | NUR ---
IN FOR SCHEDULED INFUSION TO CLINIC. RIGHT CHEST PORT ACCESSED AND BLOOD DRawn and sent for labs. ADMINISTERED LASIX ADRP AND UP TO VOID X 3 DURING INFUSION. TOLERATED WELL. VS WNL. WITHOUT COMPLAINT. SEE FREQUENT VITAL SIGNS. RIGHT CHEST POST BENIGN POST USE AND DRESSING APPLIED. DISCHARGED TO DOOR TO DOOR RIDE WITHOUT DISTRESS. MEDICATION ADMINISTRATION HEPARIN TO PORT LASIX DRIP START AT 1315/STOP AT 1616 POTASSIUM PO
[2019-06-14 16:24] LABS: BUN/Creatinine Ratio 16.5; Calcium 8.6 mg/dL (8.5-10.1); Potassium 3.9 mmol/L (3.5-5.1)
[2019-06-14 16:26] LABS: Urine Bacteria FEW /hpf (None Seen); Urine Blood Negative /uL (Negative); Urine WBC 7 /hpf (0 - 5)
== END | disposition home or self-care (01) ==
LOC: CHF HDHVI 12:49
PROVIDERS: ATTEND Internal Medicine Cardiovascular Disease
DX: I13.0 Hypertensive heart and chronic kidney disease with heart failure and stage 1 through stage 4 chronic kidney disease, or unspecified chronic kidney disease (principal); E11.22 Type 2 diabetes mellitus with diabetic chronic kidney disease; N18.4 Chronic kidney disease, stage 4 (severe); I50.42 Chronic combined systolic (congestive) and diastolic (congestive) heart failure; I27.21 Secondary pulmonary arterial hypertension; I48.91 Unspecified atrial fibrillation; R53.83 Other fatigue; J44.9 Chronic obstructive pulmonary disease, unspecified; K21.9 Gastro-esophageal reflux disease without esophagitis; E78.5 Hyperlipidemia, unspecified; E03.9 Hypothyroidism, unspecified; F32.9 Major depressive disorder, single episode, unspecified; G89.29 Other chronic pain; E78.00 Pure hypercholesterolemia, unspecified; E11.40 Type 2 diabetes mellitus with diabetic neuropathy, unspecified; E11.51 Type 2 diabetes mellitus with diabetic peripheral angiopathy without gangrene; M19.90 Unspecified osteoarthritis, unspecified site; J96.10 Chronic respiratory failure, unspecified whether with hypoxia or hypercapnia; E11.21 Type 2 diabetes mellitus with diabetic nephropathy; E66.01 Morbid (severe) obesity due to excess calories; Z68.42 Body mass index [BMI] 45.0-49.9, adult; Z79.01 Long term (current) use of anticoagulants; Z79.2 Long term (current) use of antibiotics; Z79.02 Long term (current) use of antithrombotics/antiplatelets; Z79.82 Long term (current) use of aspirin; Z79.4 Long term (current) use of insulin; Z79.899 Other long term (current) drug therapy; Z95.1 Presence of aortocoronary bypass graft; Z95.810 Presence of automatic (implantable) cardiac defibrillator; Z86.73 Personal history of transient ischemic attack (TIA), and cerebral infarction without residual deficits; Z95.5 Presence of coronary angioplasty implant and graft; Z90.49 Acquired absence of other specified parts of digestive tract
CPT/HCPCS: 36415; 80048; 81001; 85025; 96365; 96366; G0463; J1642; J1940

== ENCOUNTER → 2019-11-22 | Outpatient (CLI) | payer MEDICARE, MEDICAID ==
[~2019-11-22] MED LIST changes: -FUROSEMIDE 100 MG/10ML VIAL IV ONE; -FUROSEMIDE INJECTION 10 ML ONE; -METO25TA62 PO; +METO25TA93 PO; -POTASSIUM CHL 10 Meq TABLET PO ONE; -POTASSIUM CHL 20 Meq TABLET PO ONE; -SODIUM CHLORIDE 0.9% 100 ML IV SCH
[2019-11-22 16:07] LABS: Urine Blood 1+ /uL (Negative); Urine Specific Gravity 1.015 (1.001-1.035)
== END | disposition home or self-care (01) ==
LOC: Rad HDHVI 11:14
PROVIDERS: ATTEND Internal Medicine Cardiovascular Disease
DX: I67.2 Cerebral atherosclerosis (principal); I67.82 Cerebral ischemia; N39.0 Urinary tract infection, site not specified; R42 Dizziness and giddiness
CPT/HCPCS: 70450; 81003; 87086

== ENCOUNTER 2020-01-13 19:56 | Inpatient (IN) | payer MEDICARE, MEDICAID ==
[~2020-01-13] VITALS: Ht 157.5 cm; Wt 101.6 kg
[~2020-01-13 19:56] MED LIST changes: -INSLANTI; +INSLANTI SC
[2020-01-13 21:28] LABS: Basophils # (auto) 0.1 10 ^3/uL (0-0.2); Basophils % (auto) 0.8 % (0.0-2.0); Eosinophils # (auto) 0.2 10 ^3/uL (0-0.8); Eosinophils % (auto) 1.7 % (0.0-7.0); Hematocrit 36.7 % (36.0-46.0); Lymphocytes # (auto) 0.7 10 ^3/uL (0.4-5.4); Mean Corpuscular Hemoglobin 28.4 pg (28.0-32.0); Mean Corpuscular Hgb Conc. 32.6 g/dL (32.0-36.0); Mean Corpuscular Volume 87.2 fL (80.0-100.0); Monocytes # (auto) 0.8 10 ^3/uL (0-1.3); Monocytes % (auto) 7.3 % (0.0-12.0); Neutrophils # (auto) 8.8 10 ^3/uL (1.6-8.6); Neutrophils % (auto) 83.2 % (37.0-80.0); Platelet Count (auto) 226 10^3/uL (140-450); Red Blood Cells 4.21 10^6/uL (4.0-5.20); Red Cell Distribution Width 15.7 % (11.8-14.3); White Blood Cell 10.5 10^3/uL (4.4-10.8)
[2020-01-13 21:29] LABS: Calcium 9.4 mg/dL (8.5-10.1); Chloride 103 mmol/L (98-107); Potassium 5.2 mmol/L (3.5-5.1); Sodium 135 mmol/L (136-145)
[2020-01-13 21:37] LABS: Alanine Aminotransferase 12 U/L (13-56); Albumin 3.4 g/dL (3.4-5.0); Alkaline Phosphatase 75 U/L (45-117); Anion Gap 9 (5-15); Aspartate Aminotransferase 16 U/L (15-37); BUN/Creatinine Ratio 20.1; Bilirubin, Total 0.4 mg/dL (0.2-1.0); Blood Urea Nitrogen 65 mg/dL (7-18); Carbon Dioxide 23 mmol/L (21-32); GFR African American 18 mL/min; GFR Non-African American 15 mL/min; Glucose 144 mg/dL (74-106); Total Protein 7.6 g/dL (6.4-8.2)
[2020-01-13 21:42] LABS: Urine Bacteria FEW /hpf (None Seen); Urine Blood Negative /uL (Negative); Urine Hyaline Cast FEW /lpf (0 - 2); Urine Mucus FEW (None Seen); Urine WBC 1 /hpf (0 - 5)
[2020-01-13] MEDS ORDERED: MORPHINE SULF INJ 2 MG/ML SYRINGE 1ML IV PRN (22:45)
[2020-01-13] MEDS ORDERED: NITROGLYCERIN 0.4 MG SL TAB SL PRN (22:45)
[2020-01-13] MEDS ORDERED: SODIUM CHLORIDE 0.9% 1,000 ML IV ONE (23:00)
[2020-01-13] MEDS ORDERED: traMADol HCL 50 MG TAB PO PRN (23:30)
--- NOTE | 2020-01-14 00:48 | NUR ---
Admission of the shift, received from ER, obese, with diagnosis of acute renal failure, pulmonary hypertension. Alert/oriented to x 4. Assessed for pain but denies @ this time. Resp is even, unlabored, no cardiac or resp distress noted or reported @ this time. O2 @ 2L/min via NC. Monitoring on tele with SR.
[2020-01-14] MEDS ORDERED: LEVEMIR (01:15)
[2020-01-14] MEDS ORDERED: BUME2TAB5 PO (01:15)
[2020-01-14] MEDS ORDERED: RIVA10TA PO (01:15)
[2020-01-14] MEDS ORDERED: SIMV-13 PO (01:15)
[2020-01-14] MEDS ORDERED: POTA8TAB2 PO (01:15)
[2020-01-14] MEDS ORDERED: FERR-20 PO ×2 (01:15→14:46)
[2020-01-14 05:00] VITALS: BP 105/51
[2020-01-14] MEDS: ADEMPAS PO SCH ×3 (06:00→22:00)
[2020-01-14 06:03] LABS: BUN/Creatinine Ratio 21.4; Potassium 5.2 mmol/L (3.5-5.1)
--- NOTE | 2020-01-14 07:35 | NUR ---
RECEIVED REPORT AND ASSUMED CARE OF PT. A/OX4. DENIED S/S ACUTE DISTRESS. UPDATE PT WITH POC. BED AT LOWEST POSITION. CALL LIGHT AND BELONGINGS WITHIN REACH. WILL CONT TO MONITOR.
[2020-01-14 09:00] VITALS: BP 118/43
--- NOTE | 2020-01-14 10:00 | NUR ---
WOUND CARE NOTE: IN TO SEE PATIENT AT THIS TIME PER WOUND CARE CONSULT REQUEST. PATIENT NOTED UPON ADMIT TO HAVE WOUNDS TO BLE. WOUNDS WERE PHOTOGRAPHED AT THAT TIME BY BEDSIDE NURSE FOR REFERENCE. PATIENT RECENTLY ADMITTED TO PENDING SALE TO [facility] WITH DIAGNOSIS OF ACUTE RENAL FAILURE, PULMONARY HTN. CURRENT DIVYA SCORE IS 17. PATIENT IS NOTED TO SELF TURN/REPOSITION SELF. PATIENT IS NOTED TO HAVE SCABBED CLOSED ABRASIONS TO BILATERAL ANTERIOR SHINS. PATIENT STATES THAT SHE SCRATCHES HER SKIN D/T SKIN BEING ITCHY. CURRENTLY, THERE ARE NO OPEN OR DRAINING AREAS NOTED. APPLIED OPTIFOAM GENTLE DRESSING TO LEFT ANTERIOR MEAD WOUNDS PROTECTION AGAINST FURTHER SCRATCHING. PATIENT IS NOTED TO HAVE NO OTHER SKIN INTEGRITY ISSUES NOTED. RECOMMEND: SKIN/WOUND CARE PLAN, BID/PRN APPLICATION WITH MOISTURE BARRIER CREAM, OPTIFOAM GENTLE SACRAL DRESSING PREVENTATIVE, PRN OPTIFOAM GENTLE DRESSINGS TO SCABBED ABRASIONS TO BLE. NO FURTHER WOUND CARE MONITORING NEEDED AT THIS TIME. Addendum: 01/14/20 at 1415 by Cyn Brown RN Amended: Links added.
[2020-01-14] MEDS: sulfaSALAzine 500 MG TAB PO SCH (10:06)
[2020-01-14] MEDS: ALLOPURINOL 100 MG TAB PO SCH (10:06)
[2020-01-14] MEDS: PARoxetine 20 MG TAB PO SCH (10:07)
[2020-01-14] MEDS: ASPirin 81 mg TAB PO SCH (10:07)
[2020-01-14] MEDS: MECLIZINE HCL 25 MG TAB PO SCH (10:07)
[2020-01-14] MEDS: METOPROLOL SUCCINATE XL 50 MG TAB PO SCH (10:10)
[2020-01-14 13:00] VITALS: BP 112/51
[2020-01-14] MEDS ORDERED: ALL100T PO (14:34)
[2020-01-14] MEDS ORDERED: LEVEMIR SC ×2 (14:38→14:42)
[2020-01-14] MEDS ORDERED: RIOC1TAB7 PO (14:44)
[2020-01-14 17:00] VITALS: BP 113/49
--- NOTE | 2020-01-14 19:30 | NUR ---
Opening Shift Note Report received from day shift RN. Assumed care of patient, awake and A&O x4. No S/S of distress/SOB noted and patient denies pain at this time. Bed locked and left in the lowest position with the side rails up x2. Instructed on POC and to call for assist PRN, will continue to monitor for changes Q1hr and PRN.
[2020-01-14 22:00] VITALS: BP 107/44
[2020-01-14] MEDS ORDERED: ZOCOR 40 MG PO SCH (22:00)
[2020-01-15] MEDS: ADEMPAS PO SCH ×2 (04:24→14:00)
[2020-01-15 05:00] VITALS: BP 105/51
--- NOTE | 2020-01-15 05:00 | NUR ---
PATIENT CLEANSED, LINENS AND GOWN CHANGED. PATIENT TOLERATED WELL.
[2020-01-15 10:16] VITALS: BP 123/59
--- NOTE | 2020-01-15 10:28 | NUR ---
PT 1st AM visit, patient was asleep. 2nd AM visit, patient was on bed avitia. Addendum: 01/15/20 at 1030 by MARÍA ELENA PRIEST PTT Amended: Links added.
[2020-01-15] MEDS: sulfaSALAzine 500 MG TAB PO SCH (10:38)
[2020-01-15] MEDS: MECLIZINE HCL 25 MG TAB PO SCH (10:39)
[2020-01-15] MEDS: PARoxetine 20 MG TAB PO SCH (10:39)
[2020-01-15] MEDS: ASPirin 81 mg TAB PO SCH (10:39)
[2020-01-15] MEDS: METOPROLOL SUCCINATE XL 50 MG TAB PO SCH (10:39)
[2020-01-15] MEDS: ALLOPURINOL 100 MG TAB PO SCH (10:40)
[2020-01-15 13:00] VITALS: BP 115/49
[2020-01-15] MEDS ORDERED: traMADol HCL 50 MG TAB PO PRN (15:15)
[2020-01-15 16:41] VITALS: BP 123/59
--- NOTE | 2020-01-15 16:45 | NUR ---
SS consult regarding returning to [facility] today. Contacted [facility] and spoke with ANNETTE Ling charge. Pt accepted to return to room 505 and number for report is [phone]. Updated clinicals faxed to [phone]. Transportation arranged through [employer] with a warp picker time of 1845 via gurney and oxygen on standby. Information regarding transfer provided to León PACHECO RN.
[2020-01-15 17:00] VITALS: BP 136/76
[2020-01-15 17:06] VITALS: BP 114/47
--- NOTE | 2020-01-15 17:25 | NUR ---
PER SANJUANITA FROM CUSTOMER ACCOUNT TECHNICIAN, PT IS GOING TO [facility],RM 505 AND CAR WASH MANAGER WILL BE AT 1830 BY [facility].
--- NOTE | 2020-01-15 17:50 | NUR ---
REPORT GIVEN TO FROYLAN AT [facility]. ALL QUESTIONS ANSWERED. PT STABLE FOR TRANSFER.
--- NOTE | 2020-01-15 19:21 | NUR ---
PT LEFT UNIT VIA GURNEY ACCOMPANIED BY TWO TRANSPORTERS OF [employer] IN STABLE CONDITION.
[2020-01-15] MEDS ORDERED: ATORVASTATIN 20 MG TAB PO SCH (22:00)
== END 2020-01-15 19:21 | DRG 640 ==
LOC: EDBD 19:56 → ER 20:02 → TELE-CENTR 20:03
PROVIDERS: ADMIT Internal Medicine Cardiovascular Disease; ATTEND Internal Medicine Cardiovascular Disease
DX: E87.5 Hyperkalemia (principal); N17.1 Acute kidney failure with acute cortical necrosis; I13.0 Hypertensive heart and chronic kidney disease with heart failure and stage 1 through stage 4 chronic kidney disease, or unspecified chronic kidney disease; I27.21 Secondary pulmonary arterial hypertension; N18.3 Chronic kidney disease, stage 3 (moderate); E11.22 Type 2 diabetes mellitus with diabetic chronic kidney disease; E66.9 Obesity, unspecified; I25.10 Atherosclerotic heart disease of native coronary artery without angina pectoris; J44.9 Chronic obstructive pulmonary disease, unspecified; K21.9 Gastro-esophageal reflux disease without esophagitis; M10.9 Gout, unspecified; I50.9 Heart failure, unspecified; Z82.49 Family history of ischemic heart disease and other diseases of the circulatory system; Z79.899 Other long term (current) drug therapy; Z83.3 Family history of diabetes mellitus; Z86.73 Personal history of transient ischemic attack (TIA), and cerebral infarction without residual deficits; Z90.710 Acquired absence of both cervix and uterus
CPT/HCPCS: 36415; 80048; 80053; 81001; 82962; 84484; 85025; 87081; 93005; 96360; 97163; G0378; J0153; J1642

== ENCOUNTER → 2020-01-26 | Outpatient (CLI) | payer MEDICARE, MEDICAID ==
[~2020-01-26] MED LIST changes: -FER325T PO; +FERR-20 PO; +LEVEMIR SC; -LOS50T PO; -POTA8TAB2; +POTA8TAB2 PO; +RIOC1TAB7 PO; -RIOC1TAB9 PO; +RIVA10TA PO; -TADA20TA33 PO
== END | disposition home or self-care (01) ==
LOC: Rad HDHVI 11:04
PROVIDERS: ATTEND Internal Medicine Cardiovascular Disease
DX: I50.33 Acute on chronic diastolic (congestive) heart failure (principal); R06.02 Shortness of breath; I27.21 Secondary pulmonary arterial hypertension
CPT/HCPCS: 93306

== ENCOUNTER 2020-03-03 19:13 | Inpatient (IN) | payer MEDICARE, MEDICAID ==
[~2020-03-03] VITALS: Ht 165.1 cm; Wt 95.2 kg
[2020-03-03 20:43] LABS: Basophils # (auto) 0.1 10 ^3/uL (0-0.2); Basophils % (auto) 0.8 % (0.0-2.0); Eosinophils # (auto) 0.4 10 ^3/uL (0-0.8); Eosinophils % (auto) 6.1 % (0.0-7.0); Hematocrit 37.3 % (36.0-46.0); Hemoglobin 11.9 g/dL (12.2-16.2); Lymphocytes # (auto) 2.9 10 ^3/uL (0.4-5.4); Lymphocytes % (auto) 39.8 % (10.0-50.0); Mean Corpuscular Hgb Conc. 32.1 g/dL (32.0-36.0); Mean Corpuscular Volume 87.3 fL (80.0-100.0); Monocytes # (auto) 0.9 10 ^3/uL (0-1.3); Monocytes % (auto) 12.8 % (0.0-12.0); Neutrophils % (auto) 40.5 % (37.0-80.0); Nucleated Red Blood Cells % 0.1 %; Platelet Count (auto) 251 10^3/uL (140-450); Red Blood Cells 4.27 10^6/uL (4.0-5.20); Red Cell Distribution Width 18.6 % (11.8-14.3); White Blood Cell 7.4 10^3/uL (4.4-10.8)
[2020-03-03 20:55] LABS: INR 1.01 (0.9-1.15); Partial Thromboplastin Time 26.2 sec (23.64-32.05)
[2020-03-03 21:00] LABS: Chloride 106 mmol/L (98-107); Potassium 3.7 mmol/L (3.5-5.1); Sodium 140 mmol/L (136-145)
[2020-03-03 21:12] LABS: Alanine Aminotransferase 11 U/L (13-56); Albumin 3.2 g/dL (3.4-5.0); Alkaline Phosphatase 65 U/L (45-117); Anion Gap 7 (5-15); Aspartate Aminotransferase 13 U/L (15-37); BUN/Creatinine Ratio 21.4; Bilirubin, Total 0.4 mg/dL (0.2-1.0); Blood Urea Nitrogen 33 mg/dL (7-18); Calcium 8.8 mg/dL (8.5-10.1); Carbon Dioxide 27 mmol/L (21-32); GFR African American 41 mL/min; GFR Non-African American 34 mL/min; Glucose 116 mg/dL (74-106); Magnesium 2.4 mg/dL (1.6-2.6); Total Protein 7.1 g/dL (6.4-8.2)
[2020-03-03] MEDS ORDERED: NITROGLYCERIN 0.4 MG SL TAB SL PRN (21:45)
[2020-03-03] MEDS ORDERED: MORPHINE SULF INJ 2 MG/ML SYRINGE 1ML IV PRN (21:45)
[2020-03-03] MEDS ORDERED: ONDANSETRON HCL 4 MG/2 ML VIAL IV PRN (21:45)
[2020-03-03] MEDS ORDERED: ACETAMINOPHEN 325 MG TAB PO PRN (21:45)
[2020-03-03] MEDS ORDERED: CARVEDILOL 3.125 MG TAB PO SCH (22:00)
[2020-03-03] MEDS: SODIUM CHLORIDE 0.9% 1,000 ML IV SCH (23:10)
[2020-03-03] MEDS: INSULIN LANTUS (GLARGINE) 1 /0.01ml (100units/ml) SC SCH (23:25)
[2020-03-03] MEDS: traMADol HCL 50 MG TAB PO SCH (23:25)
[2020-03-03] MEDS: ATORVASTATIN 20 MG TAB PO SCH (23:25)
[2020-03-04 02:00] VITALS: BP 102/49
[2020-03-04 05:00] VITALS: BP 121/65
[2020-03-04] MEDS: traMADol HCL 50 MG TAB PO SCH ×3 (05:39→23:33)
[2020-03-04 06:44] LABS: BUN/Creatinine Ratio 22.7; Calcium 8.5 mg/dL (8.5-10.1); Potassium 3.7 mmol/L (3.5-5.1)
[2020-03-04 06:57] LABS: Basophils # (auto) 0.1 10 ^3/uL (0-0.2); Eosinophils # (auto) 0.5 10 ^3/uL (0-0.8); Hematocrit 37.6 % (36.0-46.0); Hemoglobin 11.8 g/dL (12.2-16.2); Lymphocytes # (auto) 3.2 10 ^3/uL (0.4-5.4); Lymphocytes % (auto) 45.4 % (10.0-50.0); Mean Corpuscular Hemoglobin 28.5 pg (28.0-32.0); Mean Corpuscular Hgb Conc. 31.5 g/dL (32.0-36.0); Mean Corpuscular Volume 90.6 fL (80.0-100.0); Monocytes # (auto) 0.8 10 ^3/uL (0-1.3); Monocytes % (auto) 12.1 % (0.0-12.0); Neutrophils # (auto) 2.4 10 ^3/uL (1.6-8.6); Neutrophils % (auto) 34.5 % (37.0-80.0); Nucleated Red Blood Cells % 0.2 %; Platelet Count (auto) 215 10^3/uL (140-450); Red Blood Cells 4.15 10^6/uL (4.0-5.20); Red Cell Distribution Width 18.7 % (11.8-14.3); White Blood Cell 6.9 10^3/uL (4.4-10.8)
[2020-03-04 07:07] LABS: Cholesterol 99 mg/dL (< 200); HDL Cholesterol 37 mg/dL (40-59); LDL Cholesterol 60 mg/dL (< 100); Triglycerides 89 mg/dL (< 150)
[2020-03-04 09:19] VITALS: BP 115/65
[2020-03-04] MEDS: INSULIN LANTUS (GLARGINE) 1 /0.01ml (100units/ml) SC SCH ×2 (10:04→23:35)
[2020-03-04] MEDS: METOPROLOL SUCCINATE XL 50 MG TAB PO SCH (10:05)
[2020-03-04] MEDS: LISINOPRIL 10 MG TAB PO SCH (10:06)
[2020-03-04] MEDS: CLOPIDOGREL BISULFATE 75 MG TAB PO SCH (10:06)
[2020-03-04] MEDS: PARoxetine 20 MG TAB PO SCH (10:06)
[2020-03-04] MEDS: FERROUS SULFATE 325 MG TAB PO SCH ×2 (10:07→18:12)
[2020-03-04] MEDS: BUMETANIDE 1 MG TAB PO SCH (10:07)
[2020-03-04] MEDS: ASPirin 81 mg TAB PO SCH (10:08)
[2020-03-04] MEDS: DOCUSATE SOD 100 MG CAP PO SCH (10:08)
[2020-03-04] MEDS: sulfaSALAzine 500 MG TAB PO SCH (10:08)
[2020-03-04] MEDS: ALLOPURINOL 100 MG TAB PO SCH (10:10)
[2020-03-04 13:00] VITALS: BP 117/60
[2020-03-04] MEDS: SODIUM CHLORIDE 0.9% 1,000 ML IV SCH (13:00)
[2020-03-04 16:52] VITALS: BP 103/53
[2020-03-04] MEDS: diphenhdrAMINE HCL 50 MG/1 ML VL IV PRN (17:00)
[2020-03-04] MEDS: RIVAROXABAN 10 MG TAB PO SCH (18:12)
[2020-03-04] MEDS ORDERED: HALOPERIDOL LACTATE 5 MG/ML INJ VIAL IM PRN (18:45)
[2020-03-04] MEDS ORDERED: QUET50TA PO (20:36)
[2020-03-04] MEDS ORDERED: DONE10TA17 PO (20:36)
[2020-03-04 22:00] VITALS: BP 129/50
[2020-03-04] MEDS: DONEPEZIL HYDROCHLORIDE 5 MG TAB PO SCH (23:32)
[2020-03-04] MEDS: ATORVASTATIN 20 MG TAB PO SCH (23:32)
[2020-03-04] MEDS: QUEtiapine FUMARATE 25 MG TAB PO SCH (23:33)
[2020-03-05] MEDS: SODIUM CHLORIDE 0.9% 1,000 ML IV SCH ×2 (00:22→13:42)
[2020-03-05 05:00] VITALS: BP 111/53
[2020-03-05] MEDS: traMADol HCL 50 MG TAB PO SCH ×3 (06:30→19:41)
[2020-03-05] MEDS: FERROUS SULFATE 325 MG TAB PO SCH ×2 (08:01→17:33)
[2020-03-05 08:28] VITALS: BP 133/54
[2020-03-05] MEDS: sulfaSALAzine 500 MG TAB PO SCH (09:59)
[2020-03-05] MEDS: ALLOPURINOL 100 MG TAB PO SCH (10:00)
[2020-03-05] MEDS: METOPROLOL SUCCINATE XL 50 MG TAB PO SCH (10:00)
[2020-03-05] MEDS: PARoxetine 20 MG TAB PO SCH (10:01)
[2020-03-05] MEDS: LISINOPRIL 10 MG TAB PO SCH (10:01)
[2020-03-05] MEDS: CLOPIDOGREL BISULFATE 75 MG TAB PO SCH (10:01)
[2020-03-05] MEDS: BUMETANIDE 1 MG TAB PO SCH (10:01)
[2020-03-05] MEDS: ASPirin 81 mg TAB PO SCH (10:02)
[2020-03-05] MEDS: DOCUSATE SOD 100 MG CAP PO SCH (10:02)
[2020-03-05] MEDS: INSULIN LANTUS (GLARGINE) 1 /0.01ml (100units/ml) SC SCH ×2 (10:11→22:00)
[2020-03-05 13:46] VITALS: BP 117/53
[2020-03-05] MEDS: diphenhdrAMINE HCL 50 MG/1 ML VL IV PRN (16:45)
[2020-03-05 17:04] VITALS: BP 144/67
[2020-03-05] MEDS: RIVAROXABAN 10 MG TAB PO SCH (17:33)
[2020-03-05] MEDS: ALPRAZolam 0.25 MG TAB PO PRN (19:40)
[2020-03-05] MEDS: QUEtiapine FUMARATE 25 MG TAB PO SCH (19:40)
[2020-03-05] MEDS: DONEPEZIL HYDROCHLORIDE 5 MG TAB PO SCH (19:41)
[2020-03-05] MEDS: ATORVASTATIN 20 MG TAB PO SCH (19:41)
[2020-03-05 22:00] VITALS: BP 114/45
[2020-03-06 05:00] VITALS: BP 123/53
[2020-03-06] MEDS: SODIUM CHLORIDE 0.9% 1,000 ML IV SCH ×2 (05:52→16:59)
[2020-03-06] MEDS: traMADol HCL 50 MG TAB PO SCH ×3 (05:53→22:17)
[2020-03-06] MEDS: FERROUS SULFATE 325 MG TAB PO SCH ×2 (08:03→17:47)
[2020-03-06 09:00] VITALS: BP 115/46
[2020-03-06] MEDS: METOPROLOL SUCCINATE XL 50 MG TAB PO SCH (11:07)
[2020-03-06] MEDS: PARoxetine 20 MG TAB PO SCH (11:08)
[2020-03-06] MEDS: INSULIN LANTUS (GLARGINE) 1 /0.01ml (100units/ml) SC SCH ×2 (11:08→22:00)
[2020-03-06] MEDS: CLOPIDOGREL BISULFATE 75 MG TAB PO SCH (11:08)
[2020-03-06] MEDS: sulfaSALAzine 500 MG TAB PO SCH (11:08)
[2020-03-06] MEDS: DOCUSATE SOD 100 MG CAP PO SCH (11:08)
[2020-03-06] MEDS: LISINOPRIL 10 MG TAB PO SCH (11:09)
[2020-03-06] MEDS: ALLOPURINOL 100 MG TAB PO SCH (11:09)
[2020-03-06] MEDS: BUMETANIDE 1 MG TAB PO SCH (11:10)
[2020-03-06] MEDS: ASPirin 81 mg TAB PO SCH (11:10)
[2020-03-06] MEDS: diphenhdrAMINE HCL 50 MG/1 ML VL IV PRN ×3 (12:59→21:46)
[2020-03-06 13:00] VITALS: BP 113/52
[2020-03-06] MEDS: ALPRAZolam 0.25 MG TAB PO PRN (14:18)
[2020-03-06 17:00] VITALS: BP 134/63
[2020-03-06] MEDS ORDERED: SALINE 0.65 % NASAL SPRAY 45ML BOTTLE EACHNOSTRI PRN (17:30)
[2020-03-06] MEDS: RIVAROXABAN 10 MG TAB PO SCH (17:48)
[2020-03-06 22:00] VITALS: BP 143/95
[2020-03-06] MEDS: ATORVASTATIN 20 MG TAB PO SCH (22:16)
[2020-03-06] MEDS: DONEPEZIL HYDROCHLORIDE 5 MG TAB PO SCH (22:16)
[2020-03-06] MEDS: QUEtiapine FUMARATE 25 MG TAB PO SCH (22:17)
[2020-03-07 05:46] VITALS: BP 130/60
[2020-03-07] MEDS: SODIUM CHLORIDE 0.9% 1,000 ML IV SCH ×2 (05:49→18:33)
[2020-03-07] MEDS: traMADol HCL 50 MG TAB PO SCH ×3 (05:57→21:37)
[2020-03-07 09:00] VITALS: BP 154/75
[2020-03-07] MEDS: FERROUS SULFATE 325 MG TAB PO SCH ×2 (09:16→17:48)
[2020-03-07] MEDS: BUMETANIDE 1 MG TAB PO SCH (09:17)
[2020-03-07] MEDS: ASPirin 81 mg TAB PO SCH (09:17)
[2020-03-07] MEDS: DOCUSATE SOD 100 MG CAP PO SCH (09:17)
[2020-03-07] MEDS: LISINOPRIL 10 MG TAB PO SCH (09:18)
[2020-03-07] MEDS: PARoxetine 20 MG TAB PO SCH (09:18)
[2020-03-07] MEDS: CLOPIDOGREL BISULFATE 75 MG TAB PO SCH (09:18)
[2020-03-07] MEDS: sulfaSALAzine 500 MG TAB PO SCH (09:19)
[2020-03-07] MEDS: ALLOPURINOL 100 MG TAB PO SCH (09:19)
[2020-03-07] MEDS: METOPROLOL SUCCINATE XL 50 MG TAB PO SCH (09:20)
[2020-03-07] MEDS: INSULIN LANTUS (GLARGINE) 1 /0.01ml (100units/ml) SC SCH ×2 (09:24→21:42)
[2020-03-07 17:00] VITALS: BP 140/79
[2020-03-07] MEDS: diphenhdrAMINE HCL 50 MG/1 ML VL IV PRN (17:47)
[2020-03-07] MEDS: RIVAROXABAN 10 MG TAB PO SCH (17:48)
[2020-03-07] MEDS: DONEPEZIL HYDROCHLORIDE 5 MG TAB PO SCH (21:37)
[2020-03-07] MEDS: ATORVASTATIN 20 MG TAB PO SCH (21:38)
[2020-03-07] MEDS: QUEtiapine FUMARATE 25 MG TAB PO SCH (21:38)
[2020-03-07 22:00] VITALS: BP 111/77
[2020-03-08 05:33] VITALS: BP 106/49
[2020-03-08] MEDS: traMADol HCL 50 MG TAB PO SCH ×3 (06:00→14:34)
[2020-03-08] MEDS: SODIUM CHLORIDE 0.9% 1,000 ML IV SCH (08:22)
[2020-03-08] MEDS: FERROUS SULFATE 325 MG TAB PO SCH (08:26)
[2020-03-08 09:00] VITALS: BP 136/79
[2020-03-08] MEDS: sulfaSALAzine 500 MG TAB PO SCH (10:00)
[2020-03-08] MEDS: DOCUSATE SOD 100 MG CAP PO SCH (10:00)
[2020-03-08] MEDS: LISINOPRIL 10 MG TAB PO SCH (10:00)
[2020-03-08] MEDS: PARoxetine 20 MG TAB PO SCH (10:00)
[2020-03-08] MEDS: CLOPIDOGREL BISULFATE 75 MG TAB PO SCH (10:00)
[2020-03-08] MEDS: ALLOPURINOL 100 MG TAB PO SCH (10:00)
[2020-03-08] MEDS: BUMETANIDE 1 MG TAB PO SCH (10:00)
[2020-03-08] MEDS: INSULIN LANTUS (GLARGINE) 1 /0.01ml (100units/ml) SC SCH (10:00)
[2020-03-08] MEDS: ASPirin 81 mg TAB PO SCH (10:00)
[2020-03-08] MEDS: METOPROLOL SUCCINATE XL 50 MG TAB PO SCH (10:00)
[2020-03-08] MEDS: diphenhdrAMINE HCL 50 MG/1 ML VL IV PRN (10:43)
[2020-03-08 11:04] VITALS: BP 136/79
[2020-03-08 13:00] VITALS: BP 147/72
[2020-03-08 17:00] VITALS: BP 159/94
== END 2020-03-08 18:02 | DRG 871 ==
LOC: ER 19:13 → EDBD 19:13 → TELE 19:14 → TELE-CENTR 19:14 → UNDOADMIN 19:14
PROVIDERS: ADMIT Hospitalist; ATTEND Internal Medicine Cardiovascular Disease
DX: A41.9 Sepsis, unspecified organism (principal); G93.41 Metabolic encephalopathy; I50.31 Acute diastolic (congestive) heart failure; L03.90 Cellulitis, unspecified; I13.0 Hypertensive heart and chronic kidney disease with heart failure and stage 1 through stage 4 chronic kidney disease, or unspecified chronic kidney disease; I25.110 Atherosclerotic heart disease of native coronary artery with unstable angina pectoris; N18.9 Chronic kidney disease, unspecified; J44.9 Chronic obstructive pulmonary disease, unspecified; E78.5 Hyperlipidemia, unspecified; E11.21 Type 2 diabetes mellitus with diabetic nephropathy; K21.9 Gastro-esophageal reflux disease without esophagitis; E11.22 Type 2 diabetes mellitus with diabetic chronic kidney disease; M10.9 Gout, unspecified; I27.21 Secondary pulmonary arterial hypertension; E11.51 Type 2 diabetes mellitus with diabetic peripheral angiopathy without gangrene; Z82.49 Family history of ischemic heart disease and other diseases of the circulatory system; Z86.73 Personal history of transient ischemic attack (TIA), and cerebral infarction without residual deficits; Z90.710 Acquired absence of both cervix and uterus; Z83.3 Family history of diabetes mellitus; Z88.1 Allergy status to other antibiotic agents
CPT/HCPCS: 36415; 71045; 80048; 80053; 80061; 82962; 83735; 83880; 84484; 85025; 85610; 85730; 93005; G0378; J1815; J2405

== ENCOUNTER 2020-03-14 23:18 | Emergency (ER) | payer MEDICARE, MEDICAID ==
[~2020-03-14] VITALS: Ht 162.6 cm; Wt 90.7 kg
[~2020-03-14 23:18] MED LIST changes: +DONE10TA17 PO; +QUET50TA PO
[2020-03-15] MEDS ORDERED: diphenhdrAMINE HCL 50 MG/1 ML VL IV ONE (00:15)
[2020-03-15 01:14] LABS: Basophils # (auto) 0.1 10 ^3/uL (0-0.2); Basophils % (auto) 0.6 % (0.0-2.0); Eosinophils # (auto) 0.6 10 ^3/uL (0-0.8); Eosinophils % (auto) 7.7 % (0.0-7.0); Hematocrit 34.9 % (36.0-46.0); Hemoglobin 11.3 g/dL (12.2-16.2); Lymphocytes % (auto) 48.2 % (10.0-50.0); Mean Corpuscular Hemoglobin 28.2 pg (28.0-32.0); Mean Corpuscular Hgb Conc. 32.3 g/dL (32.0-36.0); Mean Corpuscular Volume 87.4 fL (80.0-100.0); Monocytes # (auto) 0.8 10 ^3/uL (0-1.3); Monocytes % (auto) 9.2 % (0.0-12.0); Neutrophils # (auto) 2.9 10 ^3/uL (1.6-8.6); Neutrophils % (auto) 34.3 % (37.0-80.0); Nucleated Red Blood Cells % 0.1 %; Platelet Count (auto) 251 10^3/uL (140-450); Red Blood Cells 3.99 10^6/uL (4.0-5.20); Red Cell Distribution Width 18.4 % (11.8-14.3); White Blood Cell 8.3 10^3/uL (4.4-10.8)
[2020-03-15 01:31] LABS: Albumin 3.2 g/dL (3.4-5.0); Anion Gap 11 (5-15); BUN/Creatinine Ratio 23.6; Blood Urea Nitrogen 64 mg/dL (7-18); Calcium 8.4 mg/dL (8.5-10.1); Carbon Dioxide 23 mmol/L (21-32); Chloride 105 mmol/L (98-107); GFR African American 22 mL/min; GFR Non-African American 18 mL/min; Glucose 138 mg/dL (74-106); Potassium 3.7 mmol/L (3.5-5.1); Sodium 139 mmol/L (136-145)
[2020-03-15 01:41] LABS: Alanine Aminotransferase 14 U/L (13-56); Alkaline Phosphatase 79 U/L (45-117); Aspartate Aminotransferase 10 U/L (15-37); Bilirubin, Total 0.2 mg/dL (0.2-1.0)
[2020-03-15] MEDS ORDERED: risperiDONE 1 MG TAB PO ONE (02:15)
[2020-03-15 14:00] VITALS: BP 112/68
== END 2020-03-15 06:38 | disposition home or self-care (01) ==
LOC: ER 23:32
DX: I25.119 Atherosclerotic heart disease of native coronary artery with unspecified angina pectoris (principal); F41.9 Anxiety disorder, unspecified; L25.9 Unspecified contact dermatitis, unspecified cause; I13.0 Hypertensive heart and chronic kidney disease with heart failure and stage 1 through stage 4 chronic kidney disease, or unspecified chronic kidney disease; E11.22 Type 2 diabetes mellitus with diabetic chronic kidney disease; N18.9 Chronic kidney disease, unspecified; I50.9 Heart failure, unspecified; J44.9 Chronic obstructive pulmonary disease, unspecified; K21.9 Gastro-esophageal reflux disease without esophagitis; M10.9 Gout, unspecified; E78.5 Hyperlipidemia, unspecified
CPT/HCPCS: 36415; 71045; 80053; 83880; 84484; 85025; 96374; 99285; J1200; 93005

== ENCOUNTER 2020-04-17 16:04 | Inpatient (IN) | payer MEDICARE, MEDICAID ==
[~2020-04-17] VITALS: Ht 172.7 cm; Wt 87.1 kg
[~2020-04-17 16:04] MED LIST changes: -DEXL60CA3 PO; +DEXL60CA4 PO
[2020-04-17 19:45] LABS: Basophils # (auto) 0 10 ^3/uL (0-0.2); Basophils % (auto) 0.5 % (0.0-2.0); Eosinophils # (auto) 0.2 10 ^3/uL (0-0.8); Eosinophils % (auto) 2.9 % (0.0-7.0); Hematocrit 33.8 % (36.0-46.0); Hemoglobin 10.8 g/dL (12.2-16.2); Lymphocytes # (auto) 1.8 10 ^3/uL (0.4-5.4); Lymphocytes % (auto) 28.4 % (10.0-50.0); Mean Corpuscular Hgb Conc. 32.1 g/dL (32.0-36.0); Mean Corpuscular Volume 90.5 fL (80.0-100.0); Monocytes # (auto) 0.7 10 ^3/uL (0-1.3); Monocytes % (auto) 10.8 % (0.0-12.0); Neutrophils # (auto) 3.6 10 ^3/uL (1.6-8.6); Neutrophils % (auto) 57.4 % (37.0-80.0); Platelet Count (auto) 161 10^3/uL (140-450); Red Blood Cells 3.74 10^6/uL (4.0-5.20); Red Cell Distribution Width 18.5 % (11.8-14.3); White Blood Cell 6.2 10^3/uL (4.4-10.8)
[2020-04-17 19:58] LABS: INR 1.01 (0.9-1.15); Partial Thromboplastin Time 31.4 sec (23.64-32.05)
[2020-04-17 20:00] LABS: Albumin 3.1 g/dL (3.4-5.0); Calcium 9.4 mg/dL (8.5-10.1); Chloride 111 mmol/L (98-107); Glucose 127 mg/dL (74-106); Potassium 4.9 mmol/L (3.5-5.1); Sodium 138 mmol/L (136-145)
[2020-04-17 20:09] LABS: Alanine Aminotransferase 12 U/L (13-56); Alkaline Phosphatase 43 U/L (45-117); Anion Gap 7 (5-15); Aspartate Aminotransferase 10 U/L (15-37); BUN/Creatinine Ratio 41.7; Bilirubin, Total 0.4 mg/dL (0.2-1.0); Carbon Dioxide 20 mmol/L (21-32); GFR African American 26 mL/min; GFR Non-African American 22 mL/min; Lactate Dehydrogenase 139 U/L (84-246); Magnesium 2.3 mg/dL (1.6-2.6); Total Protein 7.3 g/dL (6.4-8.2)
[2020-04-17 20:26] LABS: Blood Urea Nitrogen 96 mg/dL (7-18)
[2020-04-17 20:44] LABS: Urine Bacteria NONE SEEN /hpf (None Seen); Urine Blood Negative /uL (Negative); Urine Hyaline Cast FEW /lpf (0 - 2); Urine Specific Gravity 1.012 (1.001-1.035); Urine WBC 1 /hpf (0 - 5)
[2020-04-17] MEDS ORDERED: SODIUM CHLORIDE 0.9% 1,000 ML IV ONE (21:00)
[2020-04-17] MEDS ORDERED: NITROGLYCERIN 0.4 MG SL TAB SL PRN (21:45)
[2020-04-17] MEDS ORDERED: MORPHINE SULF INJ 2 MG/ML SYRINGE 1ML IV PRN (21:45)
[2020-04-17] MEDS ORDERED: DEXTROSE (50%) 50ML SYRG IV PRN (22:00)
[2020-04-17] MEDS ORDERED: hydrOXYchloroQUINE SULFATE 200 MG TAB PO SCH (22:00)
[2020-04-17] MEDS ORDERED: PAR20T PO (22:55)
[2020-04-17] MEDS ORDERED: DOCU-94 PO (22:55)
[2020-04-17] MEDS ORDERED: INSLANTI SC (22:55)
[2020-04-17] MEDS ORDERED: OLAN20TA13 PO (22:55)
[2020-04-17] MEDS ORDERED: SULF500T2 PO (22:55)
[2020-04-17] MEDS ORDERED: LISI-648 PO (22:55)
[2020-04-17] MEDS ORDERED: TRAM50TA2 PO (22:55)
[2020-04-17] MEDS ORDERED: BUMETANIDE 1 MG TAB PO ONE (23:15)
[2020-04-17] MEDS: InsuLIN REG 1unit/0.01ml Soln (100units/ml) SC SCH (23:44)
[2020-04-17] MEDS: ACCU-CHEK COMFORT CURVE STRIP VI SCH (23:44)
[2020-04-18] VITALS (20 sets, daily range): BP systolic 87–144; BP diastolic 26–76
[2020-04-18] MEDS: InsuLIN REG 1unit/0.01ml Soln (100units/ml) SC SCH ×4 (06:15→22:00)
[2020-04-18] MEDS: ACCU-CHEK COMFORT CURVE STRIP VI SCH ×4 (06:15→21:05)
[2020-04-18] MEDS: ACETAMINOPHEN 650 mg PER 20 mL UD PO PRN ×2 (07:01→20:17)
[2020-04-18] MEDS ORDERED: ALBUMIN 5% 250 ML IV ONE (08:00)
[2020-04-18] MEDS ORDERED: SODIUM CHLORIDE 0.9% 1,000 ML IV ONE (09:30)
[2020-04-18] MEDS ORDERED: BUMETANIDE 1 MG TAB PO SCH (10:00)
[2020-04-18] MEDS: PARoxetine 20 MG TAB PO SCH (10:00)
[2020-04-18] MEDS: LISINOPRIL 10 MG TAB PO SCH (10:00)
[2020-04-18] MEDS: METOPROLOL SUCCINATE XL 50 MG TAB PO SCH (10:00)
[2020-04-18] MEDS: ZINC SULFATE 220mg CAP or TAB PO SCH (10:01)
[2020-04-18] MEDS: AZITHROMYCIN 500MG/ 250ML 250 ML IV SCH (10:01)
[2020-04-18] MEDS: MAGNESIUM OXIDE 400 MG TAB PO SCH ×2 (10:02→21:05)
[2020-04-18] MEDS: DOCUSATE SOD 100 MG CAP PO SCH (10:02)
[2020-04-18] MEDS: hydrOXYchloroQUINE SULFATE 200 MG TAB PO SCH ×2 (10:03→21:05)
[2020-04-18] MEDS: CHOLECALCIFEROL (VITD3) 1,000UNIT=25mCg TAB PO SCH (10:04)
[2020-04-18] MEDS: RIVAROXABAN 10 MG TAB PO SCH (10:04)
[2020-04-18] MEDS: ASCORBIC ACID 500 MG TAB PO SCH (10:04)
[2020-04-18] MEDS: ALLOPURINOL 100 MG TAB PO SCH (10:05)
[2020-04-18] MEDS: INSULIN LANTUS (GLARGINE) 1 /0.01ml (100units/ml) SC SCH ×2 (10:05→22:00)
[2020-04-18] MEDS: sulfaSALAzine 500 MG TAB PO SCH (11:56)
[2020-04-18] MEDS: NOREPINEPHRINE 8 MG/250ML KIT 250 ML IV SCH (11:57)
--- NOTE | 2020-04-18 19:30 | NUR ---
Assumed care, full assessment done; see interventions. Patient drowsy but arouses to name and is oriented x 2-3. SR 80-90s with frequent PVC/PACs noted, levophed drip infusing per IV spreadsheet. 22 G IV to hand patent and intact, multiple IV attempts made but with no success. Educated patient to inform RN of any irritation at IV site. He catheter draining to gravity. Rectal temp 100.2, cooling measures implemented.
[2020-04-18] MEDS: BUDESONIDE (INHALATION) 0.5 MG/2 ML NEB NEB SCH (22:38)
[2020-04-19] VITALS (23 sets, daily range): BP systolic 10–141; BP diastolic 35–60
[2020-04-19] MEDS: ACETAMINOPHEN 650 mg PER 20 mL UD PO PRN ×3 (02:19→21:34)
--- NOTE | 2020-04-19 02:20 | NUR ---
Rectal temp increasing, patient refusing to remove blankets. Room temp cooled and PRN tylenol administered per eMAR.
--- NOTE | 2020-04-19 04:30 | NUR ---
Full bath and linen change done.
[2020-04-19] MEDS: ACCU-CHEK COMFORT CURVE STRIP VI SCH ×3 (06:04→17:47)
[2020-04-19] MEDS: InsuLIN REG 1unit/0.01ml Soln (100units/ml) SC SCH ×4 (06:04→22:00)
[2020-04-19 08:37] LABS: Basophils # (auto) 0 10 ^3/uL (0-0.2); Basophils % (auto) 0.5 % (0.0-2.0); Eosinophils # (auto) 0.1 10 ^3/uL (0-0.8); Hemoglobin 11.7 g/dL (12.2-16.2); Lymphocytes # (auto) 1.6 10 ^3/uL (0.4-5.4); Lymphocytes % (auto) 23.9 % (10.0-50.0); Mean Corpuscular Hemoglobin 29.3 pg (28.0-32.0); Mean Corpuscular Hgb Conc. 32.5 g/dL (32.0-36.0); Mean Corpuscular Volume 90.1 fL (80.0-100.0); Monocytes # (auto) 0.6 10 ^3/uL (0-1.3); Monocytes % (auto) 9.3 % (0.0-12.0); Neutrophils # (auto) 4.2 10 ^3/uL (1.6-8.6); Neutrophils % (auto) 65.3 % (37.0-80.0); Nucleated Red Blood Cells % 0.1 %; Platelet Count (auto) 174 10^3/uL (140-450); Red Cell Distribution Width 18.8 % (11.8-14.3); White Blood Cell 6.5 10^3/uL (4.4-10.8)
[2020-04-19 08:53] LABS: Potassium 4.1 mmol/L (3.5-5.1)
[2020-04-19 08:58] LABS: Albumin 3.3 g/dL (3.4-5.0); BUN/Creatinine Ratio 39.9; Bilirubin, Total 0.4 mg/dL (0.2-1.0); Calcium 9.4 mg/dL (8.5-10.1); Magnesium 2.3 mg/dL (1.6-2.6); Total Protein 7.7 g/dL (6.4-8.2)
[2020-04-19] MEDS: METOPROLOL SUCCINATE XL 50 MG TAB PO SCH (09:04)
[2020-04-19] MEDS: DOCUSATE SOD 100 MG CAP PO SCH (09:04)
[2020-04-19] MEDS: LISINOPRIL 10 MG TAB PO SCH (09:04)
[2020-04-19] MEDS: CHOLECALCIFEROL (VITD3) 1,000UNIT=25mCg TAB PO SCH (09:12)
[2020-04-19] MEDS: AZITHROMYCIN 500MG/ 250ML 250 ML IV SCH (09:12)
[2020-04-19] MEDS: MAGNESIUM OXIDE 400 MG TAB PO SCH ×2 (09:13→23:59)
[2020-04-19] MEDS: ALLOPURINOL 100 MG TAB PO SCH (09:13)
[2020-04-19] MEDS: PARoxetine 20 MG TAB PO SCH (09:13)
[2020-04-19] MEDS: hydrOXYchloroQUINE SULFATE 200 MG TAB PO SCH (09:15)
[2020-04-19] MEDS: ASCORBIC ACID 500 MG TAB PO SCH (09:16)
[2020-04-19] MEDS: ZINC SULFATE 220mg CAP or TAB PO SCH (09:18)
[2020-04-19] MEDS: sulfaSALAzine 500 MG TAB PO SCH (09:19)
[2020-04-19] MEDS: RIVAROXABAN 10 MG TAB PO SCH (09:19)
[2020-04-19] MEDS: INSULIN LANTUS (GLARGINE) 1 /0.01ml (100units/ml) SC SCH ×2 (10:00→22:00)
[2020-04-19] MEDS: BUDESONIDE (INHALATION) 0.5 MG/2 ML NEB NEB SCH ×2 (10:53→22:00)
[2020-04-19] MEDS: NOREPINEPHRINE 8 MG/250ML KIT 250 ML IV SCH (11:11)
--- NOTE | 2020-04-19 21:00 | NUR ---
PT WAS MOVED TO ER BED 6, NON NEGATIVE PRESSURE ROOM. PULMICORT TX HELD. AGAINST PROTOCOL TO NEBULIZE MED IN NON PRESSURE ROOM. PT IS RESTING WITH NO ACUTE RESP DISTRESS.
[2020-04-20] MEDS: ACETAMINOPHEN 650 mg PER 20 mL UD PO PRN ×2 (06:00→14:54)
[2020-04-20] MEDS: InsuLIN REG 1unit/0.01ml Soln (100units/ml) SC SCH ×4 (07:00→22:00)
[2020-04-20] MEDS: ACCU-CHEK COMFORT CURVE STRIP VI SCH ×5 (07:22→22:00)
[2020-04-20] MEDS: METOPROLOL SUCCINATE XL 50 MG TAB PO SCH (09:09)
[2020-04-20] MEDS: LISINOPRIL 10 MG TAB PO SCH (09:21)
[2020-04-20] MEDS ORDERED: BUDESONIDE 360 MCG IN SCH (10:00)
[2020-04-20] MEDS: DOCUSATE SOD 100 MG CAP PO SCH (10:00)
[2020-04-20] MEDS: AZITHROMYCIN 500MG/ 250ML 250 ML IV SCH (10:04)
[2020-04-20] MEDS: MAGNESIUM OXIDE 400 MG TAB PO SCH (10:04)
[2020-04-20] MEDS: PARoxetine 20 MG TAB PO SCH (10:04)
[2020-04-20] MEDS: ZINC SULFATE 220mg CAP or TAB PO SCH (10:04)
[2020-04-20] MEDS: hydrOXYchloroQUINE SULFATE 200 MG TAB PO SCH ×2 (10:05)
[2020-04-20] MEDS: CHOLECALCIFEROL (VITD3) 1,000UNIT=25mCg TAB PO SCH (10:05)
[2020-04-20] MEDS: RIVAROXABAN 10 MG TAB PO SCH (10:05)
[2020-04-20] MEDS: ASCORBIC ACID 500 MG TAB PO SCH (10:05)
[2020-04-20] MEDS: ALLOPURINOL 100 MG TAB PO SCH (10:05)
[2020-04-20] MEDS: INSULIN LANTUS (GLARGINE) 1 /0.01ml (100units/ml) SC SCH ×2 (10:20→22:00)
[2020-04-20] MEDS: sulfaSALAzine 500 MG TAB PO SCH (10:22)
[2020-04-20] MEDS: NOREPINEPHRINE 8 MG/250ML KIT 250 ML IV SCH (11:19)
[2020-04-20] MEDS: BUDESONIDE (INHALATION) 180 MCG IH IN SCH ×2 (11:21→22:00)
--- NOTE | 2020-04-20 22:00 | NUR ---
Telemetry admit from MARTHA TRINIDADCHERRY Rivas admitted to Telemetry unit after SBAR received. Patient oriented to SHANI RODRIGUEZ, RN primary RN, unit, room, bed, and unit policies regarding patient care and visiting hours. Patient now on continuous telemetry monitoring, tele box # 6 and telemetry reading on arrival to unit is Sinus Tach at 102 BPM. Patient placed on bedside oxygen,ssaturating at 92% on 12L Oxymizer, weighed by bedscale and encouraged to call if they need something. All questions and concerns addressed, patient verbalized understanding. Note: Patient is confused at times, but answers questions appropriately. Patient came in with a He draining clear yellow uring, Rectal tube with 50ml of brown liquid bowel moment. Patient is on 12L Oxymizer satuting at 92%. No distress noted at this time. Sitter at bedide,bed placed in lowest position, bed alarm turned vascular surgeon light within reach.
[2020-04-21] VITALS (7 sets, daily range): BP systolic 96–139; BP diastolic 45–76
[2020-04-21] MEDS: MAGNESIUM OXIDE 400 MG TAB PO SCH ×3 (00:43→21:21)
[2020-04-21] MEDS: traMADol HCL 50 MG TAB PO PRN ×2 (00:53→19:33)
[2020-04-21] MEDS: ACCU-CHEK COMFORT CURVE STRIP VI SCH ×4 (06:43→21:14)
[2020-04-21] MEDS: InsuLIN REG 1unit/0.01ml Soln (100units/ml) SC SCH ×4 (06:43→21:15)
[2020-04-21] MEDS: BUDESONIDE (INHALATION) 180 MCG IH IN SCH ×2 (07:28→22:00)
--- NOTE | 2020-04-21 07:40 | NUR ---
Opening Shift Note Assumed care of patient, awake and alert. No S/S of distress/SOB or pain. On 15LOXYMIZER saturating at 91%. Instructed on POC and to call for assist PRN, will continue to monitor for changes Q1hr and PRN. Bed placed in lowest position and call light within reach.
[2020-04-21] MEDS: INSULIN LANTUS (GLARGINE) 1 /0.01ml (100units/ml) SC SCH ×2 (10:00→21:14)
[2020-04-21] MEDS: DOCUSATE SOD 100 MG CAP PO SCH (10:00)
[2020-04-21] MEDS: sulfaSALAzine 500 MG TAB PO SCH (10:00)
[2020-04-21] MEDS: ZINC SULFATE 220mg CAP or TAB PO SCH (10:59)
[2020-04-21] MEDS: NOREPINEPHRINE 8 MG/250ML KIT 250 ML IV SCH (11:00)
[2020-04-21] MEDS: hydrOXYchloroQUINE SULFATE 200 MG TAB PO SCH (11:03)
[2020-04-21] MEDS: METOPROLOL SUCCINATE XL 50 MG TAB PO SCH (11:03)
[2020-04-21] MEDS: LISINOPRIL 10 MG TAB PO SCH (11:04)
[2020-04-21] MEDS: ASCORBIC ACID 500 MG TAB PO SCH (11:04)
[2020-04-21] MEDS: ALLOPURINOL 100 MG TAB PO SCH (11:04)
[2020-04-21] MEDS: CHOLECALCIFEROL (VITD3) 1,000UNIT=25mCg TAB PO SCH (11:04)
[2020-04-21] MEDS: RIVAROXABAN 10 MG TAB PO SCH (11:05)
[2020-04-21] MEDS: PARoxetine 20 MG TAB PO SCH (11:06)
--- NOTE | 2020-04-21 11:26 | NUR ---
PAGED MD Nita KATHLEEN RE: LEVOPHED ORDERS. UNABLE TO GIVE THIS MEDICATION ON THE MEDICAL SURGICAL FLOOR. AWAITING CALL BACK
--- NOTE | 2020-04-21 13:44 | NUR ---
assessment Patient is a 84 year old female who is Covid 19 positive. Patient came from [facility]. Per patients daughter Mimi patient uses oxygen and a wheelchair for home use. Patients PCP is Dr Hernandez. Patient has an advanced directive and her POA is her daughter Mimi. Per Mimi she prefers for patient to return to [facility] on discharge once patient is medically stable, but will agree to [place] if [facility] at that time. I informed Mimi I will continue to monitor and follow up as appropriate. Mimi verbalized understanding and agreed to discharge plan back to [facility]. Addendum: 04/21/20 at 1348 by Anju CHAN Amended: Links added.
--- NOTE | 2020-04-21 14:04 | NUR ---
Nutrition Assessment Notes Please refer to link for full assessment notes. Est Energy needs: 7285-4869 kcals (17-20 kcal/kgBW) Est Protein needs: 76-86 gms/day (0.8-0.9 gm/kgBW) d/t pt with STG 4 CKF Will continue to monitor and reassess prn. Addendum: 04/21/20 at [address] Amended: Links added.
[2020-04-21] MEDS ORDERED: POTASSIUM EFFERVESENT TAB 25 MEQ PO ONE (14:15)
[2020-04-21] MEDS ORDERED: FUROSEMIDE 40 MG/4 ML VIAL IV ONE (14:15)
--- NOTE | 2020-04-21 14:50 | NUR ---
Respiratory note: PT REFUSED ABG. PT STATED SHE DID NOT WANT TO HAVE IT DONE AND PUSHED MY ARM AWAY.
--- NOTE | 2020-04-21 18:06 | NUR ---
PT CLEANED AND OPTIFOAM APPLIED TO SACRUM
--- NOTE | 2020-04-21 19:40 | NUR ---
Opening Shift Note Assumed care of patient, patient's eyes open to light touch. Patient is AOx3. Patient's Oxymizer off of patient at this time. Oxymizer replaced onto patient and educated patient on importance/indication for maintaining Oxymizer in place, patient verbalized understanding and in agreement. Fall and safety precautions in place. Call light within reach and able to use. Indwelling urinary catheter and rectal tube intact with tubes draining to gravity, free of kinks/obstructions, and hung belong patient's pelvis. Instructed on POC and to call for assist PRN, patient verbalized understanding and in agreement. Will continue to monitor for changes Q1hr and PRN.
[2020-04-22 05:53] VITALS: BP 85/36
[2020-04-22 06:00] VITALS: BP 112/55
[2020-04-22] MEDS: ACCU-CHEK COMFORT CURVE STRIP VI SCH ×4 (06:08→22:23)
[2020-04-22] MEDS: InsuLIN REG 1unit/0.01ml Soln (100units/ml) SC SCH ×4 (06:08→22:00)
--- NOTE | 2020-04-22 06:08 | NUR ---
BLOOD SUGAR PATIENT'S BLOOD SUGAR 65. PATIENT GIVEN JUICE AND SNACKS AND EDUCATED/ENCOURAGED PATIENT TO MAINTAIN ADEQUATE CALORIC NEEDS, PATIENT VERBALIZED UNDERSTANDING AND IN AGREEMENT. WILL RECHECK.
--- NOTE | 2020-04-22 06:23 | NUR ---
RECHECK BLOOD SUGAR PATIENT'S BLOOD SUGAR RECHECKED: 103.
[2020-04-22 09:00] VITALS: BP 98/59
[2020-04-22] MEDS: BUDESONIDE (INHALATION) 180 MCG IH IN SCH ×2 (09:14→23:09)
--- NOTE | 2020-04-22 09:15 | NUR ---
SWITCHED PT TO 15 LITERS NON REBREATHER. SPO2 91% AFTER CHANGE. PT APPEARS UPSET AND ALSO NEEDS REINFORCEMENT TO KEEP OXYGEN ON. ANNETTE LONG AWARE.
[2020-04-22] MEDS: LISINOPRIL 10 MG TAB PO SCH (10:00)
[2020-04-22] MEDS: METOPROLOL SUCCINATE XL 50 MG TAB PO SCH (10:00)
[2020-04-22] MEDS: INSULIN LANTUS (GLARGINE) 1 /0.01ml (100units/ml) SC SCH ×2 (10:00→22:00)
[2020-04-22] MEDS: sulfaSALAzine 500 MG TAB PO SCH (10:00)
[2020-04-22] MEDS: ZINC SULFATE 220mg CAP or TAB PO SCH (10:19)
[2020-04-22] MEDS: CHOLECALCIFEROL (VITD3) 1,000UNIT=25mCg TAB PO SCH (10:20)
[2020-04-22] MEDS: PARoxetine 20 MG TAB PO SCH (10:20)
[2020-04-22] MEDS: ASCORBIC ACID 500 MG TAB PO SCH (10:20)
[2020-04-22] MEDS: DOCUSATE SOD 100 MG CAP PO SCH (10:20)
[2020-04-22] MEDS: hydrOXYchloroQUINE SULFATE 200 MG TAB PO SCH (10:20)
[2020-04-22] MEDS: MAGNESIUM OXIDE 400 MG TAB PO SCH ×2 (10:20→22:09)
[2020-04-22] MEDS: ALLOPURINOL 100 MG TAB PO SCH (10:21)
[2020-04-22] MEDS: RIVAROXABAN 10 MG TAB PO SCH (10:21)
[2020-04-22] MEDS: traMADol HCL 50 MG TAB PO PRN ×2 (12:31→22:09)
[2020-04-22] MEDS: ACETAMINOPHEN 650 mg PER 20 mL UD PO PRN (12:31)
[2020-04-22 13:00] VITALS: BP 151/78
[2020-04-22 17:00] VITALS: BP 118/51
--- NOTE | 2020-04-22 20:00 | NUR ---
Opening Shift Note Assumed care of patient, awake and alert x2. Patient reoriented to situation and time, will continue to reorient patient as needed and throughout shift. Patient is on 15L/nonrebreather, SPO2: 94% at this time. Patient denies pain or shortness of breath at this time. Instructed on place of care and encouraged patient to call for assistance as needed, will continue to reinforce education as needed. Bed is locked in lowest position, side rails x 3 are up, call light is within reach, and bed alarm is on. Will continue care.
[2020-04-22 22:00] VITALS: BP 130/63
--- NOTE | 2020-04-23 00:58 | NUR ---
Notified Dr. Hernandez of AB Results Informed Dr. Hernandez of AB results. Orders for Decadron 4mg IV every 8 hours received with first dose to be give now. Order verified. Will carry out order as received. Addendum: 04/24/20 at 0013 by ENMANUEL LUJAN RN RN Wrong Date and Wrong Time Correct Date: 04-23-2020 Correct Time: 9294
--- NOTE | 2020-04-23 02:05 | NUR ---
Agitation Upon entering room patient was crying. This RN proceeded to ask patient what was wrong, patient stated "I need a stool softener." This RN attempted to reorient patient to person, place, time, and situation. Patient began yelling and stated "you never listen to me." Patient began ripping of nonrebreather and patient's oxygen saturation dropped into the low 70s. This RN and NATIONAL BUSINESS DIRECTOR attempted several times to place nonrebreather on patient and educate patient on the risks of hypoxia, patient kept ripping off nonrebreather. After reorienting patient several times, patient finally agreed to place nonrebreather back on. NATIONAL BUSINESS DIRECTOR is at the bedside for safety precautions. Patient's SPO2 is 90% via 15L nonrebreather. Patient currently has her head covered and is crying. Patient is visibly upset. Will marlon hospitalist.
--- NOTE | 2020-04-23 02:07 | NUR ---
Hospitalist Paged RE: Agitation Hospitalist paged regarding agitation. Awaiting call back.
--- NOTE | 2020-04-23 02:26 | NUR ---
Hospitalist Returned Call RE: Agitation Notified Dr. Krishnamurthy that patient keeps ripping off nonbreather and patient's oxygen saturation goes into the low 70s. MD Krishnamurthy also made aware that patient is currently crying and visibly upset. Orders received for Haldol 0.5mg IV Q6HRS PRN for agitation. Order read back and verified. Will carry out order as received. Addendum: 04/23/20 at 0444 by ENMANUEL LUJAN RN RN Hospitalist Returned Call RE: Agitation Notified Dr. Krishnamurthy that patient keeps ripping off nonrebreather and patient's oxygen saturation goes into the low 70s. MD Krishnamurthy also made aware that patient is currently crying and visibly upset. Orders received for Haldol 0.5mg IV Q6HRS PRN for agitation. Order read back and verified. Will carry out order as received.
[2020-04-23] MEDS: HALOPERIDOL LACTATE 5 MG/ML INJ VIAL IV PRN ×3 (02:34→21:34)
--- NOTE | 2020-04-23 04:40 | NUR ---
Patient Taking of Nonrebreather Upon entering room, patient had nonrebreather off with SPO2 in the low 80s. This RN placed nonrebreather 15L/min back on patient and encouraged patient to take deep breaths. SPO2 sustained between 88-89% on 15L/min nonrebreather. This RN placed 12L/min Oxymizer under 15L/min nonrebreather per RT's recommendation. Patient's SPO2 increased to 91%. Patient was reoriented to person, place, time, and situation. Will continue to reorient patient as needed and throughout shift. Bed is locked in lowest position, side rails x3 are up, call light is within reach, and bed alarm is on. Patient is currently on 12L/min Oxymizer with 15L/min nonrebreather, SPO2: is 91% at this time. Charge nurse made aware. Addendum: 04/23/20 at 0443 by ENMANUEL LUJAN RN RN Patient Taking off Nonrebreather Upon entering room, patient had nonrebreather off with SPO2 in the low 80s. This RN placed nonrebreather 15L/min back on patient and encouraged patient to take deep breaths. SPO2 sustained between 88-89% on 15L/min nonrebreather. This RN placed 12L/min Oxymizer under 15L/min nonrebreather per RT's recommendation. Patient's SPO2 increased to 91%. Patient was reoriented to person, place, time, and situation. Will continue to reorient patient as needed and throughout shift. Bed is locked in lowest position, side rails x3 are up, call light is within reach, and bed alarm is on. Patient is currently on 12L/min Oxymizer with 15L/min nonrebreather, SPO2: is 91% at this time. Charge nurse made aware.
--- NOTE | 2020-04-23 05:45 | NUR ---
Pt refused V/S @0500, RN was notified.
--- NOTE | 2020-04-23 05:45 | NUR ---
Awaiting Response from Dr. Hernandez Notified Dr. Hernandez that this RN obtained an order for Haldol 0.5mg every 6 hours as needed for agitation from hospitalist and administered Haldol 0.5mg due to patient ripping off nonrebreather and being visible agitated. No response has been received from Dr. Hernandez in regards to keeping the order or discontinuing it.
--- NOTE | 2020-04-23 06:08 | NUR ---
RT PAGED RT paged.
--- NOTE | 2020-04-23 06:10 | NUR ---
Spoke with RT regarding Oxygen Saturation Notified RT that patient's oxygen saturation is sustaining between 86-89% on 12L/min Oxymizer with 15L/min nonrebreather after patient removed her nonrebreather. RT recommends high flow for patient. Per RT she will be in to see the patient later today. Will notify Dr. Hernandez of RT's recommendations.
--- NOTE | 2020-04-23 06:15 | NUR ---
Dr. Hernandez Paged Dr. Hernandez paged regarding patient status. Awaiting call back.
--- NOTE | 2020-04-23 06:35 | NUR ---
Rounds Patient is laying in bed, eyes closed with even and unlabored respirations. Patient is on 12L/min Oxymizer with 15L/min nonrebreather, SPO2: 93% at this time. Sitter at the bedside for safety precautions.
[2020-04-23] MEDS: InsuLIN REG 1unit/0.01ml Soln (100units/ml) SC SCH ×4 (06:39→22:00)
[2020-04-23] MEDS: ACCU-CHEK COMFORT CURVE STRIP VI SCH ×3 (06:39→17:00)
[2020-04-23] MEDS: BUDESONIDE (INHALATION) 180 MCG IH IN SCH ×2 (06:59→22:00)
--- NOTE | 2020-04-23 06:59 | NUR ---
RESP MDI GIVEN BY RT. PT HAD POOR EFFORT. HR 91, RR 18, SPO2 93% ON 100% NRB 15L AND 15L OXYMIZER.PT IS ON CONTINUOUS POX WITH SITTER AT BEDSIDE. BS CLEAR AND DIMINISHED.
--- NOTE | 2020-04-23 07:10 | NUR ---
Closing Note Patient is laying in bed, eyes closed, with even and unlabored respirations. Patient is on 12L/min Oxymizer and 15L/min nonrebreather, SPO2: 91%. Sitter at the bedside for safety precautions. Patient care endorsed to Ran BRYANT. Ran BRYANT aware that this RN paged Dr. Hernandez to update on patient status and no response was received.
[2020-04-23] MEDS ORDERED: FUROSEMIDE 100 MG/10ML VIAL IV ONE ×2 (08:00→21:30)
--- NOTE | 2020-04-23 08:37 | NUR ---
INFORMED Hector KATHLEEN OF ABG RESULTS. NO NEW ORDERS RECEIVED.
[2020-04-23] MEDS: METOPROLOL SUCCINATE XL 50 MG TAB PO SCH (10:00)
[2020-04-23] MEDS: MAGNESIUM OXIDE 400 MG TAB PO SCH ×2 (10:00→21:34)
[2020-04-23] MEDS: RIVAROXABAN 10 MG TAB PO SCH (10:00)
[2020-04-23] MEDS: hydrOXYchloroQUINE SULFATE 200 MG TAB PO SCH (10:00)
[2020-04-23] MEDS: INSULIN LANTUS (GLARGINE) 1 /0.01ml (100units/ml) SC SCH ×2 (10:00→22:00)
[2020-04-23] MEDS: ALLOPURINOL 100 MG TAB PO SCH (10:00)
[2020-04-23] MEDS: CHOLECALCIFEROL (VITD3) 1,000UNIT=25mCg TAB PO SCH (10:00)
[2020-04-23] MEDS: PARoxetine 20 MG TAB PO SCH (10:00)
[2020-04-23] MEDS: ASCORBIC ACID 500 MG TAB PO SCH (10:00)
[2020-04-23] MEDS: sulfaSALAzine 500 MG TAB PO SCH (10:00)
[2020-04-23] MEDS: ZINC SULFATE 220mg CAP or TAB PO SCH (10:00)
[2020-04-23] MEDS: DOCUSATE SOD 100 MG CAP PO SCH (10:00)
[2020-04-23] MEDS: LISINOPRIL 10 MG TAB PO SCH (10:00)
--- NOTE | 2020-04-23 10:10 | NUR ---
REGARDING AGITATION: PATIENT EXTREMELY AGITATED, PULLING ON IVS AND NON REBREATHER MASK. OXYGEN SATURATIONS AT 85-88%. INFORMED M.Shira KATHLEEN PATIENT HAS ALREADY BEEN GIVEN ATIVAN AND CONTINUES TO BE ANXIOUS. RECIEVED NEW ORDERS. SEE EMAR.
[2020-04-23] MEDS ORDERED: LORazepam 2MG/ML-1ML VIAL ONE (10:18)
[2020-04-23] MEDS: LORazepam 2MG/ML-1ML VIAL IV PRN (10:22)
[2020-04-23] MEDS ORDERED: DONEPEZIL HYDROCHLORIDE 5 MG TAB PO ONE (11:45)
[2020-04-23] MEDS ORDERED: diphenhdrAMINE HCL 50 MG/1 ML VL IV PRN (11:45)
--- NOTE | 2020-04-23 11:45 | NUR ---
Hector KATHLEEN AT BEDSIDE. INFORMED OF PATIENTS HISTORY OF DEMENTIA. RECEIVED NEW ORDERS. SEE EMAR.
[2020-04-23] MEDS ORDERED: POTASSIUM CHL 20MEQ/100ML 100 ML IV ONE ×2 (12:00→21:30)
[2020-04-23 15:30] LABS: Basophils # (auto) 0 10 ^3/uL (0-0.2); Basophils % (auto) 0.5 % (0.0-2.0); Eosinophils # (auto) 0.1 10 ^3/uL (0-0.8); Eosinophils % (auto) 1.1 % (0.0-7.0); Hematocrit 33.4 % (36.0-46.0); Hemoglobin 10.7 g/dL (12.2-16.2); Lymphocytes % (auto) 18.3 % (10.0-50.0); Mean Corpuscular Hemoglobin 28.5 pg (28.0-32.0); Mean Corpuscular Hgb Conc. 32.1 g/dL (32.0-36.0); Mean Corpuscular Volume 88.6 fL (80.0-100.0); Monocytes # (auto) 0.8 10 ^3/uL (0-1.3); Monocytes % (auto) 13.8 % (0.0-12.0); Neutrophils # (auto) 3.7 10 ^3/uL (1.6-8.6); Neutrophils % (auto) 66.3 % (37.0-80.0); Platelet Count (auto) 229 10^3/uL (140-450); Red Blood Cells 3.77 10^6/uL (4.0-5.20); Red Cell Distribution Width 17.8 % (11.8-14.3); White Blood Cell 5.6 10^3/uL (4.4-10.8)
[2020-04-23 15:51] LABS: Albumin 2.7 g/dL (3.4-5.0); Calcium 8.9 mg/dL (8.5-10.1); Potassium 4.4 mmol/L (3.5-5.1)
[2020-04-23 15:54] LABS: BUN/Creatinine Ratio 33.3; Bilirubin, Total 0.4 mg/dL (0.2-1.0); Total Protein 7.2 g/dL (6.4-8.2)
[2020-04-23] MEDS: traMADol HCL 50 MG TAB PO PRN (17:07)
--- NOTE | 2020-04-23 18:30 | NUR ---
PATIENT PROVIDED FULL LINEN CHANGE. BARRIER CREAM APPLIED TO SACRAL AREA WITH OPTIFOAM PLACED. SKIN CLEAN DRY AND INTACT.
[2020-04-23] MEDS: DONEPEZIL HYDROCHLORIDE 5 MG TAB PO SCH (21:33)
[2020-04-23 22:00] VITALS: BP 112/65
--- NOTE | 2020-04-23 22:49 | NUR ---
Dr. Hernandez Notified of Increased Work of Breathing Dr. Hernandez made aware that patient was given Lasix 80mg IV x1 and potassium 20meq IV x1 per communication order due to oxygen desaturation at 2204. Dr. Hernandez informed that patient's respiration rate is 38 breaths/min with use of accessory muscles. Dr. Hernandez also made aware that patient's oxygen saturation is 92% at this time on 15L/min nonrebreather with 12L/min Oxymizer. Orders for STAT ABG received. Will carry out orders as received.
--- NOTE | 2020-04-23 22:50 | NUR ---
Dr. Hernandez Paged Dr. Hernandez paged. Left contact information with his exchange. Awaiting call back.
--- NOTE | 2020-04-23 22:51 | NUR ---
STAT ABG RT paged for STAT ABG.
--- NOTE | 2020-04-23 23:30 | NUR ---
Charge nurse made aware of patient status.
--- NOTE | 2020-04-23 23:58 | NUR ---
Notified Dr. Hernandez of ABG Results Informed Dr. Hernandez of ABG results. Orders for Decadron 4mg IV every 8 hours received with first dose to be give now. Order verified. Will carry out order as received.
[2020-04-24] VITALS (8 sets, daily range): BP systolic 93–142; BP diastolic 49–80
[2020-04-24] MEDS: ACCU-CHEK COMFORT CURVE STRIP VI SCH ×5 (00:14→21:39)
[2020-04-24] MEDS: DexAMETHasone SOD PHOS 4 MG/1ML SDV INJ IV SCH ×2 (00:22→07:05)
[2020-04-24] MEDS: ACETAMINOPHEN 650 mg PER 20 mL UD PO PRN (01:09)
--- NOTE | 2020-04-24 05:34 | NUR ---
Rounds: Increased Work of Breathing Patient's work of breathing is increasing. Patient's respiration rate at this time is 34 with subcostal retractions. Patient is on 15L/min nonrebreather with 12L/min Oxymizer, SPO2: 91%. This RN ordered a STAT ABG per protocol and messaged Dr. Hernandez regarding increased work of breathing. Awaiting response.
--- NOTE | 2020-04-24 06:10 | NUR ---
RT AT BEDSIDE RT at bedside drawing ABG's at this time.
--- NOTE | 2020-04-24 06:25 | NUR ---
Charge nurse notified of patient status.
[2020-04-24] MEDS: LORazepam 2MG/ML-1ML VIAL IV PRN ×2 (06:30→21:40)
--- NOTE | 2020-04-24 06:38 | NUR ---
ABG Results ABG results received. Will notify Dr. Hernandez.
[2020-04-24] MEDS: BUDESONIDE (INHALATION) 180 MCG IH IN SCH ×2 (06:41→22:00)
--- NOTE | 2020-04-24 06:41 | NUR ---
Respiratory note: PT ASLEEP. SPO2 96% ON 15L NON-REBREATHER, HR 89, RR 30, BS CLEAR/DIMINISHED BILATERALLY. PT GIVEN 2 PUFFS PULMICORT (360MCG) VIA MDI. NO ADVERSE EFFECTS NOTED. NO FURTHER RESPIRATORY INTERVENTION NOTED. CHARTING COMPLETE FROM OUTSIDE OF PT ROOM PER COVID-19 PRECAUTIONS/PROTOCOL. SITTER AT BEDSIDE.
[2020-04-24] MEDS: InsuLIN REG 1unit/0.01ml Soln (100units/ml) SC SCH ×4 (06:42→21:39)
--- NOTE | 2020-04-24 07:00 | NUR ---
RE: Increased Work of Breathing Dr. Hernandez notified of patient's ABG results and increased/worsening work of breathing with subcostal retractions. Orders received from Dr. Hernandez for pulmonary consult and have patient intubated. Will consult pulmonary consult STAT.
--- NOTE | 2020-04-24 07:20 | NUR ---
Opening Shift Note Assumed care of patient, awake and confused and pulling oxygen. Patients respirations are 38 with accessory muscle and abdominal muscle involvement paged Dr. Hernandez. Will continue to monitor for changes Q1hr and PRN.
--- NOTE | 2020-04-24 07:25 | NUR ---
Left Message on [facility] Consult placed STAT for pulmonary consult as ordered by Dr Hernandez. Called and left message on [facility] that per Dr. Hernandez he wants patient intubated. Left call back number and extension.
--- NOTE | 2020-04-24 07:35 | NUR ---
RT at Bedside RT at bedside assessing patient. Per RT he will talk with his director regarding patient status.
--- NOTE | 2020-04-24 08:00 | NUR ---
Respiratory note: PT PLACED ON HFNC 50L, 100% BY RT JUSTINO. WATER LEVEL ADEQUATE. SPO2 96%, HR 86, RR 30, BS CLEAR/DIMINISHED. WILL CONTINUE MONITORING PT.
--- NOTE | 2020-04-24 08:00 | NUR ---
Respiratory note: PATIENT PLACED ON HFNC PER DR. KATHLEEN'S ORDER. SHE REMAINS TACHYPNEIC BUT SPO2 HAS INCREASED TO 95%. SHE IS TOLERATING WELL, BUT SEEMS AGITATED OVERALL. WILL CONTINUE TO MONITOR.
--- NOTE | 2020-04-24 08:04 | NUR ---
Patient on High flow Patient placed on high flow, SPO2 91% at this time. Patient care endorsed to ANNETTE Heredia.
--- NOTE | 2020-04-24 08:40 | NUR ---
Orders Received From Dr. Hernandez Orders received from Dr. Hernandez: okay to access port and Lasix IV 40mg x1. Orders inputted. Endorsed patient care to Giovanna BRYANT.
[2020-04-24] MEDS ORDERED: FUROSEMIDE 40 MG/4 ML VIAL IV ONE (08:45)
[2020-04-24] MEDS: FUROSEMIDE 40 MG/4 ML VIAL IV SCH (09:00)
--- NOTE | 2020-04-24 09:09 | NUR ---
Spoke with Daughter Called and spoke with daughter Mimi. Updated Mimi on patient status and that per Dr. Hernandez he wants patient intubated. Per Mimi patient has a DNR that was signed several months ago. Explained to Mimi what DNR and DNI means and that we do not have a DNR form in our records. Per Mimi she is going to call her sisters and discuss whether or not she wants her mother intubated. Per Mimi she is going to call her sisters now and give us a call back as soon as possible.
--- NOTE | 2020-04-24 09:20 | NUR ---
PT DAUGHTER CALLED BACK SPOKE WITH PT DAUGHTER JOSE ALBERTO. PER DAUGHTER, PT DID NOT WANT TO BE INTUBATED SO THEY ARE WISHING PATIENT TO BE A DNR STATUS AND A DNI. PT FAMILY MEMBER EDUCATED WHAT THAT ENTAILS. PT DAUGHTER VERBALIZED UNDERSTANDING. PT IS NON VERBAL AND CONFUSED AT THIS TIME AND UNABLE TO DECIDE FOR HERSELF AT THIS TIME. ASKED HER REGARDING HIGH FLOW OXYGEN AND BIPAP, DAUGHTER CONFIRMED THOSE OPTIONS ARE OKAY. WILL INFORM PRIMARY ANNETTE PIERCE AND WILL INFORM DR. KATHLEEN.
--- NOTE | 2020-04-24 09:24 | NUR ---
DNR order placed in [facility]. Per Dr. Hernandez
[2020-04-24] MEDS: METOPROLOL SUCCINATE XL 50 MG TAB PO SCH (10:00)
[2020-04-24] MEDS: MAGNESIUM OXIDE 400 MG TAB PO SCH ×2 (10:00→21:38)
[2020-04-24] MEDS: sulfaSALAzine 500 MG TAB PO SCH (10:00)
[2020-04-24] MEDS: RIVAROXABAN 10 MG TAB PO SCH (10:00)
[2020-04-24] MEDS: ZINC SULFATE 220mg CAP or TAB PO SCH (10:00)
[2020-04-24] MEDS: DONEPEZIL HYDROCHLORIDE 5 MG TAB PO SCH ×2 (10:00→21:38)
[2020-04-24] MEDS: PARoxetine 20 MG TAB PO SCH (10:00)
[2020-04-24] MEDS: LISINOPRIL 10 MG TAB PO SCH (10:00)
[2020-04-24] MEDS: MEMANTINE HCL 5 MG TAB PO SCH (10:00)
[2020-04-24] MEDS: INSULIN LANTUS (GLARGINE) 1 /0.01ml (100units/ml) SC SCH ×2 (10:00→21:38)
[2020-04-24] MEDS: ALLOPURINOL 100 MG TAB PO SCH (10:00)
[2020-04-24] MEDS: CHOLECALCIFEROL (VITD3) 1,000UNIT=25mCg TAB PO SCH (10:00)
[2020-04-24] MEDS: POTASSIUM EFFERVESENT TAB 25 MEQ GT SCH (10:00)
[2020-04-24] MEDS: hydrOXYchloroQUINE SULFATE 200 MG TAB PO SCH (10:00)
[2020-04-24] MEDS: ASCORBIC ACID 500 MG TAB PO SCH (10:00)
[2020-04-24] MEDS: DOCUSATE SOD 100 MG CAP PO SCH (10:00)
--- NOTE | 2020-04-24 11:15 | NUR ---
Respiratory note: PT FLOW TITRATED FROM 50L, TO 45L, AND TITRATED FIO2 FROM 100%, TO 85%. PT TOLERATED CHANGE WELL. RN IS AWARE. CHARTING COMPLETE FROM OUTSIDE OF PT ROOM PER COVID-19 PRECAUTIONS/PROTOCOL.
--- NOTE | 2020-04-24 12:23 | NUR ---
Nutrition Followup Notes Wt: 94.3 kg unable to talk to pt as pt is COVID +ve. pt is currently on the [facility] soft diet with inadequate PO of < 50% x 4 per RN doc Est Energy needs: 7810-0435 kcals (17-20 kcal/kgBW), Est Protein needs: 76-86 gms/day (0.8-0.9 gm/kgBW) d/t pt with STG 4 CKF Will continue to monitor and reassess prn. LABS: BUN 48 H, CREAT 1.44 H, GLU 114 H, ALB 2.7 L. GI: Pt had 1 BM today per RN doc. BS: 13 mod risk. Refer to wound assessment report for full details. PES: 1) Increased nutrient needs aeb pt refusal of meals r/t pt with no PO intake 2) Obesity aeb 149% IBW and BMI of 31.9 kg/m2 r/t energy intake in excess of energy needs 3) Altered nutrition related lab values elev RFTs, low GFR, mild hypoalbuminemia r/t curret/chronic medical condition Comments Will continue to monitor PO status, skin status, pertinent labs and weight trends. Will f/u in 3-5 days. 1) Continue to closely monitor pt PO intake to meet at least 75% of meals. 2) continue current plan of care
--- NOTE | 2020-04-24 16:20 | NUR ---
Respiratory note: PT PLACED ON BIPAP DUE TO DESATURATIONS IN LOW 70'S. BIPAP 12/7 BUR 12 95% FIO2. PT TOLERATED CHANGE WELL. RN AT BEDSIDE. WILL ENDORSE PT STATUS TO NEW CAR GET READY MECHANIC.
--- NOTE | 2020-04-24 18:30 | NUR ---
TELE PT TRANSFER TO [facility] PT TRANSFERRED TO [facility] VIA BED WITH RN AND RT. PT ON OXYIMZER AND NONREBREATHER MASK. OXYGEN SATURATIONS 98%. PT ALERT TO SELF AND ABLE TO FOLLOW SIMPLE COMMANDS. PT MOANING WITH REPOSITIONING. WOUND CARE PHOTOS TAKEN OF SACRUM. PARTIAL LINEN CHANGE COMPLETE. PT CONNECTED TO BEDSIDE MONITOR, VS STABLE. PHYSICAL ASSESSMENT COMPLETE. BED LOCKED IN LOWEST POSITION, CALL LIGHT WITHIN REACH. SITTER AT BEDSIDE.
--- NOTE | 2020-04-24 19:27 | NUR ---
REPORT REPORT GIVEN TO ROSA BRYANT, CARE ENDORSED.
--- NOTE | 2020-04-24 19:50 | NUR ---
SHIFT OPENING NOTE RECEIVED PATIENT LAYING IN BED ON BIPAP. SLIGHTLY OPENS EYES TO NAME AND TOUCH. BIPAP 09/11, 95% FI02, POX 96%. SITTER AT BEDSIDE. WOOD CATH DRAINING YELLOW URINE TO GRAVITY. PHYSICAL ASSESSMENT COMPLETED, SEE INTERVENTIONS. UNABLE TO EDUCATE PATIENT AT THIS TIME DUE TO MENTAL STATUS. ON ISOLATION FOR COVID POSITIVE. WILL CLOSELY MONITOR.
--- NOTE | 2020-04-24 20:00 | NUR ---
SPOKE WITH FAMILY VIA TELEPHONE UPDATED THEM ON PATIENTS STATUS AND POC.
[2020-04-24] MEDS ORDERED: DOPamine 1600MCG/ML D5W 250 ML IV ONE (21:17)
[2020-04-24] MEDS: DOPamine 1600MCG/ML D5W 250 ML IV SCH (21:30)
[2020-04-24] MEDS: DexAMETHasone SOD PHOS 10MG/1ML VIAL INJ IV SCH (21:38)
[2020-04-25] VITALS (56 sets, daily range): BP systolic 90–144; BP diastolic 29–78
--- NOTE | 2020-04-25 02:30 | NUR ---
Respiratory note: FINAL BIPAP CHECK DONE. TITRATED FIO2 TO 70% PT TOLERATING WELL. NO DISTRESS NOTED. WILL ENDORSE PT'S CARE DAY RT.
--- NOTE | 2020-04-25 03:00 | NUR ---
ROUNDS PATIENT IS QUIETLY LAYING IN BED SLEEPING. NO SOB, DISTRESS OR PAIN NOTED. REMAINS ON BIPAP. SITTER AT BEDSIDE. WILL CONTINUE TO MONITOR.
[2020-04-25] MEDS: ACCU-CHEK COMFORT CURVE STRIP VI SCH ×4 (05:59→21:18)
[2020-04-25] MEDS: InsuLIN REG 1unit/0.01ml Soln (100units/ml) SC SCH ×4 (05:59→21:16)
[2020-04-25] MEDS: DexAMETHasone SOD PHOS 10MG/1ML VIAL INJ IV SCH ×3 (06:10→21:16)
--- NOTE | 2020-04-25 07:10 | NUR ---
END OF SHIFT REPORT GIVEN AND ARE ENDORSED TO ANDRÉS BRYANT.
--- NOTE | 2020-04-25 08:00 | NUR ---
OPENING Report received from Liliana MANTILLA RN. Care initiated and initial assessment complete.
[2020-04-25] MEDS: CHOLECALCIFEROL (VITD3) 1,000UNIT=25mCg TAB PO SCH (10:00)
[2020-04-25] MEDS: PARoxetine 20 MG TAB PO SCH (10:00)
[2020-04-25] MEDS: ZINC SULFATE 220mg CAP or TAB PO SCH (10:00)
[2020-04-25] MEDS: LISINOPRIL 10 MG TAB PO SCH (10:00)
[2020-04-25] MEDS: MEMANTINE HCL 5 MG TAB PO SCH (10:00)
[2020-04-25] MEDS: METOPROLOL SUCCINATE XL 50 MG TAB PO SCH (10:00)
[2020-04-25] MEDS: POTASSIUM EFFERVESENT TAB 25 MEQ GT SCH (10:00)
[2020-04-25] MEDS: RIVAROXABAN 10 MG TAB PO SCH (10:00)
[2020-04-25] MEDS: ALLOPURINOL 100 MG TAB PO SCH (10:00)
[2020-04-25] MEDS: DONEPEZIL HYDROCHLORIDE 5 MG TAB PO SCH ×2 (10:00→21:16)
[2020-04-25] MEDS: sulfaSALAzine 500 MG TAB PO SCH (10:00)
[2020-04-25] MEDS: ASCORBIC ACID 500 MG TAB PO SCH (10:00)
[2020-04-25] MEDS: hydrOXYchloroQUINE SULFATE 200 MG TAB PO SCH (10:00)
[2020-04-25] MEDS: MAGNESIUM OXIDE 400 MG TAB PO SCH ×2 (10:00→21:16)
--- NOTE | 2020-04-25 10:00 | NUR ---
WOUND CARE NOTE: IN TO SEE PATIENT AT THIS TIME PER WOUND CARE CONSULT REQUEST. PATIENT WAS NOTED UPON ASSESSMENT TO HAVE AN OPEN WOUND TO LEFT BUTTOCK. BEDSIDE NURSE PHOTOGRAPHED WOUND AT THAT TIME, WOUND CONSULT ORDERED. PATIENT WAS ADMITTED TO [facility] WITH DIAGNOSIS OF COVID 19, COPD EXACERBATION. CURRENT DIVYA SCORE IS 13. PATIENT ON BIPAP, DNR STATUS. PATIENT TURNED TO RIGHT SIDE. SHE IS NOTED TO HAVE MASD/INTERTRIGO TO SACRUM/BUTTOCKS, WITH SMALL OPEN SKIN TEARS TO LEFT BUTTOCK, ALL MEASURING 1 X 1 CM. ZGUARD, OPITFOAM GENTLE DRESSING APPLIED PER MD ORDER. NEW WOUND PHOTO TAKEN AT THIS TIME PER PROTOCOL. SKIN/WOUND CARE PLAN IMPLEMENTED. RECOMMEND: FREQUENT TURN SCHEDULE Q 2 HOURS, PRN CONDITION PERMITS, WITH PRESSURE REDISTRIBUTION USING PILLOWS/WEDGES, BID/PRN APPLICATION WITH ZGUARD, OPTIFOAM GENTLE SACRAL DRESSING, DIETARY CONSULT (FOLLOWING), SKIN/WOUND CARE PLAN, CONTINUED MONITORING BY WOUND CARE TEAM. Addendum: 04/25/20 at 1416 by Cyn Brown RN Amended: Links added.
[2020-04-25] MEDS: FUROSEMIDE 40 MG/4 ML VIAL IV SCH (10:26)
[2020-04-25] MEDS: DOCUSATE SOD 100 MG CAP PO SCH (10:27)
--- NOTE | 2020-04-25 10:40 | NUR ---
SPOKE TO FAMILY Updated daughter Stacy on patients status. Clarifying code status with daughter, she is reaching out to her sisters for input. Awaiting call back.
--- NOTE | 2020-04-25 10:54 | NUR ---
SPOKE TO FIDELIA REGARDING CODE STATUS Spoke to Stacy, patients daughter, she has clarified patient is full DNR, no drugs, no resuscitation measures of any kind, no intubation, and no pressure medications. Family does not want patient to has NG tube as well. Continue current care.
[2020-04-25] MEDS: INSULIN LANTUS (GLARGINE) 1 /0.01ml (100units/ml) SC SCH ×2 (11:12→21:17)
[2020-04-25] MEDS: DOPamine 1600MCG/ML D5W 250 ML IV SCH (11:39)
[2020-04-25] MEDS: BUDESONIDE (INHALATION) 180 MCG IH IN SCH ×2 (11:43→22:00)
[2020-04-25] MEDS: LORazepam 2MG/ML-1ML VIAL IV PRN ×2 (12:00→17:50)
--- NOTE | 2020-04-25 16:00 | NUR ---
BEDSIDE Dr. Hernandez bedside. New orders received and verified.
--- NOTE | 2020-04-25 17:00 | NUR ---
BEDSIDE Dr. Robledo bedside. Morning labs ordered.
--- NOTE | 2020-04-25 19:14 | NUR ---
HANDOFF Report given to Zulema BRYANT.
--- NOTE | 2020-04-25 19:16 | NUR ---
SPOKE TO MD Spoke to Dr. Hernandez and updated him on patients ABG results. No changes to be made at this time.
--- NOTE | 2020-04-25 19:40 | NUR ---
OPENING NOTE RECEIVED REPORT FROM ARIELLA RN. THIS IS A POSITIVE COVID PATIENT ON NOVEL RESPIRATORY ISOLATION.PATIENT IS CONNECTED TO CONTINUOUS BEDSIDE MONITORS. BIPAP 12/7, FIO2 65%. PATIENT UNABLE TO VERBALIZE NEEDS AT THIS TIME. PATIENT ABLE TO OPEN EYES BUT DOES NOT FOLLOW COMMANDS. WOOD CATH DRAINING YELLOW URINE TO GRAVITY. PHYSICAL ASSESSMENT COMPLETED, SEE INTERVENTIONS. UNABLE TO EDUCATE PATIENT AT THIS TIME DUE TO MENTAL STATUS. WILL CLOSELY MONITOR.
--- NOTE | 2020-04-25 19:48 | NUR ---
SPOKE WITH DR.SIVA YANE REGARDING PATIENT PULLING OFF CPAP AND ATTEMPTING TO REMOVE LINES. NEW ORDER RECEIVED FOR MEDSURG RESTRAINTS FOR PATIENT SAFETY. WILL CARRY OUT ORDER
[2020-04-26] VITALS (12 sets, daily range): BP systolic 116–157; BP diastolic 57–84
--- NOTE | 2020-04-26 00:10 | NUR ---
NONCOMPLIANCE PATIENT FOUND WITH BIPAP [facility] REMOVED AND TELE LEADS OFF. PATIENT BEGAN PULLING ON LINES AND TUBES. AFTER PROPER PPE DONNED, THIS RN ENTERED ROOM. PATIENT RESTLESS AND AGITATED. CALMLY SPOKE WITH PATIENT ABOUT IMPORTANCE OF LEAVING BIPAP MASK ON. PATIENT UNABLE TO COMPREHEND AT THIS TIME, CONTINUES TO TRY AND PULL OFF ALL MEDICAL EQUIPMENT. WILL MEDICATE PATIENT WITH ATIVAN TO HELP WITH ANXIETY. BIPAP PLACED BACK ON AND SOFT RESTRAINTS REAPPLIED AFTER ROM PERFORMED AND ORAL CARE DONE.
[2020-04-26] MEDS: LORazepam 2MG/ML-1ML VIAL IV PRN ×4 (00:13→20:58)
[2020-04-26] MEDS: DOPamine 1600MCG/ML D5W 250 ML IV SCH ×2 (01:48→11:34)
[2020-04-26 03:40] LABS: Basophils # (auto) 0 10 ^3/uL (0-0.2); Basophils % (auto) 0.1 % (0.0-2.0); Eosinophils # (auto) 0 10 ^3/uL (0-0.8); Hemoglobin 11.9 g/dL (12.2-16.2); Lymphocytes # (auto) 0.7 10 ^3/uL (0.4-5.4); Lymphocytes % (auto) 7.7 % (10.0-50.0); Mean Corpuscular Hemoglobin 28.7 pg (28.0-32.0); Mean Corpuscular Hgb Conc. 32.2 g/dL (32.0-36.0); Mean Corpuscular Volume 89.4 fL (80.0-100.0); Monocytes # (auto) 0.8 10 ^3/uL (0-1.3); Monocytes % (auto) 8.2 % (0.0-12.0); Neutrophils # (auto) 7.7 10 ^3/uL (1.6-8.6); Nucleated Red Blood Cells % 0.1 %; Platelet Count (auto) 295 10^3/uL (140-450); Red Blood Cells 4.14 10^6/uL (4.0-5.20); White Blood Cell 9.2 10^3/uL (4.4-10.8)
[2020-04-26 03:57] LABS: INR 1.26 (0.9-1.15)
[2020-04-26 03:59] LABS: Albumin 2.9 g/dL (3.4-5.0); Calcium 9.2 mg/dL (8.5-10.1); Potassium 4.5 mmol/L (3.5-5.1)
[2020-04-26 04:01] LABS: Bilirubin, Total 0.4 mg/dL (0.2-1.0); Total Protein 7.8 g/dL (6.4-8.2)
--- NOTE | 2020-04-26 04:29 | NUR ---
NONCOMPLIANCE PATIENT RESTLESS, PULLED OFF BIPAP MASK AND BEGAN DESATURATING TO LOW 80'S. THIS RN DONNED PROPER PPE AND ENTERED ROOM. PATIENT CRYING. WHEN ASKED IF PAIN, PATIENT DOES NOT ANSWER. PATIENT OUT OF RESTRAINTS. RE EDUCATED PATIENT ON THE IMPORTANCE OF LEAVING BIPAP ON. PATIENT CONFUSED AND UNABLE TO UNDERSTAND EDUCATION. PATIENT OFFERED WATER, PATIENT MOVING FACE AWAY. SOFT RESTRAINT REAPPLIED AFTER BIPAP PLACED BACK ON. PATIENT ATTEMPTING TO REMOVE RESTRAINTS AND PULL ON BIPAP TUBING. HELD PATIENTS HAND CALMLY SPOKE WITH PATIENT. PATIENT UNABLE TO COMPREHEND AT THIS TIME.
--- NOTE | 2020-04-26 06:00 | NUR ---
AM CARE PATIENT CLEANED USING CHG WIPES. NEW OPTIFOAM PLACED ON SACRUM WITH Z GUARD. LINENS CHANGED. SKIN REASSESSED AT THIS TIME. NO CHANGES SINCE START OF SHIFT.
[2020-04-26] MEDS: DexAMETHasone SOD PHOS 10MG/1ML VIAL INJ IV SCH ×3 (06:27→21:17)
[2020-04-26] MEDS: ACCU-CHEK COMFORT CURVE STRIP VI SCH ×4 (06:27→21:18)
--- NOTE | 2020-04-26 06:29 | NUR ---
PAGED REGARDING CRITICAL BUN AWAITING CALL BACK WITH ANY ORDERS
[2020-04-26] MEDS: InsuLIN REG 1unit/0.01ml Soln (100units/ml) SC SCH ×4 (06:31→21:18)
--- NOTE | 2020-04-26 07:32 | NUR ---
CLOSING PATIENT CONNECTED TO CONTINUOUS BEDSIDE MONITORS. BIPAP IN PLACE. SOFT WRIST RESTRAINTS IN PLACE. PATIENT ASSESSED THROUGHOUT SHIFT, PROVIDED WITH ROM, ORAL CARE/NUTRITION, CIRCULATORY ASSESSMENTS, POSITION CHANGES, QUICK RELEASES, AND HYGIENE. PATIENT REASSESSED FOR THE NEED OF RESTRAINTS, IT IS DETERMINED THAT PATIENT IS STILL A RISK OF HARMING SELF AND REMOVING MEDICAL EQUIPMENT. RESTRAINTS IN PLACE FOR PATIENT SAFETY. CALL LIGHT WITHIN REACH OF PATIENT. CARE ENDORSED TO AM SHIFT ANNETTE WEST. STILL AWAITING CALL BACK FROM REGARDING CRITICAL BUN LEVEL. ANNETTE WEST AWARE.
--- NOTE | 2020-04-26 08:00 | NUR ---
OPENING NOTE PT IN BED, RESTING. COMPLETE PHYSICAL ASSESSMENT UNDER INTERVENTIONS. PT CONNECTED TO BIPAP. WILL CONTINUE TO MONITOR.
[2020-04-26] MEDS: DONEPEZIL HYDROCHLORIDE 5 MG TAB PO SCH ×2 (09:28→21:17)
[2020-04-26] MEDS: sulfaSALAzine 500 MG TAB PO SCH (09:28)
[2020-04-26] MEDS: ZINC SULFATE 220mg CAP or TAB PO SCH (09:28)
[2020-04-26] MEDS: POTASSIUM EFFERVESENT TAB 25 MEQ GT SCH (09:28)
[2020-04-26] MEDS: MEMANTINE HCL 5 MG TAB PO SCH (09:29)
[2020-04-26] MEDS: DOCUSATE SOD 100 MG CAP PO SCH (09:29)
[2020-04-26] MEDS: MAGNESIUM OXIDE 400 MG TAB PO SCH ×2 (09:29→21:17)
[2020-04-26] MEDS: PARoxetine 20 MG TAB PO SCH (09:29)
[2020-04-26] MEDS: METOPROLOL SUCCINATE XL 50 MG TAB PO SCH (09:30)
[2020-04-26] MEDS: CHOLECALCIFEROL (VITD3) 1,000UNIT=25mCg TAB PO SCH (09:30)
[2020-04-26] MEDS: ASCORBIC ACID 500 MG TAB PO SCH (09:30)
[2020-04-26] MEDS: ALLOPURINOL 100 MG TAB PO SCH (09:31)
[2020-04-26] MEDS: RIVAROXABAN 10 MG TAB PO SCH (09:31)
[2020-04-26] MEDS: LISINOPRIL 10 MG TAB PO SCH (09:31)
[2020-04-26] MEDS: INSULIN LANTUS (GLARGINE) 1 /0.01ml (100units/ml) SC SCH ×2 (10:00→21:18)
[2020-04-26] MEDS: FUROSEMIDE 40 MG/4 ML VIAL IV SCH (10:01)
[2020-04-26] MEDS: BUDESONIDE (INHALATION) 180 MCG IH IN SCH ×2 (10:05→21:46)
--- NOTE | 2020-04-26 16:17 | NUR ---
PAGED REGARDING ORDERS AND FOR REQUIRED FORMS.
--- NOTE | 2020-04-26 19:02 | NUR ---
CARE ENDORSED PT APPEARS TO BE RESTING. AT THE MOMENT NO DISTRESS NOTED.
--- NOTE | 2020-04-26 19:20 | NUR ---
PAGED THROUGH PBX REGARDING: RENEWAL OF SOFT RESTRAINTS PATIENT STILL ATTEMPTING TO REMOVE BIPAP, TELE LEADS, IV LINES AND GOWN PATIENT IS CONFUSED, UNABLE TO UNDERSTAND EDUCATION PROVIDED WILL UPDATE
--- NOTE | 2020-04-26 19:35 | NUR ---
OPENING NOTE RECEIVED REPORT FROM ARIELLA RN. THIS IS A POSITIVE COVID PATIENT ON NOVEL RESPIRATORY ISOLATION.PATIENT IS CONNECTED TO CONTINUOUS BEDSIDE MONITORS. BIPAP 12/7, FIO2 65%. PATIENT UNABLE TO VERBALIZE NEEDS AT THIS TIME. PATIENT ABLE TO OPEN EYES BUT DOES NOT FOLLOW COMMANDS.PATIENT AGITATED, TRYING TO PUSH BIPAP MASK OFF. PATIENT UNABLE TO FOLLOW ANY COMMANDS AT THIS TIME. WOOD CATH DRAINING YELLOW URINE TO GRAVITY. PHYSICAL ASSESSMENT COMPLETED, SEE INTERVENTIONS. UNABLE TO EDUCATE PATIENT AT THIS TIME DUE TO MENTAL STATUS. WILL CLOSELY MONITOR.
--- NOTE | 2020-04-26 19:43 | NUR ---
RESTRAINT RENEWAL UPDATED ON PATIENT STATUS. PATIENT STILL ATTEMPTING TO REMOVE LINES, BIPAP AND ALL MEDICAL EQUIPMENT. PATIENT IS STILL A DANGER TO SELF. RECEIVED TELEPHONE ORDER TO RENEW SOFT RESTRAINTS.
--- NOTE | 2020-04-26 20:12 | NUR ---
PROVIDED WITH NOK NUMBER IN CHART FIDELIA ESCALERA MD AWARE TO UPDATE FAMILY.
--- NOTE | 2020-04-26 23:33 | NUR ---
RT TITRATED BIPAP DOWN TO 55% NEW MASK THAT GOES UNDER NOSE ALSO PLACED BY RT DUE TO REDNESS ON BRIDGE OF NOSE FROM PATIENT PULLING FACE UPWARDS.
--- NOTE | 2020-04-26 23:56 | NUR ---
RESTRAINT RELEASE RESTRAINTS RELEASE WHILE PATIENT IS CALM. WITHIN A FEW MINUTES, PATIENT BEGAN PULLING OFF BIPAP AND ATTEMPTING TO PULL PORTACATH AND TELE LEADS. PATIENT REORIENTED, OFFERED WATER, AND TALKED TO IN SOFT CALM VOICE. PATIENT KICKING LEGS AROUND AND NOT ABLE TO VERBALIZE NEEDS. RESTRAINTS REAPPLIED FOR PATIENT SAFETY AT THIS TIME. ORAL CARE DONE AND REPOSITIONING PERFORMED. CIRCULATION AND SKIN ASSESSED AT THIS TIME, NO CHANGES. WILL ATTEMPT TO RELEASE RESTRAINTS AGAIN ONCE PATIENT IS CALM AGAIN.
[2020-04-27] VITALS (8 sets, daily range): BP systolic 118–147; BP diastolic 52–108
--- NOTE | 2020-04-27 01:01 | NUR ---
BIPAP OFF THIS RN CAME BACK FROM LUNCH BREAK, PATIENT FOUND OUT OF SOFT RESTRAINTS WITH BIPAP MASK OFF AND KICKING LEGS OVER SIDE RAILS. SPO2 NOTED TO BE IN LOW 80'S. AFTER PROPER PPE DONNED THIS RN AND CCT ENTERED PATIENT ROOM. PATIENT PLACED BACK ON BIPAP AND SOFT RESTRAINTS REAPPLIED. CALMLY SPOKE WITH PATIENT, TRYING TO CALM PATIENT DOWN. PATIENT INCONSOLABLE AT THIS TIME. STAYED WITH PATIENT WHILE OXYGEN SATURATIONS INCREASED. SPO2 NOW AT 93%.
--- NOTE | 2020-04-27 02:00 | NUR ---
QUICK RELEASE RESTRAINT RELEASE, CIRCULATION/SENSATION/MOTION ASSESSED AT THIS TIME. PATIENT PROVIDED WITH ORAL CARE. RESTRAINTS REAPPLIED DUE TO PATIENT ATTEMPTING TO REMOVE BIPAP AND PULL LINES.
--- NOTE | 2020-04-27 02:30 | NUR ---
KICKING PATIENT KICKING LEGS THROUGH RAILS. PATIENT REPOSITIONED AT THIS TIME. PATIENT RESTLESS, ATTEMPTING TO PULL AT BIPAP AND GOWN. RESTRAINTS ASSESSED. CIRCULATION, ROM AND CMS ASSESSED. SKIN INTACT, NO CHANGES. ORAL CARE PROVIDED TO PATIENT AND BIPAP BACK IN PLACE.
--- NOTE | 2020-04-27 03:16 | NUR ---
DESATURATION/BIPAP OFF PATIENT WAS ABLE TO MANEUVER OUT OF RESTRAINT AND COMPLETELY REMOVE BIPAP. PATIENT DESATURATED INTO 70'S. AFTER PPE WAS DONNED, PATIENT WAS PLACED BACK ON BIPAP AND SPO2 WENT SLOWLY BACK UP TO 91-93%. PATIENT REASSESSED. CIRCULATION, MOTION, AND SENSATION INTACT. PATIENT REPOSITIONED. WILL CONTINUE TO MONITOR.
--- NOTE | 2020-04-27 04:00 | NUR ---
QUICK RELEASE CIRCULATION/MOTION/SENSATION ASSESSED, NO CHANGES. SKIN INTACT AROUND SOFT RESTRAINTS. PATIENT OFF RESTRAINTS FOR A FEW MINUTES BEFORE ATTEMPTING TO PULL OFF BIPAP MASK. PATIENT EDUCATED NOT TO TOUCH BIPAP MASK. PATIENT STILL CONFUSED, AGITATED AND UNABLE TO UNDERSTAND EDUCATION BEING PROVIDED. RESTRAINTS REAPPLIED FOR PATIENT SAFETY.
[2020-04-27] MEDS: DOPamine 1600MCG/ML D5W 250 ML IV SCH ×2 (05:58→20:15)
[2020-04-27] MEDS: DexAMETHasone SOD PHOS 10MG/1ML VIAL INJ IV SCH ×3 (06:00→21:28)
--- NOTE | 2020-04-27 06:00 | NUR ---
AM CARE/RESTRAINTS ASSESSMENT PATIENT GIVEN COMPLETE BED BATH AND LINEN CHANGE USING CHG WIPES. NEW GOWN PLACED ON PATIENT. WOUND CARE DONE USING WOUND CLEANSER TO SACRUM. Z GUARD AND OPTIFOAM PLACED. RESTRAINTS RELEASED FOR QUICK RELEASE, CIRCULATION ASSESSED, SKIN INTACT, ROM PERFORMED.
[2020-04-27] MEDS: BUDESONIDE (INHALATION) 0.5 MG/2 ML NEB NEB SCH ×2 (06:05→23:09)
--- NOTE | 2020-04-27 06:45 | NUR ---
WOOD PULLED OUT PATIENT RIPPED OUT WOOD CATHETER WITH BALLOON FULLY INTACT. PATIENT REMOVED RESTRAINT AND PULLED OUT WOOD. BY THE TIME THIS RN DONNED PPE AND ENTERED ROOM, WOOD WAS FOUND ON BED WITH BALLOON INTACT. ATTEMPTED TO START NEW WOOD. PATIENT WAS KICKING LEGS AROUND AND VERY AGITATED. UNABLE TO PLACE WOOD AT THIS TIME, WILL ENDORSE TO AM SHIFT RN. SOFT RESTRAINTS REAPPLIED FOR PATIENT SAFETY.
[2020-04-27] MEDS: ACCU-CHEK COMFORT CURVE STRIP VI SCH ×4 (07:01→21:31)
[2020-04-27] MEDS: InsuLIN REG 1unit/0.01ml Soln (100units/ml) SC SCH ×4 (07:02→21:33)
--- NOTE | 2020-04-27 07:19 | NUR ---
CLOSING PATIENT CONNECTED TO CONTINUOUS BEDSIDE MONITORS. BIPAP ON FIO2 65%. SOFT RESTRAINTS IN PLACE FOR PATIENT SAFETY. Q2H ASSESSMENTS DONE FOR RESTRAINTS. CIRCULATION, ROM, HYDRATION, REPOSITIONING, QUICK RELEASES, EDUCATION, REORIENTATION AND SKIN ASSESSMENTS DONE PER PROTOCOL. NO CHANGES IN SKIN NOTED. CARE ENDORSED TO ANNETTE WEST.
[2020-04-27] MEDS: POTASSIUM EFFERVESENT TAB 25 MEQ GT SCH (09:10)
[2020-04-27] MEDS: FUROSEMIDE 40 MG/4 ML VIAL IV SCH (09:11)
[2020-04-27] MEDS: ZINC SULFATE 220mg CAP or TAB PO SCH (09:11)
[2020-04-27] MEDS: MAGNESIUM OXIDE 400 MG TAB PO SCH ×2 (09:12→21:31)
[2020-04-27] MEDS: DONEPEZIL HYDROCHLORIDE 5 MG TAB PO SCH ×2 (09:12→21:28)
[2020-04-27] MEDS: MEMANTINE HCL 5 MG TAB PO SCH (09:12)
[2020-04-27] MEDS: DOCUSATE SOD 100 MG CAP PO SCH (09:12)
[2020-04-27] MEDS: sulfaSALAzine 500 MG TAB PO SCH (09:12)
[2020-04-27] MEDS: METOPROLOL SUCCINATE XL 50 MG TAB PO SCH (09:13)
[2020-04-27] MEDS: LISINOPRIL 10 MG TAB PO SCH (09:13)
[2020-04-27] MEDS: RIVAROXABAN 10 MG TAB PO SCH (09:13)
[2020-04-27] MEDS: ASCORBIC ACID 500 MG TAB PO SCH (09:13)
[2020-04-27] MEDS: CHOLECALCIFEROL (VITD3) 1,000UNIT=25mCg TAB PO SCH (09:13)
[2020-04-27] MEDS: PARoxetine 20 MG TAB PO SCH (09:13)
[2020-04-27] MEDS: ALLOPURINOL 100 MG TAB PO SCH (09:14)
[2020-04-27] MEDS: LORazepam 2MG/ML-1ML VIAL IV PRN ×2 (09:15→20:04)
[2020-04-27] MEDS: INSULIN LANTUS (GLARGINE) 1 /0.01ml (100units/ml) SC SCH ×2 (10:00→21:32)
--- NOTE | 2020-04-27 10:00 | NUR ---
Respiratory note: TOOK PT OFF BIPAP AND PLACED ON 10L OXYMIZER. PT TOLERATING OKAY POX AT 88-90%. RN AWARE OF CHANGES.
--- NOTE | 2020-04-27 11:53 | NUR ---
DAUGHTER CALLED UPDATE GIVEN, POC DISCUSSED. NO FURTHER QUESTIONS.
--- NOTE | 2020-04-27 13:03 | NUR ---
PT APPEARS TO BE RESTING BREATHING EVEN AND UNLABORED. NO DISTRESS, POX 92% ON OXYMIZER.
--- NOTE | 2020-04-27 18:50 | NUR ---
MD CALLED MONITOR EKG LEAD SHOWED CHANGE IN QRS. MD CALLED AND AWARE OF CHANGE AND PTS CODE STATUS. NO NEW ORDERS GIVEN.
--- NOTE | 2020-04-27 18:54 | NUR ---
FAMILY CALLED INFORMED OF CHANGE IN CONDITION. WILL COMMUNICATE WITH HEALTH AND WELLNESS MANAGER FOR VISITOR POLICY.
--- NOTE | 2020-04-27 19:30 | NUR ---
OPENING NOTE RECEIVED REPORT FROM ARIELLA BRYANT. THIS IS A POSITIVE COVID PATIENT ON NOVEL RESPIRATORY ISOLATION.PATIENT IS CONNECTED TO CONTINUOUS BEDSIDE MONITORS. OXYMIZER IS ON 15L WITH SPO2 BETWEEN 90-93%. PATIENT UNABLE TO VERBALIZE NEEDS AT THIS TIME. PATIENT ABLE TO OPEN EYES BUT DOES NOT FOLLOW COMMANDS.PATIENT AGITATED, KICKING LEGS AROUND AND PULLING ON ALL MEDICAL EQUIPMENT THAT SHE IS CONNECTED TO. PATIENT UNABLE TO FOLLOW ANY COMMANDS AT THIS TIME. WOOD CATH DRAINING YELLOW URINE TO GRAVITY. PHYSICAL ASSESSMENT COMPLETED, SEE INTERVENTIONS. NEW BRUISES NOTED TO PATIENTS LEFT MEAD AND FOOT WHERE PATIENT HAS BEEN KICKING SIDE RAILS. BARRIER PLACED IN BETWEEN SIDE RAIL AND PATIENT. UNABLE TO EDUCATE PATIENT AT THIS TIME DUE TO MENTAL STATUS. WILL CLOSELY MONITOR.
--- NOTE | 2020-04-27 19:32 | NUR ---
FAMILY CALLED AGAIN SPOKE WITH DAUGHTER AND INFORMED THAT SHE CAN COME AND SEE PATIENT. CHARGE NURSE AWARE AND FRONT OFFICE INFORMED.
--- NOTE | 2020-04-27 19:36 | NUR ---
CLOSING NOTE/ CARE ENDORSED STILL ON OXYMIZER. NO CHANGE TO VITAL SIGNS. CARE ENDORSED TO NOC RN.
--- NOTE | 2020-04-27 19:36 | NUR ---
PAGED THROUGH PBX REGARDING PATIENT STATUS AND RESTRAINT RENEWAL. CONNECTED TO EXCHANGE. LEFT MESSAGE WITH CALL BACK NUMBER AWAITING CALL BACK.
--- NOTE | 2020-04-27 19:45 | NUR ---
IV removal TO LEFT HAND. IV HALF WAY OUT. IV DC'd with clean sterile technique, catheter fully intact. Pressure dressing applied to site. Patient tolerated well.
--- NOTE | 2020-04-27 20:00 | NUR ---
UPDATE MD MD GARCIA UPDATED ON PATIENT STATUS. TELEPHONE ORDER RECEIVED FOR RESTRAINT RENEWAL. WILL FOLLOW PROTOCOL.
--- NOTE | 2020-04-27 21:55 | NUR ---
FAMILY FAMILY CAME TO SEE PATIENT. PATIENTS DAUGHTER DAQUAN AT BEDSIDE IN COMPLETE PPE.
--- NOTE | 2020-04-27 22:00 | NUR ---
RESTRAINTS ASSESSMENT PATIENT RESTRAINTS RELEASED AT THIS TIME. PATIENT IS SLEEPING CALMLY. NO SIGNS OF SELF HARM AT THIS TIME. SAFETY PRECAUTIONS IN PLACE. WILL CLOSELY MONITOR PATIENT FOR ANY PULLING OF LINES/TUBES/MEDICAL EQUIPMENT. WILL CONTINUE TO REASSESS NEED FOR RESTRAINTS.
[2020-04-28] VITALS (11 sets, daily range): BP systolic 112–134; BP diastolic 64–73
--- NOTE | 2020-04-28 | NUR ---
RESTRAINTS ASSESSMENT PATIENT STILL OFF OF RESTRAINTS. PATIENT SLEEPING CALMLY. NO SIGNS OF PULLING LINE OR TUBES. ORAL CARE DONE PATIENT REPOSITIONED. WILL CONTINUE TO ASSESS FOR NEED OF RESTRAINTS.
--- NOTE | 2020-04-28 02:00 | NUR ---
RESTRAINTS ASSESSMENT PATIENT NOT ON RESTRAINTS. PATIENT SLEEPING, NO PULLING AT LINES/TUBES AT THIS TIME. PATIENT DOES NOT NEED RESTRAINTS AT THIS TIME. WILL CONTINUE TO MONITOR PATIENT AND REASSESS THE NEED FOR RESTRAINT.
--- NOTE | 2020-04-28 04:00 | NUR ---
RESTRAINT ASSESSMENT PATIENT STILL OFF OF RESTRAINTS. PATIENT RESTING COMFORTABLY. WILL CONTINUE TO ASSESS SAFETY OF PATIENT.
--- NOTE | 2020-04-28 05:40 | NUR ---
Respiratory note: PT O2 ASSESSMENT DONE FROM DOOR DUE TO COVID-19 PRECAUTIONS. PT CURRENTLY ON 12LPM OXYMIZER POX 90-92%.
--- NOTE | 2020-04-28 06:03 | NUR ---
RESTRAINT ASSESSMENT PATIENT STILL OFF OF RESTRAINTS, NO NEED AT THIS TIME. PATIENT IS SLEEPING COMFORTABLY. WILL CONTINUE TO MONITOR.
[2020-04-28] MEDS: DexAMETHasone SOD PHOS 10MG/1ML VIAL INJ IV SCH ×3 (06:20→19:38)
[2020-04-28] MEDS: ACCU-CHEK COMFORT CURVE STRIP VI SCH ×4 (06:20→19:47)
[2020-04-28] MEDS: InsuLIN REG 1unit/0.01ml Soln (100units/ml) SC SCH ×4 (06:21→20:44)
--- NOTE | 2020-04-28 06:40 | NUR ---
AM CARE PATIENT PROVIDED WITH BED BATH AND LINEN/GOWN CHANGE. SKIN REASSESSED DURING THIS TIME, NO CHANGES NOTED.
--- NOTE | 2020-04-28 07:38 | NUR ---
CLOSING PATIENT IS CONNECTED TO CONTINUOUS BEDSIDE MONITORS, ON 15L OXYMIZER WITH SPO2 93%. PATIENT HAS BEEN OFF OF RESTRAINTS SINCE 0 LAST NIGHT. FREQUENT ORAL CARE PROVIDED TO PATIENT. CARE ENDORSED TO AM SHIFT ANNETTE HERNANDEZ.
--- NOTE | 2020-04-28 07:45 | NUR ---
OPENING SHIFT NOTE Received report from NOC RN, Zulema. Assumed care of patient. Received patient lying in bed, connected to bedside monitor with alarms in place. Patient remains unresponsive, with no s/s of distress noted. Patient in mittens bilaterally. Patient has been off of restraints since 2200 the previous shift. Patient currently on 15L Oxymizer with O2 sats in the low 90s. Patient with rectal tube in place with small amount of liquid brown stool in collection bag. He draining dark yellow/straw colored urine. Patient with azar cath accessed to right upper chest. Line flushes well and returns blood. See physical assessment. Bed in lowest position, rails x3 up and call light within reach. Will continue to monitor q1hr/PRN.
--- NOTE | 2020-04-28 08:30 | NUR ---
FAMILY Patient's daughter, Mimi called. Password verified. Updated on patient status. Addressed all questions at this time.
[2020-04-28] MEDS: ASCORBIC ACID 500 MG TAB PO SCH (10:00)
[2020-04-28] MEDS: MEMANTINE HCL 5 MG TAB PO SCH (10:00)
[2020-04-28] MEDS: RIVAROXABAN 10 MG TAB PO SCH (10:00)
[2020-04-28] MEDS: INSULIN LANTUS (GLARGINE) 1 /0.01ml (100units/ml) SC SCH ×2 (10:00→20:44)
[2020-04-28] MEDS: sulfaSALAzine 500 MG TAB PO SCH (10:00)
[2020-04-28] MEDS: METOPROLOL SUCCINATE XL 50 MG TAB PO SCH (10:00)
[2020-04-28] MEDS: LISINOPRIL 10 MG TAB PO SCH (10:00)
[2020-04-28] MEDS: POTASSIUM EFFERVESENT TAB 25 MEQ GT SCH (10:00)
[2020-04-28] MEDS: FUROSEMIDE 40 MG/4 ML VIAL IV SCH (10:00)
[2020-04-28] MEDS: DOCUSATE SOD 100 MG CAP PO SCH (10:00)
[2020-04-28] MEDS: PARoxetine 20 MG TAB PO SCH (10:00)
[2020-04-28] MEDS: DONEPEZIL HYDROCHLORIDE 5 MG TAB PO SCH ×2 (10:00→19:16)
[2020-04-28] MEDS: MAGNESIUM OXIDE 400 MG TAB PO SCH ×2 (10:00→19:15)
[2020-04-28] MEDS: ALLOPURINOL 100 MG TAB PO SCH (10:00)
[2020-04-28] MEDS: ZINC SULFATE 220mg CAP or TAB PO SCH (10:00)
[2020-04-28] MEDS: CHOLECALCIFEROL (VITD3) 1,000UNIT=25mCg TAB PO SCH (10:00)
[2020-04-28] MEDS: BUDESONIDE (INHALATION) 0.5 MG/2 ML NEB NEB SCH ×2 (10:15→22:01)
[2020-04-28] MEDS: DOPamine 1600MCG/ML D5W 250 ML IV SCH (10:24)
--- NOTE | 2020-04-28 11:00 | NUR ---
RESPIRATORY RT Christine paged. Patient desating to 70s on 15L Oxymizer with RR 40-50s. Patient with agonal breathing and abdominal muscle use. RT placed patient back on Bipap 09/11 at 70%. O2 sats returned to 94-95% after being on bipap for [address] Hernandez notified.
--- NOTE | 2020-04-28 11:00 | NUR ---
Respiratory note: PAGED TO BEDSIDE. PT NOT TOLERATING OXYMIZER, PT APPEARS TO HAVE INCREASED WOB COMBINED WITH DESATURATION. PT PLACED PT ON BIPAP B7, BIPAP CONNECTED TO RED OUTLET AND O2 SOURCE. ALARMS ARE SET AND AUDIBLE. AMBU BAG AND MASK AT BEDSIDE. REDNESS AROUND BRIDGE OF NOSE, NOTED PRIOR TO PLACEMENT. SATS INCREASED TO 90S. RN AWARE OF PLACEMENT.
--- NOTE | 2020-04-28 12:35 | NUR ---
Repositioned patient and medicated with insulin per sliding scale. Patient remains on Bipap. O2 sats 91% with RR 39. Will continue to monitor.
--- NOTE | 2020-04-28 14:00 | NUR ---
Respiratory note: BIPAP CHECK DONE FROM PTS DOOR DUE TO COVID PRECAUTIONS. NO CHANGES MADE AT THIS TIME. PT APPEARS COMFORTABLE. WILL CONTINUE TO MONITOR.
--- NOTE | 2020-04-28 14:09 | NUR ---
Nutrition Followup Notes Wt: 86.9 kg Unable to talk to pt as pt is COVID +ve. pt is currently on [facility] soft diet with inadequate PO of < 50% x 4 per RN doc Est Energy needs: 4759-7799 kcals (17-20 kcal/kgBW), Est Protein needs: 76-86 gms/day (0.8-0.9 gm/kgBW) d/t pt with STG 4 CKF Will continue to monitor and reassess prn. LABS: BUN 95 H CREAT 1.94 H GLU 152 H ALB 2.9 L GI: Pt had 75 ml BM today per RN doc. BS: 13 mod risk. Refer to wound assessment report for full details. PES: 1) Increased nutrient needs aeb pt refusal of meals r/t pt with no PO intake 2) Obesity aeb 149% IBW and BMI of 31.9 kg/m2 r/t energy intake in excess of energy needs 3) Altered nutrition related lab values elev RFTs, low GFR, mild hypoalbuminemia r/t curret/chronic medical condition Comments Will continue to monitor PO status, skin status, pertinent labs and weight trends. Will f/u in 3-5 days. 1) Consider ensure enlive 1 carton bid. 2) continue current plan of care
--- NOTE | 2020-04-28 17:30 | NUR ---
FAMILY Patient's daughter Mimi called. Password verified. Updated on patient status. All questions addressed.
--- NOTE | 2020-04-28 18:26 | NUR ---
MD Dr Robledo at bedside. Orders received.
--- NOTE | 2020-04-28 19:11 | NUR ---
END OF SHIFT NOTE Report given to NOC RNJaret. Endorsed care of patient. Patient remains on Bipap 12/ 70% with O2 sats 95%.
[2020-04-28] MEDS ORDERED: FUROSEMIDE 40 MG/4 ML VIAL IV ONE (22:00)
[2020-04-29 00:15] VITALS: BP 82/53
[2020-04-29 00:17] VITALS: BP 91/61
[2020-04-29 02:13] VITALS: BP 81/48
[2020-04-29 04:00] VITALS: BP_SYST 110; BP_SYST 71; BP_DIAS 34; BP_DIAS 45
[2020-04-29 04:32] LABS: Albumin 2.8 g/dL (3.4-5.0); BUN/Creatinine Ratio 38.7; Calcium 9.5 mg/dL (8.5-10.1)
[2020-04-29 04:34] LABS: Total Protein 7.9 g/dL (6.4-8.2)
[2020-04-29] MEDS: InsuLIN REG 1unit/0.01ml Soln (100units/ml) SC SCH (05:07)
[2020-04-29] MEDS: ACCU-CHEK COMFORT CURVE STRIP VI SCH (05:09)
[2020-04-29] MEDS: DexAMETHasone SOD PHOS 10MG/1ML VIAL INJ IV SCH (05:09)
[2020-04-29 05:46] VITALS: BP 100/34
[2020-04-29] MEDS: BUDESONIDE (INHALATION) 0.5 MG/2 ML NEB NEB SCH (05:46)
--- NOTE | 2020-04-29 07:15 | NUR ---
While receiving report from off going RN, Jaret, patient's HR dropped into the 60s with RR 7. No good wave form noted for pulse ox. Patient's daughter Mimi notified that mother was deteriorating and asked to come. At 0710 patient went into asystole. Dr Hernandez notified. forensic sergeant Harrison and HSS notified. hand hardener hospitalist paged to pronounce patient. Patient laid flat and Bipap removed.
--- NOTE | 2020-04-29 07:55 | NUR ---
Dr Krishnamurthy to pronounce patient time of [id number]
--- NOTE | 2020-04-29 08:05 | NUR ---
FAMILY Daughter, Mimi in waiting room to see patient. Daughter made aware of patient's passing. Allowed daughter time alone. HSS notified and given permission for family to see patient. Provided family with information of mortuaries.
--- NOTE | 2020-04-29 08:20 | NUR ---
Family at bedside. Per daughter Mimi, any personal belongings found can be thrown away. Family threw away previously bagged belongings while in room. Daughter states her mother's wishes were to be cremated. Daughter is leaving and will notify nursing of which facility they are choosing.
--- NOTE | 2020-04-29 08:32 | NUR ---
[facility] Body released from [facility]. Case # [id number]
--- NOTE | 2020-04-29 10:23 | NUR ---
Daughter called. Family has chosen [facility] [phone]. Still awaiting call and release from Business Services Vice President's Office.
--- NOTE | 2020-04-29 10:40 | NUR ---
Phone call from [employer] office. Spoke with Taurus Rasmussen. Patient's body is released. No case number given. States that no case number needed and that the mortuary will report to [employer].
--- NOTE | 2020-04-29 10:50 | NUR ---
Spoke to Leydi at [facility]. Patient to be picked up within 1-2hours.
--- NOTE | 2020-04-29 12:30 | NUR ---
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
== END 2020-04-29 12:34 | disposition expired | DRG 177 ==
LOC: EDBD 16:04 → ER 16:04 → TELE 16:05 → TELE-E-ADS 04-20 21:50 → DOU IN ICU 04-24 18:30
PROVIDERS: ADMIT Internal Medicine Cardiovascular Disease; ATTEND Internal Medicine Cardiovascular Disease
PROC: 5A09457 Assistance with Respiratory Ventilation, 24-96 Consecutive Hours, Continuous Positive Airway Pressure (ICD-10-PCS; 2020-04-24)
PROC: 5A09357 Assistance with Respiratory Ventilation, Less than 24 Consecutive Hours, Continuous Positive Airway Pressure (ICD-10-PCS; principal; 2020-04-28)
DX: U07.1 COVID-19 (principal); J12.89 Other viral pneumonia; J96.01 Acute respiratory failure with hypoxia; N17.0 Acute kidney failure with tubular necrosis; J98.11 Atelectasis; I13.0 Hypertensive heart and chronic kidney disease with heart failure and stage 1 through stage 4 chronic kidney disease, or unspecified chronic kidney disease; I43 Cardiomyopathy in diseases classified elsewhere; I50.32 Chronic diastolic (congestive) heart failure; J44.0 Chronic obstructive pulmonary disease with (acute) lower respiratory infection; N18.4 Chronic kidney disease, stage 4 (severe); E44.1 Mild protein-calorie malnutrition; J44.1 Chronic obstructive pulmonary disease with (acute) exacerbation; K21.9 Gastro-esophageal reflux disease without esophagitis; E66.9 Obesity, unspecified; E11.22 Type 2 diabetes mellitus with diabetic chronic kidney disease; I27.21 Secondary pulmonary arterial hypertension; I25.10 Atherosclerotic heart disease of native coronary artery without angina pectoris; Z79.4 Long term (current) use of insulin; Z79.899 Other long term (current) drug therapy; Z82.49 Family history of ischemic heart disease and other diseases of the circulatory system; Z83.3 Family history of diabetes mellitus; Z86.73 Personal history of transient ischemic attack (TIA), and cerebral infarction without residual deficits; Z90.710 Acquired absence of both cervix and uterus; Z79.01 Long term (current) use of anticoagulants; Z88.1 Allergy status to other antibiotic agents; Z88.8 Allergy status to other drugs, medicaments and biological substances; Z66 Do not resuscitate; Z68.30 Body mass index [BMI] 30.0-30.9, adult
CPT/HCPCS: 36415; 36600; 71045; 80053; 81001; 82728; 82805; 82962; 83615; 83735; 83880; 84484; 85025; 85379; 85610; 85730; 86141; 93005; 94640; 94660; 96361; 96365; 96367; G0378; J1100; J1815; J3480